=== PATIENT | male | born 1935 | race Caucasian/White ===

== ENCOUNTER 2019-05-06 13:28 | Outpatient (RCR) | payer MEDICARE, OTHER, SELFPAY ==
--- NOTE | 2019-05-07 07:39 | ONC CON_ITS ---
Dr. Mata New Patient Note Patient: Koby Franz Unit #: [id number]: 1935 Dicatated By: Greg Mata M.D.Date of Visit: May 06, 2019 Onc MED New Patient/Consult Referring Physician: JUAN DANIEL MACKAY, F.N.P. Chief Complaint: Thrombocytopenia. History of Present Illness: This is an 83-year-old man with a mild thrombocytopenia. 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 His other medical illnesses include hypertension, hyperlipidemia, hypothyroidism and degenerative arthritis. In February 2019 he was seen by Elida Ackerman at [facility] to establish primary care. At that time he was reportedly feeling well. His laboratory studies included CBC showing hemoglobin 13.7 g and hematocrit 43.5%. The red cell indices were normal. The white blood cell count was 4700. The platelet count was mildly decreased at 114,000. Comprehensive metabolic profile showed normal renal function with BUN 18 and creatinine 0.8 mg/dL. The bilirubin and liver enzymes were normal. TSH was normal at 3.15 ???IU/mL. I am asked to see him in regard to the low platelet count. In reviewing his records in [facility], there is a CBC from 12/31/2017 which showed borderline low hemoglobin at 12.8 g, white blood cell count 4300, and platelet count mildly decreased at 85,000. Comprehensive metabolic profile at that time was unremarkable except for a slightly elevated alkaline phosphatase level. Hip x-rays in March 2018 showed bilateral osteoarthritis involving each hip joint. Cervical spine CT in December 2017 showed significant degenerative changes but no associated central canal stenosis. He complains that he has been going downhill for at least the past several months. This seems to be related to a combination of aftereffects of his stroke and problems related to degenerative arthritis. He complains of having pain in his hips, knees, ankles and feet. He also complains that his legs are getting weak. He is still doing work activities at home, but he is having to force himself to remain active. Generally he has been feeling more tired. He says he has been eating like a horse. He has gained at least 25 pounds since his stroke. He has episodes of getting weak and feeling warm, which he attributes to persistent tick fever, though he has not actually documented fever. He does not have night sweating. He does not complain of shortness of breath, cough, or chest pain. He has no GI complaints other than he sometimes has constipation. He has urinary frequency and nocturia. He sees Dr. Martinez. He does not complain of headache or dizziness. He complains that his left hand has felt cold since his stroke, and he also has loss of touch sensation in the left hand. He has had easy bruising with the blood thinners for his stroke, but that has not been getting any worse. He has had no other bleeding manifestations. Past Medical History: His medical history includes degenerative arthritis/degenerative disease of the spine, hyperlipidemia, hypertension, hypothyroidism, possible asbestos exposure, vitamin D deficiency, and right hemispheric stroke in 2018. He has a history of melanoma excision, and he also reports having had tick fever. Past Surgical History: His surgical/procedural history includes bilateral carpal tunnel release, excision of melanoma from the back approximately 2010, hydrocele repair, partial amputation left second toe, rotator cuff repair left shoulder, rotator cuff repair right shoulder x 5, cataract excision left eye in 2018, and colonoscopy in 2013. Medications: amLODIPine Besylate 1 Tablet (of 5 mg) Oral daily, Aspirin 1 Tablet (of 325 mg) Oral daily, Hezftab-Jxexfepc-Iyuzamslkw-FA 1 Tablet Oral daily, Clopidogrel Bisulfate 1 Tablet (of 75 mg) Oral daily, Daily Mens Health Formula 1 Tablet Oral daily, E 1000 1 Capsule (of 1000 Units) Oral daily, Ferrous Sulfate 1 Tablet (of 325 (65 fe) mg) Oral daily, Levothyroxine Sodium 1 Tablet (of 25 mcg) Oral daily, Vitamin C 1 Capsule (of 500 mg) Oral daily Allergies: Influenza Virus Vaccine Split and predniSONE. Social History: Mr. Franz is and he is retired. He is a non-smoker. He drinks a glass of wine daily. Family History: Both parents of heart attack, father at age 67 and mother at age 71. A sister of heart attack at age 39. A brother with lupus and heart disease. Review Of Symptoms: Constitutional - His energy is low and he is weak, but he forces himself to continue work activities at home. Appetite is good and weight is stable. He feels feverish quite frequently. No fever or night sweats. ECOG score is 1, Eyes - He has had some decline in vision, ENMT - He has hearing loss. He has sinus congestion/drainage. He has sore mouth. He says he bites his liop constantly. No sore throat or difficulty swallowing, Hematologic/Lymphatic - He bruises easily, Respiratory - No shortness of breath. No cough. No pleuritic pain or hemoptysis, Cardiovascular - No angina pain. No palpitations, Gastrointestinal - No nausea or vomiting. No heartburn or acid reflux. He sometimes has constipation. No blood in the stool or black stools, Genitourinary (M) - No dysuria or hematuria. He has urinary frequency, both during the day and at night. No urgency or incontinence, Musculoskeletal - He has pain in his hips, knees, ankles, and feet, Integumentary - No skin complications, Neurologic - No headache or dizziness. His left hand feels cold and numb, Psychiatric - He has anxiety and he has some depression. He has difficulty sleeping. Vital Signs: Performed on May 06, 2019 13:59: 9, 24.08, 1.85 sq.m, 68 in, 96 %, 74 /min, 19 /min, 131/72 mm(hg), 98.0 F (LOW), and 158.4 lbs (HIGH). Physical Examination: Constitutional - He appears generally weak, but not acutely ill, Eyes - Sclerae nonicteric. Conjunctivae clear, ENMT - No lesions noted in the oral cavity, Neck - No mass or thyromegaly, Hematologic/Lymphatic - No cervical, clavicular, or axillary adenopathy, Respiratory - Lungs sound clear. He has good air movement bilaterally, Cardiovascular - Heart rhythm is regular. There is no murmur, gallop, or rub noted, Abdomen - Soft and non-tender. Liver and spleen are not enlarged. There is no abdominal mass or ascites noted and there is no inguinal adenopathy, Back/Spine - No spine or CVA tenderness noted, Extremities - No edema. Peripheral pulses are palpable in the upper and lower extremities bilaterally, Integumentary - No rashes. No suspicious skin lesions noted, Neurologic - He appears generally weak. He has poor mobility and he has postural instability. He does not appear to have any focal neurologic deficit. Impression: 1. Patient with mild thrombocytopenia. The cause/clinical significance is uncertain. Platelet clumping would have to first be excluded. Assuming it is not artifactual, other likely causes would be low-grade autoimmune thrombocytopenia or early stage myelodysplasia. Underlying liver disease would also be a possible cause, and there is a possibility that it is medication related (clopidogrel). 2. He has been showing gradual decline in performance status following a right hemispheric stroke in August 2017. His other medical illnesses include: 3. Hypertension. 4. Hyperlipidemia. 5. Hypothyroidism. 6. Degenerative arthritis/degenerative disease of the spine. 7. He has a history of melanoma excision from the back. 8. Anxiety/depression. Plan: The laboratory findings and clinical implications were reviewed with the patient and his . He will come in tomorrow for additional laboratory studies to include CBC, comprehensive metabolic profile, LDH level, sed rate and CRP level, JOSÉ LUIS screen, and B12 level. I will review the blood smear. He will have further evaluation as indicated. Signed By: Greg Mata M.D. <<Signature on File>>
== END 2019-05-29 23:59 | disposition home or self-care (01) ==
LOC: ONCMED 13:28
PROVIDERS: Family Provider Family Medicine; PCP Nurse Practitioner Family; Visit Provider Internal Medicine Medical Oncology
DX: D69.6 Thrombocytopenia, unspecified (principal); E03.9 Hypothyroidism, unspecified; M19.90 Unspecified osteoarthritis, unspecified site; I10 Essential (primary) hypertension; F41.8 Other specified anxiety disorders; Z77.090 Contact with and (suspected) exposure to asbestos; Z85.820 Personal history of malignant melanoma of skin; Z89.422 Acquired absence of other left toe(s); Z86.73 Personal history of transient ischemic attack (TIA), and cerebral infarction without residual deficits
CPT/HCPCS: 99204

== ENCOUNTER 2019-05-07 13:17 | Outpatient (RCR) | payer MEDICARE, OTHER, SELFPAY ==
[2019-05-07 14:22] LABS: Basophils % 0.2 %; Eosinophils # 0.2 10^3/uL (0.0-0.8); Eosinophils % 3.1 %; Hematocrit 40.1 % (42.0-52.0); Hemoglobin 12.9 g/dL (11.7-16.6); Lymphocytes # 1.1 10^3/uL (0.8-4.8); Lymphocytes % 23.1 %; Mean Corpuscular HGB Conc 32.2 g/dL (30.0-36.0); Mean Corpuscular Hemoglobin 29.7 pg (28.0-34.0); Mean Corpuscular Volume 92.2 fL (80-94); Mean Platelet Volume 12.9 fL (7.4-10.4); Monocytes # 0.5 10^3/uL (0.2-0.9); Monocytes % 10.2 %; Neutrophils # 3.1 10^3/uL (1.8-7.7); Neutrophils % 63.4 %; Nucleated Red Blood Cells % 0 %; Platelet Count 124 10^3/cmm (130-400); Red Blood Count 4.35 10^6/uL (4.1-5.3); Red Cell Distribution Width 12.3 % (12.1-15.1); White Blood Count 4.9 10^3/uL (4.0-10.0)
[2019-05-07 15:18] LABS: Alanine Aminotransferase 17 U/L (0-41); Albumin Level 4.5 g/dL (3.5-5.2); Alkaline Phosphatase 136 IU/L (40-130); Anion Gap 13.8 (5-19); Aspartate Amino Transferase 22 U/L (0-40); Blood Urea Nitrogen 15 mg/dL (8-23); Calcium 9.7 mg/Dl (8.8-10.2); Carbon Dioxide 27 mmol/L (22-29); Chloride 100 mmol/L (98-107); Globulin 2.7 g/dL (1.3-4.6); Glucose 121 mg/dL (74-106); Lactate Dehydrogenase 217 U/L (135-225); Potassium 3.8 mmol/L (3.5-5.1); Sodium 137 mmol/L (136-145); Total Bilirubin 0.7 mg/dL (0.15-1.2); Total Protein 7.2 g/dL (6.6-8.7); Vitamin B12 666 pg/mL (232-1245)
[2019-05-07 15:27] LABS: LAB Peripheral Smear Sent for Review
[2019-05-07 15:34] LABS: Erythrocyte Sedimentation Rate 15 mm/hr (0-10)
[2019-05-08 14:32] LABS: Anti-Nuclear Antibody Screen NEGATIVE (NEGATIVE)
== END 2019-05-29 23:59 | disposition home or self-care (01) ==
LOC: ONCMED 13:17
PROVIDERS: Family Provider Family Medicine; PCP Nurse Practitioner Family; Visit Provider Internal Medicine Medical Oncology
DX: D69.6 Thrombocytopenia, unspecified (principal); M25.50 Pain in unspecified joint
CPT/HCPCS: 80053; 82607; 83615; 85025; 85651; 86038

== ENCOUNTER 2019-07-20 08:46 | Day surgery (SDC) | payer MEDICARE, OTHER, SELFPAY ==
[2019-07-17 14:18] VITALS: BMI 24.3
[2019-07-20 09:10] VITALS: BP 138/80; PULSE 72; RESP 18; TEMP 36.1; O2SAT 96
[2019-07-20] MEDS: sodium chloride 0.9% 1,000 ML 30 ML IV (09:18)
--- NOTE | 2019-07-20 09:20 | W.PM.OPSUD ---
Surgery/Procedure H&P Update DATE OF PROCEDURE: July 20, 2019 DATE H&P PERFORMED: 07/16/19 PREOP DIAGNOSIS: c PLANNED PROCEDURE: Operation Date: 07/20/19 10:00 Proposed Procedures p Colonoscopy 98707 Z86.010(Not Applicable) - Donald Nelosn MD
--- NOTE | 2019-07-20 09:36 | ANES.PREANE2 ---
Pre-Anesthetic Assessment Pre-Anesthetic Assessment: Height/Weight: Height 1.73 m Weight 72.575 kg Temp Pulse Resp BP Pulse Ox 97 F L 72 18 138/80 96 07/20/19 09:10 07/20/19 09:10 07/20/19 09:10 07/20/19 09:10 07/20/19 09:10 Preop Diagnosis: colonoscopy Proposed Procedure: Operation Date: 07/20/19 10:00 Proposed Procedures p Colonoscopy 02430 Z86.010(Not Applicable) - Donald Nelson MD Familial anesthetic complications: none Was Beta Camron taken within 24 hours: N/A Last intake: Intake Last Liquid Date 07/19/19 Last Liquid Time 23:30 Last Solid Date 07/18/19 Last Solid Time 21:30 Social: Social History: Alcohol (2 drinks of wine per day) and No tobacco Exam: Pre-Anes Outpt Exam: alert, oriented x 3, clear to auscultation bilaterally and regular rate & rhythm Airway: Submandibular: WNL Cervical ROM: WNL MP: 1 Dentition: False (upper) and Partials (bottom) History/ROS: No significant complaints Pulmonary: Pulmonary: None reported CV/HEM: CV/HEM: HTN : : None reported Hepatic: Hepatic: None reported GI: GI: None reported Metabolic: Metabolic: Hyperlipidemia and Thyroid Musc/skel: Musc/skel: None reported Neuropsych: Neuropsych: CVA (left side 22 months ago) Anesthetic Plan: ASA status: 3 Anesthesia: MAC Risk of > 500 ml blood loss (7ml/kg in children): No Meds/Allergies Current Medications: Current Medications Generic Name Dose Route Start Last Admin Trade Name Freq PRN Reason Stop Dose Admin Sodium Chloride 1,000 mls @ 30 ml s/hr 07/20/19 09:00 07/20/19 09:18 Sodium Chloride 0.9% IV 30 mls/hr .Q24H TALIA Administration PFSH Anesthesia PFSH: Social History (Updated 07/17/19 @ 08:11 by ALBERTO Nick) Smoking and tobacco status: never smoked Alcohol intake: current Substance/Drug Use: unknown Adopted: No Caregiver/support person: No Lives independently: No Household members: spouse Marital status: Current occupational status: retired History of recent travel: No Data Anesthesia Cardiac Studies: No Data to Display
[2019-07-20 10:12] VITALS: BP 94/59; PULSE 80; RESP 16; TEMP 36.3; O2SAT 97
--- NOTE | 2019-07-20 10:16 | ANE.PACU2 ---
 Inpatient post-anesthesia follow up: Airway intact: Yes Vital signs: Temperature 97.4 F Pulse Rate 80 Respiratory Rate 16 Blood Pressure 94/59 Pulse Oximetry 97 Oxygen Delivery Me thod Room Air Oxygen Flow Rate Fraction of Inspir ed Oxygen Hydration adequate: Yes Nausea and vomiting: No Pain level: 1 Mental status: Baseline
[2019-07-20 10:54] VITALS: BP 111/85; PULSE 75; RESP 18; O2SAT 100
== END 2019-07-20 11:09 | disposition home or self-care (01) ==
PROVIDERS: Family Provider Family Medicine; PCP Nurse Practitioner Family; Visit Provider Internal Medicine
PROC: 0DJD8ZZ Inspection of Lower Intestinal Tract, Via Natural or Artificial Opening Endoscopic (ICD-10-PCS; CPT 45378; principal; 2019-07-20 10:00)
DX: Z86.010 Personal history of colon polyps (principal); K57.30 Diverticulosis of large intestine without perforation or abscess without bleeding; I10 Essential (primary) hypertension; E78.5 Hyperlipidemia, unspecified; Z86.73 Personal history of transient ischemic attack (TIA), and cerebral infarction without residual deficits
CPT/HCPCS: 12345; 45378; J2001; J2704; J7030

== ENCOUNTER 2019-09-22 08:54 | Outpatient (CLI) | payer MEDICARE, OTHER, SELFPAY ==
[2019-09-22 09:24] LABS: Basophils % 0.3 %; Eosinophils # 0.2 10^3/uL (0.0-0.8); Eosinophils % 5.6 %; Hematocrit 41.5 % (42.0-52.0); Hemoglobin 13.1 g/dL (11.7-16.6); Lymphocytes # 1.1 10^3/uL (0.8-4.8); Lymphocytes % 29.3 %; Mean Corpuscular HGB Conc 31.6 g/dL (30.0-36.0); Mean Corpuscular Hemoglobin 30.4 pg (28.0-34.0); Mean Corpuscular Volume 96.3 fL (80-94); Mean Platelet Volume 13.3 fL (7.4-10.4); Monocytes # 0.5 10^3/uL (0.2-0.9); Monocytes % 12.5 %; Nucleated Red Blood Cells % 0 %; Platelet Count 114 10^3/cmm (130-400); Red Blood Count 4.31 10^6/uL (4.1-5.3); Red Cell Distribution Width 12.1 % (12.1-15.1); White Blood Count 3.8 10^3/uL (4.0-10.0)
[2019-09-22 09:51] LABS: Alanine Aminotransferase 20 U/L (0-41); Albumin Level 4.3 g/dL (3.5-5.2); Alkaline Phosphatase 171 IU/L (40-130); Anion Gap 14.3 (5-19); Aspartate Amino Transferase 26 U/L (0-40); Blood Urea Nitrogen 18 mg/dL (8-23); Calcium 9.8 mg/dL (8.5-10.5); Carbon Dioxide 28 mmol/L (22-29); Chloride 104 mmol/L (98-107); Globulin 3.3 g/dL (1.3-4.6); Glucose 99 mg/dL (65-115); Iron 75 ug/dL (59-158); Lactate Dehydrogenase 248 U/L (135-225); Osmolality Calculated 291 mOsm/kg (285-295); Percent Saturation 26.6 % (20-50); Potassium 4.3 mmol/L (3.5-5.1); Sodium 142 mmol/L (136-145); Total Bilirubin 0.7 mg/dL (0.15-1.2); Total Iron Binding Capacity 281 mcg/dl; Total Protein 7.6 g/dL (6.6-8.7); Unsaturated Iron Binding 206 ug/dL (112-347)
[2019-09-22 10:17] LABS: LAB Peripheral Smear Sent for Review
== END 2019-09-22 08:55 | disposition home or self-care (01) ==
LOC: ONCMED 09:00
PROVIDERS: PCP Nurse Practitioner Family; Visit Provider Internal Medicine Medical Oncology
DX: D69.6 Thrombocytopenia, unspecified (principal); D50.9 Iron deficiency anemia, unspecified
CPT/HCPCS: 80053; 83540; 83550; 83615; 85025

== ENCOUNTER 2019-09-23 14:05 | Outpatient (CLI) | payer MEDICARE, OTHER, SELFPAY ==
--- NOTE | 2019-09-27 10:39 | ONC FU_ITS ---
Dr. Mata Patient Follow-Up Note Patient: Koby Franz Unit #: [id number]: 1935 Dicatated By: Greg Mata M.D.Date of Visit:September 23, 2019 Onc Med Follow-up/Prog Note Chief Complaint: Thrombocytopenia. History of Present Illness: This is an 84 year-old man with a mild thrombocytopenia. In February 2019 he was seen by Elida Ackerman at [facility] to establish primary care. At that time he was reportedly feeling well. His laboratory studies included CBC showing hemoglobin 13.7 g and hematocrit 43.5%. The red cell indices were normal. The white blood cell count was 4700. The platelet count was mildly decreased at 114,000. Comprehensive metabolic profile showed normal renal function with BUN 18 and creatinine 0.8 mg/dL. The bilirubin and liver enzymes were normal. TSH was normal at 3.15 ???IU/mL. I had initially seen him on 05/06/2019 in regard to the low platelet count. In reviewing his records in [facility], a CBC from 12/31/2017 had shown borderline low hemoglobin at 12.8 g, white blood cell count 4300, and platelet count mildly decreased at 85,000. Comprehensive metabolic profile at that time was unremarkable except for a slightly elevated alkaline phosphatase level. 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 Cervical spine CT in December 2017 showed significant degenerative changes but no associated central canal stenosis. His evaluation in April 2019 included CBC showing hemoglobin 12.9 g, white blood cell count 4900, and platelet count 124,000. Comprehensive metabolic profile was unremarkable except for slightly elevated alkaline phosphatase of 136/130 IU/L. B12 level was normal at 666 pg/mL. His sed rate was not elevated, and his JOSÉ LUIS screen was negative. As he was not symptomatic, I had initially opted to just follow on observation/expectant management. His other medical illnesses include hypertension, hyperlipidemia, hypothyroidism and degenerative arthritis. 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 He has a non-smoker. He is seen for a scheduled follow-up visit. Since his last visit he had undergone biopsy of a skin lesion in the right amish area. It apparently was skin cancer, and he is going to be having additional surgery. He complains that he is always tired, but he does work a lot around home. His ECOG score is 1. He has good appetite. He says he has been gaining weight, but by our scale he is down 5 pounds since April. He does not have fever or night sweats. He has had some pain in the left chest area following a recent fall. He has no shortness of breath or cough. He has no GI/ complaints other than some urinary frequency and nocturia. He has some generalized stiffness, but no other joint or bone pain. He does not complain of headache. He has some lightheadedness if he gets up too fast. He has had numbness in his left hand since his stroke. He does tend to bruise easily. He has had no other bleeding manifestations. Medications: amLODIPine Besylate 1 Tablet (of 5 mg) Oral daily, Aspirin 1 Tablet (of 325 mg) Oral daily, Cdkwlwi-Ouwmpvye-Empiavqhlm-FA 1 Tablet Oral daily, Clopidogrel Bisulfate 1 Tablet (of 75 mg) Oral daily, Daily Mens Health Formula 1 Tablet Oral daily, E 1000 1 Capsule (of 1000 Units) Oral daily Allergies: Influenza Virus Vaccine Split and predniSONE. Review of Systems: Constitutional - His activity function is slightly decreased, but he still does light work at home. Appetite is good. He is gaining weight. No fever, chills, hot flashes, or night sweats. ECOG score is 1, ENMT - No sinus congestion/drainage. He has mouth sores due to biting his mouth at night. No sore throat or difficulty swallowing, Hematologic/Lymphatic - He has easy bruising. No other bleeding, Respiratory - No shortness of breath. No cough. No pleuritic pain or hemoptysis, Cardiovascular - He has had some chest pain after a recent fall. No palpitations, Gastrointestinal - No nausea or vomiting. No heartburn or acid reflux. No diarrhea or constipation. No blood in the stool or black stools, Genitourinary (M) - No dysuria or hematuria. He urinary frequency and nocturia. No incontinence, Musculoskeletal - He has joint stiffness, Integumentary - No skin rashes, Neurologic - No headache or dizziness. He has had numbness/paresthesias in his left hand since his stroke. No other focal neurologic symptoms, Psychiatric - No anxiety or depression. No insomnia. Vital Signs: Performed on September 23, 2019 14:02 Height - 68.00 in Weight - 153.0 lbs (LOW) BSA - 1.82 sq.m BMI - 23.26 Temperature - 98.7 F Pulse - 69 /min Respiration - 20 /min BP - 142/80 mm(hg) (HIGH) O2 Sat - 95 % (LOW) Pain - 0 Physical Examination: Constitutional - He has poor mobilitiy. He does not appear acutely ill, Eyes - Sclerae nonicteric. Conjunctivae clear, ENMT - No lesions noted in the oral cavity, Hematologic/Lymphatic - No cervical, clavicular, or axillary adenopathy, Respiratory - Lungs sound clear with good air movement bilaterally, Cardiovascular - Heart rhythm is regular. There is no murmur, gallop, or rub noted, Abdomen - Soft. Liver and spleen are not enlarged. There is no abdominal mass or ascites noted and there is no inguinal adenopathy, Extremities - No edema, Neurologic - He has poor mobility and he has postural instability. There are no focal neurologic deficits noted. Lab/Imaging: CBC shows hemoglobin 13.1 g, white blood cell count 3800, and platelet count 114,000. The red cell indices are borderline macrocytic. Comprehensive metabolic profile is unremarkable except for elevated alkaline phosphatase of 171/130 IU/L. LDH is also mildly elevated at 248/225 U/L. Impression: 1. Patient with mild thrombocytopenia. With his other blood counts borderline low and with his alkaline phosphatase elevated, underlying liver disease/hypersplenism is a significant possibility. The other likely cause would be myelodysplasia. There is also a possibility that it is medication related (clopidogrel). 2. 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 His other medical illnesses include: 3. Hypertension. 4. Hyperlipidemia. 5. Hypothyroidism. 6. Degenerative arthritis/degenerative disease of the spine. 7. He has a history of melanoma excision from the back. 8. Anxiety/depression. Plan: He will be scheduled for abdominal CT scan to evaluate the liver and spleen. As he appears stable clinically, I will otherwise just follow on observation/expectant management. I will tentatively plan a follow-up visit in 3 months. Signed By: Greg Mata M.D. <<Signature on File>>
== END 2019-09-23 14:06 | disposition home or self-care (01) ==
PROVIDERS: PCP Nurse Practitioner Family; Visit Provider Internal Medicine Medical Oncology
DX: D69.6 Thrombocytopenia, unspecified (principal); I69.354 Hemiplegia and hemiparesis following cerebral infarction affecting left non-dominant side; I10 Essential (primary) hypertension; E78.5 Hyperlipidemia, unspecified; E03.9 Hypothyroidism, unspecified; M19.90 Unspecified osteoarthritis, unspecified site; M48.9 Spondylopathy, unspecified; Z85.820 Personal history of malignant melanoma of skin; F41.8 Other specified anxiety disorders; Z79.899 Other long term (current) drug therapy
CPT/HCPCS: 99214

== ENCOUNTER 2019-10-05 12:40 | Outpatient (CLI) | payer MEDICARE, OTHER, SELFPAY ==
--- NOTE | 2019-10-05 12:53 | CT_ITS ---
WS: [id number] CT ABDOMEN CONTRAST TECHNIQUE: Contrast enhanced CT of the abdomen with coronal and sagittal reformatted images. CLINICAL INFORMATION: THROMBOCYTOPENIA/ELEVATED LIVER ENZYMES COMPARISON: None. DLP: 331.[address] scans at [facility] use at least one of these dose optimization techniques: automat ed exposure control; mA and/or kV adjustment per patient size (includes targeted exams where dose is matched to clinical indication); or iterative reconstruction. FINDINGS: Mild diffuse fatty infiltration the liver. Splenic granulomas. Small esophageal hiatal hernia. Gallbl adder is normal. Emphysematous changes in the lung bases. Bibasilar atelectasis. Adrenal glands are n ormal. Normal renal parenchymal enhancement. No hydronephrosis. Mild fatty atrophy of the pancreas. Normal caliber abdominal aorta. Aortic calcification. Adrenal glands are normal. Disc space narrowing with vacuum disc phenomenon lumbar spine. Mild lumbar curve. CT/CT abdomen w con* [id number] IMPRESSION: 1. Mild diffuse fatty infiltration liver. Normal spleen. 2. Normal visualized gallbladder. 3. Normal bilateral renal parenchymal enhancement. No hydronephrosis. 4. Normal caliber abdominal aorta. Mild aortic calcification.
[2019-10-05] MEDS: iohexol 300 mg/mL 100 mL Btl IV (13:23)
== END 2019-10-05 12:41 | disposition home or self-care (01) ==
LOC: RAD 12:44
PROVIDERS: PCP Nurse Practitioner Family; Visit Provider Internal Medicine Medical Oncology
DX: R94.5 Abnormal results of liver function studies (principal); D69.6 Thrombocytopenia, unspecified; K76.0 Fatty (change of) liver, not elsewhere classified
CPT/HCPCS: 74160

== ENCOUNTER 2019-12-22 14:25 | Outpatient (CLI) | payer MEDICARE, OTHER, SELFPAY ==
[2019-12-22 14:55] LABS: Basophils % 0.3 %; Eosinophils # 0.2 10^3/uL (0.0-0.8); Eosinophils % 2.6 %; Hematocrit 41.1 % (42.0-52.0); Hemoglobin 13.1 g/dL (11.7-16.6); Lymphocytes # 1.2 10^3/uL (0.8-4.8); Lymphocytes % 20.8 %; Mean Corpuscular HGB Conc 31.9 g/dL (30.0-36.0); Mean Corpuscular Hemoglobin 30.5 pg (28.0-34.0); Mean Corpuscular Volume 95.8 fL (80-94); Mean Platelet Volume 12.7 fL (7.4-10.4); Monocytes # 0.6 10^3/uL (0.2-0.9); Neutrophils # 3.78 10^3/uL (1.8-7.7); Neutrophils % 66.1 %; Nucleated Red Blood Cells % 0 %; Platelet Count 109 10^3/cmm (130-400); Red Blood Count 4.29 10^6/uL (4.1-5.3); Red Cell Distribution Width 12.5 % (12.1-15.1); White Blood Count 5.7 10^3/uL (4.0-10.0)
[2019-12-22 15:23] LABS: Alanine Aminotransferase 18 U/L (0-41); Albumin Level 4.1 g/dL (3.5-5.2); Alkaline Phosphatase 143 IU/L (40-130); Anion Gap 13.5 (5-19); Aspartate Amino Transferase 26 U/L (0-40); Blood Urea Nitrogen 15 mg/dL (8-23); Calcium 9.2 mg/dL (8.5-10.5); Carbon Dioxide 27 mmol/L (22-29); Chloride 106 mmol/L (98-107); Globulin 3.2 g/dL (1.3-4.6); Glucose 92 mg/dL (65-115); Lactate Dehydrogenase 241 U/L (135-225); Osmolality Calculated 290 mOsm/kg (285-295); Potassium 4.5 mmol/L (3.5-5.1); Sodium 142 mmol/L (136-145); Total Bilirubin 0.8 mg/dL (0.15-1.2); Total Protein 7.3 g/dL (6.6-8.7)
== END 2019-12-22 14:26 | disposition home or self-care (01) ==
LOC: ONCMED 14:28
PROVIDERS: PCP Nurse Practitioner Family; Visit Provider Internal Medicine Medical Oncology
DX: D69.6 Thrombocytopenia, unspecified (principal)
CPT/HCPCS: 80053; 83615; 85025

== ENCOUNTER 2019-12-23 15:19 | Outpatient (CLI) | payer MEDICARE, OTHER, SELFPAY ==
--- NOTE | 2019-12-27 14:20 | ONC FU_ITS ---
Dr. Mata Patient Follow-Up Note Patient: Koby Franz Unit #: [id number]: 1935 Dicatated By: Greg Mata M.D.Date of Visit:Dec 23, 2019 Onc Med Follow-up/Prog Note Chief Complaint: Thrombocytopenia. History of Present Illness: This is an 84 year-old man with a mild thrombocytopenia. In February 2019 he was seen by Elida Ackerman at [facility] to establish primary care. At that time he was reportedly feeling well. His laboratory studies included CBC showing hemoglobin 13.7 g and hematocrit 43.5%. The red cell indices were normal. The white blood cell count was 4700. The platelet count was mildly decreased at 114,000. Comprehensive metabolic profile showed normal renal function with BUN 18 and creatinine 0.8 mg/dL. The bilirubin and liver enzymes were normal. TSH was normal at 3.15 ???IU/mL. I had initially seen him on 05/06/2019 in regard to the low platelet count. In reviewing his records in [facility], a CBC from 12/31/2017 had shown borderline low hemoglobin at 12.8 g, white blood cell count 4300, and platelet count mildly decreased at 85,000. Comprehensive metabolic profile at that time was unremarkable except for a slightly elevated alkaline phosphatase level. 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 Cervical spine CT in December 2017 showed significant degenerative changes but no associated central canal stenosis. His evaluation in April 2019 included CBC showing hemoglobin 12.9 g, white blood cell count 4900, and platelet count 124,000. Comprehensive metabolic profile was unremarkable except for slightly elevated alkaline phosphatase of 136/130 IU/L. B12 level was normal at 666 pg/mL. His sed rate was not elevated, and his JOSÉ LUIS screen was negative. As he was not symptomatic, I had initially opted to just follow on observation/expectant management. At his follow-up visit on 09/23/2019 he appeared stable clinically. His platelet count was just mildly decreased at 114,000. The white blood cell count was also a little low at 3800 and his alkaline phosphatase was slightly elevated at 171/130 IU/L. With those findings he had further evaluation with CT abdomen/pelvis on 10/05/2019. It showed just mild diffuse fatty infiltration of the liver. The spleen appeared normal. There are no other abnormal findings. He continued observation/expectant management. His other medical illnesses include hypertension, hyperlipidemia, hypothyroidism and degenerative arthritis. 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 He has a non-smoker. He is seen for a scheduled follow-up visit. He has been feeling pretty good generally. His main complaint is at the end of his tailbone feels raw, and it hurts where he sits. He also complains that he is losing weight. By our scale he is down 11 pounds since his visit in August, and he is down 15 pounds since April. His energy is pretty good, though he says he is having to push hard to get everything done. His ECOG score is 0. His appetite seems to be okay, though he really eats only one good meal a day. He sweats all day, that is associated with activity. He has no night sweating. He does not complain of shortness of breath or cough. He has had some pain in the left side of his chest associated with a recent fall. He does not complain of nausea or acid reflux. Bowel function seems to be adequate with a stool softener. He has urinary frequency and nocturia. He has pain in his knees, shoulders, and ankles. He does not complain of headache. He does have some lightheadedness. He has had numbness in his left hand since the stroke. Medications: amLODIPine Besylate 1 Tablet (of 5 mg) Oral daily, Aspirin 1 Tablet (of 325 mg) Oral daily, Vlozbao-Jbcbqvtg-Jhtfzvddtf-FA 1 Tablet Oral daily, Clopidogrel Bisulfate 1 Tablet (of 75 mg) Oral daily, Daily Mens Health Formula 1 Tablet Oral daily, E 1000 1 Capsule (of 1000 Units) Oral daily, Vitamin B + C Complex 1 Tablet Oral daily Allergies: Influenza Virus Vaccine Split and predniSONE. Review of Systems: Constitutional - He does light work outside. He has mostly normal activity. His appetite is poor, he usual only eats one meal daily. His weight is down 10 pounds from last visit. No fevers. He sweats alot during the day. No hot flashes. ECOG score is 1, ENMT - No sinus congestion/drainage. No mouth sores. No sore throat or difficulty swallowing, Hematologic/Lymphatic - He bruises and bleeds easily, Respiratory - No shortness of breath. No cough. No pleuritic pain or hemoptysis, Cardiovascular - No angina pain. No palpitations. He has some left sided chest wall pain from a recent fall, Gastrointestinal - No nausea or vomiting. No heartburn or acid reflux. No diarrhea. He has occasional constipation, he is taking stool softner's. No blood in the stool or black stools, Genitourinary (M) - No dysuria or hematuria. He has urinary frequency both day and night. No urgency or incontinence, Musculoskeletal - He has joint pain in his knee, shoulders and ankles, Integumentary - No skin complications, Neurologic - No headache or dizziness. He has numbness and weakness to his . No other focal neurologic symptoms, Psychiatric - No anxiety or depression. No insomnia. Vital Signs: Performed on Dec 23, 2019 15:16 Height - 68.00 in Weight - 143.0 lbs (LOW) BSA - 1.77 sq.m BMI - 21.74 Temperature - 98.4 F Pulse - 70 /min Respiration - 18 /min BP - 119/67 mm(hg) O2 Sat - 97 % Pain - 0 Physical Examination: Constitutional - He looks pretty good generally, though he has poor mobilitiy, Eyes - Sclerae nonicteric. Conjunctivae clear, ENMT - No lesions noted in the oral cavity, Hematologic/Lymphatic - No cervical, clavicular, or axillary adenopathy, Respiratory - Lungs sound clear with good air movement bilaterally, Cardiovascular - Heart rhythm is regular. There is no murmur, gallop, or rub noted, Abdomen - Soft. Liver and spleen are not enlarged. There is no abdominal mass or ascites noted and there is no inguinal adenopathy, Extremities - No edema, Neurologic - There are no focal neurologic deficits noted. Lab/Imaging: CBC shows hemoglobin 13.1 g, white blood cell count 5700, and platelet count 109,000. The red cell indices are slightly macrocytic. Comprehensive metabolic profile shows slightly elevated alkaline phosphatase of 143/130 IU/L. The bilirubin and other liver enzymes are normal. Impression: 1. Patient with mild thrombocytopenia. He also has had borderline low to mildly decreased white blood cell count. A specific cause has not been determined. nd with his alkaline phosphatase elevated, underlying liver disease/hypersplenism is a significant possibility. The other likely cause would be myelodysplasia. There is also a possibility that it is medication related (clopidogrel). 2. 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 His other medical illnesses include: 3. Hypertension. 4. Hyperlipidemia. 5. Hypothyroidism. 6. Degenerative arthritis/degenerative disease of the spine. 7. He has a history of melanoma excision from the back. 8. Anxiety/depression. He has mild thrombocytopenia and he has had borderline low to mildly decreased white blood cell count. His alkaline phosphatase has been mildly elevated, but he has CT abdomen/pelvis in September 2019 showed just mild fatty infiltration of the liver. The spleen appeared normal and there was no lymphadenopathy or other abnormality noted on that study. In the absence of significant underlying liver disease/hypersplenism, the most likely cause for the low blood counts would be myelodysplasia. Clopidogrel would be another possible cause, though much less likely. Thus far during follow-up his blood counts have basically remained stable. He has had significant weight loss. He otherwise appears stable clinically. Plan: He remains on observation/expectant management. I will tentatively plan a follow-up visit in 6 months. Signed By: Greg Mata M.D. <<Signature on File>>
== END 2019-12-23 15:20 | disposition home or self-care (01) ==
LOC: ONCMED 15:23
PROVIDERS: PCP Nurse Practitioner Family; Visit Provider Internal Medicine Medical Oncology
DX: D69.6 Thrombocytopenia, unspecified (principal); I10 Essential (primary) hypertension; E78.5 Hyperlipidemia, unspecified; E03.9 Hypothyroidism, unspecified; M19.90 Unspecified osteoarthritis, unspecified site; M47.9 Spondylosis, unspecified; F41.8 Other specified anxiety disorders; Z85.820 Personal history of malignant melanoma of skin; K76.0 Fatty (change of) liver, not elsewhere classified; R63.4 Abnormal weight loss; Z68.21 Body mass index [BMI] 21.0-21.9, adult
CPT/HCPCS: G0463

== ENCOUNTER 2020-06-29 11:34 | Outpatient (CLI) | payer MEDICARE, OTHER, SELFPAY ==
[2020-06-29 12:30] LABS: Basophils % 0.2 %; Eosinophils # 0.2 10^3/uL (0.0-0.8); Eosinophils % 3.5 %; Hematocrit 43.6 % (42.0-52.0); Hemoglobin 13.9 g/dL (11.7-16.6); Lymphocytes # 1.1 10^3/uL (0.8-4.8); Lymphocytes % 24.4 %; Mean Corpuscular HGB Conc 31.9 g/dL (30.0-36.0); Mean Corpuscular Hemoglobin 30.7 pg (28.0-34.0); Mean Corpuscular Volume 96.2 fL (80-94); Mean Platelet Volume 12.3 fL (7.4-10.4); Monocytes # 0.4 10^3/uL (0.2-0.9); Neutrophils # 2.64 10^3/uL (1.8-7.7); Neutrophils % 61.4 %; Nucleated Red Blood Cells % 0 %; Platelet Count 100 10^3/cmm (130-400); Red Blood Count 4.53 10^6/uL (4.1-5.3); Red Cell Distribution Width 12.3 % (12.1-15.1); White Blood Count 4.3 10^3/uL (4.0-10.0)
[2020-06-29 12:36] LABS: Alanine Aminotransferase 15 U/L (0-41); Albumin Level 4.4 g/dL (3.5-5.2); Alkaline Phosphatase 176 IU/L (40-130); Anion Gap 12.1 (5-19); Aspartate Amino Transferase 23 U/L (0-40); Blood Urea Nitrogen 17 mg/dL (8-23); Calcium 9.4 mg/dL (8.5-10.5); Carbon Dioxide 29 mmol/L (22-29); Chloride 103 mmol/L (98-107); Globulin 3.4 g/dL (1.3-4.6); Glucose 103 mg/dL (65-115); Lactate Dehydrogenase 230 U/L (135-225); Osmolality Calculated 292 mOsm/kg (285-295); Potassium 4.1 mmol/L (3.5-5.1); Sodium 140 mmol/L (136-145); Total Bilirubin 0.6 mg/dL (0.15-1.2); Total Protein 7.8 g/dL (6.6-8.7)
== END 2020-06-29 11:35 | disposition home or self-care (01) ==
PROVIDERS: PCP Nurse Practitioner Family; Visit Provider Internal Medicine Medical Oncology
DX: D69.6 Thrombocytopenia, unspecified (principal)
CPT/HCPCS: 80053; 83615; 85025

== ENCOUNTER 2020-07-06 06:05 | Outpatient (CLI) | payer MEDICARE, OTHER, SELFPAY ==
--- NOTE | 2020-07-10 14:45 | ONC FU_ITS ---
Dr. Mata Patient Follow-Up Note Patient: Koby Franz Unit #: [id number]: 1935 Dicatated By: Greg Mata M.D.Date of Visit:Jul 06, 2020 Onc Med Follow-up/Prog Note Chief Complaint: Thrombocytopenia. History of Present Illness: This is an 84 year-old man with a mild thrombocytopenia. In February 2019 he was seen by Elida Ackerman at [facility] to establish primary care. At that time he was reportedly feeling well. His laboratory studies included CBC showing hemoglobin 13.7 g and hematocrit 43.5%. The red cell indices were normal. The white blood cell count was 4700. The platelet count was mildly decreased at 114,000. Comprehensive metabolic profile showed normal renal function with BUN 18 and creatinine 0.8 mg/dL. The bilirubin and liver enzymes were normal. TSH was normal at 3.15 ???IU/mL. I had initially seen him on 05/06/2019 in regard to the low platelet count. In reviewing his records in [facility], a CBC from 12/31/2017 had shown borderline low hemoglobin at 12.8 g, white blood cell count 4300, and platelet count mildly decreased at 85,000. Comprehensive metabolic profile at that time was unremarkable except for a slightly elevated alkaline phosphatase level. 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 Cervical spine CT in December 2017 showed significant degenerative changes but no associated central canal stenosis. His evaluation in April 2019 included CBC showing hemoglobin 12.9 g, white blood cell count 4900, and platelet count 124,000. Comprehensive metabolic profile was unremarkable except for slightly elevated alkaline phosphatase of 136/130 IU/L. B12 level was normal at 666 pg/mL. His sed rate was not elevated, and his JOSÉ LUIS screen was negative. As he was not symptomatic, I had initially opted to just follow on observation/expectant management. At his follow-up visit on 09/23/2019 he appeared stable clinically. His platelet count was just mildly decreased at 114,000. The white blood cell count was also a little low at 3800 and his alkaline phosphatase was slightly elevated at 171/130 IU/L. With those findings he had further evaluation with CT abdomen/pelvis on 10/05/2019. It showed just mild diffuse fatty infiltration of the liver. The spleen appeared normal. There are no other abnormal findings. He continued observation/expectant management. His other medical illnesses include hypertension, hyperlipidemia, hypothyroidism and degenerative arthritis. 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 He has a non-smoker. He is seen for a scheduled follow-up visit. He complains that his energy is not worth a hoot. He attributes this to the stroke having knocked the sails out of him. His activity is also significantly limited due to his knee pain. However, he still does quite a bit of work at home. His ECOG score is 1. He has good appetite. He has no fever or night sweats. He does report some bruising, but that is not any worse, and he has had no other bleeding manifestations. He does not complain of shortness of breath, cough, or chest pain. He does, however, have a very strong family history for coronary artery disease. He has no GI complaints other than occasional indigestion. He has urinary frequency and nocturia. He also has pain in his right shoulder. He still has some slight weakness on the left side since his stroke. He complains that his left hand is cold all the time and he has numbness in his left foot. He is not having headache or dizziness. He has had some depression since his in April. Medications: amLODIPine Besylate 1 Tablet (of 5 mg) Oral daily, Aspirin 1 Tablet (of 325 mg) Oral daily, Ysaqukj-Dcrmfwoi-Dhnjromrrr-FA 1 Tablet Oral daily, Clopidogrel Bisulfate 1 Tablet (of 75 mg) Oral daily, Daily Mens Health Formula 1 Tablet Oral daily, E 1000 1 Capsule (of 1000 Units) Oral daily, Vitamin B + C Complex 1 Tablet Oral daily Allergies: Influenza Virus Vaccine Split and predniSONE. Vital Signs: Performed on Jul 06, 2020 15:18 Height - 68.00 in Weight - 156.4 lbs (HIGH) BSA - 1.84 sq.m BMI - 23.78 Temperature - 98.6 F Pulse - 80 /min Respiration - 18 /min BP - 148/82 mm(hg) (HIGH) O2 Sat - 97 % Pain - 0 Fatigue - 0 Physical Examination: Constitutional - He looks pretty good generally, Eyes - Sclerae nonicteric. Conjunctivae clear, ENMT - No lesions noted in the oral cavity, Hematologic/Lymphatic - No cervical, clavicular, or axillary adenopathy, Respiratory - Lungs sound clear with good air movement bilaterally, Cardiovascular - Heart rhythm is regular. There is no murmur, gallop, or rub noted, Abdomen - Soft. Liver and spleen are not enlarged. There is no abdominal mass or ascites noted and there is no inguinal adenopathy, Extremities - No edema, Neurologic - He has poor mobility, but he is not appear to have any focal neurologic deficit. Lab/Imaging: Test performed on Jun 29, 2020 11:52 LDH (Total) 230 U/L Sodium 140 mmol/L Potassium 4.1 mmol/L Chloride 103 mmol/L CO2 29 mmol/L Anion Gap 12.1 BUN 17 mg/dL Creatinine 0.8 mg/dL Cr Clearance (Est) 63.06 mL/min Glucose 103 mg/dL Osmolality - Calculated 292 mOsm/kg Calcium 9.4 mg/dL Protein, Total 7.8 g/dL Albumin 4.4 g/dL Globulin 3.4 g/dL Bilirubin, Total 0.6 mg/dL ALT (SGPT) 15 U/L AST (SGOT) 23 U/L Alkaline Phosphatase 176 IU/L WBC 4.3 10 3/uL RBC 4.53 10 6/uL HGB 13.9 g/dL HCT 43.6 % MCV 96.2 fL MCH 30.7 pg MCHC 31.9 g/dL RDW 12.3 % Platelet Count 100 10 3/cmm MPV 12.3 fL Neutrophils 2.64 10 3/uL Lymphocytes 1.1 10 3/uL Monocytes 0.4 10 3/uL Eosinophils 0.2 10 3/uL Basophils 0.0 10 3/uL Neutrophil % 61.4 % Lymphocyte % 24.4 % Monocyte % 10.0 % Eosinophil % 3.5 % Basophils % 0.2 % NRBC % 0 % Problem List: 1. Patient with mild thrombocytopenia and mildly decreased white blood cell count of uncertain etiology. 2. 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 3. Hypertension. 4. Hyperlipidemia. 5. Hypothyroidism. 6. Degenerative arthritis/degenerative disease of the spine. 7. He has a history of melanoma excision from the back. 8. Anxiety/depression. Problems Addressed with this Encounter and Plan: 1. Patient with mild thrombocytopenia. He also had borderline low to mildly decreased white blood cell count. Liver disease/hypersplenism or myelodysplasia appeared to be the most likely possibilities. His CT abdomen/pelvis in September 2019 showed just mild fatty infiltration of the liver, and the spleen appeared normal. As his blood counts have been just mildly decreased, I have opted to follow him on observation/expectant management. Thus far during follow-up he has been stable. I will see him again in 6 months. 2. He suffered a right hemispheric stroke in August 2017 and he also has a strong family history of coronary artery disease. Has he has not been on any statin therapy, I will check a lipid profile with his next visit. Signed By: Greg Mata M.D. <<Signature on File>>
== END 2020-07-06 06:06 | disposition home or self-care (01) ==
LOC: ONCMED 06:08
PROVIDERS: PCP Nurse Practitioner Family; Visit Provider Internal Medicine Medical Oncology
DX: D69.6 Thrombocytopenia, unspecified (principal); K76.0 Fatty (change of) liver, not elsewhere classified; D72.819 Decreased white blood cell count, unspecified; Z86.73 Personal history of transient ischemic attack (TIA), and cerebral infarction without residual deficits
CPT/HCPCS: 99214

== ENCOUNTER 2020-12-02 05:55 | Emergency (ER) | payer MEDICARE, OTHER, SELFPAY ==
[2020-12-02] VITALS (8 sets, daily range): BP systolic 140–187; BP diastolic 84–127; PULSE 54–73; RESP 18–20; TEMP 36.8; O2SAT 97–98; BMI 23.7
--- NOTE | 2020-12-02 06:08 | XRR_ITS ---
PROCEDURE INFORMATION: Exam: XR Chest Exam date and time: 12/02/2020 6:08 AM Age: 85 years old Clinical indication: Chest pressure; Patient HX: Left sided chest pain TECHNIQUE: Imaging protocol: XR of the chest. Views: 1 view. COMPARISON: [facility] Chest 2 views 05/19/2018 12:29 PM FINDINGS: Lungs: Low lung volumes. There is a patchy airspace opacity in the left lower lung, concerning for pneumonia. Pleural spaces: Unremarkable. No pleural effusion. No pneumothorax. Heart/Mediastinum: Stable cardiomediastinal silhouette. Bones/joints: Degenerative changes of the spine and shoulder joints noted. XR/XR chest 1V portable [id number] IMPRESSION: Imaging findings concerning for left lower lobe pneumonia.
--- NOTE | 2020-12-02 06:09 | ECG_ITS ---
[facility] ED Test Date: 2020-12-02 Pat Name: Koby Franz Department: Room: Gender: Male Returned Goods Sorter: : 1935 Requested By: Eh Gates Order Number: [id number] Diego MD: Sugey Montejo M.D. Measurements Intervals [facility] Rate: 66 P: 41 WA: 175 QRS: 5 QRSD: 84 T: 73 QT: 422 QTc: 445 Interpretive Statements SINUS RHYTHM NONSPECIFIC T-WAVE ABNORMALITY No previous ECG available for comparison Electronically Signed On 12-02-2020 13:52:19 CDT by Sugey Montejo M.D. [id number]
--- NOTE | 2020-12-02 06:12 | ED_ITS ---
HPI - Chest Pain General: Chief Complaint: Chest Pain Stated Complaint: CP Time Seen by Provider: 12/02/20 06:08 History of Present Illness: HPI narrative: 85-year-old male presents emergency room complaining of chest pain that began this morning around 0130 AM. Woke him up from sleep. Pain is in the left side of his chest is not relieved by eructation. Its been increasing in severity there is no radiation he does feel like it is difficult to take a deep breath. He has noted that deep breathing significantly worsens the discomfort has not had any vomiting he has felt somewhat diaphoretic. He has no known history of coronary artery disease no previous evaluation for stress test or angiogram. He is not diabetic. He is a non-smoker. MD complaint: chest pain and chest heaviness Onset (ago): hour(s) Timing of current episode: episodic Onset: during rest Pain location: substernal Pain radiation: none Severity: moderate Quality: sharp Relieving factors: nothing Exacerbating factors: nothing Associated symptoms: Reports abdominal pain, dyspnea, nausea and sense of impending doom; Deny diaphoresis, fever(s), leg edema, palpitations, syncope or vomiting Treatment prior to arrival: none Review of Systems Const: Denies: fever(s) or diaphoresis ENMT: Denies: throat pain, ear or mastoid pain, nasal discharge or nasal congestion Card: Denies: palpitations or syncope Resp: Reports: dyspnea GI: Reports: abdominal pain and nausea; Denies: vomiting : Denies: flank pain, dysuria, urinary frequency or urinary urgency Skin/Breast: Denies: rash or pruritus PFSH ED PFSH: Medical History Elevated PSA Erectile dysfunction Testicular pain, left Surgical History S/P repair of hydrocele Family History Father , at age 77 Myocardial infarct Mother , at age 79 Myocardial infarct Social History Smoking and tobacco status: never smoked Alcohol intake: current Alcohol intake frequency: 0-2 Drinks per Day Adopted: No Caregiver/support person: No Lives independently: No Household members: spouse Marital status: Current occupational status: retired History of recent travel: No Physical Exam Const: COMMON NORMALS: no acute distress GENERAL APPEARANCE: cooperative and comfortable ORIENTATION/CONSCIOUSNESS: Yes awake, Yes oriented to person, Yes oriented to place and Yes oriented to time HENMT: COMMON NORMALS: normocephalic, atraumatic and hearing grossly normal bilaterally HEAD & SCALP: normocephalic and atraumatic Resp: COMMON NORMALS: normal respiratory effort, No retractions, No use of accessory muscles and clear to auscultation bilaterally AUSCULTATION: clear to auscultation bilaterally Cardio: COMMON NORMALS: regular rate, regular rhythm and No murmurs present ( Cardio) RATE: regular rate RHYTHM: regular rhythm GI: COMMON NORMALS: Soft to palpation and No hepatosplenomegaly present AUSCULTATION: Yes normoactive bowel sounds PALPATION: Yes Soft to palpation, No Tenderness to palpation present (GI), No Guarding due to palpation present (GI) and Yes No hepatosplenomegaly present Extremity: COMMON NORMALS: normal to inspection, capillary refill normal, no clubbing, cyanosis or edema, no calf tenderness and no pedal edema Neuro: SENSORIUM/ORIENTATION: Yes oriented to person, Yes oriented to place and Yes oriented to time Skin: COMMON NORMALS: no rashes or lesions noted GENERAL SKIN EXAM: no rashes or lesions noted Course Vital Signs: Vital signs: Vital Signs Temperature 98.2 F 12/02/20 05:56 Pulse Rate 67 12/02/20 11:12 Respiratory Rate 18 12/02/20 11:12 Blood Pressure 151/84 12/02/20 11:12 Pulse Oximetry 98 12/02/20 10:22 MDM - Chest Pain MDM Narrative: Medical decision making narrative: Patient is feeling better he does have a pneumonia. Laboratory tests EKGs and cardiac enzymes reviewed patient prefer to go home we will treat with oral antibiotics if his further problems return. His chest pain is very pleuritic in nature. Lab Data: Labs: Lab Results 12/02/20 12/02/20 12/02/20 Range/Units 06:00 06:00 06:00 WBC 3.8 L (4.0-10.0) 10^3/ uL RBC 4.51 (4.1-5.3) 10^6/u L Hgb 14.0 (11.7-16.6) g/dL Hct 43.3 (42.0-52.0) % MCV 96.0 H (80-94) fL MCH 31.0 (28.0-34.0) pg MCHC 32.3 (30.0-36.0) g/dL RDW 12.4 (12.1-15.1) % Plt Count 90 L (130-400) 10^3/c mm MPV 13.0 H (7.4-10.4) fL Neut % (Auto) 45.1 % Lymph % (Auto) 34.1 % Mcminn % (Auto) 12.1 % Eos % (Auto) 8.1 % Baso % (Auto) 0.3 % Neut # (Auto) 1.72 L (1.8-7.7) 10^3/u L Lymph # (Auto) 1.3 (0.8-4.8) 10^3/u L Mcminn # (Auto) 0.5 (0.2-0.9) 10^3/u L Eos # (Auto) 0.3 (0.0-0.8) 10^3/u L Baso # (Auto) 0.0 (0.0-0.1) 10^3/u L Nucleated RBC % (a uto) 0 % Nucleated RBCs # 0.0 /100WBC Sodium 140 (136-145) mmol/L Potassium 3.9 (3.5-5.1) mmol/L Chloride 105 (98-107) mmol/L Carbon Dioxide 26 (22-29) mmol/L Anion Gap 12.9 (5-19) BUN 11 (8-23) mg/dL Creatinine 0.6 L (0.7-1.2) mg/dL GFR Calculation Not Reportable Glucose 99 (65-115) mg/dL Calculated Osmolal ity 289 (285-295) mOsm/k g Calcium 8.6 (8.5-10.5) mg/dL Total Bilirubin 0.5 (0.15-1.2) mg/dL AST 29 (0-40) U/L ALT 19 (0-41) U/L Alkaline Phosphata se 288 H (40-130) IU/L Troponin T Baselin e 13 (0-15) ng/L Troponin T 120 Min taco (0-15) ng/L Delta Troponin T (0-10) ABS# Total Protein 7.1 (6.6-8.7) g/dL Albumin 4.5 (3.5-5.2) g/dL Globulin 2.6 (1.3-4.6) g/dL Lipase 26 (13-60) U/L Nasal/Oral COVID-1 9 PCR SARS-CoV-2 RNA (RT -PCR) (NOT DETECTED) SARS-CoV-2 Ag (Rap id) (Negative) 12/02/20 12/02/20 12/02/20 Range/Units 07:54 08:30 10:24 WBC (4.0-10.0) 10^3/ uL RBC (4.1-5.3) 10^6/u L Hgb (11.7-16.6) g/dL Hct (42.0-52.0) % MCV (80-94) fL MCH (28.0-34.0) pg MCHC (30.0-36.0) g/dL RDW (12.1-15.1) % Plt Count (130-400) 10^3/c mm MPV (7.4-10.4) fL Neut % (Auto) % Lymph % (Auto) % Mcminn % (Auto) % Eos % (Auto) % Baso % (Auto) % Neut # (Auto) (1.8-7.7) 10^3/u L Lymph # (Auto) (0.8-4.8) 10^3/u L Mcminn # (Auto) (0.2-0.9) 10^3/u L Eos # (Auto) (0.0-0.8) 10^3/u L Baso # (Auto) (0.0-0.1) 10^3/u L Nucleated RBC % (a uto) % Nucleated RBCs # /100WBC Sodium (136-145) mmol/L Potassium (3.5-5.1) mmol/L Chloride (98-107) mmol/L Carbon Dioxide (22-29) mmol/L Anion Gap (5-19) BUN (8-23) mg/dL Creatinine (0.7-1.2) mg/dL GFR Calculation Glucose (65-115) mg/dL Calculated Osmolal ity (285-295) mOsm/k g Calcium (8.5-10.5) mg/dL Total Bilirubin (0.15-1.2) mg/dL AST (0-40) U/L ALT (0-41) U/L Alkaline Phosphata se (40-130) IU/L Troponin T Baselin e (0-15) ng/L Troponin T 120 Min taco 12.13 (0-15) ng/L Delta Troponin T -0.87 L (0-10) ABS# Total Protein (6.6-8.7) g/dL Albumin (3.5-5.2) g/dL Globulin (1.3-4.6) g/dL Lipase (13-60) U/L Nasal/Oral COVID-1 9 PCR Cancelled SARS-CoV-2 RNA (RT -PCR) (NOT DETECTED) SARS-CoV-2 Ag (Rap id) Negative (Negative) 12/02/20 Range/Units 10:24 WBC (4.0-10.0) 10^3/ uL RBC (4.1-5.3) 10^6/u L Hgb (11.7-16.6) g/dL Hct (42.0-52.0) % MCV (80-94) fL MCH (28.0-34.0) pg MCHC (30.0-36.0) g/dL RDW (12.1-15.1) % Plt Count (130-400) 10^3/c mm MPV (7.4-10.4) fL Neut % (Auto) % Lymph % (Auto) % Mcminn % (Auto) % Eos % (Auto) % Baso % (Auto) % Neut # (Auto) (1.8-7.7) 10^3/u L Lymph # (Auto) (0.8-4.8) 10^3/u L Mcminn # (Auto) (0.2-0.9) 10^3/u L Eos # (Auto) (0.0-0.8) 10^3/u L Baso # (Auto) (0.0-0.1) 10^3/u L Nucleated RBC % (a uto) % Nucleated RBCs # /100WBC Sodium (136-145) mmol/L Potassium (3.5-5.1) mmol/L Chloride (98-107) mmol/L Carbon Dioxide (22-29) mmol/L Anion Gap (5-19) BUN (8-23) mg/dL Creatinine (0.7-1.2) mg/dL GFR Calculation Glucose (65-115) mg/dL Calculated Osmolal ity (285-295) mOsm/k g Calcium (8.5-10.5) mg/dL Total Bilirubin (0.15-1.2) mg/dL AST (0-40) U/L ALT (0-41) U/L Alkaline Phosphata se (40-130) IU/L Troponin T Baselin e (0-15) ng/L Troponin T 120 Min taco (0-15) ng/L Delta Troponin T (0-10) ABS# Total Protein (6.6-8.7) g/dL Albumin (3.5-5.2) g/dL Globulin (1.3-4.6) g/dL Lipase (13-60) U/L Nasal/Oral COVID-1 9 PCR SARS-CoV-2 RNA (RT -PCR) Not detected (NOT DETECTED) SARS-CoV-2 Ag (Rap id) (Negative) Discharge Plan Discharge Patient Disposition: Home Clinical Impression: Atypical chest pain, Pneumonia, GERD with esophagitis Condition: Stable Prescriptions: New levofloxacin 750 mg tablet 750 mg PO DAILY 7 Days RF: 0 Protonix 40 mg tablet,delayed release (DR/EC) 40 mg PO DAILY Qty: 30 RF: 1 No Action clopidogrel 75 mg tablet 75 mg PO DAILY RF: 0 levothyroxine 25 mcg capsule 25 mcg PO DAILY RF: 0 acetaminophen 325 mg capsule 325 mg PO QID PRN (Reason: Pain) RF: 0 multivitamin [One Daily Multivitamin] Tablet 1 tab PO DAILY RF: 0 amlodipine 10 mg tablet 5 mg PO DAILY RF: 0 naproxen sodium [Aleve] 220 mg tablet 220 mg PO .prn PRNRF: 0 ibuprofen [Motrin IB] 200 mg tablet 200 mg PO Q6H PRNRF: 0 B-100 Complex 100 mg tablet extended release PO DAILY RF: 0 glucosamine sulfate [Glucosamine] 500 mg tablet 1,500 mg PO DAILY RF: 0 aspirin 325 mg Tablet,Delayed Release (Dr/Ec) 325 mg PO DAILY RF: 0 ibuprofen 200 mg Tablet 200 mg PO Q6H PRN (Reason: Pain) RF: 0 Discharge Orders: Discharge ED (Routine); Ordered 12/02/20 Ordered By: Eh Barnes Referrals: Elida Ackerman FNP [Primary Care Provider] - Discharge Diet: Usual diet Discharge Activity: Increase activity as tolerated Patient Instructions: Opioid Safety Activity Restrictions/Additional Instructions: Management will call with an appointment for a Lexiscan sestamibi stress test Coding Level of Care Code ED Medical Accounts Receivable Specialist for Lynn Fwd Exam Detailed
[2020-12-02] MEDS: lidocaine 2% viscous 15 ML, aluminum-mag hydrox-simethicon 30 ML, sucralfate oral liq 1 GM PO ×2 (06:18→10:18)
[2020-12-02 06:21] LABS: Basophils % 0.3 %; Eosinophils # 0.3 10^3/uL (0.0-0.8); Eosinophils % 8.1 %; Hematocrit 43.3 % (42.0-52.0); Lymphocytes # 1.3 10^3/uL (0.8-4.8); Lymphocytes % 34.1 %; Mean Corpuscular HGB Conc 32.3 g/dL (30.0-36.0); Monocytes # 0.5 10^3/uL (0.2-0.9); Monocytes % 12.1 %; Neutrophils # 1.72 10^3/uL (1.8-7.7); Neutrophils % 45.1 %; Nucleated Red Blood Cells % 0 %; Platelet Count 90 10^3/cmm (130-400); Red Blood Count 4.51 10^6/uL (4.1-5.3); Red Cell Distribution Width 12.4 % (12.1-15.1); White Blood Count 3.8 10^3/uL (4.0-10.0)
[2020-12-02 06:29] LABS: Alanine Aminotransferase 19 U/L (0-41); Albumin Level 4.5 g/dL (3.5-5.2); Alkaline Phosphatase 288 IU/L (40-130); Anion Gap 12.9 (5-19); Aspartate Amino Transferase 29 U/L (0-40); Blood Urea Nitrogen 11 mg/dL (8-23); Calcium 8.6 mg/dL (8.5-10.5); Carbon Dioxide 26 mmol/L (22-29); Chloride 105 mmol/L (98-107); Globulin 2.6 g/dL (1.3-4.6); Glucose 99 mg/dL (65-115); Lipase 26 U/L (13-60); Osmolality Calculated 289 mOsm/kg (285-295); Potassium 3.9 mmol/L (3.5-5.1); Sodium 140 mmol/L (136-145); Total Bilirubin 0.5 mg/dL (0.15-1.2); Total Protein 7.1 g/dL (6.6-8.7)
[2020-12-02 06:33] LABS: Troponin(5th) Baseline 13 ng/L (0-15)
[2020-12-02 08:22] LABS: Troponin 5 2HR 12.13 ng/L (0-15)
[2020-12-02 08:25] LABS: Troponin 5 2HR Delta -0.87 ABS# (0-10)
[2020-12-02] MEDS: nitroglycerin 1 gm/inch oint Pkt 0.5 INCH TOPICAL (08:25)
[2020-12-02 09:28] LABS: SARS Covid-2 Antigen Negative (Negative)
--- NOTE | 2020-12-02 11:02 | DCPLANNER ---
fitness club manager had message to schedule an out patient stress test for patient. fitness club manager faxed signed order to centralized scheduling.
[2020-12-04 04:12] LABS: Quest SARS-CoV-2 RNA NOT DETECTED (NOT DETECTED)
--- NOTE | 2020-12-04 08:43 | PC.NURSE ---
Patient contacted regarding covid test, spoke with patient stating covid was negative.
--- NOTE | 2020-12-05 07:42 | DCPLANNER ---
Patient had an outpatient stress test scheduled for 12.22.20 - stress test was cancelled.
== END 2020-12-02 11:12 | disposition home or self-care (01) ==
PROVIDERS: Emergency Provider Family Medicine; PCP Nurse Practitioner Family
DX: R07.89 Other chest pain (principal); J18.9 Pneumonia, unspecified organism; K21.00 Gastro-esophageal reflux disease with esophagitis, without bleeding; Z79.02 Long term (current) use of antithrombotics/antiplatelets; Z79.82 Long term (current) use of aspirin; Z20.822 Contact with and (suspected) exposure to COVID-19
CPT/HCPCS: 71045; 80053; 83690; 84484; 85025; 87426; 87635; 93005; 99284

== ENCOUNTER 2021-01-23 09:42 | Outpatient (CLI) | payer MEDICARE, OTHER, SELFPAY ==
[2021-01-23 10:14] LABS: Basophils % 0.3 %; Eosinophils # 0.2 10^3/uL (0.0-0.8); Eosinophils % 4.8 %; Hematocrit 36.7 % (42.0-52.0); Hemoglobin 11.5 g/dL (11.7-16.6); Lymphocytes # 0.9 10^3/uL (0.8-4.8); Lymphocytes % 27.2 %; Mean Corpuscular HGB Conc 31.3 g/dL (30.0-36.0); Mean Corpuscular Hemoglobin 29.5 pg (28.0-34.0); Mean Corpuscular Volume 94.1 fl (80-94); Mean Platelet Volume 11.9 fL (7.4-10.4); Monocytes # 0.4 10^3/uL (0.2-0.9); Monocytes % 11.1 %; Neutrophils # 1.88 10^3/uL (1.8-7.7); Neutrophils % 56.3 %; Nucleated Red Blood Cells % 0 %; Platelet Count 155 10^3/cmm (130-400); Red Cell Distribution Width 13.2 % (12.1-15.1); White Blood Count 3.3 10^3/uL (4.0-10.0)
[2021-01-23 10:44] LABS: Alanine Aminotransferase 19 U/L (0-41); Albumin Level 3.6 g/dL (3.5-5.2); Alkaline Phosphatase 214 IU/L (40-130); Anion Gap 12.2 (5-19); Aspartate Amino Transferase 22 U/L (0-40); Blood Urea Nitrogen 13 mg/dL (8-23); Calcium 8.9 mg/dL (8.5-10.5); Carbon Dioxide 26 mmol/L (22-29); Chloride 101 mmol/L (98-107); Chol HDL Ratio 3.29 mg/dL (1.0-5.00); Cholesterol 138 mg/dL (0-200); Globulin 3.7 g/dL (1.3-4.6); Glucose 102 mg/dL (65-115); HDL Cholesterol 42 mg/dL (60-100); LDL Cholesterol Calculated 81 mg/dL (50-129); Lactate Dehydrogenase 227 U/L (135-225); Osmolality Calculated 280 mOsm/kg (285-295); Potassium 4.2 mmol/L (3.5-5.1); Sodium 135 mmol/L (136-145); Total Bilirubin 0.6 mg/dL (0.15-1.2); Total Protein 7.3 g/dL (6.6-8.7); Triglycerides 76 mg/dL (0-150); VLDL Cholestrol Calculation 15 mg/dL (0-30)
== END 2021-01-23 09:43 | disposition home or self-care (01) ==
LOC: ONCMED 09:46
PROVIDERS: PCP Nurse Practitioner Family; Visit Provider Internal Medicine Medical Oncology
DX: D69.6 Thrombocytopenia, unspecified (principal)
CPT/HCPCS: 36415; 80053; 80061; 83615; 85025

== ENCOUNTER 2021-01-25 06:46 | Outpatient (CLI) | payer MEDICARE, OTHER, SELFPAY ==
--- NOTE | 2021-01-25 09:32 | ONC FU_ITS ---
Dr. Mata Patient Follow-Up Note Patient: Koby Franz Unit #: [id number]: [id number] Dicatated By: Greg Mata M.D.Date of Visit:Jan 25, 2021 Onc Med Follow-up/Prog Note Chief Complaint: Thrombocytopenia. History of Present Illness: This is an 85 year-old man with a mild thrombocytopenia. In February 2019 he was seen by Elida Ackerman at [facility] to establish primary care. At that time he was reportedly feeling well. His laboratory studies included CBC showing hemoglobin 13.7 g and hematocrit 43.5%. The red cell indices were normal. The white blood cell count was 4700. The platelet count was mildly decreased at 114,000. Comprehensive metabolic profile showed normal renal function with BUN 18 and creatinine 0.8 mg/dL. The bilirubin and liver enzymes were normal. TSH was normal at 3.15 ???IU/mL. I had initially seen him on 05/06/2019 in regard to the low platelet count. In reviewing his records in [facility], a CBC from 12/31/2017 had shown borderline low hemoglobin at 12.8 g, white blood cell count 4300, and platelet count mildly decreased at 85,000. Comprehensive metabolic profile at that time was unremarkable except for a slightly elevated alkaline phosphatase level. 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 Cervical spine CT in December 2017 showed significant degenerative changes but no associated central canal stenosis. His evaluation in April 2019 included CBC showing hemoglobin 12.9 g, white blood cell count 4900, and platelet count 124,000. Comprehensive metabolic profile was unremarkable except for slightly elevated alkaline phosphatase of 136/130 IU/L. B12 level was normal at 666 pg/mL. His sed rate was not elevated, and his JOSÉ LUIS screen was negative. As he was not symptomatic, I had initially opted to just follow on observation/expectant management. At his follow-up visit on 09/23/2019 he appeared stable clinically. His platelet count was just mildly decreased at 114,000. The white blood cell count was also a little low at 3800 and his alkaline phosphatase was slightly elevated at 171/130 IU/L. With those findings he had further evaluation with CT abdomen/pelvis on 10/05/2019. It showed just mild diffuse fatty infiltration of the liver. The spleen appeared normal. There are no other abnormal findings. He continued expectant management. His other medical illnesses include hypertension, hyperlipidemia, hypothyroidism and degenerative arthritis. 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 He has a non-smoker. He is seen for a follow-up visit. He has not been feeling good generally. He indicates that in October he went to a [place] in [place]. On returning home, he was diagnosed with COVID-19 virus infection. His major symptoms were weakness/fatigue, diarrhea, anorexia, and loss of taste/smell. He did not have any specific treatment and he did not require hospitalization. However, with that illness, he had a significant weight loss, in the range of 20 pounds. His appetite is better now, but he has not been able to regain that weight. He has fatigue, but he is able to do light work. ECOG score is 1. He does not have fever or night sweats. He has not had sore mouth or throat. He does not complain of cough, shortness of breath, or chest pain. He currently has no GI complaints other than his bowels are not as regular as they used to be. He has urinary frequency and nocturia. He had developed bladder incontinence with the COVID-19 illness, but that is better now. He has chronic arthritis pain in his knees, which does limit his activity. He does not complain of headache or dizziness. He complains that his left hand has been cold since his stroke. He has no other focal neurologic symptoms. Medications: amLODIPine Besylate 1 Tablet (of 5 mg) Oral daily, Aspirin 1 Tablet (of 325 mg) Oral daily, Uudbjrk-Ziqjcsnu-Xwcgbwrjjb-FA 1 Tablet Oral daily, Clopidogrel Bisulfate 1 Tablet (of 75 mg) Oral daily, Daily Mens Health Formula 1 Tablet Oral daily, E 1000 1 Capsule (of 1000 Units) Oral daily, Vitamin B + C Complex 1 Tablet Oral daily Allergies: Influenza Virus Vaccine Split and predniSONE. Vital Signs: Performed on Jan 25, 2021 08:56 Height - 68.00 in Weight - 137.6 lbs (LOW) BSA - 1.74 sq.m BMI - 20.92 Temperature - 97.2 F (LOW) Pulse - 94 /min Respiration - 18 /min BP - 127/74 mm(hg) O2 Sat - 94 % (LOW) Pain - 1 Fatigue - 3 Physical Examination: Constitutional - He appears somewhat weak generally, and he does have noticeable weight loss, Eyes - Sclerae nonicteric. Conjunctivae clear, ENMT - No lesions noted in the oral cavity, Hematologic/Lymphatic - No cervical, clavicular, or axillary adenopathy, Respiratory - Lungs sound clear with good air movement bilaterally, Cardiovascular - Heart rhythm is regular. There is no murmur, gallop, or rub noted, Abdomen - Soft. Liver and spleen are not enlarged. There is no abdominal mass or ascites noted and there is no inguinal adenopathy, Extremities - No edema. Dorsalis pedis pulses are palpable bilaterally, Neurologic - No focal neurologic deficits noted. Lab/Imaging: Test performed on Jan 23, 2021 09:55 LDH (Total) 227 U/L Sodium 135 mmol/L Potassium 4.2 mmol/L Chloride 101 mmol/L CO2 26 mmol/L Anion Gap 12.2 BUN 13 mg/dL Creatinine 0.7 mg/dL Cr Clearance (Est) 78.8300 mL/min Glucose 102 mg/dL Osmolality - Calculated 280 mOsm/kg Calcium 8.9 mg/dL Protein, Total 7.3 g/dL Albumin 3.6 g/dL Globulin 3.7 g/dL Bilirubin, Total 0.6 mg/dL ALT (SGPT) 19 U/L AST (SGOT) 22 U/L Alkaline Phosphatase 214 IU/L WBC 3.3 10 3/uL RBC 3.90 10 6/uL HGB 11.5 g/dL HCT 36.7 % MCV 94.1 fl MCH 29.5 pg MCHC 31.3 g/dL RDW 13.2 % Platelet Count 155 10 3/cmm MPV 11.9 fL Neutrophils 1.88 10 3/uL Lymphocytes 0.9 10 3/uL Monocytes 0.4 10 3/uL Eosinophils 0.2 10 3/uL Basophils 0.0 10 3/uL Neutrophil % 56.3 % Lymphocyte % 27.2 % Monocyte % 11.1 % Eosinophil % 4.8 % Basophils % 0.3 % NRBC % 0 % Problem List: 1. Patient with mild thrombocytopenia and mildly decreased white blood cell count of uncertain etiology. 2. 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 3. Hypertension. 4. Hyperlipidemia. 5. Hypothyroidism. 6. Degenerative arthritis/degenerative disease of the spine. 7. He has a history of melanoma excision from the back. 8. Anxiety/depression. Problems Addressed with this Encounter and Plan: 1. Patient with mild thrombocytopenia. He also had borderline low to mildly decreased white blood cell count. Liver disease/hypersplenism or myelodysplasia appeared to be the most likely possibilities. His CT abdomen/pelvis in September 2019 showed just mild fatty infiltration of the liver, and the spleen appeared normal. As his blood counts have been just mildly decreased, he has been followed on expectant management. His current CBC shows platelet count in normal range at 155,000, but he has become mildly anemic and his white blood cell count is also mildly decreased. The other significant finding is that there has been a continued gradual increase in his alkaline phosphatase level, now to 214/130 IU/L. He had COVID-19 virus infection in October 2020, and that may account for some of these changes. He also has had significant weight loss following that illness. As such, he will continue expectant management, but I am going to see him again in 3 months. 2. He suffered a right hemispheric stroke in August 2017. He also has a strong family history of coronary artery disease. On his fasting lipid profile is HDL is a little on the low side, but his calculated LDL level is well within acceptable range at 81 mg/dL. Signed By: Greg Mata M.D. <<Signature on File>>
== END 2021-01-25 06:47 | disposition home or self-care (01) ==
PROVIDERS: PCP Nurse Practitioner Family; Visit Provider Internal Medicine Medical Oncology
DX: D69.6 Thrombocytopenia, unspecified (principal); I10 Essential (primary) hypertension; E78.5 Hyperlipidemia, unspecified; E03.9 Hypothyroidism, unspecified; M47.9 Spondylosis, unspecified; F41.8 Other specified anxiety disorders; Z86.16 Personal history of COVID-19; Z86.73 Personal history of transient ischemic attack (TIA), and cerebral infarction without residual deficits; Z79.899 Other long term (current) drug therapy; Z79.82 Long term (current) use of aspirin
CPT/HCPCS: 99214

== ENCOUNTER 2021-05-23 12:54 | Outpatient (CLI) | payer MEDICARE, OTHER, SELFPAY ==
[2021-05-23 13:39] LABS: Basophils % 0.4 %; Eosinophils # 0.2 10^3/uL (0.0-0.8); Eosinophils % 4.4 %; Hematocrit 41.2 % (42.0-52.0); Hemoglobin 13.2 g/dL (11.7-16.6); Lymphocytes # 1.3 10^3/uL (0.8-4.8); Lymphocytes % 27.7 %; Mean Corpuscular Hemoglobin 29.7 pg (28.0-34.0); Mean Corpuscular Volume 92.6 fl (80-94); Mean Platelet Volume 12.9 fL (7.4-10.4); Monocytes # 0.5 10^3/uL (0.2-0.9); Neutrophils # 2.58 10^3/uL (1.8-7.7); Neutrophils % 57.1 %; Nucleated Red Blood Cells % 0 %; Platelet Count 116 10^3/cmm (130-400); Red Blood Count 4.45 10^6/uL (4.1-5.3); Red Cell Distribution Width 13.5 % (12.1-15.1); White Blood Count 4.5 10^3/uL (4.0-10.0)
[2021-05-23 14:19] LABS: Erythrocyte Sedimentation Rate 24 mm/hr (0-10)
[2021-05-23 14:22] LABS: Alanine Aminotransferase 22 U/L (0-41); Albumin Level 4.1 g/dL (3.5-5.2); Alkaline Phosphatase 467 IU/L (40-130); Anion Gap 16.4 (5-19); Aspartate Amino Transferase 31 U/L (0-40); Blood Urea Nitrogen 13 mg/dL (8-23); Calcium 9.5 mg/dL (8.5-10.5); Carbon Dioxide 25 mmol/L (22-29); Chloride 101 mmol/L (98-107); Globulin 3.1 g/dL (1.3-4.6); Glucose 93 mg/dL (65-115); Iron 100 ug/dL (59-158); Osmolality Calculated 286 mOsm/kg (285-295); Percent Saturation 36.1 % (20-50); Potassium 4.4 mmol/L (3.5-5.1); Sodium 138 mmol/L (136-145); Thyroid Stimulating Hormone 4.93 uIU/mL (0.27-4.20); Total Bilirubin 0.6 mg/dL (0.15-1.2); Total Iron Binding Capacity 277 mcg/dl; Total Protein 7.2 g/dL (6.6-8.7); Unsaturated Iron Binding 177 ug/dL (112-347); Vitamin B12 768 pg/mL (232-1245)
[2021-05-23 14:27] LABS: Folate Level 14.1 ng/mL (4.5-32.2)
[2021-05-23 14:34] LABS: Lactate Dehydrogenase 232 U/L (135-225)
== END 2021-05-23 12:55 | disposition home or self-care (01) ==
PROVIDERS: PCP Nurse Practitioner Family; Visit Provider Internal Medicine Medical Oncology
DX: D69.6 Thrombocytopenia, unspecified (principal); I10 Essential (primary) hypertension; E78.5 Hyperlipidemia, unspecified; E03.9 Hypothyroidism, unspecified; Z86.73 Personal history of transient ischemic attack (TIA), and cerebral infarction without residual deficits
CPT/HCPCS: 36415; 80053; 82607; 82746; 83540; 83550; 83615; 84443; 85025; 85651

== ENCOUNTER 2021-05-24 06:31 | Outpatient (CLI) | payer MEDICARE, OTHER, SELFPAY ==
--- NOTE | 2021-05-24 16:08 | ONC FU_ITS ---
Dr. Mata Patient Follow-Up Note Patient: Koby Franz Unit #: [id number]: 1935 Dicatated By: Greg Mata M.D.Date of Visit:May 24, 2021 Onc Med Follow-up/Prog Note Chief Complaint: Thrombocytopenia. History of Present Illness: This is an 85 year-old man with a mild thrombocytopenia. In February 2019 he was seen by Elida Ackerman at [facility] to establish primary care. At that time he was reportedly feeling well. His laboratory studies included CBC showing hemoglobin 13.7 g and hematocrit 43.5%. The red cell indices were normal. The white blood cell count was 4700. The platelet count was mildly decreased at 114,000. Comprehensive metabolic profile showed normal renal function with BUN 18 and creatinine 0.8 mg/dL. The bilirubin and liver enzymes were normal. TSH was normal at 3.15 ???IU/mL. I had initially seen him on 05/06/2019 in regard to the low platelet count. In reviewing his records in [facility], a CBC from 12/31/2017 had shown borderline low hemoglobin at 12.8 g, white blood cell count 4300, and platelet count mildly decreased at 85,000. Comprehensive metabolic profile at that time was unremarkable except for a slightly elevated alkaline phosphatase level. 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 Cervical spine CT in December 2017 showed significant degenerative changes but no associated central canal stenosis. His evaluation in April 2019 included CBC showing hemoglobin 12.9 g, white blood cell count 4900, and platelet count 124,000. Comprehensive metabolic profile was unremarkable except for slightly elevated alkaline phosphatase of 136/130 IU/L. B12 level was normal at 666 pg/mL. His sed rate was not elevated, and his JOSÉ LUIS screen was negative. As he was not symptomatic, I had initially opted to just follow on observation/expectant management. At his follow-up visit on 09/23/2019 he appeared stable clinically. His platelet count was just mildly decreased at 114,000. The white blood cell count was also a little low at 3800 and his alkaline phosphatase was slightly elevated at 171/130 IU/L. With those findings he had further evaluation with CT abdomen/pelvis on 10/05/2019. It showed just mild diffuse fatty infiltration of the liver. The spleen appeared normal. There are no other abnormal findings. He continued expectant management. His other medical illnesses include hypertension, hyperlipidemia, hypothyroidism and degenerative arthritis. 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 He has a non-smoker. INTERIM HISTORY: In November 2020 he was diagnosed with COVID-19 virus infection. His major symptoms were weakness/fatigue, diarrhea, anorexia, and loss of taste/smell. He did not have any specific treatment, and he did not require hospitalization. However, with that illness, he had a significant weight loss, in the range of 20 pounds. As of his follow-up visit on 01/25/2021 he was still not feeling good generally. He had become mildly anemic, and his white blood cell count also was a little low. His platelet count, though, was normal. His alkaline phosphatase was moderately elevated at 214/130 IU/L, but it was down from 288 IU/L in November. He is seen now for a follow-up visit. He is still not feeling the best. He says he does not have much energy, but he is still doing some work. His ECOG score is 1. His appetite is better and he has gained some weight since his visit in December. He is not having fever or night sweats. He has not had sore mouth or throat. He does not complain of cough, and he has not been having shortness of breath or chest pain. He currently has no GI complaints. He does have urinary frequency and nocturia, but that is chronic. He has been having pain in the area of the left testicle. He has pain in both knees, and he says he got cortisone injections a month and a half ago. He does not complain of headache. He has some mild orthostatic lightheadedness. He has no numbness/paresthesia or other focal neurologic symptoms. He does have some bruising, but that is not any worse. Medications: amLODIPine Besylate 1 Tablet (of 5 mg) Oral daily, Aspirin 1 Tablet (of 325 mg) Oral daily, Mveeejz-Ktbbkxkr-Aprtfwwjew-FA 1 Tablet Oral daily, Clopidogrel Bisulfate 1 Tablet (of 75 mg) Oral daily, Daily Mens Health Formula 1 Tablet Oral daily, E 1000 1 Capsule (of 1000 Units) Oral daily, Vitamin B + C Complex 1 Tablet Oral daily Allergies: Influenza Virus Vaccine Split and predniSONE. Vital Signs: Performed on May 24, 2021 13:47 Height - 68.00 in Weight - 144 lbs (HIGH) BSA - 1.78 sq.m BMI - 21.90 Temperature - 98.7 F Pulse - 72 /min Respiration - 16 /min BP - 116/66 mm(hg) O2 Sat - 98 % Pain - 8 Physical Examination: Constitutional - He appears somewhat weak generally, Eyes - Sclerae nonicteric. Conjunctivae clear, ENMT - No lesions noted in the oral cavity, Neck - No mass or thyromegaly, Hematologic/Lymphatic - No cervical, clavicular, or axillary adenopathy, Respiratory - Lungs sound clear with good air movement bilaterally, Cardiovascular - Heart rhythm is regular. There is no murmur, gallop, or rub noted, Abdomen - Soft. Liver and spleen are not enlarged. There is no abdominal mass or ascites noted and there is no inguinal adenopathy, Genitalia/Groin/Buttock (M) - There is no testicular mass noted. On digital exam the prostate is significantly enlarged, mainly on the right side. It is very firm, and the surface is irregular, Back/Spine - There is no bony tenderness in the spine, Extremities - No edema. Dorsalis pedis pulses are palpable bilaterally, Neurologic - No focal neurologic deficits noted. Lab/Imaging: CBC shows hemoglobin 13.2 g, white blood cell count 4500, and platelet count 116,000. Comprehensive metabolic profile shows normal renal function with BUN 13 and creatinine 0.6 mg/dL. The alkaline phosphatase is significantly elevated at 467/130 IU/L. The bilirubin and the other liver enzymes are normal. The serum iron studies show normal transferrin saturation at 36% and the B12 and folate levels are normal. LDH is mildly elevated at 232/225 U/L. TSH is slightly elevated at 4.93 ???IU/mL. Problem List: 1. Patient with mild thrombocytopenia and mildly decreased white blood cell count of uncertain etiology. 2. 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 3. Hypertension. 4. Hyperlipidemia. 5. Hypothyroidism. 6. Degenerative arthritis/degenerative disease of the spine. 7. He has a history of melanoma excision from the back. 8. Anxiety/depression. Problems Addressed with this Encounter and Plan: Patient with mild thrombocytopenia. He also had borderline low to mildly decreased white blood cell count. Liver disease/hypersplenism or myelodysplasia appeared to be the most likely possibilities. His CT abdomen/pelvis in September 2019 showed just mild fatty infiltration of the liver, and the spleen appeared normal. As his blood counts have been just mildly decreased, he has been followed on expectant management. He had a significant decline in his performance status following COVID-19 virus infection in November 2020. At his follow-up visit in December he was mildly anemic and he also had mild leukopenia. Those blood counts have now recovered, though he still has mild thrombocytopenia, similar to previous studies. The main concern now is that there has been a significant increase in his alkaline phosphatase level. He reported having pain in the area of the left testicle, and he was found to have an abnormal prostate on digital rectal exam. His PSA level was then found to be significantly elevated at 242.800 ng/mL. Overall, the findings are consistent with metastatic prostate cancer. As such, he will be scheduled for further evaluation with bone scan and CT of the abdomen/pelvis, and I will get him scheduled and to see Dr. Martinez. Signed By: Greg Mata M.D. <<Signature on File>>
== END 2021-05-24 06:32 | disposition home or self-care (01) ==
PROVIDERS: PCP Nurse Practitioner Family; Visit Provider Nurse Practitioner Family
DX: D69.6 Thrombocytopenia, unspecified (principal); R97.20 Elevated prostate specific antigen [PSA]; Z86.73 Personal history of transient ischemic attack (TIA), and cerebral infarction without residual deficits; R53.81 Other malaise; I10 Essential (primary) hypertension; E78.5 Hyperlipidemia, unspecified; E03.9 Hypothyroidism, unspecified; M47.9 Spondylosis, unspecified; Z85.820 Personal history of malignant melanoma of skin; F41.8 Other specified anxiety disorders
CPT/HCPCS: 84153; 99215

== ENCOUNTER 2021-05-26 12:03 | Outpatient (CLI) | payer MEDICARE, OTHER, SELFPAY ==
--- NOTE | 2021-05-26 12:23 | CT_ITS ---
WS: [id number] CT ABDOMEN AND PELVIS WITH CONTRAST HISTORY: ELEVATED ALKALINE PHOSPHATASE/PROSTATE CANCER TECHNIQUE: Imaging performed of the abdomen and pelvis with IV contrast. Single phase imaging of the abdomen. Coronal and sagittal reformats are submitted. All CT scans at [facility] use at [address] one of these dose optimization techniques: automated exposure control; mA and/or kV adjustment per patient size (includes targeted exams where dose is matched to clinical indication); or iterative re construction. IV CONTRAST: Omnipaque 300; 95 mL IV. Oral contrast: Yes. DLP: 402.53 mGy.cm COMPARISON: 10/05/2019 Lower thorax: Chronic emphysematous changes with increased reticulations in the periphery of the lowe r lung gonzales. Small amount of fluid extending into the inferior LEFT major fissure. Mild peribronchi al wall thickening in the lower lung gonzales. Similar to the prior studies. Heart is slightly enlarged . Heavy calcification in the nome coronary arteries. No hiatal hernia. Liver/biliary system: Normal size liver. Mild central bile duct dilatation. Similar to the prior stud ies. No mass or stone in the common bile duct. Subcentimeter hypodensity in the superior lateral RIGH T lobe of the liver. Gallbladder: Mildly contracted gallbladder. Pancreas: Atrophied pancreas. No duct dilatation. Spleen: Normal size spleen with granulomata. Adrenal glands: Normal. Right kidney: Normal. Left kidney: No solid mass or obstruction. Nonobstructing calcification lower pole. Aorta: Mild atherosclerosis with no aneurysm. Lymphadenopathy: None. Free fluid: None. GI tract: Moderate distention of the stomach with fluid. There is diffuse constipation. No submucosal thickening or edema. All bowel loops are normal diameter. The visualized appendix is normal. Abdominal wall: Unremarkable abdominal wall. No hernia. Pelvis: No free fluid or adenopathy within the pelvis. Prostate gland is very slightly enlarged. Bones: Numerous osteoblastic bone lesions are identified. Sclerotic lesions are noted at T9, T11 (ext ends into the RIGHT lamina, pedicle and transverse process, L2, L5, S1 and scattered throughout the p myesha. Largest osteoblastic lesion within the RIGHT iliac wing. There is also mild bony expansion wit h heterogeneous marrow signal in the proximal LEFT femur and femoral head which was not present on th e study of 01/03/2017. There are additional smaller scattered osteoblastic foci CT/CT abdomen pelvis w con* [id number] IMPRESSION: 1. New extensive osteoblastic metastatic bone disease as described above. Tolna stasis involves numerous vertebral bodies, bones of the pelvis and probable pro ximal LEFT femur. No fractures identified but there is bony expansion of the LE FT femoral neck and possibility of developing pathological fracture should be c onsidered. Consider bone scan imaging. 2. Chronic emphysematous changes throughout both lungs. 3. Diffuse constipation. 4. No ascites or adenopathy. 5. Atherosclerosis aorta.
[2021-05-26] MEDS: iohexol 300 mg/mL 100 mL Btl IV (14:10)
[2021-05-26] MEDS: iohexol 300 mg/mL 50 mL Btl PO (14:12)
== END 2021-05-26 12:04 | disposition home or self-care (01) ==
LOC: RAD 12:15
PROVIDERS: PCP Nurse Practitioner Family; Visit Provider Internal Medicine Medical Oncology
DX: C61 Malignant neoplasm of prostate (principal); R79.89 Other specified abnormal findings of blood chemistry; K59.00 Constipation, unspecified; I70.0 Atherosclerosis of aorta
CPT/HCPCS: 74177

== ENCOUNTER → 2021-06-07 10:03 | Outpatient (BNVA) | payer MEDICARE, OTHER, SELFPAY | PROVIDERS: PCP Nurse Practitioner Family; Visit Provider Urology | DX: N50.812 Left testicular pain (principal); R97.20 Elevated prostate specific antigen [PSA]; N52.9 Male erectile dysfunction, unspecified; C61 Malignant neoplasm of prostate | CPT/HCPCS: 81003 ==

== ENCOUNTER 2021-06-14 09:44 | Outpatient (CLI) | payer MEDICARE, OTHER, SELFPAY ==
--- NOTE | 2021-06-14 10:02 | NM_ITS ---
WS: [id number] NUCLEAR MEDICINE BONE SCAN Radiopharmaceutical: 20.6 Tc-99m MDP mCi IV Injection site: LEFT antecubital Postinjection imaging delay: 1 hr CLINICAL INFORMATION: PROSTATE CANCER COMPARISON: CT May 26, 2021 FINDINGS: Bone lesions: Diffuse bony metastatic disease involving the axial and proximal appendicular skeleton. Additional notable lesion involving the calvarium at the LEFT superolateral orbital rim. Numerous me tastatic lesions involving the thoracic and lumbar spine. Innumerable lesions involving the bony pelv is and sacrum. Notable large confluent lesions involving the LEFT hip and proximal femur. Additional lesions involving humeri and LEFT proximal femoral shaft. Additional prominent lesion involving the R IGHT humeral head. Soft tissue contours: Normal. Kidneys: Normal. Other findings: Degenerative arthritis bilateral knees and both shoulders. NM/NM bone scan whole body* [id number] IMPRESSION: Diffuse bony metastatic disease described above.
--- NOTE | 2021-06-14 12:47 | XR_ITS ---
WS: [id number] HIP WITH PELVIS LEFT TECHNIQUE: 3 views of the left hip with pelvis CLINICAL INFORMATION: BONE SCAN COMPARISON COMPARISON: None. FINDINGS: Blastic metastatic disease involving the LEFT femoral head and neck. No evidence of pathologic fractu re. Additional partially visualized lesion in the proximal femoral shaft is seen on bone scan. XR/XR hip LT 2-3V wo/w pel* [id number] IMPRESSION: Blastic metastatic disease involving the LEFT femoral head and neck. No evidenc e of pathologic fracture. Tonnis classification: grade 1: sclerosis of femoral head and acetabulum or sli ght joint space narrowing or slight lippig at joint margins
== END 2021-06-14 09:45 | disposition home or self-care (01) ==
LOC: RAD 09:45
PROVIDERS: PCP Internal Medicine Medical Oncology; Visit Provider Internal Medicine Medical Oncology
DX: C61 Malignant neoplasm of prostate (principal)
CPT/HCPCS: 73502; 78306; 88305; 88341; 88342; 88360; 88381; A9561

== ENCOUNTER 2021-06-26 09:09 | Outpatient (RCR) | payer MEDICARE, OTHER, SELFPAY ==
[2021-06-26] MEDS: goserelin acetate 10.8 mg Implant SUBCUT (10:20)
[2021-06-26] MEDS: HYDROcodone-acetaminophen 10-325 mg Tablet 0.5 TAB PO (10:30)
[2021-06-26] MEDS: denosumab 120 mg SDV SUBCUT (10:40)
--- NOTE | 2021-06-26 11:04 | N.ONRAD NP_ITS ---
Radiation Oncology Consultation Patient Name: Koby Franz Date of : 1935 Date of Service: 06/26/2021 Attending Physician: Patricio Jeffries M.D. Koby Franz was seen in consultation this afternoon at the request of Greg Mata M.D. for consideration of palliative radiotherapy for the management of a recently diagnosed metastatic prostate cancer. The patient was diagnosed in May following evaluation for an elevated alkaline phosphatase (467 IU/L). The initial PSA was 242.8 ng/mL. An abdominopelvic CT scan ordered on May 26, 2021 reported numerous osteoblastic lesions. Bony expansion with heterogeneous marrow signal was noted in the left femur and femoral head. Sclerotic lesions were present within T9, T11, L2, S1, and throughout the pelvis. A nuclear bone scintigraphy (personally reviewed in [facility]) completed on June 14, 2021 confirmed bony metastatic disease involving the axial and proximal appendicular skeleton. A large confluent lesion was present within the left hip and proximal femur. A transrectal ultrasound-guided prostate biopsy was performed by Clayton Martinez M.D. on June 14, 2021. A 24 cc prostate was identified with hypoechoic lesions bilaterally. The pathology report described an adenocarcinoma of the prostate gland with a Ananya score of 5+5 = 10 (grade group 5) involving the right lateral apex, right lateral mid gland, right apex, and left mid gland. Total androgen suppression and a RANKL inhibitor was started on June 26, 2021. Patient was evaluated for palliative radiotherapy to a painful left femoral metastatic deposit. I discussed with Mr. Valdes the role for palliative radiotherapy in consideration of his pain. I would recommend a 2-week course of radiation therapy. A planning CT scan will be acquired prior to beginning treatment to delineate the clinical target volume. The potential toxicities of pelvic radiotherapy were reviewed. The patient has verbalized understanding would like to proceed as recommended. The patient???s medical treatment has been discussed with Greg Mata M.D. Signed by: Dr. Patricio Jeffries 06/26/2021 11:03:37 AM
--- NOTE | 2021-06-26 11:37 | CT_ITS ---
WS: [id number] CT LEFT HIP, NONCONTRAST. HISTORY: PROSTATE CANCER Technique: All CT scans at [facility] use at least one of these dose optimization techniques: automated exposure control; mA and/or kV adjustment per patient size (includes targeted exams where dose is matched to clinical indication); or iterative reconstruction. DLP: 1430.81 mGy-cm. COMPARISON: 05/26/2021, bone scan 06/14/2021. Patient has known osteoblastic metastatic bone disease. Moderately permeative appearance to the LEFT femoral head, neck and proximal femur. Several interruptions in the cortex and discontinuity. There i s a nondisplaced fracture in the posterior subcapital region. This may not extend completely through the femoral head. Patient is at significant risk for pathological fracture as there is diffuse abnorm al marrow signal. Additional sclerotic foci in the lower spine, sacrum, ilium and mid femoral diaphysis on the LEFT. Os teoblastic bone disease in the pubic rami on the LEFT. CT/CT hip LT wo con* [id number] IMPRESSION: 1. Patient has known extensive osteoblastic metastatic bone disease. 2. Infiltrative permeative metastatic disease in the proximal LEFT femur and h ighly suspicious for a nondisplaced pathologic fracture extending in the LEFT s ubcapital region. 3. There is a additional marrow replacement osteoblastic lesion in the mid fem oral diaphysis with no fracture. Notified Greg Mata MD at 06/26/2021 1:13 PM.
--- NOTE | 2021-06-26 14:57 | ONC FU_ITS ---
Dr. Mata Patient Follow-Up Note Patient: Koby Franz Unit #: [id number]: [id number] Dicatated By: Greg Mata M.D.Date of Visit:Jun 26, 2021 Onc Med Follow-up/Prog Note Chief Complaint: Thrombocytopenia. History of Present Illness: This is an 85 year-old man with a mild thrombocytopenia. In February 2019 he was seen by Elida Ackerman at [facility] to establish primary care. At that time he was reportedly feeling well. His laboratory studies included CBC showing hemoglobin 13.7 g and hematocrit 43.5%. The red cell indices were normal. The white blood cell count was 4700. The platelet count was mildly decreased at 114,000. Comprehensive metabolic profile showed normal renal function with BUN 18 and creatinine 0.8 mg/dL. The bilirubin and liver enzymes were normal. TSH was normal at 3.15 ???IU/mL. I had initially seen him on 05/06/2019 in regard to the low platelet count. In reviewing his records in [facility], a CBC from 12/31/2017 had shown borderline low hemoglobin at 12.8 g, white blood cell count 4300, and platelet count mildly decreased at 85,000. Comprehensive metabolic profile at that time was unremarkable except for a slightly elevated alkaline phosphatase level. 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 Cervical spine CT in December 2017 showed significant degenerative changes but no associated central canal stenosis. His evaluation in April 2019 included CBC showing hemoglobin 12.9 g, white blood cell count 4900, and platelet count 124,000. Comprehensive metabolic profile was unremarkable except for slightly elevated alkaline phosphatase of 136/130 IU/L. B12 level was normal at 666 pg/mL. His sed rate was not elevated, and his JOSÉ LUIS screen was negative. As he was not symptomatic, I had initially opted to just follow on observation/expectant management. At his follow-up visit on 09/23/2019 he appeared stable clinically. His platelet count was just mildly decreased at 114,000. The white blood cell count was also a little low at 3800 and his alkaline phosphatase was slightly elevated at 171/130 IU/L. With those findings he had further evaluation with CT abdomen/pelvis on 10/05/2019. It showed just mild diffuse fatty infiltration of the liver. The spleen appeared normal. There are no other abnormal findings. He continued expectant management. His other medical illnesses include hypertension, hyperlipidemia, hypothyroidism and degenerative arthritis. 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 He is a non-smoker. INTERIM HISTORY: In November 2020 he was diagnosed with COVID-19 virus infection. His major symptoms were weakness/fatigue, diarrhea, anorexia, and loss of taste/smell. He did not have any specific treatment, and he did not require hospitalization. However, with that illness, he had a significant weight loss, in the range of 20 pounds. As of his follow-up visit on 01/25/2021 he was still not feeling good generally. He had become mildly anemic, and his white blood cell count also was a little low. His platelet count, though, was normal. His alkaline phosphatase was moderately elevated at 214/130 IU/L, but it was down from 288 IU/L in November. As of his follow-up visit on 05/24/2021 his alkaline phosphatase remained significantly elevated at 467/130 IUs/L. His PSA level had become significantly elevated at 242.800 ng/mL. On exam, the prostate was very firm and irregular. His CT abdomen/pelvis showed just slightly enlarged prostate. There was evidence of new extensive osteoblastic metastatic bone disease including numerous vertebral bodies, pelvis, and proximal left femur. Bone scan on 06/14/2021 also confirmed multiple sites of metastatic bone disease including the left calvarium, thoracic and lumbar spine, bony pelvis and sacrum. There was noted to be large confluent lesions involving the left hip and proximal femur. An additional prominent lesion was noted to involve the right humeral head. In the meantime, he also had followup with Dr Martinez and on 06/14/2021 he underwent TRUS/biopsy. Pathology showed prostatic adenocarcinoma, Greenbush score 5+5 = 10, involving both lobes. With that finding he began treatment with bicalutamide 50 mg daily. He is seen for a follow-up visit. He has not been feeling good. He is having pretty severe pain in his left hip and thigh. He intermittently has severe, sharp pain with it. He is having difficulty ambulating and functioning, but he is still taking care of himself and also taking care of his chickens. His ECOG score is 1. He has good appetite. He does not have fever, night sweats, or hot flashes. He has not had sore mouth or throat, and he does not complain of cough. He still has some shortness of breath since the COVID-19 virus infection. He has not been having chest pain. He has no GI complaints. He is having some urgency with urination and some associated incontinence. He also has some pain in his neck area, but he is not having back pain. He does not complain of headache or dizziness. He has some numbness in his left hand, but that is not new. Medications: amLODIPine Besylate 1 Tablet (of 5 mg) Oral daily, Aspirin 1 Tablet (of 325 mg) Oral daily, Bicalutamide (50 mg) Tablet Oral daily, Mrxhteq-Gvhbkwch-Jcsdgzwbxo-FA 1 Tablet Oral daily, Clopidogrel Bisulfate 1 Tablet (of 75 mg) Oral daily, Daily Mens Health Formula 1 Tablet Oral daily, E 1000 1 Capsule (of 1000 Units) Oral daily, HYDROcodone-Acetaminophen (5-325 mg) Tablet Oral Take as Directed, Vitamin B + C Complex 1 Tablet Oral daily Allergies: Influenza Virus Vaccine Split and predniSONE. Vital Signs: Performed on Jun 26, 2021 11:23 Height - 68.00 in Weight - 144.0 lbs BSA - 1.78 sq.m BMI - 21.90 Temperature - 98.3 F (LOW) Pulse - 75 /min Respiration - 16 /min BP - 137/77 mm(hg) O2 Sat - 96 % Pain - 9 Fatigue - 10 Performed on Jun 26, 2021 10:31 Height - 68 in Weight - 144 lbs Temperature - 97.8 F Pulse - 70 /min Respiration - 18 /min BP - 124/71 mm(hg) O2 Sat - 97 % Pain - 0 Fatigue - 0 Performed on Jun 26, 2021 10:31 BMI - 21.895 kg/m2 Physical Examination: Constitutional - He appears somewhat weak generally. He has very limited mobility, Eyes - Sclerae nonicteric. Conjunctivae clear, ENMT - No lesions noted in the oral cavity, Hematologic/Lymphatic - No cervical, clavicular, or axillary adenopathy, Respiratory - Lungs sound clear with good air movement bilaterally, Cardiovascular - Heart rhythm is regular. There is no murmur, gallop, or rub noted, Abdomen - Soft. Liver and spleen are not enlarged. There is no abdominal mass or ascites noted and there is no inguinal adenopathy, Extremities - No edema, Neurologic - He favors his left leg, but he does not appear to have a focal neurologic deficit. Lab/Imaging: Test performed on May 23, 2021 13:22 Folate, Serum 14.1 ng/mL Iron 100 mcg/dL LDH (Total) 232 U/L Sodium 138 mmol/L TSH 4.93 uIU/mL Vitamin B12 768 pg/mL Iron Binding Capacity (TIBC) 277 mcg/dl Potassium 4.4 mmol/L % Iron Saturation 36.1 % Chloride 101 mmol/L CO2 25 mmol/L UIBC 177 mcg/dL Anion Gap 16.4 BUN 13 mg/dL Creatinine 0.6 mg/dL Cr Clearance (Est) 84.67 mL/min Glucose 93 mg/dL Osmolality - Calculated 286 mOsm/kg Calcium 9.5 mg/dL Protein, Total 7.2 g/dL Albumin 4.1 g/dL Globulin 3.1 g/dL Bilirubin, Total 0.6 mg/dL ALT (SGPT) 22 U/L AST (SGOT) 31 U/L Alkaline Phosphatase 467 IU/L ESR (Sed Rate) 24 mm/hr WBC 4.5 10 3/uL RBC 4.45 10 6/uL HGB 13.2 g/dL HCT 41.2 % MCV 92.6 fl MCH 29.7 pg MCHC 32.0 g/dL RDW 13.5 % Platelet Count 116 10 3/cmm MPV 12.9 fL Neutrophils 2.58 10 3/uL Lymphocytes 1.3 10 3/uL Monocytes 0.5 10 3/uL Eosinophils 0.2 10 3/uL Basophils 0.0 10 3/uL Neutrophil % 57.1 % Lymphocyte % 27.7 % Monocyte % 10.0 % Eosinophil % 4.4 % Basophils % 0.4 % NRBC % 0 % Problem List: 1. 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 2. He has been followed for mild thrombocytopenia and mildly decreased white blood cell count of uncertain etiology. 3. 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 4. Hypertension. 5. Hyperlipidemia. 6. Hypothyroidism. 7. Degenerative arthritis/degenerative disease of the spine. 8. He has a history of melanoma excision from the back. 9. Anxiety/depression. Problems Addressed with this Encounter and Plan: 1. Patient with adenocarcinoma of the prostate, Greenbush score 5+5 = 10. He has denovo stage IVB disease, presenting with elevated alkaline phosphatase and symptomatic metastatic bone involvement, most significantly in the left hip/proximal femur. The CT and bone scan findings were reviewed with the patient, I also reviewed the bone scan images. I also reviewed the pathology results from the biopsy, and we discussed the clinical implications. With new onset of metastatic prostate cancer, the likelihood of response to androgen deprivation therapy is very high, though the duration of response may be shorter than average with high-grade disease. Has already started antiandrogen therapy with bicalutamide 50 mg daily. He will now begin androgen deprivation therapy with Zoladex 10.8 mg, and also will begin the process of transitioning his antiandrogen therapy to enzalutamide 160 mg daily. In addition, with the metastatic bone involvement, he will start supportive therapy with denosumab 120 mg by subcutaneous injection monthly. He is being referred to Dr. Jeffries for palliative radiation to the left hip/femur. As a precaution, also going to check a CT scan of the left hip, as he is having difficulty ambulating, and he is at significant risk for fracture. 2. He has been followed for mild thrombocytopenia and a borderline low to mildly decreased white blood cell count. A specific cause has not been determined. It is being followed expectantly. Signed By: Greg Mata M.D. <<Signature on File>>
== END 2021-06-26 23:59 | disposition home or self-care (01) ==
LOC: ONCMED 09:09
PROVIDERS: Visit Provider Internal Medicine Medical Oncology
DX: C61 Malignant neoplasm of prostate (principal); C79.51 Secondary malignant neoplasm of bone; D69.6 Thrombocytopenia, unspecified; Z79.899 Other long term (current) drug therapy
CPT/HCPCS: 73700; 96372; 96402; 99205; 99215; J0897; J9202

== ENCOUNTER 2021-06-28 07:11 | Outpatient (RCR) | payer MEDICARE, OTHER, SELFPAY ==
--- NOTE | 2021-06-27 | CT_ITS ---
Radiation Therapy Planning CT images; total exam DLP: 616.26 mGy-cm MTDD
[2021-06-27 09:04] LABS: Basophils % 0.2 %; Eosinophils # 0.1 10^3/uL (0.0-0.8); Eosinophils % 2.8 %; Hematocrit 40.4 % (42.0-52.0); Hemoglobin 12.7 g/dL (11.7-16.6); Lymphocytes # 1.1 10^3/uL (0.8-4.8); Lymphocytes % 23.6 %; Mean Corpuscular HGB Conc 31.4 g/dL (30.0-36.0); Mean Corpuscular Hemoglobin 29.8 pg (28.0-34.0); Mean Corpuscular Volume 94.8 fl (80-94); Mean Platelet Volume 12.5 fL (7.4-10.4); Monocytes # 0.5 10^3/uL (0.2-0.9); Monocytes % 11.7 %; Neutrophils # 2.83 10^3/uL (1.8-7.7); Neutrophils % 61.5 %; Nucleated Red Blood Cells % 0 %; Platelet Count 104 10^3/cmm (130-400); Red Blood Count 4.26 10^6/uL (4.1-5.3); Red Cell Distribution Width 13.7 % (12.1-15.1); White Blood Count 4.6 10^3/uL (4.0-10.0)
[2021-06-27 09:13] LABS: Bilirubin Urine Neg (Negative); Blood Urine 2+ (Negative); Glucose Urine UA Norm (Normal); Ketones Urine Negative (Negative); Leukocyte Esterase Urine Negative (Negative); Nitrate Urine Negative (Negative); Protein Urine Neg (Negative); Urine Appearance Clear (CLEAR); Urine Color Yellow (Yellow); Urobilinogen Urine Norm (Negative); pH Urine 5 (5-7)
[2021-06-27 09:23] LABS: Alanine Aminotransferase 15 U/L (0-41); Albumin Level 4.4 g/dL (3.5-5.2); Alkaline Phosphatase 755 IU/L (40-130); Anion Gap 11.5 (5-19); Aspartate Amino Transferase 34 U/L (0-40); Blood Urea Nitrogen 17 mg/dL (8-23); Calcium 8.7 mg/dL (8.5-10.5); Carbon Dioxide 27 mmol/L (22-29); Chloride 101 mmol/L (98-107); Globulin 3.3 g/dL (1.3-4.6); Glucose 126 mg/dL (65-115); Osmolality Calculated 283 mOsm/kg (285-295); Potassium 4.5 mmol/L (3.5-5.1); Sodium 135 mmol/L (136-145); Total Bilirubin 0.7 mg/dL (0.15-1.2); Total Protein 7.7 g/dL (6.6-8.7)
[2021-06-27 09:25] LABS: Add Urine Culture? No; Bacteria Urine TRACE /hpf; Mucus Urine 1+ /hpf; RBC Urine 0-4 /hpf (0-2); Squamous Epithelial Cell Urine 0-4 /hpf (0-5)
[2021-06-27 10:36] LABS: 25 Hydroxy Vitamin D > 100 ng/mL (30-100)
== END 2021-06-28 12:00 | disposition home or self-care (01) ==
LOC: ONCMED 07:11
PROVIDERS: PCP Internal Medicine Medical Oncology; Visit Provider Radiology Radiation Oncology
DX: Z51.0 Encounter for antineoplastic radiation therapy (principal); C61 Malignant neoplasm of prostate; C79.51 Secondary malignant neoplasm of bone; D69.6 Thrombocytopenia, unspecified; Z79.899 Other long term (current) drug therapy
CPT/HCPCS: 36415; 77280; 77290; 77295; 77300; 77334; 77412; 80053; 81001; 82306; 85025

== ENCOUNTER 2021-06-28 16:32 | Inpatient (IN) | payer MEDICARE, OTHER, SELFPAY ==
[2021-06-28 16:57] VITALS: BP 161/83; PULSE 81; RESP 16; TEMP 36.8; O2SAT 95; BMI 22.0
[2021-06-28 17:10] VITALS: BP 150/86; PULSE 84; RESP 16; O2SAT 95
--- NOTE | 2021-06-28 17:19 | XRR_ITS ---
PROCEDURE INFORMATION: Exam: XR Left Hip Exam date and time: 06/28/2021 5:19 PM Age: 85 years old Clinical indication: Hip pain; Left hip; Additional info: Pain; Fall ; prostate cancer TECHNIQUE: Imaging protocol: XR Left hip. Views: 2 or 3 views hip with pelvis when performed. COMPARISON: CR XR hip LT 2-3V wo/w pel* [id number] 06/14/2021 12:48 PM FINDINGS: Bones/joints: There is patchy sclerotic bone mineralization changes within the distal femoral neck and the inter trochanteric aspect of the proximal left femur similar to prior imaging. Hip joint spaces have anatomic alignment. Moderate narrowing of the hip joint spaces similar to prior. There may be a small lucency through the cortex of mid left femoral neck which could indicate fracture. Pelvic ring alignment is normal. Soft tissues: Unremarkable. XR/XR hip LT 2-3V wo/w pel* [id number] IMPRESSION: 1. Left femoral neck fracture cannot be excluded. Incomplete visualization. Recommend CT scan of the left hip for further assessment. 2. Findings consistent with osseous metastatic disease.
--- NOTE | 2021-06-28 17:19 | XRR_ITS ---
PROCEDURE INFORMATION: Exam: XR Chest Exam date and time: 06/28/2021 5:19 PM Age: 85 years old Clinical indication: Device placement; Other: Pre op screening, possible hip fracture; Additional info: Fall; L hip pain TECHNIQUE: Imaging protocol: XR of the chest. Views: 1 view. COMPARISON: CR (CHEST, ) 12/02/2020 6:13 AM FINDINGS: Lungs: Coarse reticular interstitial lung change diffusely. Hypoaerated lungs similar to prior. Negative for focal airspace consolidation. Pleural spaces: Unremarkable. No pleural effusion. No pneumothorax. Heart/Mediastinum: Unremarkable. No cardiomegaly. Bones/joints: Unremarkable. Surgical anchors within the proximal humeral heads bilaterally. XR/XR chest 1V portable [id number] IMPRESSION: 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
--- NOTE | 2021-06-28 17:27 | ED_ITS ---
Documented by User: Ken Kelsey MD 06/28/21 18:01 HPI - Fall General: Chief Complaint: Fall Stated Complaint: LEFT HIP FRACTURE REINJURY Time Seen by Provider: 06/28/21 16:49 Source: patient Mode of arrival: EMS Limitations: no limitations History of Present Illness: See nursing assessment. Patient reportedly tripped and fell at home and landed on his left hip. Patient is complaining of moderate severe pain in the left hip. Denies any other injury. He denies any injury to his head neck back chest or abdomen. He denies any neurological changes. States he has had left hip pain for approximately 6 weeks after a fall about 6 weeks ago. States he did complete chemotherapy today for newly diagnosed prostate cancer. He is not sure of any metastasis from the prostate cancer. Denies any fever chills or sweats. Denies any shortness of breath. complaint: fall and other (Left hip pain) Onset (ago): minute(s) (Just prior to arrival) Fall from: standing Place fall occurred: home Loss of consciousness: None Symptoms prior to fall: none Context: tripped/slipped Location of injury: other (Left hip) Severity: moderate Quality: sharp Associated symptoms-after fall: Reports no associated symptoms; Denies abdominal pain, chest pain, headache(s) or neck pain Review of Systems Const: Denies: fever(s) or chills Eyes: Denies: change in vision ENMT: Denies: throat pain Card: Denies: chest pain or palpitations Resp: Denies: dyspnea or wheezing GI: Denies: abdominal pain, nausea or vomiting : Denies: flank pain Musc: Reports: extremity pain and joint pain (Pain localized to left hip); Denies: neck pain, back pain, extremity swelling or joint swelling Skin/Breast: Denies: rash or pruritus Neuro: Denies: headache(s), numbness in extremities, weakness in extremities, lack of coordination or dizziness Ezra/Lymph: Denies: enlarged lymph nodes PFSH ED PFSH: Medical History Elevated PSA Erectile dysfunction Prostate cancer Testicular pain, left Surgical History S/P repair of hydrocele Family History Father , at age 77 Myocardial infarct Mother , at age 79 Myocardial infarct Social History Smoking and tobacco status: never smoked Alcohol intake: current Alcohol intake frequency: 0-2 Drinks per Day Adopted: No Caregiver/support person: No Lives independently: No Household members: spouse Marital status: Current occupational status: retired History of recent travel: No Physical Exam Const: COMMON NORMALS: no acute distress, patient oriented x3, no limitations and well nourished GENERAL APPEARANCE: cooperative HENMT: COMMON NORMALS: normocephalic and atraumatic HEAD & SCALP: normocephalic and atraumatic FACE & SINUS: normal facial exam Eye: COMMON NORMALS: EOMs intact bilaterally Neck/C-Spine: COMMON NORMALS: full ROM, no lymphadenopathy, supple and no meningeal signs GENERAL: Yes normal visual inspection Lymph: LYMPHATIC: no lymphadenopathy noted Chest: COMMONS NORMALS: normal inspection of the chest and normal palpation of entire chest wall CHEST: No Ecchymosis present and No rash Resp: COMMON NORMALS: normal respiratory effort, No retractions and clear to auscultation bilaterally EFFORT & INSPECTION: No respiratory distress AUSCULTATION: clear to auscultation bilaterally Cardio: COMMON NORMALS: regular rate, regular rhythm and Peripheral pulses 2+ throughout JUGULAR VENOUS DISTENTION: no JVD RATE: regular rate RHYTHM: regular rhythm PERIPHERAL PULSES: Peripheral pulses 2+ throughout GI: COMMON NORMALS: Normal to inspection, nondistended, normoactive bowel s ounds present and non-tender : COMMON NORMALS: Yes no CVA tenderness BLADDER/KIDNEY EXAM: Yes no CVA tenderness Back/Pelvis: COMMON NORMALS: no CVA tenderness Extremity: OTHER: Moderate pain to the left hip. Patient has leg mildly flexed in position of comfort. No external or internal rotation. Peripheral pulses are normal. No pain in the distal femur knee lower leg foot or ankle. Right lower extremity is nontender. Upper extremities are nontender. Neuro: COMMON NORMALS: patient oriented x3, CN's II-XII intact bilaterally, no focal motor deficits and no sensory deficits noted MENINGEAL SIGNS: Yes no meningeal signs Psych: COMMON NORMALS: mental status grossly normal and Normal thought process present THOUGHT PROCESS: Normal thought process present Skin: COMMON NORMALS: no rashes or lesions noted and no wounds GENERAL SKIN EXAM: no rashes or lesions noted Course Vital Signs: Vital signs: Vital Signs Temperature 98.2 F 06/28/21 16:57 Pulse Rate 84 06/28/21 17:10 Respiratory Rate 16 06/28/21 17:10 Blood Pressure 150/86 06/28/21 17:10 Pulse Oximetry 95 06/28/21 17:10 MDM - Fall Medical Decision Making Fall, left hip injury Lab Data : 06/28/21 17:06 06/28/21 17:06 Radiology Impressions Chest X-Ray 06/28/21 17:19 IMPRESSION: 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 Laboratory Results WBC 7.8 10^3/uL (4.0-10.0) 06/28/21 17:06 RBC 4.23 10^6/uL (4.1-5.3) 06/28/21 17:06 Hgb 12.6 g/dL (11.7-16.6) 06/28/21 17:06 Hct 39.7 % (42.0-52.0) L 06/28/21 17:06 MCV 93.9 fl (80-94) 06/28/21 17:06 MCH 29.8 pg (28.0-34.0) 06/28/21 17:06 MCHC 31.7 g/dL (30.0-36.0) 06/28/21 17:06 RDW 13.6 % (12.1-15.1) 06/28/21 17:06 Plt Count 100 10^3/cmm (130-400) L 06/28/21 17:06 MPV 13.4 fL (7.4-10.4) H 06/28/21 17:06 Neut % (Auto) 66.9 % 06/28/21 17:06 Lymph % (Auto) 21.7 % 06/28/21 17:06 Bleckley % (Auto) 8.5 % 06/28/21 17:06 Eos % (Auto) 2.5 % 06/28/21 17:06 Baso % (Auto) 0.0 % 06/28/21 17:06 Neut # (Auto) 5.19 10^3/uL (1.8-7.7) 06/28/21 17:06 Lymph # (Auto) 1.7 10^3/uL (0.8-4.8) 06/28/21 17:06 Bleckley # (Auto) 0.7 10^3/uL (0.2-0.9) 06/28/21 17:06 Eos # (Auto) 0.2 10^3/uL (0.0-0.8) 06/28/21 17:06 Baso # (Auto) 0.0 10^3/uL (0.0-0.1) 06/28/21 17:06 Nucleated RBC % (auto) 0 % 06/28/21 17:06 Nucleated RBCs # 0.0 /100WBC 06/28/21 17:06 Sodium 136 mmol/L (136-145) 06/28/21 17:06 Potassium 4.1 mmol/L (3.5-5.1) 06/28/21 17:06 Chloride 102 mmol/L (98-107) 06/28/21 17:06 Carbon Dioxide 22 mmol/L (22-29) 06/28/21 17:06 Anion Gap 16.1 (5-19) 06/28/21 17:06 BUN 23 mg/dL (8-23) 06/28/21 17:06 Creatinine 0.8 mg/dL (0.7-1.2) 06/28/21 17:06 GFR Calculation Not Reportable 06/28/21 17:06 Glucose 95 mg/dL (65-115) 06/28/21 17:06 Calculated Osmolality 285 mOsm/kg (285-295) 06/28/21 17:06 Calcium 8.5 mg/dL (8.5-10.5) 06/28/21 17:06 Total Bilirubin 0.4 mg/dL (0.15-1.2) 06/28/21 17:06 AST 30 U/L (0-40) 06/28/21 17:06 ALT 15 U/L (0-41) 06/28/21 17:06 Alkaline Phosphatase 766 IU/L (40-130) H 06/28/21 17:06 Total Protein 7.6 g/dL (6.6-8.7) 06/28/21 17:06 Albumin 4.5 g/dL (3.5-5.2) 06/28/21 17:06 Globulin 3.1 g/dL (1.3-4.6) 06/28/21 17:06 Other Data Care was transitioned to Dr. Cruz at shift change Discharge Plan Discharge Patient Disposition: Admitted As Inpatient Clinical Impression: Closed hip fracture Condition: Stable Prescriptions: No Action amlodipine 10 mg tablet 5 mg PO DAILY 0RF lidocaine HCl 2 % jelly 5 ml intra-urethral ONCE Qty: 1 0RF gentamicin 40 mg/mL solution 80 mg IM ONCE Qty: 2 0RF lidocaine (PF) 10 mg/mL (1 %) solution 10 ml SUBCUT ONCE Qty: 1 0RF B-100 Complex 100 mg tablet extended release PO DAILY 0RF magnesium oxide 400 mg magnesium capsule 400 mg PO DAILY 0RF sildenafil 100 mg tablet 100 mg PO DAILY PRN (Reason: sexual activity) Qty: 20 12RF Rx Instructions: 1 hour before intercourse on empty stomach. NO NITROGLYCERIN! hydrocodone-acetaminophen 5-325 mg tablet 1 tab PO DAILY 1 Days Qty: 1 0RF Rx Instructions: 1 p.o. 1 hour before prostate biopsy diazepam 10 mg tablet 5 mg PO ONCE Qty: 1 0RF Rx Instructions: 1 hour before procedure levofloxacin 250 mg tablet 250 mg PO DAILY Qty: 4 0RF Rx Instructions: Begin day before prostate biopsy acyclovir 800 mg tablet 800 mg PO .5 times daily 0RF hydrochlorothiazide 25 mg tablet 25 mg PO DAILY 0RF tamsulosin 0.4 mg capsule 0.4 mg PO DAILY 0RF aspirin 325 mg Tablet,Delayed Release (Dr/Ec) 325 mg PO DAILY 0RF Referrals: Greg Mata MD [Primary Care Provider] - Coding Level of Care Code ED Wind Farm Operations Manager for Chg Fwd Exam Comprehensive Documented by User: Vita Cruz MD 06/28/21 18:50 HPI - Fall General: Chief Complaint: Fall Stated Complaint: LEFT HIP FRACTURE REINJURY Time Seen by Provider: 06/28/21 16:49 PFSH ED PFSH: Medical History Elevated PSA Erectile dysfunction Prostate cancer Testicular pain, left Surgical History S/P repair of hydrocele Family History Father , at age 77 Myocardial infarct Mother , at age 79 Myocardial infarct Social History Smoking and tobacco status: never smoked Alcohol intake: current Alcohol intake frequency: 0-2 Drinks per Day Adopted: No Caregiver/support person: No Lives independently: No Household members: spouse Marital status: Current occupational status: retired History of recent travel: No Course Vital Signs: Vital signs: Vital Signs Temperature 98.2 F 06/28/21 16:57 Pulse Rate 84 06/28/21 17:10 Respiratory Rate 16 06/28/21 17:10 Blood Pressure 150/86 06/28/21 17:10 Pulse Oximetry 95 06/28/21 17:10 MDM - Fall Medical Decision Making Fall, left hip injury Patient has worsening impaction to his left femoral neck spoke to orthopedist along with hospitalist will admit for possible surgery at this time. 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 Laboratory Results WBC 7.8 10^3/uL (4.0-10.0) 06/28/21 17:06 RBC 4.23 10^6/uL (4.1-5.3) 06/28/21 17:06 Hgb 12.6 g/dL (11.7-16.6) 06/28/21 17:06 Hct 39.7 % (42.0-52.0) L 06/28/21 17:06 MCV 93.9 fl (80-94) 06/28/21 17:06 MCH 29.8 pg (28.0-34.0) 06/28/21 17:06 MCHC 31.7 g/dL (30.0-36.0) 06/28/21 17:06 RDW 13.6 % (12.1-15.1) 06/28/21 17:06 Plt Count 100 10^3/cmm (130-400) L 06/28/21 17:06 MPV 13.4 fL (7.4-10.4) H 06/28/21 17:06 Neut % (Auto) 66.9 % 06/28/21 17:06 Lymph % (Auto) 21.7 % 06/28/21 17:06 Bleckley % (Auto) 8.5 % 06/28/21 17:06 Eos % (Auto) 2.5 % 06/28/21 17:06 Baso % (Auto) 0.0 % 06/28/21 17:06 Neut # (Auto) 5.19 10^3/uL (1.8-7.7) 06/28/21 17:06 Lymph # (Auto) 1.7 10^3/uL (0.8-4.8) 06/28/21 17:06 Bleckley # (Auto) 0.7 10^3/uL (0.2-0.9) 06/28/21 17:06 Eos # (Auto) 0.2 10^3/uL (0.0-0.8) 06/28/21 17:06 Baso # (Auto) 0.0 10^3/uL (0.0-0.1) 06/28/21 17:06 Nucleated RBC % (auto) 0 % 06/28/21 17:06 Nucleated RBCs # 0.0 /100WBC 06/28/21 17:06 Sodium 136 mmol/L (136-145) 06/28/21 17:06 Potassium 4.1 mmol/L (3.5-5.1) 06/28/21 17:06 Chloride 102 mmol/L (98-107) 06/28/21 17:06 Carbon Dioxide 22 mmol/L (22-29) 06/28/21 17:06 Anion Gap 16.1 (5-19) 06/28/21 17:06 BUN 23 mg/dL (8-23) 06/28/21 17:06 Creatinine 0.8 mg/dL (0.7-1.2) 06/28/21 17:06 GFR Calculation Not Reportable 06/28/21 17:06 Glucose 95 mg/dL (65-115) 06/28/21 17:06 Calculated Osmolality 285 mOsm/kg (285-295) 06/28/21 17:06 Calcium 8.5 mg/dL (8.5-10.5) 06/28/21 17:06 Total Bilirubin 0.4 mg/dL (0.15-1.2) 06/28/21 17:06 AST 30 U/L (0-40) 06/28/21 17:06 ALT 15 U/L (0-41) 06/28/21 17:06 Alkaline Phosphatase 766 IU/L (40-130) H 06/28/21 17:06 Total Protein 7.6 g/dL (6.6-8.7) 06/28/21 17:06 Albumin 4.5 g/dL (3.5-5.2) 06/28/21 17:06 Globulin 3.1 g/dL (1.3-4.6) 06/28/21 17:06 Discharge Plan Discharge Patient Disposition: Admitted As Inpatient Clinical Impression: Closed hip fracture Condition: Stable Prescriptions: No Action amlodipine 10 mg tablet 5 mg PO DAILY 0RF lidocaine HCl 2 % jelly 5 ml intra-urethral ONCE Qty: 1 0RF gentamicin 40 mg/mL solution 80 mg IM ONCE Qty: 2 0RF lidocaine (PF) 10 mg/mL (1 %) solution 10 ml SUBCUT ONCE Qty: 1 0RF B-100 Complex 100 mg tablet extended release PO DAILY 0RF magnesium oxide 400 mg magnesium capsule 400 mg PO DAILY 0RF sildenafil 100 mg tablet 100 mg PO DAILY PRN (Reason: sexual activity) Qty: 20 12RF Rx Instructions: 1 hour before intercourse on empty stomach. NO NITROGLYCERIN! hydrocodone-acetaminophen 5-325 mg tablet 1 tab PO DAILY 1 Days Qty: 1 0RF Rx Instructions: 1 p.o. 1 hour before prostate biopsy diazepam 10 mg tablet 5 mg PO ONCE Qty: 1 0RF Rx Instructions: 1 hour before procedure levofloxacin 250 mg tablet 250 mg PO DAILY Qty: 4 0RF Rx Instructions: Begin day before prostate biopsy acyclovir 800 mg tablet 800 mg PO .5 times daily 0RF hydrochlorothiazide 25 mg tablet 25 mg PO DAILY 0RF tamsulosin 0.4 mg capsule 0.4 mg PO DAILY 0RF aspirin 325 mg Tablet,Delayed Release (Dr/Ec) 325 mg PO DAILY 0RF Referrals: Greg Mata MD [Primary Care Provider] - Coding Level of Care Code ED Wind Farm Operations Manager for Chg Fwd Exam Comprehensive
[2021-06-28] MEDS: ondansetron 2 mg/ML SDV 2 mL 4 MG IVP (17:29)
[2021-06-28] MEDS: HYDROmorphone 1 mg/mL INJ 1 mL 0.5 MG IVP (17:29)
[2021-06-28 17:35] LABS: Eosinophils # 0.2 10^3/uL (0.0-0.8); Eosinophils % 2.5 %; Hematocrit 39.7 % (42.0-52.0); Hemoglobin 12.6 g/dL (11.7-16.6); Lymphocytes # 1.7 10^3/uL (0.8-4.8); Lymphocytes % 21.7 %; Mean Corpuscular HGB Conc 31.7 g/dL (30.0-36.0); Mean Corpuscular Hemoglobin 29.8 pg (28.0-34.0); Mean Corpuscular Volume 93.9 fl (80-94); Mean Platelet Volume 13.4 fL (7.4-10.4); Monocytes # 0.7 10^3/uL (0.2-0.9); Monocytes % 8.5 %; Neutrophils # 5.19 10^3/uL (1.8-7.7); Neutrophils % 66.9 %; Nucleated Red Blood Cells % 0 %; Platelet Count 100 10^3/cmm (130-400); Red Blood Count 4.23 10^6/uL (4.1-5.3); Red Cell Distribution Width 13.6 % (12.1-15.1); White Blood Count 7.8 10^3/uL (4.0-10.0)
[2021-06-28 18:12] LABS: Alanine Aminotransferase 15 U/L (0-41); Albumin Level 4.5 g/dL (3.5-5.2); Alkaline Phosphatase 766 IU/L (40-130); Anion Gap 16.1 (5-19); Aspartate Amino Transferase 30 U/L (0-40); Blood Urea Nitrogen 23 mg/dL (8-23); Calcium 8.5 mg/dL (8.5-10.5); Carbon Dioxide 22 mmol/L (22-29); Chloride 102 mmol/L (98-107); Creatinine Clr Calc Pharmacy 65.4776; Globulin 3.1 g/dL (1.3-4.6); Glucose 95 mg/dL (65-115); Osmolality Calculated 285 mOsm/kg (285-295); Potassium 4.1 mmol/L (3.5-5.1); Sodium 136 mmol/L (136-145); Total Bilirubin 0.4 mg/dL (0.15-1.2); Total Protein 7.6 g/dL (6.6-8.7)
[2021-06-28 19:24] LABS: Bilirubin Urine Neg (Negative); Blood Urine Neg (Negative); Glucose Urine UA Norm (Normal); Ketones Urine 1+ (Negative); Leukocyte Esterase Urine Negative (Negative); Nitrate Urine Negative (Negative); Protein Urine Neg (Negative); Specific Gravity, Urine 1.015 (1.005-1.030); Sulfosalicylic Acid Urine Negative (Negative); Urine Appearance Clear (CLEAR); Urine Color Yellow (Yellow); Urobilinogen Urine Norm (Negative); pH Urine 8 (5-7)
[2021-06-28 19:25] LABS: SARS Covid-2 Antigen Negative (Negative)
--- NOTE | 2021-06-28 19:28 | ECG_ITS ---
[facility] Test Date: 2021-06-28 Pat Name: Koby Franz Department: Room: 275 Gender: Male Service Member: : 1935 Requested By: Jing Mccloud Order Number: [id number] Diego MD: Lissette Nunn M.D. Measurements Intervals [place] Rate: 75 P: 25 MD: 140 QRS: 24 QRSD: 73 T: 67 QT: 407 QTc: 457 Interpretive Statements SINUS RHYTHM Nonspecific ST changes compared to ECG 12/02/2020 05:59:24 ST (T wave) deviation now present T-wave abnormality no longer present Electronically Signed On 06-29-2021 17:44:04 CHASER HELPER by Lissette Nunn M.D. [id number]
--- NOTE | 2021-06-28 19:35 | P.CONIM_ITS ---
Providers/Reason For Consult Consulting Physician/Specialty*: Hospital Medicine Reason for Consult*: Eve Mccloud, [facility] Primary Care Provider: Greg Mata MD History of Present Illness History of Present Illness The patient is an 85-year-old Male who presents with chief complaint of left hip pain. The patient indicates that he experienced a fall the proximal point 4 PM on June 28, 2021. He states that he tripped on a concrete block and fell backwards. He denies loss of consciousness, head trauma or any other pain aside from that which is localized to his left hip. Preceding the event he denies diplopia, blurry vision, dysphasia, dysphagia, paresthesia/anesthesia/myasthenia of any part of his body. He denies chest pain, dyspnea, lightheaded, dizziness, diaphoresis, palpitations, sense of rapid heartbeat, sensation of irregular heartbeat. In the emergency department he was found to have a left femoral neck fracture. He presents for further evaluation Review of Systems General: Reports: 10 or more systems reviewed and unremarkable except in HPI and below Medications/Allergies Home Medications Medication Instructions Recorded Confirmed Last Taken Type aspirin 325 mg tablet,delayed 325 mg PO DAILY 07/17/19 06/14/21 Unknown History release amlodipine 10 mg tablet 5 mg PO DAILY tab 07/22/19 06/14/21 Unknown History vit B complex 100 combo no.2 100 tab PO DAILY tab 07/22/19 06/14/21 Unknown History mg tablet,extended release (B-100 Complex ER) magnesium oxide 400 mg PO DAILY 02/21/21 06/14/21 Unknown History sildenafil 100 mg tablet 100 mg PO DAILY PRN #20 tab 02/22/21 06/14/21 Unknown Rx diazepam 10 mg tablet 5 mg PO ONCE #1 tab 06/07/21 06/14/21 Unknown Rx hydrocodone 5 mg-acetaminophen 325 1 tab PO DAILY 1 Days #1 tab 06/07/21 06/14/21 Unknown Rx mg tablet levofloxacin 250 mg tablet 250 mg PO DAILY #4 tab 06/07/21 06/14/21 Unknown Rx acyclovir 800 mg tablet 800 mg PO .5 times daily tab 06/08/21 06/14/21 Unknown History hydrochlorothiazide 25 mg tablet 25 mg PO DAILY 06/08/21 06/14/21 Unknown History tamsulosin 0.4 mg capsule 0.4 mg PO DAILY 06/08/21 06/14/21 Unknown History Allergies Allergy/AdvReac Type Severity Reaction Status Date / Time Influenza Virus Vaccines Allergy Unknown Verified 06/14/21 14:52 poison vivienne extract Allergy Unknown Verified 06/07/21 10:05 prednisone Allergy unknown Verified 06/07/21 10:05 PFSH Acute PFSH: Medical History Elevated PSA Erectile dysfunction Prostate cancer Testicular pain, left Surgical History S/P repair of hydrocele Family History Father , at age 77 Myocardial infarct Mother , at age 79 Myocardial infarct Social History Smoking and tobacco status: never smoked Alcohol intake: current Alcohol intake frequency: 0-2 Drinks per Day Adopted: No Caregiver/support person: No Lives independently: No Household members: spouse Marital status: Current occupational status: retired History of recent travel: No Vitals/I&O/Wt Last Vital Signs Temp 98.2 F 06/28/21 16:57 Pulse 84 06/28/21 17:10 Resp 16 06/28/21 17:10 BP 150/86 06/28/21 17:10 Pulse Ox 95 06/28/21 17:10 Weight last 48 hrs Weight 65.771 kg Physical Exam Const: COMMON NORMALS: no acute distress, average body habitus, patient oriented x3, no limitations, healthy appearing, alert and well nourished HENMT: COMMON NORMALS: normocephalic, atraumatic, hearing grossly normal bilaterally, external ears normal, EAC's normal, TM's normal bilaterally, Normal external nose present, Normal nasal mucous membranes and turbinates present, moist oral mucous membranes, oropharynx normal, dentition normal and gingiva n ormal HEAD & SCALP: normocephalic and atraumatic FACE & SINUS: normal facial exam NOSE: Normal external nose present and Normal nasal mucous membranes and turbinates present EXTERNAL EAR: Yes external ears normal EXTERNAL AUDITORY CANAL: EAC's normal TYMPANIC MEMBRANE: TM's normal bilaterally Eye: COMMON NORMALS: Equal, round and reactive pupils present, EOMs intact bilaterally, conjunctivae normal, no scleral icterus, no papilledema, normal visual gonzales by confrontation and fundi normal bilaterally VISUAL ACUITY: Yes acuity normal CONJUNCTIVA: Yes conjunctivae normal PUPIL: Yes Equal, round and reactive pupils present DIRECT OPHTHALMOSCOPY: Yes no papilledema and Yes fundi normal bilaterally Neck/C-Spine: COMMON NORMALS: no JVD CERVICAL SPINE: Yes cervical ROM normal Chest: COMMONS NORMALS: normal inspection of the chest, normal palpation of entire chest wall, normal inspection of the breasts and normal palpation of the breasts Resp: COMMON NORMALS: normal respiratory effort, No retractions, No use of accessory muscles, clear to auscultation bilaterally and percussion normal AUSCULTATION: clear to auscultation bilaterally PERCUSSION: percussion normal Cardio: COMMON NORMALS: no JVD, regular rate, regular rhythm, S1 normal heart sound present, S2 normal heart sound present, No gallops present (Cardio), No clicks present (Cardio), No murmurs present (Cardio), No rub (Cardio) and Peripheral pulses 2+ throughout RATE: regular rate RHYTHM: regular rhythm HEART SOUNDS: S1 normal heart sound present and S2 normal heart sound present PERIPHERAL PULSES: Peripheral pulses 2+ throughout GI: COMMON NORMALS: Normal to inspection, nondistended, normoactive bowel sounds present, Soft to palpation, non-tender, No hepatosplenomegaly present, no masses and no bruits PALPATION: Yes Soft to palpation and Yes No hepatosplenomegaly present : COMMON NORMALS: Yes no CVA tenderness, Yes normal external exam, Yes Testes normal, Yes scrotum normal, Yes no scrotal swelling and Yes No hernias present BLADDER/KIDNEY EXAM: Yes no CVA tenderness Back/Pelvis: COMMON NORMALS: no CVA tenderness, thoracic and lumbar spine normal to inspection, no thoracic nor lumbar tenderness, thoraco-lumbar ROM normal and straight leg raise negative bilaterally Extremity: COMMON NORMALS: normal to inspection, full ROM, capillary refill normal, no joint enlargement, no clubbing, cyanosis or edema, no calf tenderness and no pedal edema Neuro: COMMON NORMALS: patient oriented x3 SENSORIUM/ORIENTATION: Yes alert DEEP TENDON REFLEXES: Right triceps reflex intensity grade: 2+, Left triceps reflex intensity grade: 2+, Rt Biceps (C5, C6): 2+, Left biceps reflex intensity grade: 2+, Right brachioradialis reflex intensity grade: 2+, Left brachioradialis reflex intensity grade: 2+, Right patellar reflex intensity grade: 2+, Left patellar reflex intensity grade: 2+, Right ankle reflex intensity grade: 2+ and Left ankle reflex intensity grade: 2+ PUPIL EXAM: Normal pupillary reactivity/response: bilateral, Dilated: bilateral, Pinpoint: bilateral, Mid position: bilateral, Sluggish: bilateral and Fixed/non-reactive: bilateral Psych: COMMON NORMALS: mental status grossly normal, Normal thought process present, cooperative, normal affect, speech normal, activity/motor behavior normal, denies hallucinations, denies homicidal ideation and denies suicidal ideation SPEECH: Yes normal speech THOUGHT PROCESS: Normal thought process present Skin: COMMON NORMALS: no rashes or lesions noted, no wounds, turgor normal, no jaundice, no petechiae and no mottling GENERAL SKIN EXAM: no rashes or lesions noted and turgor normal Data : 06/28/21 17:06 06/28/21 17:06 A&P Assessment and plan (1) Closed hip fracture: Status: Acute Qualifiers: Encounter type: initial encounter Laterality: left Qualified Code(s): S72.002A - Fracture of unspecified part of neck of left femur, initial encounter for closed fracture Plan Left femoral neck fracture. Patient is moderate risk for surgical intervention. Prior to clearance for surgical intervention, will check PT/INR, PTT, echocardiogram, EKG. Urine analgesia. I will follow-up on orthopedic surgery's findings recommendations Regarding risk stratification, the patient denies a history of smoking, denies COPD/emphysema, chronic bronchitis or any other respiratory illnesses. From a cardiac standpoint, he denies a history of coronary artery disease, stenting, my ocardial infarction, CHF, atrial for ablation. The patient denies a history of adverse reaction to anesthesia. The patient indicates that he is on blood thinners and upon further questioning he indicates that he takes aspirin however I am uncertain as to what the other blood thinner may be. Will need to verify his home medications. Of note, it appears that the patient abuses alcohol. To ensure that the patient does not go into delirium tremens, I recommend deferring surgery for 24-48 hours for observation while under seizure precautions. Consideration should be given to the fact that the patient will probably have frequent pathological fractures given his history of missed metastatic prostate cancer Alkaline phosphatase elevated. Chronic. Likely secondary to metastatic prostate cancer. Will monitor alkaline phosphatase intermittently Number cytopenia, chronic. We will monitor platelet count intermittently with CBC Erectile dysfunction Metastatic prostate cancer. Patient is undergoing/has undergone chemotherapy. Flomax 0.4 Mill grams by mouth daily. Outpatient follow-up with urology and/or heme otology/oncology upon discharge Anxiety COPD/query interstitial pulmonary fibrosis. Patient denies a history of smoking. I will verify with him whether there may have been occupational exposure. Patient is unaware of any history of respiratory illnesses Hypertension. Norvasc 10 Mill grams by mouth daily plus Hydrocort thiazide 25 Mill grams daily Hypothyroidism Hepatic steatosis Diverticulosis Alcohol abuse. Seizure precautions. The patient exhibits signs of withdrawal, I will start the patient on IV when necessary Ativan on a sliding scale History of CVA DVT Proflex is. Bilateral SCD Consult Attestations Medical Necessity Statement: Hospitalization is medically necessary as witnessed by this consultation. Anticipated length of stay greater than 48 h ours Coding Level of Care Code Acute Clinical Support Nurse for Lynn Fountain Diagnoses Closed hip fracture S72.002A Encounter type: initial encounter Laterality: left
[2021-06-28 19:56] VITALS: RESP 18
[2021-06-28] MEDS: HYDROmorphone 1 mg/mL INJ 1 mL IVP (19:56)
[2021-06-28 20:11] LABS: INR 1.08 (0.8-1.2)
[2021-06-28 20:12] LABS: Partial Thromboplastin Time 32.1 SECONDS (23.9-36.7)
[2021-06-28 22:20] VITALS: BMI 22.5
[2021-06-28 22:27] VITALS: BP 168/88; PULSE 75; RESP 18; TEMP 36.8; O2SAT 95
[2021-06-28 23:04] VITALS: RESP 22
[2021-06-28] MEDS: morphine 4 mg/mL SDV 1 mL 2 MG IVP (23:04)
[2021-06-29] VITALS (18 sets, daily range): BP systolic 99–152; BP diastolic 60–80; PULSE 69–106; RESP 16–20; TEMP 36.1–37.6; O2SAT 91–98
--- NOTE | 2021-06-29 | SCC_ITS ---
Procedure done: Open reduction internal fixation left hip with intramedullary device 71.3 seconds of fluoroscopic guidance, for a cumulative dose of 4.61 mGy, was provided to Dr. Pickens by the radiology department. C-arm images of the LEFT hip were saved for the patient's permanent record. [facility]
--- NOTE | 2021-06-29 | USCV_ITS ---
Transthoracic Echo Koby Franz Age: 85 Gender: M : 1935 Exam Date: 06/29/2021 01:47 Ordering Phys: Jing Mccloud DO Technologist: TYRON [place] [facility] [place]: Pre-Op BP: / HR: 71 Rhythm: Sinus Technical Quality: Adequate MEASUREMENTS (Male / Female) Normal Values 2D ECHO LV Diastolic Diameter PLAX 3.3 cm 4.2 - 5.9 / 3.9 - 5.3 cm LV Systolic Diameter PLAX 2.1 cm IVS Diastolic Thickness 0.8 cm 0.6 - 1.0 / 0.6 - 0.9 cm IVS Systolic Thickness 1.4 cm LVPW Diastolic Thickness 1.9 cm 0.6 - 1.0 / 0.6 - 0.9 cm LVPW Systolic Thickness 1.5 cm LVOT Diameter 1.8 cm LV Ejection Fraction 2D Teich 68.7 % LV Ejection Fraction MOD 2C 72.5 % LV Ejection Fraction 2C AL 73.6 % LA Diameter 4.5 cm LA Width 3.5 cm LA Height 5.5 cm RA Width 4.1 cm RA Height 4.1 cm Aorta at Sinotubular Diameter 2.6 cm M-MODE Aortic Annulus Diameter 2.6 cm LA Ao Ratio MM 1.9 MV E Point Septal Separation 0.6 cm DOPPLER AV Peak Velocity 182.7 cm/s LVOT Peak Velocity 90.0 cm/s AV Area Cont Eq vti 1.2 cm squared AV Area Cont Eq pk 1.3 cm squared MV Peak Velocity 133.0 cm/s MV Area PHT 2.9 cm squared Mitral E to A Ratio 0.6 MV E' Velocity 42.5 cm/s Mitral E to MV E' Ratio 10.7 Mitral E to LV E' Lateral Ratio 8.5 Mitral E to LV E' Septal Ratio 14.6 TR Peak Velocity 176.8 cm/s TR Peak Gradient 12.5 mmHg TR Mean Velocity 175.2 cm/s TR Mean Gradient 13.4 mmHg TR Velocity Time Integral 63.9 cm TV Peak E Velocity 76.0 cm/s Right Atrial Pressure 3.0 mmHg Pulmonary Artery Systolic Pressu 15.5 mmHg PV Peak Velocity 110.0 cm/s RV Acceleration Time 0.1 s RV Ejection Time 0.3 s RV AcT/ET 0.4 FINDINGS Left Ventricle Normal left ventricular size and systolic function, EF 73 %. No regional wall motion abnormalities. Grade I/IV diastolic dysfunction (abnormal relaxation filling pattern), normal to mildly elevated filling pressures. Right Ventricle The right ventricle is normal in size and function. Right Atrium The right atrium is normal in size. Left Atrium Mildly increased left atrial size. Mitral Valve Thickened mitral valve. Mild mitral annular calcification. Mild- moderate mitral valve regurgitation. Aortic Valve Thickened aortic valve. Tricuspid Valve Thickened tricuspid valve. Pulmonic Valve Pulmonic valve not well visualized. Pericardium Normal pericardium without effusion. Aorta Normal ascending aorta dimension. CONCLUSIONS Normal left ventricular size and systolic function, EF 73 %. No regional wall motion abnormalities. Grade I/IV diastolic dysfunction (abnormal relaxation filling pattern), normal to mildly elevated filling pressures. Thickened mitral valve. Mild mitral annular calcification. Mild- moderate mitral valve regurgitation. Thickened aortic valve. Thickened tricuspid valve. There is no pericardial effusion. There are no intracardiac masses. No previous study is available for comparison. Dr Lissette Nunn MD FAC (Electronically Signed) Final Date: 29 June 2021 17:18 S
[2021-06-29] MEDS: morphine 4 mg/mL SDV 1 mL 2 MG IVP ×3 (03:08→15:20)
[2021-06-29 03:35] LABS: Basophils % 0.2 %; Eosinophils # 0.1 10^3/uL (0.0-0.8); Eosinophils % 1.5 %; Hematocrit 37.6 % (42.0-52.0); Hemoglobin 11.9 g/dL (11.7-16.6); Lymphocytes % 17.4 %; Mean Corpuscular HGB Conc 31.6 g/dL (30.0-36.0); Mean Corpuscular Hemoglobin 30.3 pg (28.0-34.0); Mean Corpuscular Volume 95.7 fl (80-94); Mean Platelet Volume 12.8 fL (7.4-10.4); Monocytes # 0.6 10^3/uL (0.2-0.9); Monocytes % 9.5 %; Neutrophils % 71.1 %; Nucleated Red Blood Cells % 0 %; Platelet Count 79 10^3/cmm (130-400); Red Blood Count 3.93 10^6/uL (4.1-5.3); Red Cell Distribution Width 13.4 % (12.1-15.1); White Blood Count 5.9 10^3/uL (4.0-10.0)
[2021-06-29] MEDS: dextrose 5%-sod chloride 0.45% 1,000 ML 30 ML IV (09:05)
[2021-06-29] MEDS: tamsulosin 0.4 mg Capsule PO (09:10)
[2021-06-29] MEDS: hydroCHLOROthiazide 25 mg Tablet PO (09:10)
[2021-06-29] MEDS: amlodipine 10 mg Tablet 5 MG PO (09:11)
[2021-06-29] MEDS: folic acid 1 mg Tablet PO (09:11)
--- NOTE | 2021-06-29 10:00 | PC.NURSE ---
attempted to insert eng catheter. patient did not tolerate procedure and requested that I stop. Dr. Sadler notified, and ordered to use a smaller coude catheter. Discussed with patient and patient stated they can do it once they knock me out for surgery. Dr. Sadler notified.
--- NOTE | 2021-06-29 11:40 | PC.CHAP ---
Pastoral Care Encounter/Spiritual Assessment Type of Contact [] Declined marketing communications manager visit [] Patient/Family/Request visit [] Outpatient visit [] Follow-up visit [] Physician referral [] Code/Alert [] Routine visit [] Staff referral [] Actively dying [] Patient sleeping [] Family support [] [] Out of room [] Palliative care [] [] Receiving care in room [] Pre-surgical visit [] Trauma [] Long length of stay [] ICU visit [x] Other: chemo Relational/Emotional Strength [] Patient feels connected with others/family/visitors/staff [] Distress [] Loneliness/isolation [] Abandonment Spirituality of Patient [] Person of Cierra [] Attends Rastafari of their Cierra [] Believes in Prayer [] Reads Bible or Scientologist materials [] There are Spiritual issues to be addressed Crate Repairer Interventions [] Prayer [] Active listening [] Non-anxious presence [] Spiritual/emotional support [] Crisis/trauma care [] Spiritual counseling [] Bereavement support [] Provided bereavement packet [] Provided Bible/devotional materials [] Provided toy/stuffed animal, coloring book to patient or family member [] Provided Communion [] Anointing/[place] [] Salvation [] Completed spiritual assessment [] Other: Impact on Illness or Injury [] Angry [] Fearful [] Anxious [] Often cries [] Exhaustion [] Unable to work [] Unable to attend mormon [] Unable to walk/stand [] Unable to read [] Unable to drive [] Unable to eat/drink [] Unable to sleep [] Unable to be with family [] Patient intubated [] Other: Summary chemo Time spent with patient 5 mins
--- NOTE | 2021-06-29 12:46 | PC.PHAR ---
PT UNABLE TO VERIFY ALL HIS MEDICATIONS-PT STATE HE TAKES A 325MG ASPIRIN AND ANOTHER BLOOD THINNER PTS SON CESAR STATES THE PT DOES TAKES ASPIRIN AND ANOTHER BLOOD THINNER-PLAVIX IS ON PTS MED LIST FROM DR CHAPA OFFICE BUT NOT ON THE PTS [facility] MED LIST OR EXT MED HISTORY [facility] HASNT FILL[facility] FOR [facility] PT-HCTZ AND FLOMAX ARE ON THE PTS MED LIST FROM [facility] BUT NOT ON THE VA MED LIST OR EXT MED HISTORY OR DR CHAPA OFFICE-NOTES ARE MADE IN THE PHARMACY COMMENTS-MEDICATIONS ENTERED ARE MEDS FROM DR CHAPA MED LIST [facility] EXT MED HISTORY, PREVIOUS ENTERED MED LIST AND VA MED LIST-PTS SON CESAR VERIFIED THE 3 BOTTLE OF MEDICATIONS HE HAD NORCO 5-325MG.MOBIC 15MG AND CASODEX
[2021-06-29] MEDS: HYDROmorphone 1 mg/mL INJ 1 mL 0.4 MG IVP (12:55)
--- NOTE | 2021-06-29 13:34 | PM.PN ---
Subjective Subjective: Patient was kept n.p.o. for surgical intervention Considering stage IV prostate cancer he does have guarded prognosis however intervention would definitely relieve his symptoms, he is very active for his age despite his stage IV cancer Case was discussed with Dr. Pickens Opioids has been escalated to Dilaudid, morphine is not helping him at all It was difficult to place Haque catheter, requested nurse for 16 Maltese coud? catheter Vitals/I&O/Wt Last Vital Signs Temp 98.6 F 06/29/21 11:56 Pulse 77 06/29/21 11:56 Resp 20 H 06/29/21 12:55 BP 125/75 06/29/21 11:56 Pulse Ox 96 06/29/21 11:56 06/28/21 06/29/21 06/29/21 22:59 06:59 14:59 Output Total 675 / 675 Balance -675 / -675 Weight last 48 hrs Weight 67.222 kg Weight 65.771 kg Physical Exam Narrative: Patient was laying supine In distress because of pain Looks euvolemic S1, S2 Saturating well on room air Abdomen soft Awake and alert Nonfocal neuro exam Data : 06/29/21 03:05 06/28/21 17:06 A&P Assessment and plan (1) Closed hip fracture: Status: Acute Qualifiers: Encounter type: initial encounter Laterality: left Qualified Code(s): S72.002A - Fracture of unspecified part of neck of left femur, initial encounter for closed fracture (2) Prostate cancer metastatic to bone: Status: Acute (3) Erectile dysfunction: Status: Acute Plan Femoral neck fracture At risk of avascular necrosis Pathological fracture Stage IV prostate cancer, requested nurse for 16 Maltese coud? catheter to be placed Surgical intervention today Kept n.p.o. Patient drinks whiskey and wine about 2 shots every day, no history of withdrawal, last drink was 48 hours ago Added thiamine and folic acid Phenobarbital 100 mg on as needed basis can be given N.p.o. 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
--- NOTE | 2021-06-29 15:29 | P.CONIM_ITS ---
Providers/Reason For Consult Consulting Physician/Specialty*: Justin Pickens MD; orthopedic surgeon Reason for Consult*: Pathological fracture left proximal femur Attending Physician: Emeterio Sadler MD Primary Care Provider: Greg Mata MD History of Present Illness History of Present Illness Koby Franz is a 85 year old male with a history of pain in his left leg that he states began around the beginning of the year. Scribes a number of falls over the years. He describes a one fall in April and thereafter having persistent pain in his left hip. He had been following for elevated PSA levels by Dr. Martinez. In April of this year PSA levels were markedly increased. Ultimately radiographs of the left hip were obtained on 06/14/2021 revealing bony metastasis in the left proximal femur and a likely nondisplaced fracture. A nuclear medicine bone scan that day confirmed numerous metastatic lesions throughout the spine pelvis and sacrum, a large lesion in the proximal hip and proximal femur, and lesions in bilateral humeri. A CT scan was obtained on confirming metastatic disease in the proximal femur and the presence of the fracture. An additional metastatic area was seen distally in the diaphysis. 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 On June 28 of this year the patient fell backwards with increasing pain. He was taken to our emergency room where radiographs revealed displacement about the basicervical femoral fracture. The patient was admitted to the hospital for surgical management. Medications/Allergies Home Medications Medication Instructions Recorded Confirmed Last Taken Type aspirin 325 mg tablet,delayed 325 mg PO DAILY 07/17/19 06/29/21 Unknown History release vit B complex 100 combo no.2 100 1 tab PO DAILY tab 07/22/19 06/29/21 Unknown History mg tablet,extended release (B-100 Complex ER) magnesium oxide 400 mg PO DAILY 02/21/21 06/29/21 Unknown History sildenafil 100 mg tablet 100 mg PO DAILY PRN #20 tab 02/22/21 06/29/21 Unknown Rx acyclovir 800 mg tablet 800 mg PO .5 times daily PRN tab 06/08/21 06/29/21 Unknown History hydrochlorothiazide 25 mg tablet 25 mg PO DAILY 06/08/21 06/29/21 Unknown History tamsulosin 0.4 mg capsule 0.4 mg PO DAILY 06/08/21 06/29/21 Unknown History amlodipine 5 mg tablet 5 mg PO DAILY 06/29/21 06/29/21 Unknown History bicalutamide 50 mg tablet 50 mg PO DAILY 06/29/21 06/29/21 Unknown History beghoul-mniiyaul-fynovhiiuj-folic 1 tab PO DAILY 06/29/21 06/29/21 Unknown History acid 0.5 mg tablet clopidogrel 75 mg tablet (Plavix) 75 mg PO DAILY 06/29/21 06/29/21 Unknown History hydrocodone 5 mg-acetaminophen 325 1 - 2 tab PO QID PRN 06/29/21 06/29/21 Unknown History mg tablet meloxicam 15 mg tablet 15 mg PO DAILY 06/29/21 06/29/21 Unknown History vjybyknn-wfpashdq-tkgmx acid 400 1 tab PO DAILY 06/29/21 06/29/21 Unknown History mcg-vit K 20 mcg-lycop 300 mcg tablet (Men's Daily Formula) saw palmetto 5 tab PO DAILY 06/29/21 06/29/21 Unknown History vitamin E 1,000 unit capsule 1,000 unit PO DAILY 06/29/21 06/29/21 Unknown History Allergies Allergy/AdvReac Type Severity Reaction Status Date / Time Influenza Virus Vaccines Allergy Unknown Verified 06/14/21 14:52 poison vivienne extract Allergy Unknown Verified 06/07/21 10:05 prednisone Allergy unknown Verified 06/07/21 10:05 Current Medications Generic Name Dose Route Start Last Admin Trade Name Freq PRN Reason Stop Dose Admin Amlodipine Besylate 5 mg 06/29/21 09:00 06/29/21 09:11 Amlodipine 10 Mg Tablet PO 5 mg DAILY TALIA Administration Folic Acid 1 mg 06/29/21 09:00 06/29/21 09:11 Folic Acid 1 Mg Tablet PO 1 mg DAILY TALIA Administration Hydrochlorothiazide 25 mg 06/29/21 09:00 06/29/21 09:10 Hydrochlorothiazide 25 Mg Tablet PO 25 mg DAILY TALIA Administration Hydromorphone HCl 0.4 mg 06/29/21 12:24 06/29/21 12:55 Hydromorphone 1 Mg/Ml Inj 1 Ml IVP 0.4 mg Q4H PRN Administration pain Dextrose/Sodium Chloride 1,000 mls @ 30 mls/hr 06/29/21 08:00 06/29/21 09:05 Dextrose 5%-Sod Chloride 0.45% IV 30 mls/hr .Q24H TALIA Administration Morphine Sulfate 2 mg 06/28/21 22:20 06/29/21 15:20 Morphine 4 Mg/Ml Sdv 1 Ml IVP 2 mg Q4H PRN Administration PAIN Tamsulosin HCl 0.4 mg 06/29/21 09:00 06/29/21 09:10 Tamsulosin 0.4 Mg Capsule PO 0.4 mg DAILY TALIA Administration Thiamine HCl 100 mg 06/29/21 09:00 06/29/21 09:11 Thiamine 100 Mg/Ml Sdv IVP 100 mg DAILY TALIA Administration PFSH Acute PFSH: Medical History Elevated PSA Erectile dysfunction Prostate cancer Testicular pain, left Surgical History S/P repair of hydrocele Family History Father , at age 77 Myocardial infarct Mother , at age 79 Myocardial infarct Social History Smoking and tobacco status: never smoked Alcohol intake: current Alcohol intake frequency: 0-2 Drinks per Day Adopted: No Caregiver/support person: No Lives independently: No Household members: spouse Marital status: Current occupational status: retired History of recent travel: No Vitals/I&O/Wt Last Vital Signs Temp 98.6 F 06/29/21 11:56 Pulse 77 06/29/21 11:56 Resp 20 H 06/29/21 12:55 BP 125/75 06/29/21 11:56 Pulse Ox 96 06/29/21 11:56 06/29/21 06/29/21 06/29/21 06:59 14:59 22:59 Output Total 675 / 675 Balance -675 / -675 Weight last 48 hrs Weight 148 lb 3.2 oz Weight 145 lb Physical Exam Narrative: The patient has pain with motion of the left hip Palpable left dorsalis pedis pulse. Flexes extends left toes and ankle without any motor deficits. Sensation is intact to light touch. Data : 06/29/21 03:05 06/28/21 17:06 Xray Ortho: My impression: Two views of the left hip are reviewed from 06/28/2021 and compared to those dated 06/14/2021. Again there is mixed sclerotic and lucent lesions in the basicervical area of the femoral neck. There appears to be varus collapse in the area of the basicervical femur. An additional bone forming lesion is seen more distal into the proximal diaphysis. A&P Assessment and plan (1) Pathological fracture, left femur, initial encounter for fracture: The patient as a interval loss in the position of his fracture since 06/14/2021. He has quite a bit of pain. I discussed treatment options with him. We could continue with nonoperative care. This would require him largely to be at bedrest perhaps mobilized to a chair. He would continue to have pain and likely would not regain ambulatory status. I discussed surgical stabilization options with him. Prostate cancer should have some potential to heal. I think this can be treated with open reduction internal fixation with a intramedullary julio. We could bypass the lesion in the proximal femur and gained immediate stability to allow weightbearing. I told him with surgical stabilization there is certainly a risk of nonunion and malunion. If this surgery fails he would need a much more extensive hemiarthroplasty. I told him another option would be to proceed with a hemiarthroplasty at this point. This would be a larger procedure and at higher risk. He would need a long reconstruction stem to span the defect. I discussed the case with Greg Mata his oncologist. We agree that this has potential to heal and we will try open reduction internal fixation with intramedullary device. The patient agreed. We will proceed today. 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
--- NOTE | 2021-06-29 15:41 | P.ANESASSM_ITS ---
Pre-Anesthetic Assessment Height/Weight: Height 1.73 m Weight 67.222 kg Temp Pulse Resp BP Pulse Ox 98.6 F 77 20 H 125/75 96 06/29/21 11:56 06/29/21 11:56 06/29/21 12:55 06/29/21 11:56 06/29/21 11:56 Preop Diagnosis: Pathoogical fracture left basicervical femoral neck Operation Date: 06/29/21 16:25 Proposed Procedures p Trochanteric Femoral Nail(Left) - Justin Pickens MD Familial anesthetic complications: None Was Beta Camron taken within 24 hours: N/A Was Clonidine taken within 24 hours: N/A Last intake: > 8hrs Social Alcohol and No tobacco Hx ETOH abuse Exam alert, oriented x 3, clear to auscultation bilaterally and regular rate & rhythm Airway Mallampati: Class II Dentition: partials Comments: Comments: full buck Pulmonary Chronic Obstructive Pulmonary Disease (?) CV/HEM Hypertension Hepatic fatty liver Metabolic Thyroid Disease Musc/skel stage IV metastatic prostate cancer w/ lytic lesions Neuropsych Cerebrovascular Accident Anesthetic Plan ASA status: 4 Anesthesia: General Risk of > 500 ml blood loss (7ml/kg in children): No Medications/Allergies Home Medications Medication Instructions Recorded Confirmed Last Taken Type aspirin 325 mg tablet,delayed 325 mg PO DAILY 07/17/19 06/14/21 Unknown History release vit B complex 100 combo no.2 100 tab PO DAILY tab 07/22/19 06/14/21 Unknown History mg tablet,extended release (B-100 Complex ER) magnesium oxide 400 mg PO DAILY 02/21/21 06/14/21 Unknown History sildenafil 100 mg tablet 100 mg PO DAILY PRN #20 tab 02/22/21 06/14/21 Unknown Rx acyclovir 800 mg tablet 800 mg PO .5 times daily tab 06/08/21 06/14/21 Unknown History hydrochlorothiazide 25 mg tablet 25 mg PO DAILY 06/08/21 06/14/21 Unknown History tamsulosin 0.4 mg capsule 0.4 mg PO DAILY 06/08/21 06/14/21 Unknown History amlodipine 5 mg tablet 5 mg PO DAILY 06/29/21 06/29/21 Unknown History bicalutamide 50 mg tablet 50 mg PO DAILY 06/29/21 06/29/21 Unknown History jeoymgy-ktempzng-nwkyvwoulf-folic 1 tab PO DAILY 06/29/21 06/29/21 Unknown History acid 0.5 mg tablet clopidogrel 75 mg tablet (Plavix) 75 mg PO DAILY 06/29/21 06/29/21 Unknown History hydrocodone 5 mg-acetaminophen 325 1 - 2 tab PO QID PRN 06/29/21 06/29/21 Unknown History mg tablet meloxicam 15 mg tablet 15 mg PO DAILY 06/29/21 06/29/21 Unknown History phqjktqy-xxihomjy-zzhoo acid 400 1 tab PO DAILY 06/29/21 06/29/21 Unknown History mcg-vit K 20 mcg-lycop 300 mcg tablet (Men's Daily Formula) saw palmetto 5 tab PO DAILY 06/29/21 06/29/21 Unknown History vitamin E 1,000 unit capsule 1,000 unit PO DAILY 06/29/21 06/29/21 Unknown History Allergies Allergy/AdvReac Type Severity Reaction Status Date / Time Influenza Virus Vaccines Allergy Unknown Verified 06/14/21 14:52 poison vivienne extract Allergy Unknown Verified 06/07/21 10:05 prednisone Allergy unknown Verified 06/07/21 10:05 Current Medications Generic Name Dose Route Start Last Admin Trade Name Freq PRN Reason Stop Dose Admin Amlodipine Besylate 5 mg 06/29/21 09:00 06/29/21 09:11 Amlodipine 10 Mg Tablet PO 5 mg DAILY TALIA Administration Folic Acid 1 mg 06/29/21 09:00 06/29/21 09:11 Folic Acid 1 Mg Tablet PO 1 mg DAILY TALIA Administration Hydrochlorothiazide 25 mg 06/29/21 09:00 06/29/21 09:10 Hydrochlorothiazide 25 Mg Tablet PO 25 mg DAILY TALIA Administration Hydromorphone HCl 0.4 mg 06/29/21 12:24 06/29/21 12:55 Hydromorphone 1 Mg/Ml Inj 1 Ml IVP 0.4 mg Q4H PRN Administration pain Dextrose/Sodium Chloride 1,000 mls @ 30 mls/hr 06/29/21 08:00 06/29/21 09:05 Dextrose 5%-Sod Chloride 0.45% IV 30 mls/hr .Q24H TALIA Administration Morphine Sulfate 2 mg 06/28/21 22:20 06/29/21 15:20 Morphine 4 Mg/Ml Sdv 1 Ml IVP 2 mg Q4H PRN Administration PAIN Tamsulosin HCl 0.4 mg 06/29/21 09:00 06/29/21 09:10 Tamsulosin 0.4 Mg Capsule PO 0.4 mg DAILY TALIA Administration Thiamine HCl 100 mg 06/29/21 09:00 06/29/21 09:11 Thiamine 100 Mg/Ml Sdv IVP 100 mg DAILY TALIA Administration [facility] Anesthesia Medical History Elevated PSA Erectile dysfunction Prostate cancer Testicular pain, left Surgical History S/P repair of hydrocele Family History Father , at age 77 Myocardial infarct Mother , at age 79 Myocardial infarct Social History Smoking and tobacco status: never smoked Alcohol intake: current Alcohol intake frequency: 0-2 Drinks per Day Adopted: No Caregiver/support person: No Lives independently: No Household members: spouse Marital status: Current occupational status: retired History of recent travel: No Data Anesthesia : 06/29/21 03:05 06/28/21 17:06 Short CBC 06/28/21 06/29/21 Range/Units 17:06 03:05 WBC 7.8 5.9 (4.0-10.0) 10^3/uL Hgb 12.6 11.9 (11.7-16.6) g/dL Hct 39.7 L 37.6 L (42.0-52.0) % MCV 93.9 95.7 H (80-94) fl Plt Count 100 L 79 L (130-400) 10^3/cmm Neut % (Auto) 66.9 71.1 % Neut # (Auto) 5.19 4.20 (1.8-7.7) 10^3/uL BMP 06/28/21 17:06 Sodium 136 Potassium 4.1 Chloride 102 Carbon Dioxide 22 BUN 23 Creatinine 0.8 Glucose 95 Calcium 8.5 Liver Function 06/28/21 Range/Units 17:06 Total Bilirubin 0.4 (0.15-1.2) mg/dL AST 30 (0-40) U/L ALT 15 (0-41) U/L Alkaline Phosphatase 766 H (40-130) IU/L Albumin 4.5 (3.5-5.2) g/dL Urine 06/28/21 Range/Units 17:34 Urine Color Yellow (Yellow) Urine Appearance Clear (CLEAR) Urine pH 8 H (5-7) Ur Specific [place] 1.015 (1.005-1.030) Urine Protein Neg (Negative) Urine Glucose (UA) Norm (Normal) Urine Ketones 1+ H (Negative) Urine Nitrate Negative (Negative) Urine Bilirubin Neg (Negative) Ur Leukocyte Esterase Negative (Negative) Urine RBC None (0-2) /hpf Urine WBC None (0-5) /hpf COVID Results 06/28/21 17:34 SARS-CoV-2 Ag (Rapid) Negative Coags 06/28/21 17:00 PT 14.30 INR 1.08 APTT 32.1 Cardiac Studies: No Data to Display
--- NOTE | 2021-06-29 16:00 | PC.NURSE ---
patient taken off unit by pre-op nurses.
[2021-06-29] MEDS: sodium chloride 0.9% 1,000 ML 30 ML IV (16:08)
--- NOTE | 2021-06-29 17:11 | P.CONIM_ITS ---
Providers/Reason For Consult Consulting Physician/Specialty*: Urology/Martinez Reason for Consult*: Inability to place catheter preoperatively for orthopedic procedure Requesting Physician: Dr. Pickens Attending Physician: Emeterio Sadler MD Primary Care Provider: Greg Mata MD History of Present Illness History of Present Illness Koby Franz is a 85 year old male white male well-known to me for history of metastatic process cancer. Was scheduled for repair of hip fracture today. Attempts at placing a catheter on the floor were unsuccessful. I was consulted for further evaluation and treatment. Patient was voiding. Was not in retention. Does have chronically decreased force of stream and hesitancy. No significant dysuria or hematuria. Status post history of remote TURP. Review of Systems Const: Reports: malaise; Denies: fever(s) or chills Eyes: Denies: change in vision ENMT: Denies: hoarseness Card: Denies: chest pain Resp: Denies: dyspnea GI: Denies: abdominal pain or vomiting : Reports: urinary frequency, urinary urgency and urinary hesitancy Musc: Reports: extremity pain, extremity swelling and limited range of motion Skin/Breast: Denies: rash Neuro: Denies: confusion or Slurred speech present Psych: Reports: depression; Denies: anxiety Endo: Reports: flushing Ezra/Lymph: Denies: easy bruising or easy bleeding All/Imm: Denies: urticaria or acute wheezing Medications/Allergies Home Medications Medication Instructions Recorded Confirmed Last Taken Type aspirin 325 mg tablet,delayed 325 mg PO DAILY 07/17/19 06/29/21 Unknown History release vit B complex 100 combo no.2 100 1 tab PO DAILY tab 07/22/19 06/29/21 Unknown History mg tablet,extended release (B-100 Complex ER) magnesium oxide 400 mg PO DAILY 02/21/21 06/29/21 Unknown History sildenafil 100 mg tablet 100 mg PO DAILY PRN #20 tab 02/22/21 06/29/21 Unknown Rx acyclovir 800 mg tablet 800 mg PO .5 times daily PRN tab 06/08/21 06/29/21 Unknown History hydrochlorothiazide 25 mg tablet 25 mg PO DAILY 06/08/21 06/29/21 Unknown History tamsulosin 0.4 mg capsule 0.4 mg PO DAILY 06/08/21 06/29/21 Unknown History amlodipine 5 mg tablet 5 mg PO DAILY 06/29/21 06/29/21 Unknown History bicalutamide 50 mg tablet 50 mg PO DAILY 06/29/21 06/29/21 Unknown History xcdsqmr-dsfjhari-nfopsvuzxv-folic 1 tab PO DAILY 06/29/21 06/29/21 Unknown History acid 0.5 mg tablet clopidogrel 75 mg tablet (Plavix) 75 mg PO DAILY 06/29/21 06/29/21 Unknown History hydrocodone 5 mg-acetaminophen 325 1 - 2 tab PO QID PRN 06/29/21 06/29/21 Unknown History mg tablet meloxicam 15 mg tablet 15 mg PO DAILY 06/29/21 06/29/21 Unknown History pabfyyql-vasyhxza-mafdv acid 400 1 tab PO DAILY 06/29/21 06/29/21 Unknown History mcg-vit K 20 mcg-lycop 300 mcg tablet (Men's Daily Formula) saw palmetto 5 tab PO DAILY 06/29/21 06/29/21 Unknown History vitamin E 1,000 unit capsule 1,000 unit PO DAILY 06/29/21 06/29/21 Unknown History Allergies Allergy/AdvReac Type Severity Reaction Status Date / Time Influenza Virus Vaccines Allergy Unknown Verified 06/14/21 14:52 poison vivienne extract Allergy Unknown Verified 06/07/21 10:05 prednisone Allergy unknown Verified 06/07/21 10:05 Current Medications Generic Name Dose Route Start Last Admin Trade Name Freq PRN Reason Stop Dose Admin Acetaminophen 650 mg 06/30/21 03:31 06/30/21 03:36 Acetaminophen 325 Mg Tablet PO 650 mg Q6H PRN Administration MILD PAIN Amlodipine Besylate 5 mg 06/29/21 09:00 06/29/21 09:11 Amlodipine 10 Mg Tablet PO 5 mg DAILY TALIA Administration Folic Acid 1 mg 06/29/21 09:00 06/29/21 09:11 Folic Acid 1 Mg Tablet PO 1 mg DAILY TALIA Administration Hydrochlorothiazide 25 mg 06/29/21 09:00 06/29/21 09:10 Hydrochlorothiazide 25 Mg Tablet PO 25 mg DAILY TALIA Administration Hydromorphone HCl 0.4 mg 06/29/21 12:24 06/29/21 12:55 Hydromorphone 1 Mg/Ml Inj 1 Ml IVP 0.4 mg Q4H PRN Administration pain Dextrose/Sodium Chloride 1,000 mls @ 30 mls/hr 06/29/21 08:00 06/29/21 21:00 Dextrose 5%-Sod Chloride 0.45% IV Infused .Q24H TALIA Infusion Sodium Chloride 1,000 mls @ 75 mls/hr 06/29/21 19:58 06/29/21 21:00 Sodium Chloride 0.9% IV 75 mls/hr .[id number] TALIA Administration Cefazolin Sodium 2,000 mg/ 50 mls @ 100 mls/hr 06/29/21 20:15 06/30/21 05:37 Sodium Chloride IV Infused Q8H TALIA Infusion Morphine Sulfate 2 mg 06/28/21 22:20 06/29/21 15:20 Morphine 4 Mg/Ml Sdv 1 Ml IVP 2 mg Q4H PRN Administration PAIN Tamsulosin HCl 0.4 mg 06/29/21 09:00 06/29/21 09:10 Tamsulosin 0.4 Mg Capsule PO 0.4 mg DAILY TALIA Administration Thiamine HCl 100 mg 06/29/21 09:00 06/29/21 09:11 Thiamine 100 Mg/Ml Sdv IVP 100 mg DAILY TALIA Administration PFSH Acute PFSH: Medical History Elevated PSA Erectile dysfunction Prostate cancer Testicular pain, left Surgical History S/P repair of hydrocele Family History Father , at age 77 Myocardial infarct Mother , at age 79 Myocardial infarct Social History Smoking and tobacco status: never smoked Alcohol intake: current Alcohol intake frequency: 0-2 Drinks per Day Adopted: No Caregiver/support person: No Lives independently: No Household members: spouse Marital status: Current occupational status: retired History of recent travel: No Vitals/I&O/Wt Last Vital Signs Temp 99.1 F 06/30/21 04:00 Pulse 118 H 06/30/21 04:00 Resp 20 H 06/30/21 04:00 BP 95/39 06/30/21 04:00 Pulse Ox 91 06/30/21 04:00 06/29/21 06/29/2122 14:59 22:59 06:59 Intake Total 419.5 / 419.5 50 / 469.5 Output Total 400 / 400 650 / 1050 Balance 19.5 / 19.5 -600 / -580.5 Weight last 48 hrs Weight 148 lb 3.2 oz Weight 145 lb Physical Exam Const: COMMON NORMALS: no acute distress, alert and well nourished GENERAL APPEARANCE: well kempt and well developed ORIENTATION/CONSCIOUSNESS: not confused HENMT: COMMON NORMALS: normocephalic and atraumatic HEAD & SCALP: normocephalic and atraumatic Eye: COMMON NORMALS: conjunctivae normal and no scleral icterus CONJUNCTIVA: Yes conjunctivae normal Neck/C-Spine: COMMON NORMALS: full ROM Lymph: LYMPHATIC: no lymphadenopathy noted Resp: COMMON NORMALS: normal respiratory effort EFFORT & INSPECTION: No labored and No Actively coughing : COMMON NORMALS: Yes no CVA tenderness, Yes normal external exam and Yes no scrotal swelling BLADDER/KIDNEY EXAM: Yes no CVA tenderness Back/Pelvis: COMMON NORMALS: no CVA tenderness Neuro: SENSORIUM/ORIENTATION: Yes alert Psych: COMMON NORMALS: mental status grossly normal APPEARANCE: Yes grossly normal and Yes well kempt ATTITUDE: Yes calm and Yes engaged Skin: COMMON NORMALS: no rashes or lesions noted and no jaundice GENERAL SKIN EXAM: no rashes or lesions noted Urinary Catheter Management: Haque Latex: Cath Placed During This Visit: yes Urinary Catheter Date of Insertion: 06/29/21 Urinary Catheter Time of Insertion: 18:10 Data : 06/30/21 02:00 06/30/21 02:00 A&P Assessment and plan (1) Lower urinary tract symptoms (LUTS): Unsuccessful attempts letter for patient undergoing orthopedic surgery with history of progressive lower urinary tract symptoms. 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
[2021-06-29] MEDS: lidocaine 2% Urojet 20 mL TOPICAL ×2 (17:37→17:56)
--- NOTE | 2021-06-29 19:03 | XR_ITS ---
WS: [id number] Left hip, C-arm fluoroscopy, 06/29/2021 Clinical Data: OR PICS Comparison: None. Findings: There is a left hip nail in good position. The oblique nails reducing a left femoral neck fracture. T here is a long intramedullary julio in the left femur. XR/XR hip LT 1V wo/w pel [id number] Impression: Internal fixation of left femoral neck fracture. Tonnis classification:
--- NOTE | 2021-06-29 19:17 | PM.OP ---
Operative Report Date of procedure: June 29, 2021 Pre-op diagnosis: Preop Diagnosis Pathoogical fracture left basicervical femoral neck Post-op diagnosis: same Procedure done: Open reduction internal fixation left hip with intramedullary device Implants: Aziza Gamma nail [id number], 105mm 10.5m lag screw Anesthesia: General Estimated blood loss (mL): 200 Findings: The patient had a low vertical fracture of the left femoral neck. Bone specimen was not sent for pathology however radiographs revealed blastic bone formation in the basicervical femoral neck as well as the proximal diaphysis Condition: stable Disposition: PACU Procedure: The patient was taken to the operating room. They were given 2 g of Ancef. They were positioned on the fracture table with the right lower extremity in gentle traction. A timeout was performed. A 2 cm long incision was made proximal to the greater trochanter scalpel blade. Dissection was carried down to tip the greater trochanter. A guidepin was passed manually from the tip of the trochanter down the shaft. The proximal reamer was utilized to open up the proximal canal. The ball-tipped guidewire was passed down the femoral canal. Sequential reaming was accomplished up to 13 mm. An 11 mm by 380 mm Aziza gamma nail was passed down the canal without difficulty. Under visualization of fluoroscopy a guidepin was driven up into the head and neck at 125? angle. It was measured at 105 mm in length and a lag screw similar length was then placed. During advancement of the screw fluoroscopy was used to verify that no rotation was occurring across the base of the femoral neck. The leg screw was locked into place with the proximal locking screw. Intraoperative imaging was obtained verifying satisfactory position of the hardware and reduction of the fracture. Deep tissues were closed with 0 Vicryl as were subcutaneous tissues. The skin was closed with 4-0 Stratafix. Sterile dressings were applied. The patient was extubated and taken to recovery room in stable condition.
--- NOTE | 2021-06-29 19:22 | P.PCN_ITS ---
PACU note Narrative: VSS, Good respiratory effort, report to DAMAGE CUTTER Exam: awake
--- NOTE | 2021-06-29 19:22 | PM.PACU ---
PACU note Narrative: VSS, Good respiratory effort, report to POLICE MATRON Exam: awake
[2021-06-29] MEDS: sodium chloride 0.9% 1,000 ML 75 ML IV (21:00)
[2021-06-30] VITALS (9 sets, daily range): BP systolic 93–110; BP diastolic 39–69; PULSE 98–118; RESP 16–20; TEMP 36.8–37.4; O2SAT 91–95
[2021-06-30 03:02] LABS: Basophils % 0.1 %; Hematocrit 37.2 % (42.0-52.0); Hemoglobin 11.8 g/dL (11.7-16.6); Lymphocytes # 0.2 10^3/uL (0.8-4.8); Lymphocytes % 1.9 %; Mean Corpuscular HGB Conc 31.7 g/dL (30.0-36.0); Mean Corpuscular Hemoglobin 30.1 pg (28.0-34.0); Mean Corpuscular Volume 94.9 fl (80-94); Monocytes # 0.7 10^3/uL (0.2-0.9); Monocytes % 6.4 %; Neutrophils # 10.57 10^3/uL (1.8-7.7); Neutrophils % 91.1 %; Nucleated Red Blood Cells % 0 %; Platelet Count 81 10^3/cmm (130-400); Red Blood Count 3.92 10^6/uL (4.1-5.3); Red Cell Distribution Width 13.4 % (12.1-15.1); White Blood Count 11.6 10^3/uL (4.0-10.0)
[2021-06-30 03:03] LABS: Mean Platelet Volume 13.2 fL (7.4-10.4)
[2021-06-30 03:26] LABS: Anion Gap 19.4 (5-19); Blood Urea Nitrogen 16 mg/dL (8-23); Calcium 7.5 mg/dL (8.5-10.5); Carbon Dioxide 19 mmol/L (22-29); Chloride 99 mmol/L (98-107); Glucose 152 mg/dL (65-115); Osmolality Calculated 280 mOsm/kg (285-295); Potassium 4.4 mmol/L (3.5-5.1); Sodium 133 mmol/L (136-145)
[2021-06-30] MEDS: acetaminophen 325 mg Tablet 650 MG PO (03:36)
--- NOTE | 2021-06-30 06:18 | PM.OP ---
Operative Report Date of procedure: June 29, 2021 Pre-op diagnosis: Preop Diagnosis LUTS, inability to place Haque catheter Post-op diagnosis: Bladder neck contracture Procedure done: 1. Cystoscopy with urethral dilation Pathology: None Surgeon: Juan Anesthesia: General Estimated blood loss: <10 cc Urine output: Not measured Complications: None Findings: <10 Dominican bladder neck contracture post TUR. Required dilation for catheter placed Brief History: Mr. Franz is a very pleasant 85-year-old white male well-known to me for history of metastatic prostate cancer who recently had a hip fracture. In preparation for surgery attempts at Haque catheter were made but unsuccessfully so. I was consulted for further evaluation. He is status post remote TURP. Procedure: After routine preoperative evaluation examination and obtaining informed consent he was taken to the operating suite on 06/29/2021 where general anesthesia was administered without difficulty. Prepped and draped in usual sterile fashion in supine position. Attempts at Haque catheter placement first with an 18 Dominican coud? catheter and then with a 14 Dominican coud? catheter unsuccessful. It appeared that the catheter was getting down to the bladder neck but no further. At this point a flexible cystoscope was advanced into the urethra under direct vision. There was some minimal trauma to the urethra from catheter attempts but none of that was significant. He was found to have a very tight bladder neck contracture. A guidewire was passed through the bladder neck contracture into the bladder. Initially a 10 Dominican catheter was converted to kenaitze tip catheter with hopes of gentle dilation but this was unsuccessful in passage. Attempted filiform passage was also unsuccessful. Dilation was then performed utilizing renal/Amplatz dilators beginning with 8 Dominican up to 20 Dominican utilizing initial dilators, snake, and then dilators over the snake. The procedure went well. After dilation was completed a 16 Dominican kenaitze tip catheter was advanced over the guidewire into the bladder with good return in the balloon was inflated. Catheter was placed to dependent drainage and the procedure was completed. Patient was then turned over to Dr. Pickens for his portion of the procedure. See his dictation under separate cover Plans: 1. Maintain Haque catheter for healing for least 1 week 2. If discharged before that time should go home with Haque catheter in place and I will follow-up in my clinic
--- NOTE | 2021-06-30 07:35 | PM.PN ---
Subjective Subjective: Complains of expected left hip pain. Haque in place Vitals/I&O/Wt Last Vital Signs Temp 99.1 F 06/30/21 04:00 Pulse 118 H 06/30/21 04:00 Resp 20 H 06/30/21 04:00 BP 95/39 06/30/21 04:00 Pulse Ox 91 06/30/21 04:00 06/29/21 06/30/21 06/30/21 22:59 06:59 14:59 Intake Total 419.5 / 419.5 50 / 469.5 Output Total 400 / 400 650 / 1050 Balance 19.5 / 19.5 -600 / -580.5 Weight last 48 hrs Weight 148 lb 3.2 oz Weight 145 lb Physical Exam Narrative: L hip dressing clean and dry. Expected thigh swelling Urinary Catheter Management: Haque Latex: Cath Placed During This Visit: yes Reason for Continuing Indwelling Catheter: Acute Urinary Retention or Obstruction Urinary Catheter Date of Insertion: 06/29/21 Urinary Catheter Time of Insertion: 18:10 Data : 06/30/21 02:00 06/30/21 02:00 A&P Assessment and plan (1) Pathological fracture, left femur, initial encounter for fracture: Status: Acute (2) Status post open reduction and internal fixation (ORIF) of fracture: Status: Acute Attestations Medical Necessity Statement*: OK for discharge when pain adequately controlled. 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
[2021-06-30] MEDS: sennosides-docusate Tablet 1 TAB PO ×2 (09:17→17:48)
[2021-06-30] MEDS: tamsulosin 0.4 mg Capsule PO (09:17)
[2021-06-30] MEDS: folic acid 1 mg Tablet PO (09:17)
--- NOTE | 2021-06-30 11:18 | PC.NURSE ---
Notified Dr. Portillo about two orders for fluids. Dr. Portillo stopped all fluids.
--- NOTE | 2021-06-30 13:42 | P.PN_ITS ---
Subjective Subjective: Patient was seen this morning, currently bedbound, he tells me that he wants to go home, however he is not sure how he is going to do when he gets home, he wants to see with physical therapy says about his ambulatory status, I advised him that he has had a pathologic fracture of the left femur, status post surgery, there is a significant likelihood he might require penitentiary placement, but we will see how he does with physical therapy, however patient tells me of the bed he will not go to any penitentiary, he wants to go home, I advised him that it is up to him where he wants to go, but if physical therapy advises for penitentiary placement, that would be my recommendation. Patient rolo this over but still wanted to go home regardless, but wants to see how he does with physical therapy, he tells me he does not want to take pain medication Vitals/I&O/Wt Last Vital Signs Temp 98.2 F 06/30/21 11:19 Pulse 105 H 06/30/21 11:19 Resp 18 06/30/21 11:19 BP 105/69 06/30/21 11:19 Pulse Ox 95 06/30/21 11:19 06/29/21 06/30/21 06/30/21 22:59 06:59 14:59 Intake Total 419.5 / 419.5 50 / 469.5 240 / 240 Output Total 400 / 400 650 / 1050 Balance 19.5 / 19.5 -600 / -580.5 240 / 240 Weight last 48 hrs Weight 67.222 kg Weight 65.771 kg Physical Exam Const: COMMON NORMALS: no acute distress and patient oriented x3 Resp: COMMON NORMALS: normal respiratory effort, No retractions, No use of accessory muscles and clear to auscultation bilaterally AUSCULTATION: clear to auscultation bilaterally Cardio: COMMON NORMALS: regular rate, regular rhythm, S1 normal heart sound present and S2 normal heart sound present RATE: regular rate RHYTHM: regular rhythm HEART SOUNDS: S1 normal heart sound present and S2 normal heart sound present GI: COMMON NORMALS: Normal to inspection, nondistended, normoactive bowel sounds present, Soft to palpation, non-tender and No hepatosplenomegaly present PALPATION: Yes Soft to palpation and Yes No hepatosplenomegaly present Extremity: COMMON NORMALS: no pedal edema Neuro: COMMON NORMALS: patient oriented x3 Psych: COMMON NORMALS: mental status grossly normal Urinary Catheter Management: Haque Latex: Cath Placed During This Visit: yes Reason for Continuing Indwelling Catheter: Acute Urinary Retention or Obstruction Urinary Catheter Date of Insertion: 06/29/21 Urinary Catheter Time of Insertion: 18:10 Data : 06/30/21 02:00 06/30/21 02:00 A&P Assessment and plan (1) Closed hip fracture: Status: Acute Qualifiers: Encounter type: initial encounter Laterality: left Qualified Code(s): S72.002A - Fracture of unspecified part of neck of left femur, initial encounter for closed fracture (2) Prostate cancer metastatic to bone: Status: Acute (3) Erectile dysfunction: Status: Acute Plan Femoral neck fracture, status post open reduction internal fixation At risk of avascular necrosis Pathological fracture Stage IV prostate cancer, with acute urinary tension, status post catheter placement, outpatient follow-up with Dr. 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
[2021-06-30] MEDS: oxyCODONE 5 mg IR Tab/Cap PO (13:52)
[2021-06-30] MEDS: enoxaparin 40 mg/0.4 mL Syringe SUBCUT (21:53)
[2021-07-01] VITALS (12 sets, daily range): BP systolic 91–119; BP diastolic 51–69; PULSE 94–108; RESP 16–20; TEMP 37.1–37.5; O2SAT 90–94
[2021-07-01] MEDS: oxyCODONE 5 mg IR Tab/Cap PO ×2 (02:41→06:48)
[2021-07-01 05:52] LABS: Basophils % 0.2 %; Eosinophils # 0.2 10^3/uL (0.0-0.8); Eosinophils % 3.2 %; Hematocrit 31.7 % (42.0-52.0); Hemoglobin 10.1 g/dL (11.7-16.6); Lymphocytes # 0.6 10^3/uL (0.8-4.8); Lymphocytes % 9.2 %; Mean Corpuscular HGB Conc 31.9 g/dL (30.0-36.0); Mean Corpuscular Hemoglobin 29.7 pg (28.0-34.0); Mean Corpuscular Volume 93.2 fl (80-94); Mean Platelet Volume 13.1 fL (7.4-10.4); Monocytes # 0.6 10^3/uL (0.2-0.9); Monocytes % 9.7 %; Neutrophils # 5.05 10^3/uL (1.8-7.7); Neutrophils % 77.4 %; Nucleated Red Blood Cells % 0 %; Platelet Count 63 10^3/cmm (130-400); Red Cell Distribution Width 13.6 % (12.1-15.1); White Blood Count 6.5 10^3/uL (4.0-10.0)
[2021-07-01 06:07] LABS: Alanine Aminotransferase 11 U/L (0-41); Albumin Level 3.4 g/dL (3.5-5.2); Alkaline Phosphatase 779 IU/L (40-130); Anion Gap 13.3 (5-19); Aspartate Amino Transferase 30 U/L (0-40); Blood Urea Nitrogen 15 mg/dL (8-23); Calcium 6.3 mg/dL (8.5-10.5); Carbon Dioxide 22 mmol/L (22-29); Chloride 102 mmol/L (98-107); Globulin 2.6 g/dL (1.3-4.6); Glucose 113 mg/dL (65-115); Osmolality Calculated 278 mOsm/kg (285-295); Potassium 4.3 mmol/L (3.5-5.1); Sodium 133 mmol/L (136-145); Total Bilirubin 0.7 mg/dL (0.15-1.2)
[2021-07-01] MEDS: tamsulosin 0.4 mg Capsule PO (09:21)
[2021-07-01] MEDS: sennosides-docusate Tablet 1 TAB PO ×2 (09:21→17:50)
[2021-07-01] MEDS: folic acid 1 mg Tablet PO (09:22)
--- NOTE | 2021-07-01 09:28 | PC.NURSE ---
patients BP is 104/63. Dr. Portillo notified and holding blood pressure medications.
--- NOTE | 2021-07-01 13:52 | P.PN_ITS ---
Subjective Subjective: Patient tells me that he continues to have significant pain despite pain medication, significant pain with ambulation, he tells me that he needs to move, he needs to go home, but he continues to have significant pain after his surgery Vitals/I&O/Wt Last Vital Signs Temp 98.9 F 07/01/21 11:32 Pulse 94 07/01/21 11:32 Resp 18 07/01/21 11:32 BP 119/64 07/01/21 11:32 Pulse Ox 92 07/01/21 11:32 06/30/21 07/01/21 07/01/21 22:59 06:59 14:59 Intake Total 1340 / 1820 50 / 1870 360 / 360 Output Total 0 / 0 800 / 800 125 / 125 Balance 1340 / 1820 -750 / 1070 235 / 235 Physical Exam Const: COMMON NORMALS: no acute distress and patient oriented x3 Resp: COMMON NORMALS: normal respiratory effort, No retractions, No use of accessory muscles and clear to auscultation bilaterally AUSCULTATION: clear to auscultation bilaterally Cardio: COMMON NORMALS: regular rate, regular rhythm, S1 normal heart sound present and S2 normal heart sound present RATE: regular rate RHYTHM: regular rhythm HEART SOUNDS: S1 normal heart sound present and S2 normal heart sound present GI: COMMON NORMALS: Normal to inspection, nondistended, normoactive bowel sounds present, Soft to palpation, non-tender and No hepatosplenomegaly present PALPATION: Yes Soft to palpation and Yes No hepatosplenomegaly present Extremity: COMMON NORMALS: no pedal edema Neuro: COMMON NORMALS: patient oriented x3 Psych: COMMON NORMALS: mental status grossly normal Urinary Catheter Management: Haque Latex: Cath Placed During This Visit: yes Reason for Continuing Indwelling Catheter: Acute Urinary Retention or Obstruction Urinary Catheter Date of Insertion: 06/29/21 Urinary Catheter Time of Insertion: 18:10 Data : 07/01/21 05:00 07/01/21 05:00 A&P Assessment and plan (1) Closed hip fracture: Status: Acute Qualifiers: Encounter type: initial encounter Laterality: left Qualified Code(s): S72.002A - Fracture of unspecified part of neck of left femur, initial encounter for closed fracture (2) Prostate cancer metastatic to bone: Status: Acute (3) Erectile dysfunction: Status: Acute Plan Femoral neck fracture, status post open reduction internal fixation At risk of avascular necrosis Pathological fracture Stage IV prostate cancer, with acute urinary tension, status post catheter placement, outpatient follow-up with Dr. Martinez Patient drinks whiskey and wine about 2 shots every day, no history of withdrawal, last drink was 48 hours ago Added thiamine and folic acid Uncontrollable pain, with physical therapy, increase oxycodone to 10 mg p.o. 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
--- NOTE | 2021-07-01 15:39 | PC.SOCIAL ---
Pg 2 IMM Explained to pt Pg 2 IMM. No questions voiced. Provided pt a copy. Initialed, dated, & timed a copy & placed in chart.
[2021-07-01] MEDS: oxyCODONE 5 mg IR Tab/Cap 10 MG PO ×2 (16:32→22:51)
[2021-07-01] MEDS: enoxaparin 40 mg/0.4 mL Syringe SUBCUT (20:37)
[2021-07-02] VITALS: BP 116/64; PULSE 93; RESP 18; TEMP 37.3; O2SAT 91
[2021-07-02 04:00] VITALS: BP 105/63; TEMP 36.9
[2021-07-02 04:54] LABS: Basophils % 0.1 %; Eosinophils # 0.2 10^3/uL (0.0-0.8); Eosinophils % 2.8 %; Hemoglobin 10.4 g/dL (11.7-16.6); Lymphocytes # 0.8 10^3/uL (0.8-4.8); Lymphocytes % 11.1 %; Mean Corpuscular HGB Conc 31.5 g/dL (30.0-36.0); Mean Corpuscular Hemoglobin 30.3 pg (28.0-34.0); Mean Corpuscular Volume 96.2 fl (80-94); Mean Platelet Volume 13.1 fL (7.4-10.4); Monocytes # 0.8 10^3/uL (0.2-0.9); Monocytes % 10.4 %; Neutrophils # 5.38 10^3/uL (1.8-7.7); Nucleated Red Blood Cells % 0 %; Platelet Count 80 10^3/cmm (130-400); Red Blood Count 3.43 10^6/uL (4.1-5.3); Red Cell Distribution Width 13.8 % (12.1-15.1); White Blood Count 7.2 10^3/uL (4.0-10.0)
[2021-07-02 05:03] LABS: Alanine Aminotransferase 8 U/L (0-41); Albumin Level 3.5 g/dL (3.5-5.2); Alkaline Phosphatase 685 IU/L (40-130); Anion Gap 15.3 (5-19); Aspartate Amino Transferase 29 U/L (0-40); Blood Urea Nitrogen 19 mg/dL (8-23); Calcium 6.9 mg/dL (8.5-10.5); Carbon Dioxide 23 mmol/L (22-29); Chloride 100 mmol/L (98-107); Glucose 120 mg/dL (65-115); Osmolality Calculated 281 mOsm/kg (285-295); Potassium 4.3 mmol/L (3.5-5.1); Sodium 134 mmol/L (136-145); Total Bilirubin 0.8 mg/dL (0.15-1.2); Total Protein 6.5 g/dL (6.6-8.7)
--- NOTE | 2021-07-02 05:41 | PC.NURSE ---
SHIFT SUMMARY Has rested well tonight. Assisted up to BSC X2 and had a BM once. Says is very painful to move and needs much enc. Dressing to left hip incision clean & dry. Received po OXYIR X1 for pain with good relief. BP checked prior to med. BP tends to run soft. Receiving IV antibiotics as ordered. Haque intact and draining without difficulty
[2021-07-02 07:25] VITALS: BP 112/61; PULSE 95; RESP 16; TEMP 37.3; O2SAT 94
[2021-07-02] MEDS: sennosides-docusate Tablet 1 TAB PO ×2 (09:12→17:31)
[2021-07-02] MEDS: folic acid 1 mg Tablet PO (09:12)
[2021-07-02] MEDS: tamsulosin 0.4 mg Capsule PO (09:13)
[2021-07-02 10:27] VITALS: RESP 16; O2SAT 94
[2021-07-02] MEDS: oxyCODONE 5 mg IR Tab/Cap 10 MG PO (10:27)
[2021-07-02 12:00] VITALS: BP 120/63; PULSE 93; RESP 20; TEMP 36.9; O2SAT 95
--- NOTE | 2021-07-02 14:18 | PM.PN ---
Subjective Subjective: Patient was seen this morning, he tells me that his pain is more under control, he wants to try again with physical therapy today, he wants to go home, he does not want to go to the [facility], Vitals/I&O/Wt Last Vital Signs Temp 99.1 F 07/02/21 07:25 Pulse 95 07/02/21 07:25 Resp 16 07/02/21 10:27 BP 112/61 07/02/21 07:25 Pulse Ox 94 07/02/21 10:27 07/01/21 07/02/21 07/02/21 22:59 06:59 14:59 Intake Total 170 / 770 50 / 820 360 / 360 Output Total 450 / 575 325 / 900 Balance -280 / 195 -275 / -80 360 / 360 Physical Exam Const: COMMON NORMALS: no acute distress and patient oriented x3 Resp: COMMON NORMALS: normal respiratory effort, No retractions, No use of accessory muscles and clear to auscultation bilaterally AUSCULTATION: clear to auscultation bilaterally Cardio: COMMON NORMALS: regular rate, regular rhythm, S1 normal heart sound present and S2 normal heart sound present RATE: regular rate RHYTHM: regular rhythm HEART SOUNDS: S1 normal heart sound present and S2 normal heart sound present GI: COMMON NORMALS: Normal to inspection, nondistended, normoactive bowel sounds present, Soft to palpation, non-tender and No hepatosplenomegaly present PALPATION: Yes Soft to palpation and Yes No hepatosplenomegaly present Extremity: COMMON NORMALS: no pedal edema Neuro: COMMON NORMALS: patient oriented x3 Psych: COMMON NORMALS: mental status grossly normal Urinary Catheter Management: Haque Latex: Cath Placed During This Visit: yes Reason for Continuing Indwelling Catheter: Acute Urinary Retention or Obstruction Urinary Catheter Date of Insertion: 06/29/21 Urinary Catheter Time of Insertion: 18:10 Data : 07/02/21 04:14 07/02/21 04:14 A&P Assessment and plan (1) Closed hip fracture: Status: Acute Qualifiers: Encounter type: initial encounter Laterality: left Qualified Code(s): S72.002A - Fracture of unspecified part of neck of left femur, initial encounter for closed fracture (2) Prostate cancer metastatic to bone: Status: Acute (3) Erectile dysfunction: Status: Acute Plan Femoral neck fracture, status post open reduction internal fixation At risk of avascular necrosis Pathological fracture Stage IV prostate cancer, with acute urinary tension, status post catheter placement, outpatient follow-up with Dr. 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 Thrombocytopenia, platelet count 8 0 1,000, continue to monitor Patient wants to return home does not want to go to any [facility] or rehab, but wants to see what physical therapy evaluation He is very active for his age 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
[2021-07-02 20:00] VITALS: BP 98/58; PULSE 97; RESP 19; TEMP 36.7; O2SAT 93
[2021-07-02] MEDS: enoxaparin 40 mg/0.4 mL Syringe SUBCUT (20:29)
[2021-07-02 21:34] LABS: Glucose Point of Care 126 mg/dL (70-110)
[2021-07-03] VITALS: BP 113/62; PULSE 80; RESP 20; TEMP 36.8; O2SAT 95
[2021-07-03 04:00] VITALS: BP 110/64; PULSE 80; RESP 18; TEMP 36.8; O2SAT 95
[2021-07-03 04:16] LABS: Basophils % 0.3 %; Eosinophils # 0.3 10^3/uL (0.0-0.8); Hematocrit 26.8 % (42.0-52.0); Hemoglobin 8.5 g/dL (11.7-16.6); Lymphocytes # 0.8 10^3/uL (0.8-4.8); Lymphocytes % 20.4 %; Mean Corpuscular HGB Conc 31.7 g/dL (30.0-36.0); Mean Corpuscular Hemoglobin 30.2 pg (28.0-34.0); Mean Corpuscular Volume 95.4 fl (80-94); Mean Platelet Volume 12.2 fL (7.4-10.4); Monocytes # 0.5 10^3/uL (0.2-0.9); Monocytes % 13.2 %; Neutrophils # 2.27 10^3/uL (1.8-7.7); Neutrophils % 58.6 %; Nucleated Red Blood Cells % 0 %; Platelet Count 72 10^3/cmm (130-400); Red Blood Count 2.81 10^6/uL (4.1-5.3); Red Cell Distribution Width 13.6 % (12.1-15.1); White Blood Count 3.9 10^3/uL (4.0-10.0)
[2021-07-03 04:40] LABS: Alanine Aminotransferase 7 U/L (0-41); Albumin Level 3.1 g/dL (3.5-5.2); Alkaline Phosphatase 512 IU/L (40-130); Aspartate Amino Transferase 23 U/L (0-40); Blood Urea Nitrogen 15 mg/dL (8-23); Calcium 6.4 mg/dL (8.5-10.5); Carbon Dioxide 22 mmol/L (22-29); Chloride 101 mmol/L (98-107); Globulin 2.6 g/dL (1.3-4.6); Glucose 100 mg/dL (65-115); Osmolality Calculated 277 mOsm/kg (285-295); Sodium 133 mmol/L (136-145); Total Bilirubin 0.5 mg/dL (0.15-1.2); Total Protein 5.7 g/dL (6.6-8.7)
[2021-07-03 06:19] LABS: Glucose Point of Care 98 mg/dL (70-110)
[2021-07-03 06:34] VITALS: RESP 18; O2SAT 95
[2021-07-03] MEDS: oxyCODONE 5 mg IR Tab/Cap 10 MG PO (06:34)
[2021-07-03] MEDS: acetaminophen 325 mg Tablet 650 MG PO (06:34)
[2021-07-03 07:40] VITALS: BP 107/64; PULSE 82; RESP 18; TEMP 36.5; O2SAT 95
[2021-07-03] MEDS: sucralfate 1 gm Tablet PO (08:54)
[2021-07-03] MEDS: tamsulosin 0.4 mg Capsule PO (08:54)
[2021-07-03] MEDS: pantoprazole DR 40 mg Tablet PO (08:54)
[2021-07-03] MEDS: folic acid 1 mg Tablet PO (08:55)
--- NOTE | 2021-07-03 08:57 | PC.SOCIAL ---
IMM Updated Updated pt on IMM. No questions voiced. Provided pt a copy. Initialed, dated, & timed copy in chart.
[2021-07-03 11:37] LABS: Glucose Point of Care 107 mg/dL (70-110)
[2021-07-03 12:00] VITALS: BP 112/61; PULSE 93; RESP 18; TEMP 37.3; O2SAT 93
[2021-07-03 12:36] LABS: Hematocrit 30.2 % (42.0-52.0); Hemoglobin 9.7 g/dL (11.7-16.6)
--- NOTE | 2021-07-03 12:40 | PM.DCS ---
Discharge Providers Date of Admission: 06/28/21 18:28 Date of Discharge: July 03, 2021 Attending Provider at Admission: Emeterio Sadler MD Attending Provider at Discharge: Dmitriy Portillo MD Primary Care Provider: Greg Mata MD Diagnoses at Discharge Discharge Diagnosis (1) Closed hip fracture: Status: Acute Qualifiers: Encounter type: initial encounter Laterality: left Qualified Code(s): S72.002A - Fracture of unspecified part of neck of left femur, initial encounter for closed fracture (2) Prostate cancer metastatic to bone: Status: Acute (3) Erectile dysfunction: Status: Acute Reason for Visit Reason for Visit: LEFT HIP FRACTURE REINJURY Hospital Course Hospital Course This is a 85-year-old male with a past medical history of adenocarcinoma of the prostate (410, metastatic bone involvement, history of thrombocytopenia, history of CVA in August 2017, hypertension, hyperlipidemia, hypothyroidism, history of melanoma, anxiety and depression, who presents to [facility] for a pathologic oral neck fracture status post open reduction internal fixation. Patient had a slow clinical progress, I had strongly recommended for long term placement, for short-term rehab, concern for morbidity and mortality and recurrent fractures given his frail condition, however patient refused to go to long term. Required inpatient physical therapy, in addition had uncontrolled pain requiring titration of pain medication. Overall patient's ambulation improved, pain control improved, discharged home with home health care. Patient also had acute urinary retention during his hospitalization, Haque catheter placement, discharged with Haque catheter with close follow-up with Dr. Martinez For pain control discharged on oxycodone 5 mg 1-2 tabs every 6 hours as needed for pain, advised to use medication sparingly, do not drive or operate heavy machinery or drink alcohol while taking medication. Patient was also found to have thrombocytopenia of his hospitalization, follow-up with Dr. Mata Patient was also found to have developing anemia during his hospitalization, concerning for possible slow GI bleed, no bloody or black stools, no hemodynamic compromise. On discharge his hemoglobin is 9.7, he is to continue aspirin 325 mg, Plavix has been held until recheck hemoglobin by Dr. Mata hopefully on Saturday. Discharged on Protonix, Carafate. Patient was advised for her to have bloody or black stools or lightheadedness for the emergency room. Patient also had low blood pressures during his hospitalization, his hydrochlorothiazide, and amlodipine have been held Physical Exam Const: COMMON NORMALS: no acute distress and patient oriented x3 Resp: COMMON NORMALS: normal respiratory effort, No retractions, No use of accessory muscles and clear to auscultation bilaterally AUSCULTATION: clear to auscultation bilaterally Cardio: COMMON NORMALS: regular rate, regular rhythm, S1 normal heart sound present and S2 normal heart sound present RATE: regular rate RHYTHM: regular rhythm HEART SOUNDS: S1 normal heart sound present and S2 normal heart sound present GI: COMMON NORMALS: Normal to inspection, nondistended, normoactive bowel sounds present, Soft to palpation and non-tender PALPATION: Yes Soft to palpation Extremity: COMMON NORMALS: no pedal edema Neuro: COMMON NORMALS: patient oriented x3 Psych: COMMON NORMALS: mental status grossly normal Urinary Catheter Management: Haque Latex: Cath Placed During This Visit: yes Reason for Continuing Indwelling Catheter: Acute Urinary Retention or Obstruction Urinary Catheter Date of Insertion: 06/29/21 Urinary Catheter Time of Insertion: 18:10 Discharge Data Studies Completed and Pending Completed Studies During Hospitalization Category Date Time Status XR chest 1V portable [id number] Urgent Exams 06/28/21 17:19 Completed XR hip LT 1V wo/w pel [id number] Routine Exams 06/29/21 19:03 Completed XR hip LT 2-3V wo/w pel* [id number] Urgent Exams 06/28/21 17:19 Completed CV. echo complete* [id number] Routine Ultrasound 06/29/21 Completed Pending at discharge Category Date Time Status C-arm Fluoroscopy [id number] Routine Exams 06/29/21 15:37 Taken Radiology Impressions Chest X-Ray 06/28/21 17:19 IMPRESSION: 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 Hip/Pelvis X-Ray 06/28/21 17:19 IMPRESSION: 1. Left femoral neck fracture cannot be excluded. Incomplete visualization. Recommend CT scan of the left hip for further assessment. 2. Findings consistent with osseous metastatic disease. Hip X-Ray 06/29/21 19:03 Impression: Internal fixation of left femoral neck fracture. Tonnis classification: Laboratory Results WBC 3.9 10^3/uL (4.0-10.0) L 07/03/21 03:51 RBC 2.81 10^6/uL (4.1-5.3) L 07/03/21 03:51 Hgb 9.7 g/dL (11.7-16.6) L 07/03/21 12:30 Hct 30.2 % (42.0-52.0) L 07/03/21 12:30 MCV 95.4 fl (80-94) H 07/03/21 03:51 MCH 30.2 pg (28.0-34.0) 07/03/21 03:51 MCHC 31.7 g/dL (30.0-36.0) 07/03/21 03:51 RDW 13.6 % (12.1-15.1) 07/03/21 03:51 Plt Count 72 10^3/cmm (130-400) L 07/03/21 03:51 MPV 12.2 fL (7.4-10.4) H 07/03/21 03:51 Neut % (Auto) 58.6 % 07/03/21 03:51 Lymph % (Auto) 20.4 % 07/03/21 03:51 [place] % (Auto) 13.2 % 07/03/21 03:51 Eos % (Auto) 7.0 % 07/03/21 03:51 Baso % (Auto) 0.3 % 07/03/21 03:51 Neut # (Auto) 2.27 10^3/uL (1.8-7.7) 07/03/21 03:51 Lymph # (Auto) 0.8 10^3/uL (0.8-4.8) 07/03/21 03:51 [place] # (Auto) 0.5 10^3/uL (0.2-0.9) 07/03/21 03:51 Eos # (Auto) 0.3 10^3/uL (0.0-0.8) 07/03/21 03:51 Baso # (Auto) 0.0 10^3/uL (0.0-0.1) 07/03/21 03:51 Nucleated RBC % (auto) 0 % 07/03/21 03:51 Nucleated RBCs # 0.0 /100WBC 07/03/21 03:51 PT 14.30 SECONDS (12.1-14.9) 06/28/21 17:00 INR 1.08 (0.8-1.2) 06/28/21 17:00 APTT 32.1 SECONDS (23.9-36.7) 06/28/21 17:00 Sodium 133 mmol/L (136-145) L 07/03/21 03:51 Potassium 4.0 mmol/L (3.5-5.1) 07/03/21 03:51 Chloride 101 mmol/L (98-107) 07/03/21 03:51 Carbon Dioxide 22 mmol/L (22-29) 07/03/21 03:51 Anion Gap 14.0 (5-19) 07/03/21 03:51 BUN 15 mg/dL (8-23) 07/03/21 03:51 Creatinine 0.5 mg/dL (0.7-1.2) L 07/03/21 03:51 GFR Calculation Not Reportable 07/03/21 03:51 Glucose 100 mg/dL (65-115) 07/03/21 03:51 POC Glucose 107 mg/dL (70-110) 07/03/21 11:15 Calculated Osmolality 277 mOsm/kg (285-295) L 07/03/21 03:51 Calcium 6.4 mg/dL (8.5-10.5) L 07/03/21 03:51 Total Bilirubin 0.5 mg/dL (0.15-1.2) 07/03/21 03:51 AST 23 U/L (0-40) 07/03/21 03:51 ALT 7 U/L (0-41) 07/03/21 03:51 Alkaline Phosphatase 512 IU/L (40-130) H 07/03/21 03:51 Total Protein 5.7 g/dL (6.6-8.7) L 07/03/21 03:51 Albumin 3.1 g/dL (3.5-5.2) L 07/03/21 03:51 Globulin 2.6 g/dL (1.3-4.6) 07/03/21 03:51 Urine Color Yellow (Yellow) 06/28/21 17:34 Urine Appearance Clear (CLEAR) 06/28/21 17:34 Urine pH 8 (5-7) H 06/28/21 17:34 Ur Specific [place] 1.015 (1.005-1.030) 06/28/21 17:34 Urine Protein Neg (Negative) 06/28/21 17:34 Urine Glucose (UA) Norm (Normal) 06/28/21 17:34 Urine Ketones 1+ (Negative) H 06/28/21 17:34 Urine Blood Neg (Negative) 06/28/21 17:34 Urine Nitrate Negative (Negative) 06/28/21 17:34 Urine Bilirubin Neg (Negative) 06/28/21 17:34 Prot Sulfosalicylic Acd Negative (Negative) 06/28/21 17:34 Urine Urobilinogen Norm mg/dL (Negative) 06/28/21 17:34 Ur Leukocyte Esterase Negative (Negative) 06/28/21 17:34 Urine RBC None /hpf (0-2) 06/28/21 17:34 Urine WBC None /hpf (0-5) 06/28/21 17:34 Ur Squamous Epith Cells None /hpf (0-5) 06/28/21 17:34 Amorphous Sediment Not Reportable 06/28/21 17:34 Urine Bacteria None /hpf (NONE) 06/28/21 17:34 SARS-CoV-2 Ag (Rapid) Negative (Negative) 06/28/21 17:34 Vitals Last Vital Signs Temp 99.1 F 07/03/21 12:00 Pulse 93 07/03/21 12:00 Resp 18 07/03/21 12:00 BP 112/61 07/03/21 12:00 Pulse Ox 93 07/03/21 12:00 Discharge Plan Discharge Patient Disposition: Home Condition: Stable Prescriptions: New oxycodone 5 mg Tablet 5 - 10 mg PO Q6H PRN (Reason: Moderate Pain) 7 Days Qty: 56 0RF sennosides-docusate sodium [Stool Softener-Laxative] 8.6-50 mg Tablet 1 tab PO BID 30 Days Qty: 60 0RF pantoprazole 40 mg Tablet,Delayed Release (Dr/Ec) 40 mg PO BID 30 Days Qty: 60 0RF sucralfate 1 gram Tablet 1 g PO Q12H 30 Days Qty: 60 0RF thiamine HCl (vitamin B1) 100 mg tablet 100 mg PO DAILY 30 Days Qty: 30 0RF Continued B-100 Complex 100 mg tablet extended release 1 tab PO DAILY 0RF magnesium oxide 400 mg magnesium capsule 400 mg PO DAILY 0RF sildenafil 100 mg tablet 100 mg PO DAILY PRN (Reason: sexual activity) Qty: 20 12RF Rx Instructions: 1 hour before intercourse on empty stomach. NO NITROGLYCERIN! acyclovir 800 mg tablet 800 mg PO .5 times daily PRN (Reason: VIRAL INFECTION) 0RF tamsulosin 0.4 mg capsule 0.4 mg PO DAILY 0RF aspirin 325 mg Tablet,Delayed Release (Dr/Ec) 325 mg PO DAILY 0RF bicalutamide 50 mg tablet 50 mg PO DAILY 0RF Rx Instructions: RX FILLED 06/20/21 14D/S hydrocodone-acetaminophen 5-325 mg tablet 1 - 2 tab PO QID PRN (Reason: Pain) 0RF saw palmetto 5 tab PO DAILY 0RF ddeziot-gsjmsjea-iuvtitf-folic 0.5 mg Tablet 1 tab PO DAILY 0RF Men's Daily Formula 400-20-300 mcg Tablet 1 tab PO DAILY 0RF vitamin E 1,000 unit Capsule 1,000 unit PO DAILY 0RF Held Plavix 75 mg Tablet 75 mg PO DAILY 0RF Hold Instructions: Resume on 07/10/21. Hold until recheck hemoglobin on Saturday Discontinued hydrochlorothiazide 25 mg tablet 25 mg PO DAILY 0RF meloxicam 15 mg tablet 15 mg PO DAILY 0RF amlodipine 5 mg Tablet 5 mg PO DAILY 0RF Discharge Orders: Discharge Order (Routine); Ordered 07/03/21 Ordered By: Dmitriy Portillo Other Ambulatory Orders: DME: Wheelchair (Order) Location: None Selected Ordered By: Dmitriy Portillo Physical Therapy Eval and Treat Outpatient (Order) Timeframe: 3 Days Facility: [facility] - Location: Physical Therapy Ordered By: Dmitriy Portillo Referrals: Clayton Martinez MD [Physician] - 7-10 days Greg Mata MD [Primary Care Provider] - 1-3 days Justin Pickens MD [Physician] - 2 weeks Discharge Activity: Limit activity as instructed Patient Instructions: Opioid Safety Activity Restrictions/Additional Instructions: May weight bear as tolerated Left lower extremity May remove dressing on 07/03/2021 OK to shower when incicions free of drainage -Haque catheter kept in place for acute urinary retention, follow with Dr. Martinez -Please use oxycodone sparingly for pain, primarily should be used to engage in physical therapy, for when you are planning on doing physical therapy -If you have any shortness of breath, lightheadedness or confusion while taking medication please stop -Do not drive or operate heavy machinery or drink alcohol while taking oxycodone -Please hold amlodipine hydrochlorothiazide -Because of low hemoglobin hold Plavix until recheck hemoglobin on Saturday through primary care physician's office for Dr. Mata on Saturday -Follow Dr. Mata on Saturday -Follow-up with orthopedic service -If you develop bloody or black stools go to emergency room -Please do not take any anti-inflammatory medications such as meloxicam Discharge Attestations Time Spent in Discharge Care*: less than 30 min Quality Metrics Clinical Quality Measures [ No reported AMI, CVA or VTE this stay] Coding Level of Care Code Acute g FW [place] note Diagnoses Closed hip fracture S72.002A Encounter type: initial encounter Laterality: left Prostate cancer metastatic to bone C61; C79.51 Erectile dysfunction N52.9
== END 2021-07-03 15:07 | disposition home or self-care (01) | DRG 481 ==
LOC: ER 18:50 → MEDSURG 21:35
PROVIDERS: Family Medicine; Internal Medicine; Orthopaedic Surgery; Urology; Admitting Provider Internal Medicine; Emergency Provider Emergency Medicine; PCP Internal Medicine Medical Oncology; Visit Provider Family Medicine
PROC: 0QS706Z Reposition Left Upper Femur with Intramedullary Internal Fixation Device, Open Approach (ICD-10-PCS; CPT 27245; principal; 2021-06-29 16:25)
PROC: 0T7D8DZ Dilation of Urethra with Intraluminal Device, Via Natural or Artificial Opening Endoscopic (ICD-10-PCS; 2021-06-29 16:25)
PROC: 0TJB8ZZ Inspection of Bladder, Via Natural or Artificial Opening Endoscopic (ICD-10-PCS; CPT 52000; 2021-06-29 16:25)
PROC: 0T7D8DZ Dilation of Urethra with Intraluminal Device, Via Natural or Artificial Opening Endoscopic (ICD-10-PCS; 2021-06-29 16:25)
DX: M84.552A Pathological fracture in neoplastic disease, left femur, initial encounter for fracture (principal); C79.51 Secondary malignant neoplasm of bone; F10.139 Alcohol abuse with withdrawal, unspecified; N32.0 Bladder-neck obstruction; C61 Malignant neoplasm of prostate; R74.8 Abnormal levels of other serum enzymes; R33.8 Other retention of urine; D69.6 Thrombocytopenia, unspecified; G89.18 Other acute postprocedural pain; D64.9 Anemia, unspecified; I10 Essential (primary) hypertension; E03.9 Hypothyroidism, unspecified; K76.0 Fatty (change of) liver, not elsewhere classified; K57.90 Diverticulosis of intestine, part unspecified, without perforation or abscess without bleeding; J44.9 Chronic obstructive pulmonary disease, unspecified; I95.9 Hypotension, unspecified; F41.9 Anxiety disorder, unspecified; Z86.73 Personal history of transient ischemic attack (TIA), and cerebral infarction without residual deficits; Z79.82 Long term (current) use of aspirin; Z79.891 Long term (current) use of opiate analgesic; Z79.899 Other long term (current) drug therapy; Z91.81 History of falling; Z85.820 Personal history of malignant melanoma of skin
CPT/HCPCS: 36415; 36416; 71045; 73501; 73502; 73700; 76000; 77280; 77290; 77295; 77300; 77334; 77412; 80048; 80053; 81001; 82306; 82962; 85014; 85018; 85025; 85610; 85730; 87426; 93005; 93306; 96372; 96374; 96375; 96402; 97110; 97116; 97161; 97165; 97530; 99215; 99285; C1713; J0690; J0897; J1170; J1650; J2270; J2405; J2704; J3010; J3411; J7030; J7799; J9202

== ENCOUNTER 2021-07-07 13:16 | Emergency (ER) | payer MEDICARE, OTHER, SELFPAY ==
[2021-07-07 13:24] VITALS: BP 122/66; PULSE 89; RESP 16; TEMP 36.7; O2SAT 98; BMI 22.0
--- NOTE | 2021-07-07 13:49 | CT_ITS ---
WS: [id number] CT ABDOMEN AND PELVIS WITH CONTRAST HISTORY: eval for infection, diarrhea, possible c diff TECHNIQUE: Imaging performed of the abdomen and pelvis with IV contrast. Single phase imaging of the abdomen. Coronal and sagittal reformats are submitted. All CT scans at [facility] use at [address] one of these dose optimization techniques: automated exposure control; mA and/or kV adjustment per patient size (includes targeted exams where dose is matched to clinical indication); or iterative re construction. IV CONTRAST: Omnipaque 300; 95 mL IV. Oral contrast: No DLP: 1163.99 mGy.cm COMPARISON: 05/26/2021 Lower thorax: Chronic emphysematous changes at the lung bases. No focal consolidation or pneumonia. M ildly enlarged heart. No effusion. Small hiatal hernia. Liver/biliary system: Low-attenuation adjacent to the falciform ligament is probably an area of fatty sparing. Gallbladder: Normal. No gallstones or wall thickening. No pericholecystic fluid. Pancreas: Mild atrophy. No adjacent inflammation. Spleen: Normal size with granulomata. Adrenal glands: Normal. Right kidney: No obstruction or mass. Vascular calcification central pelvis. Left kidney: No obstruction or mass. Vascular calcifications. Aorta: Moderate atherosclerosis with no aneurysm. Lymphadenopathy: None. Free fluid: None. GI tract: Stomach is not distended. No significant distention of the small bowel. There is marked fec al retention throughout the colon. The appendix is identified and fluid-filled. This is a new finding since the prior study. There is no periappendiceal inflammation. Maximum diameter is 10 mm. Abdominal wall: Unremarkable abdominal wall. No hernia. Pelvis: Catheter present in the urinary bladder. No free fluid or adenopathy in the pelvis. Bones: Patient has known extensive osteoblastic metastatic disease which has been recently described. Significant progression since 2017 and 2018. Recent ORIF with pathological LEFT hip fracture. Postop erative changes surrounding the LEFT hip no focal collection. CT/CT abdomen pelvis w con* [id number] IMPRESSION: 1. Diffuse marked fecal retention and constipation. No mucosal thickening or e salvador or inflammation. 2. Abnormal appendix. The appendix is dilated measuring 10 mm and fluid-filled . There is no adjacent inflammation. Suspicious but indeterminate for acute alfonzo endicitis. The dilatation of the appendix was not present on the prior examinat ions. 3. Recent postoperative changes and ORIF at the LEFT hip for pathological frac ture. 4. Patient has known extensive osteoblastic metastatic disease.
--- NOTE | 2021-07-07 14:07 | W.ED.GENADLT ---
HPI - General Adult General: Chief complaint: Nausea/Vomiting/Diarrhea Stated complaint: PT states he has a broken hip Time Seen by Provider: 07/07/21 13:32 History of Present Illness: Patient is an 85-year-old male with history of metastatic bone cancer with recent hip fixation by Dr. Pickens on 06/29/2021 who presents the emergency room after discharge from the hospital on 07/04/1911/15/2021 with concerns of leaky bowel. Patient tells me that he is not able to control his stooling. Patient has tenesmus occasionally he reports diarrhea stool. Patient denies excessive foul-smelling stool. Patient denies any antibiotic use. Denies any fever chills but risk for significant decrease in appetite. Patient denies any fever or chills, cough, runny nose, sore throat, nausea/vomiting. Patient states that since the surgery he has had no appetite. Patient has chronic indwelling Haque. Patient denies any urinary symptoms. Patient is currently on chemotherapy, last round chemotherapy was 10 days ago. Onset: 5 days ago Duration:5 days Location:home Severity:moderate Associated symptoms: Deny chest pain, dyspnea, nausea, rash, palpitations or vomiting Review of Systems Const: Denies: fever(s) or chills Eyes: Denies: change in vision ENMT: Denies: mouth pain Card: Denies: chest pain or palpitations Resp: Denies: dyspnea or non-productive cough GI: Reports: diarrhea and other (+decreased appetite, increased stooling); Denies: abdominal pain, nausea or vomiting : Denies: dysuria Musc: Denies: extremity pain Skin/Breast: Denies: rash or new lesions Neuro: Denies: weakness in extremities Psych: Reports: other (Normal mood) Ezra/Lymph: Denies: easy bruising PFSH ED PFSH: Medical History Elevated PSA Erectile dysfunction Prostate cancer Testicular pain, left Surgical History S/P repair of hydrocele Family History Father , at age 77 Myocardial infarct Mother , at age 79 Myocardial infarct Social History Smoking and tobacco status: never smoked Alcohol intake: current Alcohol intake frequency: 0-2 Drinks per Day Adopted: No Caregiver/support person: No Lives independently: No Household members: spouse Marital status: Current occupational status: retired History of recent travel: No Physical Exam Const: COMMON NORMALS: alert HENMT: COMMON NORMALS: atraumatic HEAD & SCALP: atraumatic MOUTH: moist mucous membranes not abnormal Eye: COMMON NORMALS: EOMs intact bilaterally and conjunctivae normal CONJUNCTIVA: Yes conjunctivae normal Neck/C-Spine: COMMON NORMALS: full ROM and supple Resp: COMMON NORMALS: normal respiratory effort and clear to auscultation bilaterally AUSCULTATION: clear to auscultation bilaterally Cardio: COMMON NORMALS: regular rate RATE: regular rate GI: COMMON NORMALS: Soft to palpation and non-tender PALPATION: Yes Soft to palpation OTHER: No focal TTP. NO guarding rebound, guarding, rigidity. No CVA tenderness to percussion. Neg Gaines/Neg McBurney's point tenderness, no suprabupic tenderness to palpation. : OTHER: No saddle anesthesia, +left postoperative surgical sites appears to be dry clean intact. Back/Pelvis: OTHER: + No midline tenderness in the thoracic, cervical, lumbar area Extremity: COMMON NORMALS: full ROM Neuro: SENSORIUM/ORIENTATION: Yes alert MOTOR EXAM: No Abnormal motor strength present and Other motor observations present (no focal motor deficits) OTHER: 5/5 strength in the lower extremities Psych: COMMON NORMALS: speech normal SPEECH: Yes normal speech MOOD & AFFECT: Yes euthymic mood Course Vital Signs: Vital signs: Vital Signs Temperature 98.1 F 07/07/21 13:24 Pulse Rate 89 07/07/21 17:13 Respiratory Rate 17 07/07/21 17:13 Blood Pressure 114/77 07/07/21 17:13 Pulse Oximetry 99 07/07/21 17:13 [facility] - General Adult Medical Decision Making 85-year-old male with history extensive metastatic cancer, recent hip fracture presenting to the emergency room with diarrhea, decreased appetite, and increased stooling. On physical exam, patient has no focal abdominal tenderness to palpation. Left hip surgical site appears to be directly intact. Patient has no signs of spinal cord compression. Workup: CBC, CMP, Lipase, UA, CT abd+pelvis CT abd+pelvis showed extensive metastatic disease. Patient was found to have a 10 mm fluid-filled appendix suspicious but indeterminate for appendicitis. Patient is afebrile, had WBC of 5K, no focal tenderness palpation. At 4:07pm, I discussed case with Dr. Horne who recommended close outpatient follow-up with him since patient has no symptoms pain in the RLQ, fever, or white elevated white count. Dr. Horne does not recommend sending patient home with antibiotics at this time . Patient has an appointment next week with Dr. Horne in clinic. I have given patient follow up with our case repairer to be seen by Dr. Horne for distended appendix. Patient aware of a call from our case repairer to schedule for appointment(s) and verbalizes understanding of the importance of following up. Rx tylenol PRN abd pain, maalox/pepcid PRN dyspepsia, and zofran PRN nausea/vomiting Disposition: Discharge. Patient counseled regarding diagnostic impression, treatment plan. Patient given ED strict return precautions to return for continuation, worsening, or development of new symptoms. Instructed to f/u w/ PCP regarding symptoms today. Patient verbalized understanding. She is given strict return precaution for any signs of nausea/vomiting, abdominal right lower quadrant pain, fever/chills, any type of abdominal pain, any new concerning complaints. Lab Data : 07/07/21 14:14 07/07/21 14:14 Radiology Impressions Abdomen/Pelvis CT 07/07/21 13:49 IMPRESSION: 1. Diffuse marked fecal retention and constipation. No mucosal thickening or edema or inflammation. 2. Abnormal appendix. The appendix is dilated measuring 10 mm and fluid-filled. There is no adjacent inflammation. Suspicious but indeterminate for acute appendicitis. The dilatation of the appendix was not present on the prior examinations. 3. Recent postoperative changes and ORIF at the LEFT hip for pathological fracture. 4. Patient has known extensive osteoblastic metastatic disease. Laboratory Results WBC 5.0 10^3/uL (4.0-10.0) 07/07/21 14:14 RBC 3.28 10^6/uL (4.1-5.3) L 07/07/21 14:14 Hgb 9.8 g/dL (11.7-16.6) L 07/07/21 14:14 Hct 31.4 % (42.0-52.0) L 07/07/21 14:14 MCV 95.7 fl (80-94) H 07/07/21 14:14 MCH 29.9 pg (28.0-34.0) 07/07/21 14:14 MCHC 31.2 g/dL (30.0-36.0) 07/07/21 14:14 RDW 13.7 % (12.1-15.1) 07/07/21 14:14 Plt Count 227 10^3/cmm (130-400) 07/07/21 14:14 MPV 10.4 fL (7.4-10.4) 07/07/21 14:14 Neut % (Auto) 67.8 % 07/07/21 14:14 Lymph % (Auto) 18.7 % 07/07/21 14:14 Harrison % (Auto) 10.5 % 07/07/21 14:14 Eos % (Auto) 2.0 % 07/07/21 14:14 Baso % (Auto) 0.2 % 07/07/21 14:14 Neut # (Auto) 3.42 10^3/uL (1.8-7.7) 07/07/21 14:14 Lymph # (Auto) 0.9 10^3/uL (0.8-4.8) 07/07/21 14:14 Harrison # (Auto) 0.5 10^3/uL (0.2-0.9) 07/07/21 14:14 Eos # (Auto) 0.1 10^3/uL (0.0-0.8) 07/07/21 14:14 Baso # (Auto) 0.0 10^3/uL (0.0-0.1) 07/07/21 14:14 Nucleated RBC % (auto) 0 % 07/07/21 14:14 Nucleated RBCs # 0.0 /100WBC 07/07/21 14:14 Sodium 134 mmol/L (136-145) L 07/07/21 14:14 Potassium 4.1 mmol/L (3.5-5.1) 07/07/21 14:14 Chloride 101 mmol/L (98-107) 07/07/21 14:14 Carbon Dioxide 24 mmol/L (22-29) 07/07/21 14:14 Anion Gap 13.1 (5-19) 07/07/21 14:14 BUN 13 mg/dL (8-23) 07/07/21 14:14 Creatinine 0.5 mg/dL (0.7-1.2) L 07/07/21 14:14 GFR Calculation Not Reportable 07/07/21 14:14 Glucose 105 mg/dL (65-115) 07/07/21 14:14 Calculated Osmolality 278 mOsm/kg (285-295) L 07/07/21 14:14 Calcium 8.1 mg/dL (8.5-10.5) L 07/07/21 14:14 Total Bilirubin 1.2 mg/dL (0.15-1.2) 07/07/21 14:14 AST 32 U/L (0-40) 07/07/21 14:14 ALT 22 U/L (0-41) 07/07/21 14:14 Alkaline Phosphatase 657 IU/L (40-130) H 07/07/21 14:14 Total Protein 7.4 g/dL (6.6-8.7) 07/07/21 14:14 Albumin 3.6 g/dL (3.5-5.2) 07/07/21 14:14 Globulin 3.8 g/dL (1.3-4.6) 07/07/21 14:14 Lipase 31 U/L (13-60) 07/07/21 14:14 Imaging Data Other Imaging: Radiologist's impression: [address] [address] [address] Scan Report Signed Patient: Koby Franz Unit #: [id number] : 1935 Age/Sex: 85 / M ADM Date: 07/07/21 Loc: ER Room/Bed: Attending Dr: Ordering Provider/Ordering MD: Moriah Phan MD Date of Service: 07/07/21 Procedure(s): CT abdomen pelvis w con* [id number] Accession Number(s): [id number] Report Number: [id number] WS: [id number] CT ABDOMEN AND PELVIS WITH CONTRAST HISTORY: eval for infection, diarrhea, possible c diff TECHNIQUE: Imaging performed of the abdomen and pelvis with IV contrast.? Single phase imaging of the abdomen. Coronal and sagittal reformats are submitted.? All CT scans at [facility] use at least one of these dose optimization techniques: automated exposure control; mA and/or kV adjustment per patient size (includes targeted exams where dose is matched to clinical indication); or iterative reconstruction. IV CONTRAST: Omnipaque 300; 95 mL IV. Oral contrast: No DLP: 1163.99 mGy.cm COMPARISON: 05/26/2021 Lower thorax: Chronic emphysematous changes at the lung bases. No focal consolidation or pneumonia. Mildly enlarged heart. No effusion. Small hiatal hernia. Liver/biliary system: Low-attenuation adjacent to the falciform ligament is probably an area of fatty sparing. Gallbladder: Normal. No gallstones or wall thickening. No pericholecystic fluid.? Pancreas: Mild atrophy. No adjacent inflammation. Spleen: Normal size with granulomata. Adrenal glands: Normal. Right kidney: No obstruction or mass. Vascular calcification central pelvis. Left kidney: No obstruction or mass. Vascular calcifications. Aorta: Moderate atherosclerosis with no aneurysm. Lymphadenopathy: None. Free fluid: None. GI tract: Stomach is not distended. No significant distention of the small bowel. There is marked fecal retention throughout the colon. The appendix is identified and fluid-filled. This is a new finding since the prior study. There is no periappendiceal inflammation. Maximum diameter is 10 mm. Abdominal wall: Unremarkable abdominal wall. No hernia. Pelvis: Catheter present in the urinary bladder. No free fluid or adenopathy in the pelvis. Bones: Patient has known extensive osteoblastic metastatic disease which has been recently described. Significant progression since 2017 and 2018. Recent ORIF with pathological LEFT hip fracture. Postoperative changes surrounding the LEFT hip no focal collection. CT/CT abdomen pelvis w con* [id number] IMPRESSION: ? 1.? Diffuse marked fecal retention and constipation. No mucosal thickening or edema or inflammation. 2.? Abnormal appendix. The appendix is dilated measuring 10 mm and fluid-filled. There is no adjacent inflammation. Suspicious but indeterminate for acute appendicitis. The dilatation of the appendix was not present on the prior examinations. 3.? Recent postoperative changes and ORIF at the LEFT hip for pathological fracture. 4.? Patient has known extensive osteoblastic metastatic disease. ? Dictated By: Trish Mcgrath DO Signed By: Trish Mcgrath DO Signed Date/Time: 07/07/21 1512 DD/ 1459 Discharge Plan Discharge Patient Disposition: Home Clinical Impression: Diarrhea, Decrease in appetite Condition: Stable Prescriptions: New Zofran 4 mg tablet 4 mg PO TID PRN (Reason: nausea and vomiting) 4 Days Qty: 12 0RF Pepcid 20 mg tablet 20 mg PO BID PRN (Reason: abdominal pain) 10 Days Qty: 20 0RF Maalox Advanced 1,000-60 mg tablet,chewable 1 tab PO TID PRN (Reason: abdominal pain) 7 Days Qty: 21 0RF No Action B-100 Complex 100 mg tablet extended release 1 tab PO DAILY 0RF magnesium oxide 400 mg magnesium capsule 400 mg PO DAILY 0RF sildenafil 100 mg tablet 100 mg PO DAILY PRN (Reason: sexual activity) Qty: 20 12RF Rx Instructions: 1 hour before intercourse on empty stomach. NO NITROGLYCERIN! acyclovir 800 mg tablet 800 mg PO .5 times daily PRN (Reason: VIRAL INFECTION) 0RF tamsulosin 0.4 mg capsule 0.4 mg PO DAILY 0RF aspirin 325 mg Tablet,Delayed Release (Dr/Ec) 325 mg PO DAILY 0RF bicalutamide 50 mg tablet 50 mg PO DAILY 0RF Rx Instructions: RX FILLED 06/20/21 14D/S hydrocodone-acetaminophen 5-325 mg tablet 1 - 2 tab PO QID PRN (Reason: Pain) 0RF saw palmetto 5 tab PO DAILY 0RF Plavix 75 mg Tablet 75 mg PO DAILY 0RF Hold Instructions: Resume on 07/10/21. Hold until recheck hemoglobin on Saturday jfvctnx-ueoqhscb-dkexqvq-folic 0.5 mg Tablet 1 tab PO DAILY 0RF Men's Daily Formula 400-20-300 mcg Tablet 1 tab PO DAILY 0RF vitamin E 1,000 unit Capsule 1,000 unit PO DAILY 0RF sucralfate 1 gram Tablet 1 g PO Q12H 30 Days Qty: 60 0RF Stool Softener-Laxative 8.6-50 mg Tablet 1 tab PO BID 30 Days Qty: 60 0RF pantoprazole 40 mg Tablet,Delayed Release (Dr/Ec) 40 mg PO BID 30 Days Qty: 60 0RF thiamine HCl (vitamin B1) 100 mg tablet 100 mg PO DAILY 30 Days Qty: 30 0RF Discharge Orders: Discharge ED (Routine); Ordered 07/07/21 Ordered By: Moriah Phan Discharge Diet: Advance as tolerated Discharge Activity: Increase activity as tolerated Patient Instructions: Acute Diarrhea (ED) Activity Restrictions/Additional Instructions: Our case repairer will have you follow-up with Dr. Horne in the next few days for your appendix enlargement. You would be expected to have a phone call with our case repairer who will put you on the schedule. You can expect a call from us in the next 2-3 days. If you don't hear from us, call us back in the emergency room at [phone]. Take your medicine as instructed. Come back to the emergency room have any new concerning complaints. Here's your CT report. Please discuss this with your primary doctor and your surgeon: [address] [address] [address] Scan Report Signed Patient: Koby Franz Unit #: [id number] : 1935 Age/Sex: 85 / M ADM Date: 07/07/21 Loc: ER Room/Bed: Attending Dr: Ordering Provider/Ordering MD: Moriah Phan MD Date of Service: 07/07/21 Procedure(s): CT abdomen pelvis w con* [id number] Accession Number(s): [id number] Report Number: [id number] WS: [id number] CT ABDOMEN AND PELVIS WITH CONTRAST HISTORY: eval for infection, diarrhea, possible c diff TECHNIQUE: Imaging performed of the abdomen and pelvis with IV contrast.? Single phase imaging of the abdomen. Coronal and sagittal reformats are submitted.? All CT scans at [facility] use at least one of these dose optimization techniques: automated exposure control; mA and/or kV adjustment per patient size (includes targeted exams where dose is matched to clinical indication); or iterative reconstruction. IV CONTRAST: Omnipaque 300; 95 mL IV. Oral contrast: No DLP: 1163.99 mGy.cm COMPARISON: 05/26/2021 Lower thorax: Chronic emphysematous changes at the lung bases. No focal consolidation or pneumonia. Mildly enlarged heart. No effusion. Small hiatal hernia. Liver/biliary system: Low-attenuation adjacent to the falciform ligament is probably an area of fatty sparing. Gallbladder: Normal. No gallstones or wall thickening. No pericholecystic fluid.? Pancreas: Mild atrophy. No adjacent inflammation. Spleen: Normal size with granulomata. Adrenal glands: Normal. Right kidney: No obstruction or mass. Vascular calcification central pelvis. Left kidney: No obstruction or mass. Vascular calcifications. Aorta: Moderate atherosclerosis with no aneurysm. Lymphadenopathy: None. Free fluid: None. GI tract: Stomach is not distended. No significant distention of the small bowel. There is marked fecal retention throughout the colon. The appendix is identified and fluid-filled. This is a new finding since the prior study. There is no periappendiceal inflammation. Maximum diameter is 10 mm. Abdominal wall: Unremarkable abdominal wall. No hernia. Pelvis: Catheter present in the urinary bladder. No free fluid or adenopathy in the pelvis. Bones: Patient has known extensive osteoblastic metastatic disease which has been recently described. Significant progression since 2017 and 2018. Recent ORIF with pathological LEFT hip fracture. Postoperative changes surrounding the LEFT hip no focal collection. CT/CT abdomen pelvis w con* [id number] IMPRESSION: ? 1.? Diffuse marked fecal retention and constipation. No mucosal thickening or edema or inflammation. 2.? Abnormal appendix. The appendix is dilated measuring 10 mm and fluid-filled. There is no adjacent inflammation. Suspicious but indeterminate for acute appendicitis. The dilatation of the appendix was not present on the prior examinations. 3.? Recent postoperative changes and ORIF at the LEFT hip for pathological fracture. 4.? Patient has known extensive osteoblastic metastatic disease. ? Dictated By: Trish Mcgrath DO Signed By: Trish Mcgrath DO Signed Date/Time: 07/07/21 1512 DD/ 1459 Coding Level of Care Code ED Deputy District [employer] Director for Chg Fwd Exam Comprehensive
[2021-07-07 14:19] LABS: Basophils % 0.2 %; Eosinophils # 0.1 10^3/uL (0.0-0.8); Hematocrit 31.4 % (42.0-52.0); Hemoglobin 9.8 g/dL (11.7-16.6); Lymphocytes # 0.9 10^3/uL (0.8-4.8); Lymphocytes % 18.7 %; Mean Corpuscular HGB Conc 31.2 g/dL (30.0-36.0); Mean Corpuscular Hemoglobin 29.9 pg (28.0-34.0); Mean Corpuscular Volume 95.7 fl (80-94); Mean Platelet Volume 10.4 fL (7.4-10.4); Monocytes # 0.5 10^3/uL (0.2-0.9); Monocytes % 10.5 %; Neutrophils # 3.42 10^3/uL (1.8-7.7); Neutrophils % 67.8 %; Nucleated Red Blood Cells % 0 %; Platelet Count 227 10^3/cmm (130-400); Red Blood Count 3.28 10^6/uL (4.1-5.3); Red Cell Distribution Width 13.7 % (12.1-15.1)
[2021-07-07] MEDS: iohexol 300 mg/mL 100 mL Btl IV (14:40)
[2021-07-07 14:42] LABS: Alanine Aminotransferase 22 U/L (0-41); Albumin Level 3.6 g/dL (3.5-5.2); Alkaline Phosphatase 657 IU/L (40-130); Anion Gap 13.1 (5-19); Aspartate Amino Transferase 32 U/L (0-40); Blood Urea Nitrogen 13 mg/dL (8-23); Calcium 8.1 mg/dL (8.5-10.5); Carbon Dioxide 24 mmol/L (22-29); Chloride 101 mmol/L (98-107); Globulin 3.8 g/dL (1.3-4.6); Glucose 105 mg/dL (65-115); Lipase 31 U/L (13-60); Osmolality Calculated 278 mOsm/kg (285-295); Potassium 4.1 mmol/L (3.5-5.1); Sodium 134 mmol/L (136-145); Total Bilirubin 1.2 mg/dL (0.15-1.2); Total Protein 7.4 g/dL (6.6-8.7)
[2021-07-07 14:45] LABS: Creatinine Clr Calc Pharmacy 65.4776
[2021-07-07] MEDS: sodium chloride 0.9% 500 ML IV (15:52)
[2021-07-07] MEDS: famotidine 20 mg/2 mL INJ IVP (15:52)
[2021-07-07] MEDS: lidocaine 2% viscous 15 ML, aluminum-mag hydrox-simethicon 30 ML, sucralfate oral liq 1 GM PO (16:32)
[2021-07-07 17:13] VITALS: BP 114/77; PULSE 89; RESP 17; O2SAT 99
--- NOTE | 2021-07-11 11:47 | DCPLANNER ---
Addendum entered by Rocio Reaves 07/17/21 08:30: modeling agency manager was notified by general surgery that patient was scheduled with Dr. Horne for 07.10.21, and Dr. Horne said that he did not need to follow up with him and cancelled the appointment. Original Note: modeling agency manager had message to schedule a follow up appointment for patient with general surgery. modeling agency manager emailed patients information to Esther at [facility] General Surgery. Patients information will be printed and reviewed. Clinic will call patient with appointment information.
== END 2021-07-07 17:22 | disposition home or self-care (01) ==
PROVIDERS: Emergency Provider Emergency Medicine
DX: R19.7 Diarrhea, unspecified (principal); R93.5 Abnormal findings on diagnostic imaging of other abdominal regions, including retroperitoneum; C79.51 Secondary malignant neoplasm of bone; C61 Malignant neoplasm of prostate; M84.459D Pathological fracture, hip, unspecified, subsequent encounter for fracture with routine healing; Z96.0 Presence of urogenital implants; Z79.899 Other long term (current) drug therapy; Z98.890 Other specified postprocedural states; Z79.82 Long term (current) use of aspirin; Z79.891 Long term (current) use of opiate analgesic
CPT/HCPCS: 74177; 80053; 83690; 85025; 96361; 96374; 99283; J3490; J7040; Q9967

== ENCOUNTER 2021-07-11 06:00 | Outpatient (RCR) | payer OTHER, SELFPAY | END 2021-07-27 23:59 | disposition home or self-care (01) | LOC: SPT 06:00 | PROVIDERS: PCP Internal Medicine Medical Oncology; Referring Provider Family Medicine; Visit Provider Family Medicine | DX: M84.452D Pathological fracture, left femur, subsequent encounter for fracture with routine healing (principal); S72.009D Fracture of unspecified part of neck of unspecified femur, subsequent encounter for closed fracture with routine healing; X58.XXXD Exposure to other specified factors, subsequent encounter; Z98.890 Other specified postprocedural states; Z87.81 Personal history of (healed) traumatic fracture | CPT/HCPCS: 97110; 97116; 97161 ==

== ENCOUNTER 2021-07-26 07:07 | Outpatient (RCR) | payer OTHER, SELFPAY ==
[2021-07-10 09:01] LABS: Basophils % 0.2 %; Eosinophils # 0.1 10^3/uL (0.0-0.8); Eosinophils % 1.7 %; Hematocrit 31.9 % (42.0-52.0); Hemoglobin 9.9 g/dL (11.7-16.6); Lymphocytes # 0.8 10^3/uL (0.8-4.8); Lymphocytes % 12.4 %; Mean Corpuscular Hemoglobin 30.2 pg (28.0-34.0); Mean Corpuscular Volume 97.3 fl (80-94); Mean Platelet Volume 10.1 fL (7.4-10.4); Monocytes # 0.7 10^3/uL (0.2-0.9); Monocytes % 10.3 %; Neutrophils % 74.9 %; Nucleated Red Blood Cells % 0 %; Platelet Count 244 10^3/cmm (130-400); Red Blood Count 3.28 10^6/uL (4.1-5.3); Red Cell Distribution Width 14.1 % (12.1-15.1); White Blood Count 6.5 10^3/uL (4.0-10.0)
[2021-07-10 09:14] LABS: Alanine Aminotransferase 23 U/L (0-41); Albumin Level 3.8 g/dL (3.5-5.2); Alkaline Phosphatase 603 IU/L (40-130); Anion Gap 11.6 (5-19); Aspartate Amino Transferase 20 U/L (0-40); Blood Urea Nitrogen 10 mg/dL (8-23); Calcium 7.1 mg/dL (8.5-10.5); Carbon Dioxide 26 mmol/L (22-29); Chloride 104 mmol/L (98-107); Glucose 106 mg/dL (65-115); Osmolality Calculated 283 mOsm/kg (285-295); Potassium 4.6 mmol/L (3.5-5.1); Sodium 137 mmol/L (136-145); Total Protein 6.8 g/dL (6.6-8.7)
--- NOTE | 2021-07-10 19:07 | ONC FU_ITS ---
Dr. Mata Patient Follow-Up Note Patient: Koby Franz Unit #: [id number]: 1935 Dicatated By: Greg Mata M.D.Date of Visit:Jul 10, 2021 Onc Med Follow-up/Prog Note Chief Complaint: Thrombocytopenia/prostate cancer. History of Present Illness: This is an 85 year-old man with a mild thrombocytopenia. 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 I have followed him for mild thrombocytopenia since April 2019. A specific cause was not determined, but he had not been symptomatic with it, and it has been stable during follow-up. In November 2020 he was diagnosed with COVID-19 virus infection. His major symptoms were weakness/fatigue, diarrhea, anorexia, and loss of taste/smell. He did not have any specific treatment, and he did not require hospitalization. However, with that illness, he had a significant weight loss, in the range of 20 pounds. As of his follow-up visit on 01/25/2021 he was still not feeling good generally. He had become mildly anemic, and his white blood cell count also was a little low. His platelet count, though, was normal. His alkaline phosphatase was moderately elevated at 214/130 IU/L, but it was down from 288 IU/L in November. As of his follow-up visit on 05/24/2021 his alkaline phosphatase remained significantly elevated at 467/130 IUs/L. His PSA level had become significantly elevated at 242.800 ng/mL. On exam, the prostate was very firm and irregular. His CT abdomen/pelvis showed just slightly enlarged prostate. There was evidence of new extensive osteoblastic metastatic bone disease including numerous vertebral bodies, pelvis, and proximal left femur. Bone scan on 06/14/2021 also confirmed multiple sites of metastatic bone disease including the left calvarium, thoracic and lumbar spine, bony pelvis and sacrum. There was noted to be large confluent lesions involving the left hip and proximal femur. An additional prominent lesion was noted to involve the right humeral head. In the meantime, he also had followup with Dr Martinez and on 06/14/2021 he underwent TRUS/biopsy. Pathology showed prostatic adenocarcinoma, Ananya score 5+5 = 10, involving both lobes. With that finding he began treatment with bicalutamide 50 mg daily. He returned for a follow-up visit on 06/26/2021. He began ADT therapy with Zoladex and he also started treatment with denosumab for the metastatic bone involvement. At that point he had developed severe pain in the left hip and thigh, and he was referred to Dr. Jeffries for palliative radiation. His CT of the left hip showed infiltrative permeative metastatic disease in the proximal left femur with findings which were highly suspicious for nondisplaced pathologic fracture extending into the left subcapital region. There was additional marrow replacement osteoblastic lesion in the mid femoral diaphysis with no associated fracture. He had indicated to Dr. Jeffries that he wanted to avoid surgery, and he then did begin on palliative radiation. However, on 06/28/2021 he was seen in the emergency room after falling at home and sustaining further injury to his left hip. He was admitted to the hospital and the following day he underwent open reduction and internal fixation for low vertical fracture of the left femoral neck. His other medical illnesses include hypertension, hyperlipidemia, hypothyroidism and degenerative arthritis. 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 He is a non-smoker. INTERIM HISTORY: He is seen now for a post hospital follow-up visit. He continues to have very limited activity following his recent surgery. He is avoiding weightbearing on the left leg. He says it hurts if he moves it around too much, but overall the pain is much better. His ECOG score is 3. His appetite has not been good, but it is improving now. He does not have fever, night sweats, or hot flashes. He has not had sore throat or difficulty swallowing. He does not complain of cough, and he has not been having shortness of breath or chest pain. He does not complain of nausea. He was having constipation, but he was able to get his bowels moving. He has an indwelling Haque catheter for urinary retention. He is not having any other bone pain. He does not complain of headache or dizziness. His left hand has felt cold since his stroke. Medications: amLODIPine Besylate 1 Tablet (of 5 mg) Oral daily, Aspirin 1 Tablet (of 325 mg) Oral daily, Bicalutamide (50 mg) Tablet Oral daily, Nvfvdnc-Tbxbvzon-Rrilkeuwif-FA 1 Tablet Oral daily, Clopidogrel Bisulfate 1 Tablet (of 75 mg) Oral daily, Daily Mens Health Formula 1 Tablet Oral daily, E 1000 1 Capsule (of 1000 Units) Oral daily, HYDROcodone-Acetaminophen (5-325 mg) Tablet Oral Take as Directed, Vitamin B + C Complex 1 Tablet Oral daily Allergies: Influenza Virus Vaccine Split and predniSONE. Vital Signs: Performed on Jul 10, 2021 09:51 Height - 68.00 in Temperature - 98.8 F Pulse - 87 /min Respiration - 16 /min BP - 97/55 mm(hg) O2 Sat - 95 % (LOW) Pain - 7 Fatigue - 3 Physical Examination: Constitutional - He appears generally weak and he has limited mobility, Eyes - Sclerae nonicteric. Conjunctivae clear, ENMT - No lesions noted in the oral cavity, Hematologic/Lymphatic - No cervical, clavicular, or axillary adenopathy, Respiratory - Lungs sound clear with good air movement bilaterally, Cardiovascular - Heart rhythm is regular. There is no murmur, gallop, or rub noted, Abdomen - Soft. Liver and spleen are not enlarged. There is no abdominal mass or ascites noted and there is no inguinal adenopathy, Extremities - No edema. There is residual ecchymosis in the lateral aspect of the left thigh, but the incisions appear well-healed, Neurologic - No focal neurologic deficits noted. Lab/Imaging: Test performed on Jul 10, 2021 08:45 Sodium 137 mmol/L Potassium 4.6 mmol/L Chloride 104 mmol/L CO2 26 mmol/L Anion Gap 11.6 BUN 10 mg/dL Creatinine 0.6 mg/dL Cr Clearance (Est) 84.6700 mL/min Glucose 106 mg/dL Osmolality - Calculated 283 mOsm/kg Calcium 7.1 mg/dL Protein, Total 6.8 g/dL Albumin 3.8 g/dL Globulin 3.0 g/dL Bilirubin, Total 1.0 mg/dL ALT (SGPT) 23 U/L AST (SGOT) 20 U/L Alkaline Phosphatase 603 IU/L WBC 6.5 10 3/uL RBC 3.28 10 6/uL HGB 9.9 g/dL HCT 31.9 % MCV 97.3 fl MCH 30.2 pg MCHC 31.0 g/dL RDW 14.1 % Platelet Count 244 10 3/cmm MPV 10.1 fL Neutrophils 4.90 10 3/uL Lymphocytes 0.8 10 3/uL Monocytes 0.7 10 3/uL Eosinophils 0.1 10 3/uL Basophils 0.0 10 3/uL Neutrophil % 74.9 % Lymphocyte % 12.4 % Monocyte % 10.3 % Eosinophil % 1.7 % Basophils % 0.2 % NRBC % 0 % Problem List: 1. 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 2. He has been followed for mild thrombocytopenia and mildly decreased white blood cell count of uncertain etiology. 3. 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 4. Hypertension. 5. Hyperlipidemia. 6. Hypothyroidism. 7. Degenerative arthritis/degenerative disease of the spine. 8. He has a history of melanoma excision from the back. 9. Anxiety/depression. Problems Addressed with this Encounter and Plan: 1. Patient with adenocarcinoma of the prostate, Ananya score 5+5 = 10. He had denovo stage IVB disease, presenting with elevated alkaline phosphatase and symptomatic metastatic bone involvement. He began treatment with bicalutamide 50 mg daily and on 06/26/2021 he began androgen deprivation therapy with Zoladex. He also began treatment with denosumab for the metastatic bone involvement. At that point he had developed severe pain in the left hip area. CT was suspicious for nondisplaced pathologic fracture of the proximal left femur. He initially indicated that he wanted to avoid surgery, and he began palliative radiation. He then sustained further injury to the left hip after falling at home, and on 06/28/2021 he underwent ORIF for low vertical fracture of the left femoral neck. For the time being he will continue antiandrogen therapy with bicalutamide 50 mg daily, but the plan is to transition to enzalutamide subject to verification of insurance coverage. He will follow-up with radiation oncology later this week to resume his palliative radiation. He will be seen here at a 4-week interval for continuation of denosumab injections for the metastatic bone involvement. In the meantime, he continues immediate release oxycodone as needed for pain, and he will continue senna/docusate for constipation. 2. He has been followed for mild thrombocytopenia and a borderline low to mildly decreased white blood cell count. A specific cause has not been determined. It is being followed expectantly. Signed By: Greg Mata M.D. <<Signature on File>>
--- NOTE | 2021-07-12 | CT_ITS ---
Radiation Therapy Planning CT images; total exam DLP: 546.14 mGy-cm MTDD
--- NOTE | 2021-07-17 11:28 | ONCRAD TMN_ITS ---
Radiation Oncology Treatment Management Note Patient Name: Koby Franz Date of : 1935 Date of Service: 07/17/2021 Attending Physician: Patricio Jeffries M.D. Koby Franz is an 85 year-old white male with a recently diagnosed metastatic prostate cancer. The patient was diagnosed in May following evaluation for an elevated alkaline phosphatase (467 IU/L). The initial PSA was 242.8 ng/mL. An abdominopelvic CT scan ordered on May 26, 2021 reported numerous osteoblastic lesions. Bony expansion with heterogeneous marrow signal was noted in the left femur and femoral head. Sclerotic lesions were present within T9, T11, L2, S1, and throughout the pelvis. A nuclear bone scintigraphy (personally reviewed in [facility]) completed on June 14, 2021 confirmed bony metastatic disease involving the axial and proximal appendicular skeleton. A large confluent lesion was present within the left hip and femur. A transrectal ultrasound-guided prostate biopsy was performed by Clayton Martinez M.D. on June 14, 2021. A 24 cc prostate was identified with hypoechoic lesions bilaterally. The pathology report described an adenocarcinoma of the prostate gland with a Ananya score of 5+5 = 10 (grade group 5) involving the right lateral apex, right lateral mid gland, right apex, and left mid gland. Total androgen suppression and a RANKL inhibitor was started on June 26. The patient has received 9 Gy of a prescribed 30 [place] to the left femur with a 3-dimensional conformal radiotherapy plans utilizing AP/PA treatment gonzales. Upon review of systems, he reported improvement in his left hip pain. On physical examination, the patient weighed 232 lbs. His temperature was 97.7 ???F and the blood pressure was 93/59 mmHg. His pulse was 81 bpm and his respiratory rate was 18. Continue palliative radiotherapy as prescribed. Signed by: Dr. Patricio Jeffries 07/17/2021 11:26:23 AM
--- NOTE | 2021-07-24 08:22 | ONC FU_ITS ---
Daisy Corcoran Progress Note Patient: Koby Franz Unit #: [id number]: 1935 Dicatated By: Daisy Corcoran N.P.Date of Visit:Jul 21, 2021 Onc MED Follow-up/Prog Note Chief Complaint: Thrombocytopenia/prostate cancer. History of Present Illness: This is an 85 year-old man with a mild thrombocytopenia. 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 Dr. Mata has followed him for mild thrombocytopenia since April 2019. A specific cause was not determined, but he had not been symptomatic with it, and it has been stable during follow-up. In November 2020 he was diagnosed with COVID-19 virus infection. His major symptoms were weakness/fatigue, diarrhea, anorexia, and loss of taste/smell. He did not have any specific treatment, and he did not require hospitalization. However, with that illness, he had a significant weight loss, in the range of 20 pounds. As of his follow-up visit on 01/25/2021 he was still not feeling good generally. He had become mildly anemic, and his white blood cell count also was a little low. His platelet count, though, was normal. His alkaline phosphatase was moderately elevated at 214/130 IU/L, but it was down from 288 IU/L in November. As of his follow-up visit on 05/24/2021 his alkaline phosphatase remained significantly elevated at 467/130 IUs/L. His PSA level had become significantly elevated at 242.800 ng/mL. On exam, the prostate was very firm and irregular. His CT abdomen/pelvis showed just slightly enlarged prostate. There was evidence of new extensive osteoblastic metastatic bone disease including numerous vertebral bodies, pelvis, and proximal left femur. Bone scan on 06/14/2021 also confirmed multiple sites of metastatic bone disease including the left calvarium, thoracic and lumbar spine, bony pelvis and sacrum. There was noted to be large confluent lesions involving the left hip and proximal femur. An additional prominent lesion was noted to involve the right humeral head. In the meantime, he also had followup with Dr Martinez and on 06/14/2021 he underwent TRUS/biopsy. Pathology showed prostatic adenocarcinoma, [place] score 5+5 = 10, involving both lobes. With that finding he began treatment with bicalutamide 50 mg daily. He returned for a follow-up visit on 06/26/2021. He began ADT therapy with Zoladex and he also started treatment with denosumab for the metastatic bone involvement. At that point he had developed severe pain in the left hip and thigh, and he was referred to Dr. Jeffries for palliative radiation. His CT of the left hip showed infiltrative permeative metastatic disease in the proximal left femur with findings which were highly suspicious for nondisplaced pathologic fracture extending into the left subcapital region. There was additional marrow replacement osteoblastic lesion in the mid femoral diaphysis with no associated fracture. He had indicated to Dr. Jeffries that he wanted to avoid surgery, and he then did begin on palliative radiation. However, on 06/28/2021 he was seen in the emergency room after falling at home and sustaining further injury to his left hip. He was admitted to the hospital and the following day he underwent open reduction and internal fixation for low vertical fracture of the left femoral neck. His other medical illnesses include hypertension, hyperlipidemia, hypothyroidism and degenerative arthritis. 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 He is a non-smoker. INTERIM HISTORY: Patient presents today for education on enzalutamide. He states he is feeling well. Denies fatigue. No fever, chills or night sweats. No cough or shortness of breath. Review Of Symptoms: See above. Past Medical History: Degenerative arthritis Degenerative disease of the spine History of melanoma Hyperlipidemia Hypertension Hypothyroidism Possible asbestos exposure Tick fever Vitamin D deficiency Covid in 2020 Right hemispheric stroke in 2017 Past Surgical History: Bilateral carpal tunnel release Excision of melanoma from the back approximately 2010 Hydrocele repair Partial amputation left second toe Rotator cuff repair left shoulder Rotator cuff repair right shoulder x 5 Cataract excision left eye in 2018 Colonoscopy in 2013 Allergies: Influenza Virus Vaccine Split and predniSONE. Medications: amLODIPine Besylate 1 Tablet (of 800 mg) Oral 5x/d PRN Aspirin 1 Tablet (of 325 mg) Oral daily Bicalutamide (50 mg) Tablet Oral daily Wiqgxnz-Odqpgdso-Jnwfofykxv-FA 1 Tablet Oral daily Clopidogrel Bisulfate 1 Tablet (of 75 mg) Oral daily Daily Mens Health Formula 1 Tablet Oral daily E 1000 1 Capsule (of 1000 Units) Oral daily oxyCODONE HCl 1 - 2 Tablet (of 5 mg) Oral q 6 hours PRN Pantoprazole Sodium 1 Tablet (of 40 mg) Tablet, enteric coated Oral b.i.d. Senna S 2 Tablet (of 8.6-50 mg) Oral daily Thiamine HCl 1 Tablet (of 100 mg) Oral daily Vitamin B + C Complex 1 Tablet Oral daily Family History: Mr. Franz's mother is . Mr. Franz's father is . Mr. Franz has 1 sister who is . Both parents of heart attack, father at age 67 and mother at age 71. A sister of heart attack at age 39. A brother with lupus and heart disease. Social History: Mr. Franz is and he is retired. Mr. Franz has never smoked. He drinks daily. He consumes 1 drink/day 7 days/week. Mr. Franz reports contact with the following hazardous materials: asbestos. Mr. Franz reports the following support systems: lives with spouse, significant other, family, or friends, lives in own house, supportive family/friends willing to assist with needs, and adequate transportation available for expected visits. His diet consists of regular meals. He indicates his activity level as: regular exercise. He is a non-smoker. He drinks a glass of wine daily. Physical Examination: Performed on Jul 21, 2021 11:27: Height - 68.00 in, Weight - 134.4 lbs (HIGH), BSA - 1.73 sq.m, BMI - 20.44, Temperature - 98.4 F, Pulse - 98 /min, Respiration - 18 /min, BP - 96/60 mm(hg), O2 Sat - 98 %, Pain - 0, and Fatigue - 0. Performance Status: 3 - Capable of only limited self-care, confined to bed or chair more than 50% of waking hours. (ECOG) Constitutional Alert, cooperative, oriented. Mood and affect appropriate. Appears close to chronological age. Well nourished. Well developed. Respiratory Lungs are clear to auscultation without rhonchi or wheezing. Cardiovascular Regular rate and rhythm of heart without murmurs, gallops or rubs. Abdomen Non-tender, non-distended, no masses, ascites or hepatosplenomegaly. Good bowel sounds. No guarding or rebound tenderness. Extremities No edema Psychiatric Alert and oriented times three. Coherent speech. Verbalizes understanding of our discussions today. Laboratory: Test performed on Jul 10, 2021 08:45 Sodium 137 mmol/L Potassium 4.6 mmol/L Chloride 104 mmol/L CO2 26 mmol/L Anion Gap 11.6 BUN 10 mg/dL Creatinine 0.6 mg/dL Cr Clearance (Est) 84.6700 mL/min Glucose 106 mg/dL Osmolality - Calculated 283 mOsm/kg Calcium 7.1 mg/dL Protein, Total 6.8 g/dL Albumin 3.8 g/dL Globulin 3.0 g/dL Bilirubin, Total 1.0 mg/dL ALT (SGPT) 23 U/L AST (SGOT) 20 U/L Alkaline Phosphatase 603 IU/L WBC 6.5 10 3/uL RBC 3.28 10 6/uL HGB 9.9 g/dL HCT 31.9 % MCV 97.3 fl MCH 30.2 pg MCHC 31.0 g/dL RDW 14.1 % Platelet Count 244 10 3/cmm MPV 10.1 fL Neutrophils 4.90 10 3/uL Lymphocytes 0.8 10 3/uL Monocytes 0.7 10 3/uL Eosinophils 0.1 10 3/uL Basophils 0.0 10 3/uL Neutrophil % 74.9 % Lymphocyte % 12.4 % Monocyte % 10.3 % Eosinophil % 1.7 % Basophils % 0.2 % NRBC % 0 % Test performed on Jun 27, 2021 08:50 Vitamin D (25-Hydroxy), Total > 100 ng/mL Ua Color Yellow Ua Appearance Clear Ua pH 5 Ua Specific [place] 1.020 Ua Glucose Norm Ua Ketones Negative Ua Protein Neg Ua Blood 2+ Ua Bilirubin Neg Ua Nitrites Negative Ua Leukocyte Esterase Negative Ua Micro: WBC NONE /hpf Ua Micro: RBC 0-4 /hpf Ua Micro: Squam Epith Cells 0-4 /hpf Ua Micro: Bacteria TRACE /hpf Ua Micro: Mucous 1+ /hpf Test performed on May 23, 2021 13:22 Folate, Serum 14.1 ng/mL Iron 100 mcg/dL LDH (Total) 232 U/L TSH 4.93 uIU/mL Vitamin B12 768 pg/mL Iron Binding Capacity (TIBC) 277 mcg/dl % Iron Saturation 36.1 % UIBC 177 mcg/dL ESR (Sed Rate) 24 mm/hr Impression: 1. 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 2. He has been followed for mild thrombocytopenia and mildly decreased white blood cell count of uncertain etiology. 3. 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 4. Hypertension. 5. Hyperlipidemia. 6. Hypothyroidism. 7. Degenerative arthritis/degenerative disease of the spine. 8. He has a history of melanoma excision from the back. 9. Anxiety/depression. Plan: 1. Patient with adenocarcinoma of the prostate, Ananya score 5+5 = 10. He had denovo stage IVB disease, presenting with elevated alkaline phosphatase and symptomatic metastatic bone involvement. He began treatment with bicalutamide 50 mg daily and on 06/26/2021 he began androgen deprivation therapy with Zoladex. He also began treatment with denosumab for the metastatic bone involvement. At that point he had developed severe pain in the left hip area. CT was suspicious for nondisplaced pathologic fracture of the proximal left femur. He initially indicated that he wanted to avoid surgery, and he began palliative radiation. He then sustained further injury to the left hip after falling at home, and on 06/28/2021 he underwent ORIF for low vertical fracture of the left femoral neck. Patient presents today for education on enzalutamide. Handouts were provided along with education on side effects. He he was instructed to discontinue Casodex. He will continue his Zoladex injections every 3 months. We will follow-up in 2 weeks to evaluate tolerance of enzalutamide. He will be seen here at a 4-week interval for continuation of denosumab injections for the metastatic bone involvement. In the meantime, he continues immediate release oxycodone as needed for pain, and he will continue senna/docusate for constipation. 2. He has been followed for mild thrombocytopenia and a borderline low to mildly decreased white blood cell count. A specific cause has not been determined. It is being followed expectantly. Signed By: Daisy Corcoran NPhilip <<Signature on File>>
--- NOTE | 2021-07-24 11:41 | ONCRAD TMN_ITS ---
Radiation Oncology Treatment Management Note Patient Name: Koby Franz Date of : 1935 Date of Service: 07/24/2021 Attending Physician: Patricio Jeffries M.D. Koby Franz is an 85 year-old white male with a recently diagnosed metastatic prostate cancer. The patient was diagnosed in May following evaluation for an elevated alkaline phosphatase (467 IU/L). The initial PSA was 242.8 ng/mL. An abdominopelvic CT scan ordered on May 26, 2021 reported numerous osteoblastic lesions. Bony expansion with heterogeneous marrow signal was noted in the left femur and femoral head. Sclerotic lesions were present within T9, T11, L2, S1, and throughout the pelvis. A nuclear bone scintigraphy (personally reviewed in [facility]) completed on June 14, 2021 confirmed bony metastatic disease involving the axial and proximal appendicular skeleton. A large confluent lesion was present within the left hip and femur. A transrectal ultrasound-guided prostate biopsy was performed by Clayton Martinez M.D. on June 14, 2021. A 24 cc prostate was identified with hypoechoic lesions bilaterally. The pathology report described an adenocarcinoma of the prostate gland with a Ananya score of 5+5 = 10 (grade group 5) involving the right lateral apex, right lateral mid gland, right apex, and left mid gland. Total androgen suppression and a RANKL inhibitor was started on June 26. The patient has received 24 Gy of a prescribed 30 [place] to the left femur with a 3-dimensional conformal radiotherapy plans utilizing AP/PA treatment gonzales. Upon review of systems, he continued to report improvement in his left hip pain. On physical examination, the patient weighed 132 lbs. His temperature was 97.4 ???F and the blood pressure was 125/62 mmHg. His pulse was 80 bpm and the respiratory rate was 18. Continue palliative radiotherapy as planned. Signed by: Dr. Patricio Jeffries 07/24/2021 11:39:43 AM
--- NOTE | 2021-07-26 11:01 | N.ONRD TS_ITS ---
Radiation OncologyTreatment Summary Patient Name: Koby Franz Date of : 1935 Date of Service: 07/26/2021 Attending Physician: Patricio Jeffries M.D. Koby Franz has completed palliative radiotherapy for the management of prostate cancer. He was diagnosed in May following evaluation for an elevated alkaline phosphatase (467 IU/L). The initial PSA was 242.8 ng/mL. An abdominopelvic CT scan ordered on May 26, 2021 reported numerous osteoblastic lesions. Bony expansion with heterogeneous marrow signal was noted in the left femur and femoral head. Sclerotic lesions were present within T9, T11, L2, S1, and throughout the pelvis. A nuclear bone scintigraphy (personally reviewed in [facility]) completed on June 14, 2021 confirmed bony metastatic disease involving the axial and proximal appendicular skeleton. A large confluent lesion was present within the left hip and femur. A transrectal ultrasound-guided prostate biopsy was performed by Clayton Martinez M.D. on June 14, 2021. A 24 cc prostate was identified with hypoechoic lesions bilaterally. The pathology report described an adenocarcinoma of the prostate gland with a Ananya score of 5+5 = 10 (grade group 5) involving the right lateral apex, right lateral mid gland, right apex, and left mid gland. Total androgen suppression and a RANKL inhibitor was started on June 26. Daily radiotherapy was administered between the dates of July 13, 2021 through July 26, 2021. A prescribed dose of 30 Gy was delivered in 10 fractions encompassing 14 elapsed days. The left femur and acetabulum were treated utilizing a 2-dimensional conformal radiotherapy plan with an AP/PA portal field design. The AP field utilized a 0??? gantry angle with a collimator angle of 0???. The field size measured 4.7 cm x 6.7 cm within the X-direction and 20 cm x 19 cm within the Y-direction. The SSD measured 115 cm with the field delivering 256 monitor units. The PA port employed a gantry angle of 180??? and a collimator angle of 0???. The field size was 6.3 cm x 5 cm within X-direction and 20 cm x 18.1 cm within the Y-direction. The planned SSD was 118 cm with the field allocating 271 monitor units. All treatments were performed with the Overblog linear accelerator and an isocentric technique. The dose was calculated by Anisotropic Analytic Algorithm. Photon energies of 6 MV were prescribed with the plan normalized to deliver 100% of the prescription dose to 95% of the planning target volume. The [facility] physician approved the plan. Signed by: Dr. Patricio Jeffries 07/26/2021 10:59:47 AM
== END 2021-07-27 23:59 | disposition home or self-care (01) ==
LOC: ONCMED 07:07
PROVIDERS: Absent Provider Nurse Practitioner Family; PCP Internal Medicine Medical Oncology; Visit Provider Radiology Radiation Oncology
DX: Z51.0 Encounter for antineoplastic radiation therapy (principal); C61 Malignant neoplasm of prostate; C79.51 Secondary malignant neoplasm of bone; D69.6 Thrombocytopenia, unspecified; I10 Essential (primary) hypertension; E78.5 Hyperlipidemia, unspecified; E03.9 Hypothyroidism, unspecified; M19.90 Unspecified osteoarthritis, unspecified site; M47.9 Spondylosis, unspecified; F41.9 Anxiety disorder, unspecified; F32.A Depression, unspecified; Z86.73 Personal history of transient ischemic attack (TIA), and cerebral infarction without residual deficits; Z85.820 Personal history of malignant melanoma of skin; Z79.899 Other long term (current) drug therapy
CPT/HCPCS: 36415; 77290; 77307; 77334; 77336; 77412; 77417; 80053; 85025; 99214

== ENCOUNTER 2021-07-28 06:00 | Outpatient (RCR) | payer OTHER, SELFPAY | END 2021-08-26 23:59 | disposition home or self-care (01) | LOC: SPT 06:00 | PROVIDERS: PCP Internal Medicine Medical Oncology; Referring Provider Family Medicine; Visit Provider Family Medicine | DX: M84.452D Pathological fracture, left femur, subsequent encounter for fracture with routine healing (principal); X58.XXXD Exposure to other specified factors, subsequent encounter; Z47.89 Encounter for other orthopedic aftercare; Z87.81 Personal history of (healed) traumatic fracture | CPT/HCPCS: 97110; 97116 ==

== ENCOUNTER 2021-08-04 07:42 | Outpatient (RCR) | payer OTHER, SELFPAY ==
[2021-08-04 08:48] LABS: Prostate Specific Antigen 0.788 ng/mL (0-4)
[2021-08-04 09:07] LABS: Basophils % 0.3 %; Eosinophils # 0.1 10^3/uL (0.0-0.8); Eosinophils % 3.8 %; Hematocrit 35.5 % (42.0-52.0); Lymphocytes # 0.5 10^3/uL (0.8-4.8); Lymphocytes % 15.8 %; Mean Corpuscular Hemoglobin 28.5 pg (28.0-34.0); Monocytes # 0.4 10^3/uL (0.2-0.9); Monocytes % 12.6 %; Neutrophils # 2.12 10^3/uL (1.8-7.7); Neutrophils % 66.9 %; Nucleated Red Blood Cells % 0 %; Platelet Count 172 10^3/cmm (130-400); Red Blood Count 3.86 10^6/uL (4.1-5.3); Red Cell Distribution Width 14.9 % (12.1-15.1); White Blood Count 3.2 10^3/uL (4.0-10.0)
[2021-08-04] MEDS: denosumab 120 mg SDV SUBCUT (10:06)
--- NOTE | 2021-08-06 14:09 | ONC FU_ITS ---
Daisy Corcoran Progress Note Patient: Koby Franz Unit #: [id number]: 1935 Dicatated By: Daisy Corcoran N.P.Date of Visit:Aug 04, 2021 Onc MED Follow-up/Prog Note Chief Complaint: Thrombocytopenia/prostate cancer. History of Present Illness: This is an 85 year-old man with a mild thrombocytopenia. 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 Dr. Mata has followed him for mild thrombocytopenia since April 2019. A specific cause was not determined, but he had not been symptomatic with it, and it has been stable during follow-up. In November 2020 he was diagnosed with COVID-19 virus infection. His major symptoms were weakness/fatigue, diarrhea, anorexia, and loss of taste/smell. He did not have any specific treatment, and he did not require hospitalization. However, with that illness, he had a significant weight loss, in the range of 20 pounds. As of his follow-up visit on 01/25/2021 he was still not feeling good generally. He had become mildly anemic, and his white blood cell count also was a little low. His platelet count, though, was normal. His alkaline phosphatase was moderately elevated at 214/130 IU/L, but it was down from 288 IU/L in November. As of his follow-up visit on 05/24/2021 his alkaline phosphatase remained significantly elevated at 467/130 IUs/L. His PSA level had become significantly elevated at 242.800 ng/mL. On exam, the prostate was very firm and irregular. His CT abdomen/pelvis showed just slightly enlarged prostate. There was evidence of new extensive osteoblastic metastatic bone disease including numerous vertebral bodies, pelvis, and proximal left femur. Bone scan on 06/14/2021 also confirmed multiple sites of metastatic bone disease including the left calvarium, thoracic and lumbar spine, bony pelvis and sacrum. There was noted to be large confluent lesions involving the left hip and proximal femur. An additional prominent lesion was noted to involve the right humeral head. In the meantime, he also had followup with Dr Martinez and on 06/14/2021 he underwent TRUS/biopsy. Pathology showed prostatic adenocarcinoma, [place] score 5+5 = 10, involving both lobes. With that finding he began treatment with bicalutamide 50 mg daily. He returned for a follow-up visit on 06/26/2021. He began ADT therapy with Zoladex and he also started treatment with denosumab for the metastatic bone involvement. At that point he had developed severe pain in the left hip and thigh, and he was referred to Dr. Jeffries for palliative radiation. His CT of the left hip showed infiltrative permeative metastatic disease in the proximal left femur with findings which were highly suspicious for nondisplaced pathologic fracture extending into the left subcapital region. There was additional marrow replacement osteoblastic lesion in the mid femoral diaphysis with no associated fracture. He had indicated to Dr. Jeffries that he wanted to avoid surgery, and he then did begin on palliative radiation. However, on 06/28/2021 he was seen in the emergency room after falling at home and sustaining further injury to his left hip. He was admitted to the hospital and the following day he underwent open reduction and internal fixation for low vertical fracture of the left femoral neck. His other medical illnesses include hypertension, hyperlipidemia, hypothyroidism and degenerative arthritis. 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 He is a non-smoker. INTERIM HISTORY: Patient presents today for follow-up after starting enzalutamide. He states he is tolerating it well. He is complaining of increased weakness and fatigue. His appetite is good. He has occasional chills. And he has hot flashes. He denies sinus drainage or mouth sores. No shortness of breath, cough, chest pain. No nausea or vomiting. No diarrhea or constipation. He does self catheterization daily. He continues to have left hip and leg pain. No headaches, dizziness. Review Of Symptoms: See above. Past Medical History: Degenerative arthritis Degenerative disease of the spine History of melanoma Hyperlipidemia Hypertension Hypothyroidism Possible asbestos exposure Tick fever Vitamin D deficiency Covid in 2020 Right hemispheric stroke in 2018 Past Surgical History: Bilateral carpal tunnel release Excision of melanoma from the back approximately 2010 Hydrocele repair Partial amputation left second toe Rotator cuff repair left shoulder Rotator cuff repair right shoulder x 5 Cataract excision left eye in 2018 Colonoscopy in 2012 Allergies: Influenza Virus Vaccine Split and predniSONE. Medications: amLODIPine Besylate 1 Tablet (of 800 mg) Oral 5x/d PRN Aspirin 1 Tablet (of 325 mg) Oral daily Bicalutamide (50 mg) Tablet Oral daily Foudxil-Eeozubzj-Ledwtqkbpf-FA 1 Tablet Oral daily Clopidogrel Bisulfate 1 Tablet (of 75 mg) Oral daily Daily Mens Health Formula 1 Tablet Oral daily E 1000 1 Capsule (of 1000 Units) Oral daily oxyCODONE HCl 1 - 2 Tablet (of 5 mg) Oral q 6 hours PRN Pantoprazole Sodium 1 Tablet (of 40 mg) Tablet, enteric coated Oral b.i.d. Senna S 2 Tablet (of 8.6-50 mg) Oral daily Sucralfate 1 Tablet (of 1 g) Oral q 12 hours Thiamine HCl 1 Tablet (of 100 mg) Oral daily Vitamin B + C Complex 1 Tablet Oral daily Xtandi 2 Tablet (of 80 mg) Oral at bedtime Family History: Mr. Franz's mother is . Mr. Franz's father is . Mr. Franz has 1 sister who is . Both parents of heart attack, father at age 67 and mother at age 71. A sister of heart attack at age 39. A brother with lupus and heart disease. Social History: Mr. Franz is and he is retired. Mr. Franz has never smoked. He drinks daily. He consumes 1 drink/day 7 days/week. Mr. Franz reports contact with the following hazardous materials: asbestos. Mr. Franz reports the following support systems: lives with spouse, significant other, family, or friends, lives in own house, supportive family/friends willing to assist with needs, and adequate transportation available for expected visits. His diet consists of regular meals. He indicates his activity level as: regular exercise. He is a non-smoker. He drinks a glass of wine daily. Physical Examination: Performed on Aug 04, 2021 09:47: Height - 68.00 in, Weight - 133.0 lbs (HIGH), BSA - 1.72 sq.m, BMI - 20.22, Temperature - 98.8 F, Pulse - 75 /min, Respiration - 16 /min, BP - 134/77 mm(hg), O2 Sat - 96 %, Pain - 3, and Fatigue - 10. Performance Status: 3 - Capable of only limited self-care, confined to bed or chair more than 50% of waking hours. (ECOG) Musculoskeletal left hip and leg pain Constitutional Alert, cooperative, oriented. Mood and affect appropriate. Appears close to chronological age. Well nourished. Well developed. Head Normocephalic; no scars. Respiratory Lungs are clear to auscultation without rhonchi or wheezing. Cardiovascular Regular rate and rhythm of heart without murmurs, gallops or rubs. Abdomen Non-tender, non-distended, no masses, ascites or hepatosplenomegaly. Good bowel sounds. No guarding or rebound tenderness. Extremities No visible deformities, no cyanosis, clubbing or edema. Pulses 3+ and equal bilaterally. Musculoskeletal Left hip and heg pain Psychiatric Alert and oriented times three. Coherent speech. Verbalizes understanding of our discussions today. Laboratory: Test performed on Aug 04, 2021 08:05 WBC 3.2 10 3/uL RBC 3.86 10 6/uL HGB 11.0 g/dL HCT 35.5 % MCV 92.0 fl MCH 28.5 pg MCHC 31.0 g/dL RDW 14.9 % Platelet Count 172 10 3/cmm MPV 12.0 fL Neutrophils 2.12 10 3/uL Lymphocytes 0.5 10 3/uL Monocytes 0.4 10 3/uL Eosinophils 0.1 10 3/uL Basophils 0.0 10 3/uL Neutrophil % 66.9 % Lymphocyte % 15.8 % Monocyte % 12.6 % Eosinophil % 3.8 % Basophils % 0.3 % NRBC % 0 % PSA 0.788 ng/mL Test performed on Jul 10, 2021 08:45 Sodium 137 mmol/L Potassium 4.6 mmol/L Chloride 104 mmol/L CO2 26 mmol/L Anion Gap 11.6 BUN 10 mg/dL Creatinine 0.6 mg/dL Cr Clearance (Est) 84.6700 mL/min Glucose 106 mg/dL Osmolality - Calculated 283 mOsm/kg Calcium 7.1 mg/dL Protein, Total 6.8 g/dL Albumin 3.8 g/dL Globulin 3.0 g/dL Bilirubin, Total 1.0 mg/dL ALT (SGPT) 23 U/L AST (SGOT) 20 U/L Alkaline Phosphatase 603 IU/L Test performed on Jun 27, 2021 08:50 Vitamin D (25-Hydroxy), Total > 100 ng/mL Ua Color Yellow Ua Appearance Clear Ua pH 5 Ua Specific [place]le 1.020 Ua Glucose Norm Ua Ketones Negative Ua Protein Neg Ua Blood 2+ Ua Bilirubin Neg Ua Nitrites Negative Ua Leukocyte Esterase Negative Ua Micro: WBC NONE /hpf Ua Micro: RBC 0-4 /hpf Ua Micro: Squam Epith Cells 0-4 /hpf Ua Micro: Bacteria TRACE /hpf Ua Micro: Mucous 1+ /hpf Test performed on May 23, 2021 13:22 Folate, Serum 14.1 ng/mL Iron 100 mcg/dL LDH (Total) 232 U/L TSH 4.93 uIU/mL Vitamin B12 768 pg/mL Iron Binding Capacity (TIBC) 277 mcg/dl % Iron Saturation 36.1 % UIBC 177 mcg/dL ESR (Sed Rate) 24 mm/hr Impression: 1. Adenocarcinoma of the prostate, [place] score 5+5 = 10, stage IVB, with multiple sites of metastatic bone involvement. 2. He has been followed for mild thrombocytopenia and mildly decreased white blood cell count of uncertain etiology. 3. 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 4. Hypertension. 5. Hyperlipidemia. 6. Hypothyroidism. 7. Degenerative arthritis/degenerative disease of the spine. 8. He has a history of melanoma excision from the back. 9. Anxiety/depression. Plan: 1. Patient with adenocarcinoma of the prostate, Ananya score 5+5 = 10. He had denovo stage IVB disease, presenting with elevated alkaline phosphatase and symptomatic metastatic bone involvement. He began treatment with bicalutamide 50 mg daily and on 06/26/2021 he began androgen deprivation therapy with Zoladex. He also began treatment with denosumab for the metastatic bone involvement. At that point he had developed severe pain in the left hip area. CT was suspicious for nondisplaced pathologic fracture of the proximal left femur. He initially indicated that he wanted to avoid surgery, and he began palliative radiation. He then sustained further injury to the left hip after falling at home, and on 06/28/2021 he underwent ORIF for low vertical fracture of the left femoral neck. Patient presents today for follow-up after starting enzalutamide 160 mg daily. He seems to be tolerating it well other than increased fatigue. His PSA today is 0.788 down from 242.8 on 05/23/2021. He will receive his denosumab injection today. He will be seen here at a 4-week interval for continuation of denosumab injections for the metastatic bone involvement. In the meantime, he continues immediate release oxycodone as needed for pain, and he will continue senna/docusate for constipation. His next Zoladex injection will be due September 23, 2021 and every 3 months. 2. He has been followed for mild thrombocytopenia and a borderline low to mildly decreased white blood cell count. A specific cause has not been determined. His platelet count today is 174,000. His WBC is 3.2. It is being followed expectantly. Signed By: Daisy Corcoran NBharathi. <<Signature on File>>
== END 2021-08-26 23:59 | disposition home or self-care (01) ==
LOC: ONCMED 07:42
PROVIDERS: PCP Internal Medicine Medical Oncology; Visit Provider Nurse Practitioner Family
DX: Z51.11 Encounter for antineoplastic chemotherapy (principal); C61 Malignant neoplasm of prostate; C79.51 Secondary malignant neoplasm of bone; D69.6 Thrombocytopenia, unspecified; I10 Essential (primary) hypertension; E78.5 Hyperlipidemia, unspecified; E03.9 Hypothyroidism, unspecified; M19.90 Unspecified osteoarthritis, unspecified site; M47.9 Spondylosis, unspecified; F41.9 Anxiety disorder, unspecified; F32.A Depression, unspecified; Z79.899 Other long term (current) drug therapy; Z86.73 Personal history of transient ischemic attack (TIA), and cerebral infarction without residual deficits; Z85.828 Personal history of other malignant neoplasm of skin
CPT/HCPCS: 36415; 84153; 85025; 96372; 99215; J0897

== ENCOUNTER → 2021-08-08 14:45 | Outpatient (BNVA) | payer OTHER, SELFPAY | PROVIDERS: PCP Internal Medicine Medical Oncology; Visit Provider Orthopaedic Surgery | DX: Z98.890 Other specified postprocedural states (principal); Z87.81 Personal history of (healed) traumatic fracture; M84.452D Pathological fracture, left femur, subsequent encounter for fracture with routine healing | CPT/HCPCS: 73502 ==

== ENCOUNTER 2021-08-27 06:00 | Outpatient (RCR) | payer OTHER, SELFPAY | END 2021-09-19 23:59 | disposition home or self-care (01) | LOC: SPT 06:00 | PROVIDERS: PCP Internal Medicine Medical Oncology; Referring Provider Family Medicine; Visit Provider Family Medicine | DX: M84.452A Pathological fracture, left femur, initial encounter for fracture (principal); S72.009A Fracture of unspecified part of neck of unspecified femur, initial encounter for closed fracture; Z98.890 Other specified postprocedural states; Z87.81 Personal history of (healed) traumatic fracture; X58.XXXA Exposure to other specified factors, initial encounter | CPT/HCPCS: 97110 ==

== ENCOUNTER 2021-09-05 12:00 | Oncology outpatient (recurring) (ONCR) | payer OTHER, SELFPAY ==
--- NOTE | 2021-08-31 11:00 | CT_ITS ---
WS: [id number] CT PELVIS WITHOUT CONTRAST. HISTORY: prostate cancer, pain left hip and leg, metastatic bone disease. TECHNIQUE: Contiguous imaging is performed of the pelvis without contrast. Coronal and sagittal refor mats are reviewed. All CT scans at [facility] use at least one of these dose optimization loretta hniques: automated exposure control; mA and/or kV adjustment per patient size (includes targeted exam s where dose is matched to clinical indication); or iterative reconstruction. DLP: COMPARISON: 07/07/2021, 06/26/2021 Patient has known extensive bony metastatic disease which is probably not significantly changed since 07/07/2021. There are numerous osteoblastic metastatic foci. Patient is status post ORIF LEFT hip pat hological fracture. Patient continues to have pain after the fracture. There has been a change in alignment and position of the hardware and also fracture line is new since 07/07/2021. The gamma nail has changed position since the prior examination. There is extensive lucen cy around the gamma nail. Again the nail is more vertically oriented than on the prior study. There i s perihardware lucency measuring 8 mm and the gamma nail has migrated medially. The tip of the gamma nail is at the femoral head cortex. On the prior study there was 6 mm of bony cortex between the tip of the gamma nail and femoral cortex. There is a new fracture extending to the cortex of the femoral head. Again noted are increasing sclerotic changes which are probably part of the healing pathologica l fracture. There are multiple osseous fragments at the site of the pathological fracture. There are very small nondisplaced fractures involving the inferior pubic rami bilaterally which were probably present on the prior study. Atherosclerosis aorta. CT/CT bony pelvis 19491 IMPRESSION: 1. Interval change in position of the gamma nail at the LEFT hip. Gamma nail i s more vertically oriented than on the prior exam. Changes suggest migration an d movement of the gamma nail and there is a new nondisplaced fracture extending to the femoral head cortex. 2. Tip of the gamma nail has migrated medially and now extends to the cortex o f the femoral head. 3. Partially healed pathological fracture LEFT hip. 4. Known extensive osteoblastic metastatic bone disease. Notified Greg Mata MD at 08/31/2021 1:40 PM.
[2021-09-05 13:07] VITALS: BP 99/67; PULSE 89; RESP 18; TEMP 36.4; O2SAT 97
[2021-09-05] MEDS: denosumab 120 mg SDV SUBCUT (13:16)
[2021-09-05 13:23] VITALS: BP 120/72; PULSE 90; RESP 18; TEMP 36.4; O2SAT 96
== END 2021-09-26 23:59 | disposition home or self-care (01) ==
PROVIDERS: PCP Internal Medicine Medical Oncology; Referring Provider Nurse Practitioner Family; Visit Provider Internal Medicine Medical Oncology
DX: Z51.11 Encounter for antineoplastic chemotherapy (principal); C61 Malignant neoplasm of prostate; C79.51 Secondary malignant neoplasm of bone; Z79.818 Long term (current) use of other agents affecting estrogen receptors and estrogen levels; Z79.899 Other long term (current) drug therapy
CPT/HCPCS: 72192; 80053; 84153; 85025; 96372; 99213; 99215; 99999; J0897

== ENCOUNTER 2021-09-18 16:14 | Observation (INO) | payer OTHER, MEDICARE, SELFPAY ==
[2021-09-13 09:41] VITALS: BMI 18.5
--- NOTE | 2021-09-13 10:01 | ECG_ITS ---
[facility] Test Date: 2021-09-13 Pat Name: Koby Franz Department: Room: Gender: Male Information Security Consultant: : 1935 Requested By: Janina Lane Order Number: [id number] Diego MD: Sugey Montejo M.D. Measurements Intervals [place] Rate: 80 P: 55 IA: 141 QRS: 9 QRSD: 81 T: 53 QT: 391 QTc: 452 Interpretive Statements SINUS RHYTHM Compared to ECG 06/28/2021 23:17:42 ST (T wave) deviation no longer present Electronically Signed On 09-13-2021 20:27:52 CDT by Sugey Montejo M.D. [id number]
--- NOTE | 2021-09-13 10:11 | P.ANESASSM_ITS ---
Pre-Anesthetic Assessment Height/Weight: Height 1.73 m Weight 55.338 kg Preop Diagnosis: Pathoogical fracture left basicervical femoral neck Operation Date: 09/18/21 11:55 Proposed Procedures p Hardware Removal Trochanteric Nail [id number]/M84.452A/T84.84XA(Left) - Justin Pcikens MD s bipolar hip arthroplasty left(Left) - Justin Pickens MD Familial anesthetic complications: None Social No alcohol and No tobacco Exam alert, oriented x 3, clear to auscultation bilaterally and regular rate & rhythm Airway Mallampati: Class II Dentition: false and partials Pulmonary None reported CV/HEM Hypertension None reported Hepatic None reported Metabolic Hyperlipidemia and Thyroid Disease Musc/skel Osteoarthritis/DJD Neuropsych Cerebrovascular Accident (5 years ago - speech still impacted and doesn't walk too good ) Anesthetic Plan ASA status: 3 Anesthesia: Regional (specify below) Risk of > 500 ml blood loss (7ml/kg in children): No Medications/Allergies Home Medications Medication Instructions Recorded Confirmed Last Taken Type sennosides 8.6 mg capsule (senna) 17.2 mg PO BID cap 07/17/21 09/13/21 Unknown History amlodipine 2.5 mg tablet 2.5 mg PO DAILY 08/31/21 09/13/21 Unknown History megestrol 400 mg/10 mL (10 mL) 200 mg (5 mL) PO DAILY 30 Days 08/31/21 09/13/21 Unknown Rx oral suspension #300 ml oxycodone 10 mg tablet 10 mg PO QID PRN 30 Days #120 tab 08/31/21 09/13/21 Unknown Rx sucralfate 1 gram tablet 1 g PO BID 08/31/21 09/13/21 Unknown History fentanyl 25 mcg/hr transdermal 1 patch TRANSDERMAL Q72H 30 Days 09/01/21 09/13/21 Unknown Rx patch #10 ea enzalutamide 80 mg tablet 160 mg PO DAILY #56 tab 09/11/21 09/13/21 Unknown Rx meloxicam 15 mg tablet (Mobic) 15 mg PO DAILY 09/13/21 09/13/21 Unknown History pantoprazole 40 mg tablet,delayed 40 mg PO BID 09/13/21 09/13/21 Unknown History release (Protonix) Allergies Allergy/AdvReac Type Severity Reaction Status Date / Time Influenza Virus Vaccines Allergy Unknown Verified 09/05/21 13:32 poison vivienne extract Allergy Unknown Verified 09/05/21 13:32 prednisone Allergy unknown Verified 09/05/21 13:32 [facility] Anesthesia Medical History Anxiety and depression Degenerative arthritis Erectile dysfunction History of colon polyps HTN (hypertension) Hyperlipidemia Hypothyroidism, unspecified Prostate cancer Stage IVB - T2c, N0, M1b, P>=20, G5 Stroke right hemispheric stroke in August 2017 Testicular pain, left Thrombocytopenia Surgical History H/O colonoscopy H/O hemorrhoidectomy History of carpal tunnel surgery bilateral History of melanoma excision (~2010) History of prostate biopsy (~05/2021) S/P repair of hydrocele S/P rotator cuff repair Family History Father , at age 77 Myocardial infarct CAD (coronary artery disease) Mother , at age 79 Myocardial infarct Other Hypertension Suicide Denies family history of Diabetes Clotting disorder Dementia Hyperlipidemia Psychiatric illness Chronic kidney disease (CKD) Anesthesia complication Bleeding disorder Lung disease Cancer Stroke Social History Smoking and tobacco status: never smoked Alcohol intake: former Adopted: No Caregiver/support person: No Lives independently: No Household members: spouse Marital status: Current occupational status: retired History of recent travel: No Data Anesthesia Cardiac Studies: Echocardiogram 06/29/21
[2021-09-18] VITALS (19 sets, daily range): BP systolic 80–160; BP diastolic 50–93; PULSE 67–119; RESP 16–20; TEMP 36.4–37.1; O2SAT 95–98; BMI 18.5
[2021-09-18] MEDS: sodium chloride 0.9% 1,000 ML 30 ML IV (11:10)
[2021-09-18] MEDS: CELEcoxib 200 mg Capsule 400 MG PO (11:10)
[2021-09-18] MEDS: acetaminophen 500 mg Tablet 1000 MG PO ×2 (11:10→17:43)
--- NOTE | 2021-09-18 12:19 | P.ANESUD_ITS ---
Pre-Anesthetic Update Pre-Anesthetic Assessment: Date of Surgery/Procedure: 09/18/21 Preop Myrna gnosis: Failed hardware Left hip Proposed Procedure: Operation Date: 09/18/21 11:55 Proposed Procedures p Hardware Removal Trochanteric Nail [id number]/M84.452A/T84.84XA(Left) - Justin Pickens MD s bipolar hip arthroplasty left(Left) - Justin Pickens MD Any changes to Pre-Anesthetic Assessment?: No Changes from Pre-Anesthetic Assessment: Patient in pain. Narcotic ordered, awaiting surgical consent from surgeon prior to administration. Last Intake: Intake Last Liquid Date 09/17/21 Last Liquid Time 11:00 Last Solid Date 09/17/21 Last Solid Time 11:00 Vitals: Temperature 97.9 F 09/18/21 10:42 Temperature Source Temporal Artery S can 09/18/21 10:42 Pulse Rate 85 09/18/21 10:42 Respiratory Rate 17 09/18/21 10:42 Blood Pressure 113/81 09/18/21 10:42 Blood Pressure Christal n 91 09/18/21 10:42 Pulse Oximetry 95 09/18/21 10:42 Oxygen Delivery Me thod 09/18/21 10:42 Exam: Pre-Anes Outpt Exam: alert, oriented x 3, clear to auscultation bilaterally and regular rate & rhythm Cardiac Studies: Echocardiogram 06/29/21
--- NOTE | 2021-09-18 12:30 | W.PM.OPSFHP ---
Same Day Surgery H&P Indication for Procedure/HPI DATE OF PROCEDURE: September 18, 2021 CHIEF COMPLAINT/INDICATIONFOR SURGICAL PROCEDURE: Left hip pain left hip pain with failed hardware. Here for removal hardware and bipolar hip arthroplasty PREOP DIAGNOSIS: Failed hardware Left hip PLANNED PROCEDURE: Operation Date: 09/18/21 11:55 Proposed Procedures p Hardware Removal Trochanteric Nail [id number] 23139/M84.452A/T84.84XA(Left) - Justin Pickens MD s bipolar hip arthroplasty left(Left) - Justin Pickens MD Sung is a 86-year-old male with metastatic prostate cancer. He was seen in late May with progressive left hip pain and radiographs showing a basicervical femoral neck fracture and metastatic deposits in the proximal femur. The patient was taken to the operating room and underwent open reduction internal fixation with intramedullary device on 06/30/2019 he was seen on 08/08/[address] scan on 5 5 femoral nail and revision to a bipolar arthroplasty. Medications/Allergies* Home Medications Medication Instructions Recorded Confirmed Type sennosides 8.6 mg capsule (senna) 17.2 mg PO BID cap 07/17/21 09/18/21 History amlodipine 2.5 mg tablet 2.5 mg PO BEDTIME 08/31/21 09/18/21 History sucralfate 1 gram tablet 1 g PO BID 08/31/21 09/18/21 History meloxicam 15 mg tablet (Mobic) 15 mg PO DAILY 09/13/21 09/18/21 History pantoprazole 40 mg tablet,delayed 40 mg PO BID 09/13/21 09/18/21 History release (Protonix) enzalutamide 80 mg tablet 160 mg PO BEDTIME 09/18/21 09/18/21 History Allergies/Adverse Reactions Allergy/AdvReac Type Severity Reaction Status Date / Time Influenza Virus Vaccines Allergy Unknown Verified 09/05/21 13:32 poison vivienne extract Allergy Unknown Verified 09/05/21 13:32 prednisone Allergy unknown Verified 09/05/21 13:32 Current Medications: Generic Name Dose Route Start Last Admin Trade Name Freq PRN Reason Stop Dose Admin Sodium Chloride 1,000 mls @ 30 mls/hr 09/18/21 10:30 09/18/21 11:10 Sodium Chloride 0.9% IV 09/19/21 10:29 30 mls/hr .Q24H TALIA Administration Pertinent History/Comorbid Conditions* Medical History (Updated 08/31/21 @ 12:53 by Greg Mata MD) Anxiety and depression Degenerative arthritis Erectile dysfunction History of colon polyps HTN (hypertension) Hyperlipidemia Hypothyroidism, unspecified Prostate cancer Stage IVB - T2c, N0, M1b, P>=20, G5 Stroke right hemispheric stroke in August 2017 Testicular pain, left Thrombocytopenia Surgical History (Updated 08/31/21 @ 13:04 by Greg Mata MD) H/O colonoscopy H/O hemorrhoidectomy History of carpal tunnel surgery bilateral History of melanoma excision (~2010) History of prostate biopsy (~05/2021) S/P repair of hydrocele S/P rotator cuff repair Family History (Updated 08/31/21 @ 10:00 by Nelly Raymundo LPN) Father, at age 77 Mother, at age 79 CAD (coronary artery disease) Father Myocardial infarct Father Mother Suicide Hypertension Denies family history of Diabetes Clotting disorder Dementia Hyperlipidemia Psychiatric illness Chronic kidney disease (CKD) Anesthesia complication Bleeding disorder Lung disease Cancer Stroke Social History Smoking and tobacco status: never smoked Alcohol intake: former Adopted: No Caregiver/support person: No Lives independently: No Household members: spouse Marital status: Current occupational status: retired History of recent travel: No Pertinent Exam Findings alert, oriented x 3, clear to auscultation bilaterally and operative site marked Recommendations Surgery/Procedure today Coding Level of Care Code Acute 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
[2021-09-18] MEDS: fentaNYL 50 mcg/mL INJ 2mL IVP (12:41)
[2021-09-18] MEDS: magnesium sulfate premix 2 GM/50 ML PIGGYBACK IV (13:55)
[2021-09-18] MEDS: tranexamic acid 1,000 mg/10mL SDV 1000 MG IV (14:20)
[2021-09-18] MEDS: sodium chloride 0.9% 100 mL Bag XX (14:34)
--- NOTE | 2021-09-18 15:08 | XR_ITS ---
WS: [id number] Exam: XR hip LT 1V wo/w pel [id number] Date/Time of Exam: 09/18/2021 3:08 PM Reason For Exam: PORTABLE XRAY FOR SURGERY Single intraoperative the anterior posterior image of the left hip is submitted for evaluation. Previously noted intramedullary julio and femoral neck screw been removed. The femoral head has been ex cised and a left hip prosthesis has been placed. Postoperative changes in the adjacent soft tissues.
--- NOTE | 2021-09-18 15:53 | P.OP_ITS ---
Operative Report Date of procedure: September 18, 2021 Pre-op diagnosis: Preop Diagnosis Failed hardware Left hip Post-op diagnosis: same Procedure done: Removal failed hardware left hip, hemiarthroplasty left hip Implants: Aziza 1) Restoratioin Modular 20 mm x 155 mm stem 2) 51mm Bipolar femoral head 3) 28mm/standard neck length femoral head 4) 23mm +0 modular body Pathology: none sent Surgeon: Justin Pickens Surgeon: Nelia Anesthesia: Nerve Block (Spinal) Estimated blood loss (mL): 400 Findings: The patient had a basicervical femoral neck with sclerotic bone edges Condition: stable Disposition: PACU Procedure: The patient was taken to the operating room and a spinal anesthesia was provided by the anesthesia service. They were given 2 g of Ancef and 1 g of tranexamic acid and positioned in the lateral position with the hip exposed. A 10 cm long incision was made extending from the proximal incision used for nail placement distally to the incision from the distal leg bolt. With a scalpel blade. Dissection was carried down through the fascia kemi to the greater trochanter. The anterior two thirds of gluteus medius and minimus were elevated off the greater trochanter with electrocautery. The capsule was divided T like fashion. A clear nonunion was identified at the base of the femoral neck. Slightly more posterior incision was made in the abductor musculature and dissection carried down to the proximal nail. A flexible screwdriver was introduced and the locking bolt removed. The nail of the extraction julio was then threaded into the proximal nail. The lag screw was identified laterally and removed. The julio was then easily disimpacted from the femoral shaft. The hip was externally rotated and the neck brought up into the wound. An oscil lating saw was really used to resect the neck just above the level of the lesser trochanter. The femoral head was removed and the acetabulumt sized to a 51 mm bipolar head. Sequential reaming of the canal was accomplished until a very tight cortical fit was encountered at 20 mm. Proximal reaming of the metaphysis was accomplished to 23 mm. A standard metaphyseal component was placed. A trial reduction with a standard mm neck provided excellent stability. Intraoperative images were obtained showing satisfactory position of the components and a good distal fit of the stem. The trial metaphysis component head and neck were removed and final components placed. The final head and neck were placed and the hip reduced. The anterior capsule were reapproximated with 1 Ethibond. The gluteus medius and minimus were repaired through the greater trochanter with 5 Ethibond and reinforced with 1 Ethibond. The fascia kemi was closed with 1 Stratafix. The subcutaneous tissues were closed with 2-0 Stratafixl. The skin was closed with a running 4-0 Stratafix. The incision was covered with a Prineo dressing. Sterile Opsitedressings were applied. The patient was placed in abduction pillow and taken recovery room in stable condition.
--- NOTE | 2021-09-18 16:16 | ANE.PACU2 ---
Inpatient post-anesthesia follow up: Airway intact: Yes Vital signs: Temperature 97.9 F Pulse Rate 85 Respiratory Rate 17 Blood Pressure 113/81 Pulse Oximetry 95 Oxygen Delivery Me thod Room Air Oxygen Flow Rate 6 Fraction of Inspir ed Oxygen Hydration adequate: Yes Nausea and vomiting: No Pain level: 3 Mental status: Baseline
[2021-09-18] MEDS: sucralfate 1 gm Tablet PO (17:42)
[2021-09-18] MEDS: sennosides 8.6 mg Tablet 17.2 MG PO (17:42)
[2021-09-18] MEDS: oxyCODONE 5 mg IR Tab/Cap 10 MG PO ×2 (17:42→20:42)
[2021-09-18] MEDS: pantoprazole DR 40 mg Tablet PO (17:43)
[2021-09-18] MEDS: sodium chloride 0.9% 1,000 ML 100 ML IV (17:49)
[2021-09-18] MEDS: amlodipine 5 mg Tablet 2.5 MG PO (20:36)
[2021-09-18] MEDS: CELEcoxib 200 mg Capsule PO (20:36)
[2021-09-19] VITALS (13 sets, daily range): BP systolic 82–113; BP diastolic 48–65; PULSE 76–102; RESP 14–20; TEMP 36.6–36.7; O2SAT 91–98
[2021-09-19] MEDS: sodium chloride 0.9% 250 ML 999 ML IV ×2 (00:31→00:50)
[2021-09-19 00:58] LABS: Basophils % 0.1 %; Hematocrit 24.9 % (42.0-52.0); Hemoglobin 7.5 g/dL (11.7-16.6); Lymphocytes # 0.1 10^3/uL (0.8-4.8); Lymphocytes % 1.7 %; Mean Corpuscular HGB Conc 30.1 g/dL (30.0-36.0); Mean Corpuscular Hemoglobin 28.1 pg (28.0-34.0); Mean Corpuscular Volume 93.3 fl (80-94); Mean Platelet Volume 11.5 fL (7.4-10.4); Monocytes % 0.6 %; Neutrophils % 96.9 %; Nucleated Red Blood Cells % 0 %; Platelet Count 141 10^3/cmm (130-400); Red Blood Count 2.67 10^6/uL (4.1-5.3); Red Cell Distribution Width 15.6 % (12.1-15.1)
[2021-09-19] MEDS: sodium chloride 0.9% 1,000 ML 100 ML IV ×3 (01:05→21:26)
[2021-09-19] MEDS: acetaminophen 500 mg Tablet 1000 MG PO ×3 (01:06→17:28)
[2021-09-19 01:13] LABS: Slide Review Slide Review Perform
[2021-09-19] MEDS: aspirin 325 mg EC Tablet PO (08:02)
[2021-09-19] MEDS: oxyCODONE 5 mg IR Tab/Cap 10 MG PO ×3 (08:02→20:40)
[2021-09-19] MEDS: pantoprazole DR 40 mg Tablet PO ×2 (08:03→17:28)
[2021-09-19] MEDS: fentaNYL 25 mcg Patch 1 PATCH TRANSDERMA (08:03)
[2021-09-19] MEDS: sucralfate 1 gm Tablet PO ×2 (08:03→17:28)
[2021-09-19] MEDS: sennosides 8.6 mg Tablet 17.2 MG PO ×2 (08:03→17:28)
[2021-09-19] MEDS: CELEcoxib 200 mg Capsule PO ×2 (08:04→20:37)
--- NOTE | 2021-09-19 08:20 | PC.NURSE ---
Fentanyl patch removed from left shoulder and disposed of appropriately, witnessed by Zeferino BETANCUR. New patch applied to right shoulder.
--- NOTE | 2021-09-19 08:54 | P.PN_ITS ---
Subjective Subjective: Still complains of pain in the left hip but doing better. Burning when he urinates but feels like he is emptying the bladder. Vitals/I&O/Wt Last Vital Signs Temp 97.8 F 09/19/21 08:05 Pulse 76 09/19/21 08:05 Resp 15 09/19/21 08:05 BP 105/51 09/19/21 08:05 Pulse Ox 97 09/19/21 08:05 09/18/21 09/19/21 09/19/21 22:59 06:59 14:59 Intake Total 768 / 868 1396.667 / 2264.667 260 / 260 Output Total 400 / 400 250 / 650 100 / 100 Balance 368 / 468 1146.667 / 1614.667 160 / 160 Weight last 48 hrs Weight 122 lb Physical Exam Narrative: Hip dressing clean and dry. Minimal swelling left thigh Data : 09/19/21 00:44 A&P Assessment and plan (1) Status post left hip replacement: Begin to mobilize with therapy Status: Acute (2) Sacral decubitus ulcer: Discussed importance of nutrition with patient. We will add Ensure shakes with meals. He had an decubital care. Status: Acute (3) Anemia, blood loss: Patient with decreased hemoglobin. We will check a hemoglobin in morning if falls further or becomes symptomatic may need transfusion. Status: Acute Attestations Medical Necessity Statement*: Discharge home once ambulatory. Patient would like to avoid penitentiary. Coding Level of Care Code Acute Boarder Hand for Lynn Fountain Diagnoses Status post left hip replacement Z96.642 Sacral decubitus ulcer L89.159 Anemia, blood loss D50.0
--- NOTE | 2021-09-19 10:41 | PC.CHAP ---
Pastoral Care Encounter/Spiritual Assessment Type of Contact [] Declined floor tech visit [] Patient/Family/Request visit [] Outpatient visit [] Follow-up visit [] Physician referral [] Code/Alert [x] Routine visit [] Staff referral [] Actively dying [] Patient sleeping [] Family support [] [] Out of room [] Palliative care [] [] Receiving care in room [] Pre-surgical visit [] Trauma [] Long length of stay [] ICU visit [] Other: Relational/Emotional Strength [x] Patient feels connected with others/family/visitors/staff [] Distress [] Loneliness/isolation [] Abandonment Spirituality of Patient [x] Person of Cierra [] Attends Restorationist of their Cierra x[] Believes in Prayer [] Reads Bible or Buddhist materials [] There are Spiritual issues to be addressed Furnace Roaster Interventions [x] Prayer [x] Active listening [x] Non-anxious presence [] Spiritual/emotional support [] Crisis/trauma care [] Spiritual counseling [] Bereavement support [] Provided bereavement packet [] Provided Bible/devotional materials [] Provided toy/stuffed animal, coloring book to patient or family member [] Provided Communion [] Anointing/[place] [] Salvation [x] Completed spiritual assessment [] Other: Impact on Illness or Injury [] Angry [] Fearful [] Anxious [] Often cries [] Exhaustion [] Unable to work [] Unable to attend anglican [] Unable to walk/stand [] Unable to read [] Unable to drive [] Unable to eat/drink [] Unable to sleep [] Unable to be with family [] Patient intubated [] Other: Summary Time spent with patient 10 min
[2021-09-20] VITALS (10 sets, daily range): BP systolic 97–144; BP diastolic 50–73; PULSE 72–87; RESP 14–18; TEMP 36.6–37.3; O2SAT 90–99
[2021-09-20] MEDS: acetaminophen 500 mg Tablet 1000 MG PO ×3 (02:58→18:17)
[2021-09-20] MEDS: aspirin 325 mg EC Tablet PO (08:36)
[2021-09-20] MEDS: sennosides 8.6 mg Tablet 17.2 MG PO ×2 (08:36→17:28)
[2021-09-20] MEDS: sucralfate 1 gm Tablet PO ×2 (08:36→17:28)
[2021-09-20] MEDS: pantoprazole DR 40 mg Tablet PO ×2 (08:36→17:29)
[2021-09-20] MEDS: CELEcoxib 200 mg Capsule PO ×2 (08:36→21:36)
[2021-09-20] MEDS: oxyCODONE 5 mg IR Tab/Cap 10 MG PO ×2 (08:37→21:43)
[2021-09-20] MEDS: sodium chloride 0.9% 1,000 ML 100 ML IV ×2 (08:58→21:37)
[2021-09-20] MEDS: megestrol 400 mg/10 mL UDC 200 MG PO (09:23)
[2021-09-20 09:36] LABS: Albumin Level 2.5 g/dL (3.5-5.2)
--- NOTE | 2021-09-20 13:01 | P.PN_ITS ---
Subjective Subjective: Patient is much better spirits. Less pain. Up with therapy. Dates he feels he is not quite ready for discharge home Vitals/I&O/Wt Last Vital Signs Temp 98.0 F 09/20/21 11:17 Pulse 87 09/20/21 11:17 Resp 18 09/20/21 11:17 BP 121/51 09/20/21 11:17 Pulse Ox 96 09/20/21 11:17 09/19/21 09/20/21 09/20/21 22:59 06:59 14:59 Intake Total 1170 / 2670 1860 / 1860 Output Total 125 / 225 300 / 525 630 / 630 Balance 1045 / 2445 -300 / 2145 1230 / 1230 Weight last 48 hrs Weight 122 lb Physical Exam Narrative: Left hip dressing clean and dry. Minimal swelling Data : 09/20/21 09:08 Other Labs: Albumin 2.5 A&P Assessment and plan (1) Status post left hip replacement: Continue mobilizing with therapy doing well Status: Acute (2) Anemia, blood loss: Hemoglobin improved today. No symptoms from anemia. Status: Acute (3) Sacral decubitus ulcer: Continue local wound care. Continue to emphasize nutrition. Status: Acute (4) Protein malnutrition: Emphasized to increase caloric intake including increased of protein. Continue with shake supplements. Patient counseled Status: Acute Attestations Medical Necessity Statement*: Anticipate discharge tomorrow as amatory status improves Coding Level of Care Code Acute Claims Adjuster Supervisor for Lynn Fountain Diagnoses Anemia, blood loss D50.0 Sacral decubitus ulcer L89.159 Status post left hip replacement Z96.642 Protein malnutrition E46
--- NOTE | 2021-09-20 18:28 | PC.NURSE ---
Enzalutamide administration this nurse entered the pt room at 1820, pt's son and his were at bedside. the son informed this nurse that he had given the pt his chemo medication. this nurse informed him that it was not due until 2100 and that it wasn't something our pharmacy had processed with a scanning sticker since it was a non formulary medication. this nurse asked if the son would like this nurse to take the med to give to pharmacy to process for administration and the son declined stating, I don't feel comfortable leaving it here, this stuff is $10,000 dollars. The nurse yesterday didn't mind. this nurse confirmed that the medication was administered yesterday evening in the JUN. the son had stressed how important it was for him to get and that the oncologist Dr Mata didn't want the pt going more than one day without it.
[2021-09-20] MEDS: amlodipine 5 mg Tablet 2.5 MG PO (21:36)
[2021-09-21] MEDS: acetaminophen 500 mg Tablet 1000 MG PO ×2 (03:16→10:54)
[2021-09-21 03:17] VITALS: RESP 16
[2021-09-21] MEDS: oxyCODONE 5 mg IR Tab/Cap 10 MG PO (03:17)
[2021-09-21 03:26] VITALS: BP 137/72; PULSE 82; RESP 18; TEMP 37.1; O2SAT 97
[2021-09-21 08:00] VITALS: BP 122/70; PULSE 69; RESP 13; TEMP 36.8; O2SAT 97
[2021-09-21] MEDS: aspirin 325 mg EC Tablet PO (08:30)
[2021-09-21] MEDS: pantoprazole DR 40 mg Tablet PO (08:31)
[2021-09-21] MEDS: sennosides 8.6 mg Tablet 17.2 MG PO (08:31)
[2021-09-21] MEDS: CELEcoxib 200 mg Capsule PO (08:31)
[2021-09-21] MEDS: sucralfate 1 gm Tablet PO (08:31)
[2021-09-21] MEDS: sodium chloride 0.9% 1,000 ML 100 ML IV (08:31)
[2021-09-21] MEDS: megestrol 400 mg/10 mL UDC 200 MG PO (08:34)
--- NOTE | 2021-09-21 11:19 | P.DS_ITS ---
Discharge Providers Date of Admission: 09/18/21 16:14 Date of Discharge: September 21, 2021 Attending Provider at Admission: Justin Jaime MD Attending Provider at Discharge: Justin Jaime MD Primary Care Provider: Greg Mata MD Diagnoses at Discharge Discharge Diagnosis (1) Status post left hip replacement: Status: Acute (2) Anemia, blood loss: Status: Acute (3) Sacral decubitus ulcer: Status: Acute (4) Protein malnutrition: Status: Acute Reason for Visit Reason for Visit: Painful orthopaedic hardware Brief History: The patient is a 86-year-old male with a previous history of open reduction internal fixation of a pathologic basicervical femoral neck fracture (prostate cancer). He developed continued pain with a CT scan revealing loss of fixation. He was admitted to the hospital for removal of his hardware and conversion to a revision bipolar hemiarthroplasty Hospital Course Hospital Course The patient tolerated surgery well. They remained hemodynamically stable. They was begun on aspirin and questional compression dressing for DVT prophylaxis. The patient was mobilized with therapy beginning the day of surgery and by the third postoperative day independent with the walker. He had a decreased hemoglobin to 7.5 on the first postoperative day but levels improved to 8.0 and he remained asymptomatic and transfusion was not done. As the pain was adequately controlled and they were fully mobile they were discharged home. Physical Exam Narrative: On the day of discharge the hip incision was clean. The incision was free of drainage. They had no particular swelling about the thigh or distal. No distal neurovascular deficits were noted. Discharge Data Studies Completed and Pending Completed Studies During Hospitalization Category Date Time Status XR hip LT 1V wo/w pel 11705 Routine Exams 09/18/21 15:08 Completed Laboratory Results WBC 7.0 10^3/uL (4.0-10.0) 09/19/21 00:44 RBC 2.67 10^6/uL (4.1-5.3) L 09/19/21 00:44 Hgb 8.0 g/dL (11.7-16.6) L 09/20/21 09:08 Hct 24.9 % (42.0-52.0) L 09/19/21 00:44 MCV 93.3 fl (80-94) 09/19/21 00:44 MCH 28.1 pg (28.0-34.0) 09/19/21 00:44 MCHC 30.1 g/dL (30.0-36.0) 09/19/21 00:44 RDW 15.6 % (12.1-15.1) H 09/19/21 00:44 Plt Count 141 10^3/cmm (130-400) 09/19/21 00:44 MPV 11.5 fL (7.4-10.4) H 09/19/21 00:44 Neut % (Auto) 96.9 % 09/19/21 00:44 Lymph % (Auto) 1.7 % 09/19/21 00:44 [place] % (Auto) 0.6 % 09/19/21 00:44 Eos % (Auto) 0.0 % 09/19/21 00:44 Baso % (Auto) 0.1 % 09/19/21 00:44 Neut # (Auto) 6.80 10^3/uL (1.8-7.7) 09/19/21 00:44 Lymph # (Auto) 0.1 10^3/uL (0.8-4.8) L 09/19/21 00:44 [place] # (Auto) 0.0 10^3/uL (0.2-0.9) L 09/19/21 00:44 Eos # (Auto) 0.0 10^3/uL (0.0-0.8) 09/19/21 00:44 Baso # (Auto) 0.0 10^3/uL (0.0-0.1) 09/19/21 00:44 Nucleated RBC % (auto) 0 % 09/19/21 00:44 Nucleated RBCs # 0.0 /100WBC 09/19/21 00:44 Albumin 2.5 g/dL (3.5-5.2) L 09/20/21 09:08 Vitals Last Vital Signs Temp 98.3 F 09/21/21 08:00 Pulse 69 09/21/21 08:00 Resp 13 09/21/21 08:00 BP 122/70 09/21/21 08:00 Pulse Ox 97 09/21/21 08:00 Discharge Plan Discharge Patient Disposition: Home Condition: Stable Prescriptions: New aspirin 325 mg Tablet,Delayed Release (Dr/Ec) 325 mg PO DAILY 30 Days 0RF Continued senna 8.6 mg capsule 17.2 mg PO BID 0RF amlodipine 2.5 mg tablet 2.5 mg PO BEDTIME 0RF sucralfate 1 gram tablet 1 g PO BID 0RF megestrol 400 mg/10 mL (10 mL) suspension 200 mg PO DAILY 30 Days Qty: 300 0RF oxycodone 10 mg tablet 10 mg PO QID PRN (Reason: pain) 30 Days Qty: 120 0RF fentanyl 25 mcg/hr patch 72 hour 1 patch transdermal Q72H 30 Days Qty: 10 0RF meloxicam [Mobic] 15 mg Tablet 15 mg PO DAILY 0RF pantoprazole [Protonix] 40 mg Tablet,Delayed Release (Dr/Ec) 40 mg PO BID 0RF enzalutamide 80 mg tablet 160 mg PO BEDTIME 0RF Discharge Orders: Discharge Order (Routine); Ordered 09/21/21 Ordered By: Justin Jaime Referrals: [facility] [Outside] Kiera Joseph MD [Referring] - (Patient will need f/up appointment @ [place] to discuss home health aide. ) Justin Jaime MD [Physician] - 1 month Discharge Diet: Advance as tolerated Patient Instructions: Opioid Safety Activity Restrictions/Additional Instructions: Okay to shower. No soaking incision in tub Apply FirstIce up to 20 min/hr for pain and swelling Continue with meloxicam and fentanyl patch prescribed by Dr. Mata Take oxycodone 10 for breakthrough pain. Exercises per physical therapy. May weight-bear as tolerated on total hip arthroplasty IF HAVE ANY PROBLEMS OR QUESTIONS CALL [facility] AT AND ASK TO HAVE DR. JAIME PAGED. Discharge Attestations Time Spent in Discharge Care*: other Quality Metrics Clinical Quality Measures [ No reported AMI, CVA or VTE this stay] Coding Level of Care Code Acute [facility] note Diagnoses Status post left hip replacement Z96.642 Anemia, blood loss D50.0 Sacral decubitus ulcer L89.159 Protein malnutrition E46
[2021-09-21 16:36] VITALS: BP 141/69; PULSE 77; RESP 18; TEMP 37.3; O2SAT 97
== END 2021-09-21 17:19 | disposition home or self-care (01) ==
LOC: MEDSURG 22:09
PROVIDERS: Admitting Provider Orthopaedic Surgery; PCP Internal Medicine Medical Oncology; Visit Provider Orthopaedic Surgery
PROC: (CPT 20680; principal; 2021-09-18 11:40)
PROC: (CPT 27125; 2021-09-18 11:40)
DX: T84.84XA Pain due to internal orthopedic prosthetic devices, implants and grafts, initial encounter (principal); D50.0 Iron deficiency anemia secondary to blood loss (chronic); L89.159 Pressure ulcer of sacral region, unspecified stage; E46 Unspecified protein-calorie malnutrition; Z68.1 Body mass index [BMI] 19.9 or less, adult; E78.5 Hyperlipidemia, unspecified; I69.928 Other speech and language deficits following unspecified cerebrovascular disease; I10 Essential (primary) hypertension; E03.9 Hypothyroidism, unspecified; Z85.46 Personal history of malignant neoplasm of prostate
CPT/HCPCS: 20680; 73501; 82040; 85018; 85025; 93005; 97110; 97116; 97161; 97165; 97530; 97535; C1776; G0378; J0690; J1580; J2370; J2405; J2704; J3010; J3475; J3490; J7030; J7050

== ENCOUNTER 2021-09-28 12:09 | Oncology outpatient (recurring) (ONCR) | payer OTHER, SELFPAY ==
[2021-09-28 13:13] LABS: Basophils % 0.2 %; Eosinophils # 0.1 10^3/uL (0.0-0.8); Eosinophils % 2.2 %; Hematocrit 29.3 % (42.0-52.0); Hemoglobin 8.8 g/dL (11.7-16.6); Lymphocytes # 0.5 10^3/uL (0.8-4.8); Lymphocytes % 12.5 %; Mean Corpuscular Hemoglobin 28.5 pg (28.0-34.0); Mean Corpuscular Volume 94.8 fl (80-94); Monocytes # 0.5 10^3/uL (0.2-0.9); Monocytes % 10.8 %; Neutrophils # 3.06 10^3/uL (1.8-7.7); Neutrophils % 73.3 %; Nucleated Red Blood Cells % 0 %; Platelet Count 342 10^3/cmm (130-400); Red Blood Count 3.09 10^6/uL (4.1-5.3); Red Cell Distribution Width 18.4 % (12.1-15.1); White Blood Count 4.2 10^3/uL (4.0-10.0)
[2021-09-28 13:28] LABS: Chloride 106 mmol/L (98-107); Potassium 4.7 mmol/L (3.5-5.1); Sodium 139 mmol/L (136-145)
[2021-09-28] MEDS: lidocaine 1% INJ 20 mL SUBCUT (13:41)
[2021-09-28] MEDS: goserelin acetate 10.8 mg Implant SUBCUT (13:45)
[2021-09-28 13:54] VITALS: BP 120/87; PULSE 87; RESP 18; TEMP 37; O2SAT 98
[2021-09-28 14:01] LABS: Alanine Aminotransferase 11 U/L (0-41); Albumin Level 3.2 g/dL (3.5-5.2); Alkaline Phosphatase 106 IU/L (40-130); Anion Gap 15.7 (5-19); Aspartate Amino Transferase 18 U/L (0-40); Blood Urea Nitrogen 15 mg/dL (8-23); Calcium 8.4 mg/dL (8.5-10.5); Carbon Dioxide 22 mmol/L (22-29); Globulin 3.6 g/dL (1.3-4.6); Glucose 111 mg/dL (65-115); Osmolality Calculated 290 mOsm/kg (285-295); Total Bilirubin 0.7 mg/dL (0.15-1.2); Total Protein 6.8 g/dL (6.6-8.7)
[2021-09-28 14:47] LABS: Prostate Specific Antigen 0.071 ng/mL (0-4); Testosterone Total 2.5 ng/dL (193-740)
== END 2021-09-28 23:59 | disposition home or self-care (01) ==
PROVIDERS: Nurse Practitioner Family; PCP Internal Medicine Medical Oncology; Referring Provider Nurse Practitioner Family; Visit Provider Internal Medicine Medical Oncology
DX: C61 Malignant neoplasm of prostate (principal); C79.51 Secondary malignant neoplasm of bone; M84.452A Pathological fracture, left femur, initial encounter for fracture; Z79.899 Other long term (current) drug therapy; Z79.818 Long term (current) use of other agents affecting estrogen receptors and estrogen levels
CPT/HCPCS: 51741; 51798; 80053; 81003; 84153; 84403; 85025; 96372; 96402; 99213; 99214; J9202

== ENCOUNTER 2021-10-05 11:14 | Oncology outpatient (recurring) (ONCR) | payer OTHER, SELFPAY ==
[2021-10-05 12:00] LABS: Basophils % 0.3 %; Eosinophils # 0.2 10^3/uL (0.0-0.8); Eosinophils % 5.5 %; Hematocrit 30.6 % (42.0-52.0); Hemoglobin 9.6 g/dL (11.7-16.6); Lymphocytes # 0.5 10^3/uL (0.8-4.8); Lymphocytes % 15.8 %; Mean Corpuscular HGB Conc 31.4 g/dL (30.0-36.0); Mean Corpuscular Hemoglobin 29.1 pg (28.0-34.0); Mean Corpuscular Volume 92.7 fl (80-94); Mean Platelet Volume 10.4 fL (7.4-10.4); Monocytes # 0.3 10^3/uL (0.2-0.9); Neutrophils # 1.96 10^3/uL (1.8-7.7); Neutrophils % 67.1 %; Nucleated Red Blood Cells % 0 %; Platelet Count 316 10^3/cmm (130-400); Red Cell Distribution Width 17.7 % (12.1-15.1); White Blood Count 2.9 10^3/uL (4.0-10.0)
[2021-10-05 12:30] LABS: Prostate Specific Antigen 0.056 ng/mL (0-4)
[2021-10-05 12:36] LABS: Alanine Aminotransferase 8 U/L (0-41); Albumin Level 3.3 g/dL (3.5-5.2); Alkaline Phosphatase 102 IU/L (40-130); Aspartate Amino Transferase 17 U/L (0-40); Blood Urea Nitrogen 16 mg/dL (8-23); Calcium 8.2 mg/dL (8.5-10.5); Carbon Dioxide 23 mmol/L (22-29); Chloride 105 mmol/L (98-107); Globulin 3.7 g/dL (1.3-4.6); Glucose 146 mg/dL (65-115); Osmolality Calculated 290 mOsm/kg (285-295); Sodium 138 mmol/L (136-145); Testosterone Total 3.3 ng/dL (193-740); Thyroid Stimulating Hormone 5.78 uIU/mL (0.27-4.20); Total Bilirubin 0.5 mg/dL (0.15-1.2)
== END 2021-10-26 23:59 | disposition home or self-care (01) ==
PROVIDERS: Nurse Practitioner Family; PCP Internal Medicine Medical Oncology; Referring Provider Nurse Practitioner Family; Visit Provider Internal Medicine Medical Oncology
DX: C61 Malignant neoplasm of prostate (principal); C79.51 Secondary malignant neoplasm of bone
CPT/HCPCS: 36415; 80053; 84153; 84403; 84443; 85025

== ENCOUNTER 2021-10-27 07:22 | Oncology outpatient (recurring) (ONCR) | payer OTHER, SELFPAY ==
[2021-10-27 07:37] LABS: Basophils % 0.4 %; Eosinophils # 0.3 10^3/uL (0.0-0.8); Eosinophils % 9.5 %; Hematocrit 35.5 % (42.0-52.0); Hemoglobin 11.3 g/dL (11.7-16.6); Lymphocytes # 0.7 10^3/uL (0.8-4.8); Lymphocytes % 24.3 %; Mean Corpuscular HGB Conc 31.8 g/dL (30.0-36.0); Mean Corpuscular Hemoglobin 29.2 pg (28.0-34.0); Mean Corpuscular Volume 91.7 fl (80-94); Mean Platelet Volume 11.1 fL (7.4-10.4); Monocytes # 0.3 10^3/uL (0.2-0.9); Monocytes % 10.9 %; Neutrophils # 1.56 10^3/uL (1.8-7.7); Neutrophils % 54.9 %; Nucleated Red Blood Cells % 0 %; Platelet Count 204 10^3/cmm (130-400); Red Blood Count 3.87 10^6/uL (4.1-5.3); Red Cell Distribution Width 14.3 % (12.1-15.1); White Blood Count 2.8 10^3/uL (4.0-10.0)
[2021-10-27 08:03] LABS: Alanine Aminotransferase 7 U/L (0-41); Albumin Level 3.6 g/dL (3.5-5.2); Alkaline Phosphatase 103 IU/L (40-130); Anion Gap 12.8 (5-19); Aspartate Amino Transferase 14 U/L (0-40); Blood Urea Nitrogen 11 mg/dL (8-23); Calcium 8.3 mg/dL (8.5-10.5); Carbon Dioxide 25 mmol/L (22-29); Chloride 99 mmol/L (98-107); Globulin 3.8 g/dL (1.3-4.6); Glucose 98 mg/dL (65-115); Osmolality Calculated 275 mOsm/kg (285-295); Potassium 3.8 mmol/L (3.5-5.1); Prostate Specific Antigen 0.036 ng/mL (0-4); Sodium 133 mmol/L (136-145); Total Bilirubin 0.6 mg/dL (0.15-1.2); Total Protein 7.4 g/dL (6.6-8.7)
[2021-10-27] MEDS: denosumab 120 mg SDV SUBCUT (10:07)
== END 2021-11-26 23:59 | disposition home or self-care (01) ==
PROVIDERS: PCP Internal Medicine Medical Oncology; Referring Provider Nurse Practitioner Family; Visit Provider Internal Medicine Medical Oncology
DX: C61 Malignant neoplasm of prostate (principal); C79.51 Secondary malignant neoplasm of bone; R63.4 Abnormal weight loss; Z68.1 Body mass index [BMI] 19.9 or less, adult; F32.A Depression, unspecified; E03.9 Hypothyroidism, unspecified; Z79.818 Long term (current) use of other agents affecting estrogen receptors and estrogen levels; Z79.899 Other long term (current) drug therapy
CPT/HCPCS: 36415; 80053; 84153; 84403; 85025; 96372; 99215; J0897

== ENCOUNTER 2021-11-21 09:56 | Outpatient (CLI) | payer OTHER, SELFPAY ==
--- NOTE | 2021-11-21 10:10 | CT_ITS ---
WS: [id number] CT CHEST WITH INTRAVENOUS CONTRAST HISTORY: NON IMPROVING PNEUMONIA/GRANULOMA L UPPER LOBE TECHNIQUE: Contiguous 5 mm axial imaging performed on the thorax. Coronal and sagittal reformats are submitted. All CT scans at [facility] use at least one of these dose optimization techniques: automated exposure control; mA and/or kV adjustment per patient size (includes targeted exams where dose is matched to clinical indication); or iterative reconstruction. CONTRAST: Omnipaque 350; 75 mL IV. DLP: 518.28 mGy.cm COMPARISON: No similar studies. Lungs and central airway: Severe chronic emphysema. Patchy areas of consolidation in the lung bases. Wedge-shaped area of consolidation abuts the superior LEFT major fissure extending into the LEFT lowe r lobe. This wedge-shaped consolidation measures 3.0 x 2.2 cm and extends over a length of 2.7 cm. Th ere is a smaller wedge-shaped area along the LEFT major fissure. Mild peripheral interstitial thicken ing. Bronchiectasis and atelectasis in the medial RIGHT lower lobe. Pleura: No pleural effusions. There is a small left-sided pneumothorax of approximately 10%. Heart and pericardium: Normal size heart. Coronary artery calcifications. Mediastinum and deepa: No mediastinum or hilar adenopathy. Vessels: Mild atherosclerosis aorta. No aneurysm. Normal size pulmonary artery. Chest wall and lower neck: No soft tissue masses. Upper abdomen: Negative. Osseous structures: Multiple osseous sclerotic foci noted throughout the cervical and visualized thor acic and lumbar spine, sternum and ribs from what is probably metastatic prostate carcinoma. CT/CT chest w con* [id number] IMPRESSION: 1. Small, 10% left-sided pneumothorax. 2. Severe chronic emphysema. 3. Wedge-shaped areas of consolidation along the superior major fissures. Prob ably areas of atelectasis. This can be reevaluated on follow-up studies. 4. Extensive prostate metastatic bone disease. Notified Kiera Joseph MD at 11/21/2021 3:24 PM.
[2021-11-21] MEDS: iohexol 350 mg/mL 100 mL Btl IV (11:01)
== END 2021-11-21 09:57 | disposition home or self-care (01) ==
LOC: RAD 09:57
PROVIDERS: PCP Internal Medicine Medical Oncology; Visit Provider Family Medicine
DX: J18.9 Pneumonia, unspecified organism (principal); J84.10 Pulmonary fibrosis, unspecified; J93.9 Pneumothorax, unspecified; J43.9 Emphysema, unspecified
CPT/HCPCS: 71260

== ENCOUNTER 2021-11-30 09:23 | Oncology outpatient (recurring) (ONCR) | payer OTHER, SELFPAY ==
[2021-11-30 09:59] LABS: Eosinophils # 0.3 10^3/uL (0.0-0.8); Eosinophils % 9.3 %; Hematocrit 38.8 % (42.0-52.0); Hemoglobin 12.1 g/dL (11.7-16.6); Lymphocytes # 0.7 10^3/uL (0.8-4.8); Lymphocytes % 19.9 %; Mean Corpuscular HGB Conc 31.2 g/dL (30.0-36.0); Mean Corpuscular Hemoglobin 29.8 pg (28.0-34.0); Mean Corpuscular Volume 95.6 fl (80-94); Mean Platelet Volume 10.8 fL (7.4-10.4); Monocytes # 0.3 10^3/uL (0.2-0.9); Neutrophils # 2.25 10^3/uL (1.8-7.7); Neutrophils % 63.2 %; Nucleated Red Blood Cells % 0 %; Platelet Count 247 10^3/cmm (130-400); Red Blood Count 4.06 10^6/uL (4.1-5.3); Red Cell Distribution Width 14.2 % (12.1-15.1); White Blood Count 3.6 10^3/uL (4.0-10.0)
[2021-11-30 10:32] LABS: Alanine Aminotransferase 8 U/L (0-41); Albumin Level 3.6 g/dL (3.5-5.2); Alkaline Phosphatase 88 IU/L (40-130); Anion Gap 12.8 (5-19); Aspartate Amino Transferase 18 U/L (0-40); Blood Urea Nitrogen 12 mg/dL (8-23); Calcium 8.6 mg/dL (8.5-10.5); Carbon Dioxide 26 mmol/L (22-29); Chloride 99 mmol/L (98-107); Globulin 3.7 g/dL (1.3-4.6); Glucose 127 mg/dL (65-115); Osmolality Calculated 279 mOsm/kg (285-295); Potassium 3.8 mmol/L (3.5-5.1); Prostate Specific Antigen 0.029 ng/mL (0-4); Sodium 134 mmol/L (136-145); Thyroid Stimulating Hormone 10.23 uIU/mL (0.27-4.20); Total Bilirubin 0.4 mg/dL (0.15-1.2); Total Protein 7.3 g/dL (6.6-8.7)
[2021-11-30] MEDS: denosumab 120 mg SDV SUBCUT (12:14)
--- NOTE | 2021-11-30 12:37 | XR_ITS ---
WS: [id number] PA and lateral chest, 11/30/2021 Clinical Data: pneumothorax follow up Comparison: Portable chest, 06/28/2021. Findings: There are chronic interstitial fibrotic changes throughout the lungs. No nodules, masses or effusions are seen. The heart is normal. The pulmonary vascularity is not increased. The aortic arch and descending thoracic aorta show tortuosity. The diaphragms are flattened. There are orthopedic an chors in both humeri. XR/XR chest 2V* [id number] Impression: 1. Hyperinflation with chronic interstitial lung fibrosis. 2. Atherosclerosis.
--- NOTE | 2021-11-30 13:53 | PC.NURSE ---
Patient came back to the infusion suite for the Xgeva injection which was given in the right upper arm with no issues. [facility] or bleeding noted.[email or web address]
== END 2021-12-27 23:59 | disposition home or self-care (01) ==
PROVIDERS: PCP Internal Medicine Medical Oncology; Referring Provider Nurse Practitioner Family; Visit Provider Internal Medicine Medical Oncology
DX: C61 Malignant neoplasm of prostate (principal); C79.51 Secondary malignant neoplasm of bone; R63.4 Abnormal weight loss; Z68.1 Body mass index [BMI] 19.9 or less, adult; F32.A Depression, unspecified; F41.9 Anxiety disorder, unspecified; E03.9 Hypothyroidism, unspecified; J93.81 Chronic pneumothorax; Z79.818 Long term (current) use of other agents affecting estrogen receptors and estrogen levels; Z79.891 Long term (current) use of opiate analgesic; Z79.899 Other long term (current) drug therapy
CPT/HCPCS: 36415; 71046; 80053; 84153; 84443; 85025; 96372; 96401; 99214; 99215; J0897

== ENCOUNTER 2021-12-05 15:18 | Emergency (ER) | payer OTHER, MEDICARE, SELFPAY ==
--- NOTE | 2021-12-05 15:25 | W.ED.COVID ---
HPI - COVID General: Chief Complaint: Weakness Stated Complaint: WEAKNESS/ COVID EXPOSURE Time Seen by Provider: 12/05/21 15:20 Source: patient Mode of arrival: EMS Limitations: no limitations Triage information: Has fever, cough or shortness of breath. Exposure to COVID + person last 14 days History of Present Illness: 86-year-old male presents emergency room with complaints of weakness cough shortness of breath the last couple of days temp up to 101.5. Patient has a history of prostate CA with bony metastasis. He denies any diarrhea he has not had any productive cough no chest pain. Patient states he had COVID a year ago as well. MD complaint: reported COVID exposure COVID 19 common symptoms: positive fever(s), chills, cough, non-productive cough, dyspnea, fatigue, body aches and headache(s); negative throat pain, nasal congestion, nausea, vomiting or diarrhea COVID 19 other sytmptoms: negative chest pain or requiring oxygen Onset (ago): day(s) (2) Severity: mild Pertinent comorbid conditions: immunocompromised state Treatment prior to arrival: none COVID Results: SARS-CoV-2 Antigen (Rapid) Negative (Negative) 06/28/21 17:34 SARS-CoV-2 RNA (RT-PCR) Not detected (NOT DETECTED) 12/02/20 10:24 SARS-CoV-2 (PCR) Detected (NOT DETECT) A 12/05/21 15:40 Coronavirus Type 229E (PCR) Not detected (NOT DETECT) 12/05/21 15:40 Review of Systems Const: Reports: fever(s), chills, body aches, fatigue and malaise ENMT: Denies: throat pain, ear or mastoid pain, nasal discharge or nasal congestion Card: Denies: chest pain, edema, dyspnea on exertion or orthopnea Resp: Reports: dyspnea and non-productive cough GI: Denies: abdominal pain, nausea, vomiting, hematemesis, coffee ground emesis, diarrhea, constipation, bloating, hematochezia or melena : Denies: flank pain, dysuria, urinary frequency or urinary urgency Skin/Breast: Denies: rash or pruritus Neuro: Reports: headache(s) PFSH ED PFSH: Medical History Anxiety and depression Degenerative arthritis Erectile dysfunction History of colon polyps HTN (hypertension) Hyperlipidemia Hypothyroidism Prostate cancer metastatic to bone Stroke right hemispheric stroke in August 2017 Thrombocytopenia Surgical History H/O hemorrhoidectomy History of carpal tunnel surgery bilateral History of melanoma excision (2010) History of prostate biopsy (06/14/21) S/P colonoscopy (2019) S/P repair of hydrocele S/P rotator cuff repair Status post left hip replacement (09/18/21) Removal failed hardware left hip, hemiarthroplasty left hip Status post open reduction and internal fixation (ORIF) of fracture (06/29/21) Pathological fracture left femoral neck Family History Father , at age 77 Myocardial infarct CAD (coronary artery disease) Mother , at age 79 Myocardial infarct Other Hypertension Suicide Denies family history of Diabetes Clotting disorder Dementia Hyperlipidemia Psychiatric illness Chronic kidney disease (CKD) Anesthesia complication Bleeding disorder Lung disease Cancer Stroke Social History Smoking and tobacco status: never smoked Alcohol intake: never Adopted: No Caregiver/support person: Yes Lives independently: Yes Marital status: / service: Yes Current occupational status: retired History of recent travel: No Physical Exam Const: COMMON NORMALS: no acute distress GENERAL APPEARANCE: cooperative and comfortable ORIENTATION/CONSCIOUSNESS: Yes awake, Yes oriented to person, Yes oriented to place and Yes oriented to time HENMT: COMMON NORMALS: normocephalic, atraumatic and hearing grossly normal bilaterally HEAD & SCALP: normocephalic and atraumatic Resp: COMMON NORMALS: normal respiratory effort, No retractions and No use of accessory muscles AUSCULTATION: rhonchi Cardio: COMMON NORMALS: regular rate, regular rhythm and No murmurs present (Cardio) RATE: regular rate RHYTHM: regular rhythm GI: COMMON NORMALS: Soft to palpation and No hepatosplenomegaly present AUSCULTATION: Yes normoactive bowel sounds PALPATION: Yes Soft to palpation, No Tenderness to palpation present (GI), No Guarding due to palpation present (GI) and Yes No hepatosplenomegaly present Extremity: COMMON NORMALS: normal to inspection, capillary refill normal, no clubbing, cyanosis or edema, no calf tenderness and no pedal edema Neuro: SENSORIUM/ORIENTATION: Yes oriented to person, Yes oriented to place and Yes oriented to time Skin: COMMON NORMALS: no rashes or lesions noted GENERAL SKIN EXAM: no rashes or lesions noted Course Vital Signs: Vital signs: Vital Signs Temperature 101.5 F H 12/05/21 15:26 Pulse Rate 119 H 12/05/21 15:56 Respiratory Rate 23 H 12/05/21 15:56 Blood Pressure 162/99 12/05/21 15:56 Pulse Oximetry 96 12/05/21 16:36 Oxygen Delivery Me thod 12/05/21 15:56 MDM - COVID Medical Decision Making Patient does have COVID. Discussed risk benefits of Paxil but they like to proceed. His GFR calculates by age to be 100. We will hold his enzalutamide while he is on the pack Slo-Bid. Follow-up with primary care to monitor his home oxygen saturations. We did do home O2 evaluation and he does not require any oxygen. Medical Records I reviewed the patient's medical records. Lab Data I reviewed the patient's lab results. : 12/05/21 15:40 12/05/21 15:40 Radiology Impressions Chest X-Ray 12/05/21 15:33 IMPRESSION: Increasing peripheral opacities in the left mid and lower lung zones as described. Peripheral right mid lung zone opacity appears relatively stable. There is also possible tiny loculated pneumothorax similar to most recent CT exam as described above and is probably chronic. Chest CT correlation may be helpful. ADDENDUM: 12/05/[address] Benz had received the report according to OP support at 5:23 p.m. Eastern time. Laboratory Results WBC 4.1 10^3/uL (4.0-10.0) 12/05/21 15:40 RBC 3.68 10^6/uL (4.1-5.3) L 12/05/21 15:40 Hgb 11.2 g/dL (11.7-16.6) L 12/05/21 15:40 Hct 35.4 % (42.0-52.0) L 12/05/21 15:40 MCV 96.2 fl (80-94) H 12/05/21 15:40 MCH 30.4 pg (28.0-34.0) 12/05/21 15:40 MCHC 31.6 g/dL (30.0-36.0) 12/05/21 15:40 RDW 14.8 % (12.1-15.1) 12/05/21 15:40 Plt Count 143 10^3/cmm (130-400) 12/05/21 15:40 MPV 11.7 fL (7.4-10.4) H 12/05/21 15:40 Neut % (Auto) 84.2 % 12/05/21 15:40 Lymph % (Auto) 6.8 % 12/05/21 15:40 [place] % (Auto) 8.3 % 12/05/21 15:40 Eos % (Auto) 0.5 % 12/05/21 15:40 Baso % (Auto) 0.0 % 12/05/21 15:40 Neut # (Auto) 3.47 10^3/uL (1.8-7.7) 12/05/21 15:40 Lymph # (Auto) 0.3 10^3/uL (0.8-4.8) L 12/05/21 15:40 [place] # (Auto) 0.3 10^3/uL (0.2-0.9) 12/05/21 15:40 Eos # (Auto) 0.0 10^3/uL (0.0-0.8) 12/05/21 15:40 Baso # (Auto) 0.0 10^3/uL (0.0-0.1) 12/05/21 15:40 Nucleated RBC % (auto) 0 % 12/05/21 15:40 Nucleated RBCs # 0.0 /100WBC 12/05/21 15:40 Sodium 137 mmol/L (136-145) 12/05/21 15:40 Potassium 4.6 mmol/L (3.5-5.1) 12/05/21 15:40 Chloride 100 mmol/L (98-107) 12/05/21 15:40 Carbon Dioxide 23 mmol/L (22-29) 12/05/21 15:40 Anion Gap 18.6 (5-19) 12/05/21 15:40 BUN 14 mg/dL (8-23) 12/05/21 15:40 Creatinine 0.5 mg/dL (0.7-1.2) L 12/05/21 15:40 GFR Calculation Not Reportable 12/05/21 15:40 Glucose 139 mg/dL (65-115) H 12/05/21 15:40 Calculated Osmolality 287 mOsm/kg (285-295) 12/05/21 15:40 Calcium 8.8 mg/dL (8.5-10.5) 12/05/21 15:40 Total Bilirubin 0.5 mg/dL (0.15-1.2) 12/05/21 15:40 AST 19 U/L (0-40) 12/05/21 15:40 ALT 10 U/L (0-41) 12/05/21 15:40 Alkaline Phosphatase 89 IU/L (40-130) 12/05/21 15:40 Total Protein 7.7 g/dL (6.6-8.7) 12/05/21 15:40 Albumin 3.9 g/dL (3.5-5.2) 12/05/21 15:40 Globulin 3.8 g/dL (1.3-4.6) 12/05/21 15:40 Coronavirus 229E (PCR) Not detected (NOT DETECT) 12/05/21 15:40 SARS-CoV-2 (PCR) Detected (NOT DETECT) A 12/05/21 15:40 SARS-CoV-2 Antigen (Rapid) Negative (Negative) 06/28/21 17:34 SARS-CoV-2 RNA (RT-PCR) Not detected (NOT DETECTED) 12/02/20 10:24 SARS-CoV-2 (PCR) Detected (NOT DETECT) A 12/05/21 15:40 Coronavirus Type 229E (PCR) Not detected (NOT DETECT) 12/05/21 15:40 Discharge Plan Discharge Patient Disposition: Home Clinical Impression: COVID-19 Condition: Stable Prescriptions: New Paxlovid (EUA) 150 mg x 2- 100 mg tablet See Rx Instructions .ROUTE .COMPLEX Qty: 30 0RF Rx Instructions: orally per package directions Held enzalutamide 80 mg tablet 80 mg PO BEDTIME Qty: 28 0RF Hold Instructions: Resume on 12/11/21. No Action senna 8.6 mg capsule 17.2 mg PO BID aspirin 325 mg tablet 325 mg PO DAILY multivitamin with iron [Daily Multiple Vitamins/Iron] Tablet 1 tab PO DAILY amlodipine 2.5 mg tablet 2.5 mg PO BEDTIME oxycodone 10 mg tablet 10 mg PO QID PRN (Reason: pain) 30 Days Qty: 120 0RF pantoprazole [Protonix] 40 mg tablet,delayed release (DR/EC) 40 mg PO BID Qty: 60 3RF sucralfate 1 gram tablet 1 g PO BID Qty: 60 3RF levothyroxine 25 mcg capsule 25 mcg PO DAILY Qty: 90 0RF paroxetine HCl [Paxil] 10 mg tablet 10 mg PO DAILY Qty: 30 6RF megestrol 400 mg/10 mL (40 mg/mL) suspension 800 mg .ROUTE DAILY Qty: 480 8RF Rx Instructions: 800 mg daily; meloxicam 15 mg tablet See Rx Instructions .ROUTE .COMPLEX Qty: 30 3RF Dose Instruction: Take 1 tablet by mouth once daily Rx Instructions: Take 1 tablet by mouth once daily fentanyl 25 mcg/hr patch 72 hour 1 patch transdermal Q72H 30 Days Qty: 10 0RF Discharge Orders: Discharge ED (Routine); Ordered 12/05/21 Ordered By: Eh Barnes Referrals: Greg Mata MD [Primary Care Provider] - Discharge Diet: Usual diet Discharge Activity: Increase activity as tolerated Patient Instructions: Opioid Safety Activity Restrictions/Additional Instructions: Monitor your oxygen sats at home. We will contact you with the results of the COVID swab. If the COVID swab is positive you would be a candidate for pack Slo-Bid as we discussed. Coding Level of Care Code ED [employer] for Lynn Fountain
[2021-12-05 15:26] VITALS: BP 162/43; PULSE 127; RESP 17; TEMP 38.6; O2SAT 96; BMI 17.6
--- NOTE | 2021-12-05 15:33 | XRR_ITS ---
PROCEDURE INFORMATION: Exam: XR Chest Exam date and time: 12/05/2021 3:37 PM Age: 86 years old Clinical indication: Cough and dyspnea; Additional info: Dyspnea/cough TECHNIQUE: Imaging protocol: Radiologic exam of the chest. Views: 1 view. COMPARISON: 1. CT chest w con* [id number] 11/21/2021 10:51 AM 2. CR XR chest 2V* [id number] 11/30/2021 12:40 PM FINDINGS: Lungs: The lung bases are suboptimally assessed due to technique however the upper lungs are clear of focal consolidation. Ill-defined patchy peripheral right midlung opacity suspicious for pneumonia with no significant change. Increasing ill-defined peripheral patchy opacities are also noted in the left mid and lower lung zone which may represent crowding/poor inspiration versus worsening of multifocal pneumonia. Clinical correlation and continued imaging follow-up should be obtained. Small calcified granuloma in the left upper lobe. Mild stable central peribronchial thickening. Pleural spaces: No obvious pleural effusion. There is probable tiny lateral pneumothorax in the mid lateral left thorax, which is similar to most recent chest CT exam which is probably chronic and may be loculated. This was also probably present on the most recent radiograph. Heart/Mediastinum: Cardiac silhouette appears normal in size. No obvious vascular congestion. Bones/joints: No acute osseous findings. Other findings: Single view was submitted. XR/XR chest 1V portable [id number] IMPRESSION: Increasing peripheral opacities in the left mid and lower lung zones as described. Peripheral right mid lung zone opacity appears relatively stable. There is also possible tiny loculated pneumothorax similar to most recent CT exam as described above and is probably chronic. Chest CT correlation may be helpful.
[2021-12-05 15:56] VITALS: BP 162/99; PULSE 119; RESP 23; O2SAT 95
[2021-12-05 15:56] LABS: Eosinophils % 0.5 %; Hematocrit 35.4 % (42.0-52.0); Hemoglobin 11.2 g/dL (11.7-16.6); Lymphocytes # 0.3 10^3/uL (0.8-4.8); Lymphocytes % 6.8 %; Mean Corpuscular HGB Conc 31.6 g/dL (30.0-36.0); Mean Corpuscular Hemoglobin 30.4 pg (28.0-34.0); Mean Corpuscular Volume 96.2 fl (80-94); Mean Platelet Volume 11.7 fL (7.4-10.4); Monocytes # 0.3 10^3/uL (0.2-0.9); Monocytes % 8.3 %; Neutrophils # 3.47 10^3/uL (1.8-7.7); Neutrophils % 84.2 %; Nucleated Red Blood Cells % 0 %; Platelet Count 143 10^3/cmm (130-400); Red Blood Count 3.68 10^6/uL (4.1-5.3); Red Cell Distribution Width 14.8 % (12.1-15.1); White Blood Count 4.1 10^3/uL (4.0-10.0)
[2021-12-05 16:32] LABS: Alanine Aminotransferase 10 U/L (0-41); Albumin Level 3.9 g/dL (3.5-5.2); Alkaline Phosphatase 89 IU/L (40-130); Anion Gap 18.6 (5-19); Aspartate Amino Transferase 19 U/L (0-40); Blood Urea Nitrogen 14 mg/dL (8-23); Calcium 8.8 mg/dL (8.5-10.5); Carbon Dioxide 23 mmol/L (22-29); Chloride 100 mmol/L (98-107); Globulin 3.8 g/dL (1.3-4.6); Glucose 139 mg/dL (65-115); Osmolality Calculated 287 mOsm/kg (285-295); Potassium 4.6 mmol/L (3.5-5.1); Sodium 137 mmol/L (136-145); Total Bilirubin 0.5 mg/dL (0.15-1.2); Total Protein 7.7 g/dL (6.6-8.7)
[2021-12-05 16:36] VITALS: O2SAT 94; O2SAT 96
[2021-12-05] MEDS: acetaminophen 325 mg Tablet 650 MG PO (17:25)
[2021-12-05 17:48] LABS: Adenovirus Not Detected (NOT DETECT); Chlamydia Pneumoniae Not Detected (NOT DETECT); Coronavirus 229E,HKU1,NL63,OC4 Not Detected (NOT DETECT); Human Metapneumovirus Not Detected (NOT DETECT); Human Rhinovirus/Enterovirus Not Detected (NOT DETECT); Influenza A Not Detected (NOT DETECT); Influenza A H1 Not Detected (NOT DETECT); Influenza A H1-2009 Not Detected (NOT DETECT); Influenza A H3 Not Detected (NOT DETECT); Influenza B Not Detected (NOT DETECT); Mycoplasma Pneumoniae Not Detected (NOT DETECT); Parainfluenza Virus Type 1 Not Detected (NOT DETECT); Parainfluenza Virus Type 2 Not Detected (NOT DETECT); Parainfluenza Virus Type 3 Not Detected (NOT DETECT); Parainfluenza Virus Type 4 Not Detected (NOT DETECT); Respiratory Syncytial Virus A Not Detected (NOT DETECT); Respiratory Syncytial Virus B Not Detected (NOT DETECT); SARS-COV-2 Detected (NOT DETECT)
== END 2021-12-05 18:07 | disposition home or self-care (01) ==
PROVIDERS: Emergency Provider Family Medicine; PCP Internal Medicine Medical Oncology
DX: U07.1 COVID-19 (principal); Z79.82 Long term (current) use of aspirin; I10 Essential (primary) hypertension; E78.5 Hyperlipidemia, unspecified; Z85.46 Personal history of malignant neoplasm of prostate; Z85.830 Personal history of malignant neoplasm of bone; Z86.73 Personal history of transient ischemic attack (TIA), and cerebral infarction without residual deficits
CPT/HCPCS: 71045; 80053; 85025; 87635; 99284

== ENCOUNTER 2021-12-10 14:30 | Inpatient (IN) | payer OTHER, MEDICARE, SELFPAY ==
[2021-12-10] VITALS (12 sets, daily range): BP systolic 133–150; BP diastolic 83–97; PULSE 102–128; RESP 17–28; TEMP 36.4–36.5; O2SAT 92–114; BMI 19.3
--- NOTE | 2021-12-10 14:51 | ECG_ITS ---
[facility] Test Date: 2021-12-10 Pat Name: Koby Franz Department: Room: Gender: Male Applications Support Specialist: : [id number] Requested By: Eh Gates Order Number: [id number] Diego MD: Chadwick Saha M.D. Measurements Intervals [place] Rate: 115 P: 47 ND: 130 QRS: 18 QRSD: 87 T: 61 QT: 350 QTc: 485 Interpretive Statements SINUS TACHYCARDIA WITH OCCASIONAL SUPRAVENTRICULAR PREMATURE COMPLEXES POSSIBLE LEFT ATRIAL ENLARGEMENT [-0.1mV P-WAVE IN V1/V2] MINIMAL ST DEPRESSION [0.025+ mV ST DEPRESSION] Compared to ECG 09/13/2021 10:05:46 ST (T wave) deviation now present Sinus rhythm no longer present Electronically Signed On 12-11-2021 17:39:02 CDT by Chadwick Saha M.D. [id number]
--- NOTE | 2021-12-10 14:51 | XRR_ITS ---
PROCEDURE INFORMATION: Exam: XR Chest Exam date and time: 12/10/2021 2:56 PM Age: 86 years old Clinical indication: Cough and dyspnea; Additional info: Dyspnea/cough TECHNIQUE: Imaging protocol: Radiologic exam of the chest. Views: 1 view. COMPARISON: CR XR chest 1V portable [id number] 12/05/2021 3:37 PM FINDINGS: Lungs: The lung bases are suboptimally assessed due to technique however there are bilateral patchy peripheral lung opacities which interval worsening suggesting probable interval progression of multifocal pneumonia, including CV 19 pneumonia. Pleural spaces: Probable small left pleural effusion. No obvious pneumothorax. Persistent pleural thickening along the left mid/lower thorax is with slight interval worsening. Heart/Mediastinum: Cardiac silhouette appears somewhat magnified by technique but is probably normal in size. No obvious vascular congestion. Bones/joints: No acute osseous findings. Other findings: Single view was submitted. XR/XR chest 1V portable [id number] IMPRESSION: Interval worsening of bilateral patchy opacities and left-sided pleural thickening. See discussion above.
--- NOTE | 2021-12-10 14:57 | ED_ITS ---
HPI - COVID General: Chief Complaint: COVID symptoms Stated Complaint: RESP DISTRESS; AMS Time Seen by Provider: 12/10/21 14:41 Triage information: Has fever, cough or shortness of breath . No known COVID + exposure last 14 days History of Present Illness: 86-year-old male with a history of prostate cancer with metastasis to the bone who was seen last week by myself in the emergency room he was found to have COVID-19 you started on Paxil he did he COVID today is severe respiratory distress requiring 10 L by mask. When he was seen previously there was some abnormalities in the right upper lobe along with those were read as being chronic and stable. I talked to his family he seemed to initially be doing well with the Paxil but then yesterday said he was not feeling well and they were with him this morning and he was stating he is starting to get more short of breath then he rapidly deteriorated the day progressed to the point where they called EMS on arrival there he was satting evidently at 84% with nebulizer treatments he improved. Patient still does want to be a full code I talked to the family this son has medical power of employment attorney understand the severity of his presentation at this point but wishes to continue with his father desires until there is a significant worsening. Advised him at this point is he is in severe respiratory distress and not him COVID infection well at all. complaint: known COVID positive COVID 19 common symptoms: positive fever(s), chills, cough, non-productive cough, dyspnea, fatigue, body aches and headache(s); negative throat pain, nasal congestion, nausea, vomiting or diarrhea COVID 19 other sytmptoms: positive chest pressure, chest pain and requiring oxygen Onset (ago): day(s) (7-8) Pertinent comorbid conditions: cancer and immunocompromised state Treatment prior to arrival: other (paxlovid) COVID Results: SARS-CoV-2 Antigen (Rapid) Negative (Negative) 06/28/21 17:34 SARS-CoV-2 RNA (RT-PCR) Not detected (NOT DETECTED) 12/02/20 1 0:24 SARS-CoV-2 (PCR) Detected (NOT DETECT) A 12/05/21 15:40 Coronavirus Type 229E (PCR) Not detected (NOT DETECT) 12/05/21 15:40 Review of Systems Const: Reports: fever(s), chills, body aches and fatigue ENMT: Denies: throat pain, ear or mastoid pain, nasal discharge or nasal congestion Card: Reports: chest pain Resp: Reports: dyspnea and non-productive cough GI: Denies: abdominal pain, nausea, vomiting, hematemesis, coffee ground emesis, diarrhea, constipation, bloating, hematochezia or melena : Denies: flank pain, dysuria, urinary frequency or urinary urgency Skin/Breast: Denies: rash or pruritus Neuro: Reports: headache(s) PFSH ED PFSH: Medical History Anxiety and depression Degenerative arthritis Erectile dysfunction History of colon polyps HTN (hypertension) Hyperlipidemia Hypothyroidism Prostate cancer metastatic to bone Stroke right hemispheric stroke in August 2017 Thrombocytopenia Surgical History H/O hemorrhoidectomy History of carpal tunnel surgery bilateral History of melanoma excision (2010) History of prostate biopsy (06/14/21) S/P colonoscopy (2019) S/P repair of hydrocele S/P rotator cuff repair Status post left hip replacement (09/18/21) Removal failed hardware left hip, hemiarthroplasty left hip Status post open reduction and internal fixation (ORIF) of fracture (06/29/21) Pathological fracture left femoral neck Family History Father , at age 77 Myocardial infarct CAD (coronary artery disease) Mother , at age 79 Myocardial infarct Other Hypertension Suicide Denies family history of Diabetes Clotting disorder Dementia Hyperlipidemia Psychiatric illness Chronic kidney disease (CKD) Anesthesia complication Bleeding disorder Lung disease Cancer Stroke Social History Smoking and tobacco status: never smoked Alcohol intake: never Adopted: No Caregiver/support person: Yes Lives independently: Yes Marital status: / service: Yes Current occupational status: retired History of recent travel: No Physical Exam Const: COMMON NORMALS: no acute distress GENERAL APPEARANCE: cooperative and comfortable ORIENTATION/CONSCIOUSNESS: Yes awake, Yes oriented to person, Yes oriented to place and Yes oriented to time HENMT: COMMON NORMALS: normocephalic, atraumatic and hearing grossly normal bilaterally HEAD & SCALP: normocephalic and atraumatic Resp: EFFORT & INSPECTION: No able to speak in complete sentences, Yes abnormal respiratory pattern, Yes tachypneic, Yes labored and Yes Actively coughing AUSCULTATION: crackles Cardio: RATE: tachycardic GI: COMMON NORMALS: Soft to palpation and No hepatosplenomegaly present AUSCULTATION: Yes normoactive bowel sounds PALPATION: Yes Soft to palpation, No Tenderness to palpation present (GI), No Guarding due to palpation present (GI) and Yes No hepatosplenomegaly present Extremity: COMMON NORMALS: normal to inspection, capillary refill normal, no clubbing, cyanosis or edema, no calf tenderness and no pedal edema Neuro: SENSORIUM/ORIENTATION: Yes oriented to person, Yes oriented to place and Yes oriented to time Skin: COMMON NORMALS: no rashes or lesions noted GENERAL SKIN EXAM: no rashes or lesions noted Course Vital Signs: Vital signs: Vital Signs Pulse Rate 102 H 12/10/21 15:07 Respiratory Rate 24 H 12/10/21 15:07 Blood Pressure 147/89 12/10/21 14:44 Pulse Oximetry 92 12/10/21 15:07 Oxygen Delivery Me thod 12/10/21 14:44 Oxygen Flow Rate 40 12/10/21 15:07 Fraction of Inspir ed Oxygen 50 12/10/21 15:07 MDM - COVID Medical Decision Making Worsening COVID is a pack Slo-Bid. Will admit. Discussed with Dr. Wright procalcitonin negative chest x-ray looks similar to previous she is planning to get a CTA of the chest D-dimer is pending. Hospital orders are written Dr. Wright will follow admit to the ICU. Medical Records I reviewed the patient's medical records. Lab Data I reviewed the patient's lab results. : 12/10/21 14:40 12/10/21 14:40 Laboratory Results WBC 10.6 10^3/uL (4.0-10.0) H 12/10/21 14:40 RBC 3.46 10^6/uL (4.1-5.3) L 12/10/21 14:40 Hgb 10.4 g/dL (11.7-16.6) L 12/10/21 14:40 Hct 33.3 % (42.0-52.0) L 12/10/21 14:40 MCV 96.2 fl (80-94) H 12/10/21 14:40 MCH 30.1 pg (28.0-34.0) 12/10/21 14:40 MCHC 31.2 g/dL (30.0-36.0) 12/10/21 14:40 RDW 15.2 % (12.1-15.1) H 12/10/21 14:40 Plt Count 267 10^3/cmm (130-400) 12/10/21 14:40 MPV 11.0 fL (7.4-10.4) H 12/10/21 14:40 Neut % (Auto) 91.7 % 12/10/21 14:40 Lymph % (Auto) 2.9 % 12/10/21 14:40 [place] % (Auto) 4.6 % 12/10/21 14:40 Eos % (Auto) 0.1 % 12/10/21 14:40 Baso % (Auto) 0.7 % 12/10/21 14:40 Neut # (Auto) 9.63 10^3/uL (1.8-7.7) H 12/10/21 14:40 Lymph # (Auto) 0.3 10^3/uL (0.8-4.8) L 12/10/21 14:40 [place] # (Auto) 0.5 10^3/uL (0.2-0.9) 12/10/21 14:40 Eos # (Auto) 0.0 10^3/uL (0.0-0.8) 12/10/21 14:40 Baso # (Auto) 0.1 10^3/uL (0.0-0.1) 12/10/21 14:40 Nucleated RBC % (auto) 0 % 12/10/21 14:40 Nucleated RBCs # 0.0 /100WBC 12/10/21 14:40 D-Dimer 3.79 ug/mIFEU (0-0.59) H 12/10/21 14:40 Sodium 139 mmol/L (136-145) 12/10/21 14:40 Potassium 3.5 mmol/L (3.5-5.1) 12/10/21 14:40 Chloride 101 mmol/L (98-107) 12/10/21 14:40 Carbon Dioxide 25 mmol/L (22-29) 12/10/21 14:40 Anion Gap 16.5 (5-19) 12/10/21 14:40 BUN 14 mg/dL (8-23) 12/10/21 14:40 Creatinine 0.4 mg/dL (0.7-1.2) L 12/10/21 14:40 GFR Calculation Not Reportable 12/10/21 14:40 Glucose 124 mg/dL (65-115) H 12/10/21 14:40 Calculated Osmolality 290 mOsm/kg (285-295) 12/10/21 14:40 Lactic Acid 1.9 mmol/L (0.5-2.2) 12/10/21 14:40 Calcium 8.9 mg/dL (8.5-10.5) 12/10/21 14:40 Total Bilirubin 0.5 mg/dL (0.15-1.2) 12/10/21 14:40 AST 15 U/L (0-40) 12/10/21 14:40 ALT 11 U/L (0-41) 12/10/21 14:40 Alkaline Phosphatase 114 IU/L (40-130) 12/10/21 14:40 Total Protein 7.1 g/dL (6.6-8.7) 12/10/21 14:40 Albumin 2.5 g/dL (3.5-5.2) L 12/10/21 14:40 Globulin 4.6 g/dL (1.3-4.6) 12/10/21 14:40 Procalcitonin 0.20 ng/mL (0-0.5) 12/10/21 14:40 SARS-CoV-2 Antigen (Rapid) Negative (Negative) 06/28/21 17:34 SARS-CoV-2 RNA (RT-PCR) Not detected (NOT DETECTED) 12/02/20 1 0:24 SARS-CoV-2 (PCR) Detected (NOT DETECT) A 12/05/21 15:40 Coronavirus Type 229E (PCR) Not detected (NOT DETECT) 12/05/21 15:40 Discharge Plan Discharge Patient Disposition: Admitted As Inpatient Clinical Impression: COVID-19, Malignant neoplasm of prostate metastatic to bone Condition: Stable Prescriptions: No Action aspirin 325 mg tablet 325 mg PO DAILY multivitamin with iron [Daily Multiple Vitamins/Iron] Tablet 1 tab PO DAILY amlodipine 2.5 mg tablet 2.5 mg PO BEDTIME oxycodone 10 mg tablet 10 mg PO QID PRN (Reason: pain) 30 Days Qty: 120 0RF pantoprazole [Protonix] 40 mg tablet,delayed release (DR/EC) 40 mg PO BID Qty: 60 3RF levothyroxine 25 mcg capsule 25 mcg PO DAILY Qty: 90 0RF paroxetine HCl [Paxil] 10 mg tablet 10 mg PO DAILY Qty: 30 6RF megestrol 400 mg/10 mL (40 mg/mL) suspension 800 mg .ROUTE DAILY Qty: 480 8RF Rx Instructions: 800 mg daily; enzalutamide 80 mg tablet 80 mg PO BEDTIME Qty: 28 0RF Hold Instructions: Resume on 12/11/21. 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
[2021-12-10 15:00] LABS: Basophils # 0.1 10^3/uL (0.0-0.1); Basophils % 0.7 %; Eosinophils % 0.1 %; Hematocrit 33.3 % (42.0-52.0); Hemoglobin 10.4 g/dL (11.7-16.6); Lymphocytes # 0.3 10^3/uL (0.8-4.8); Lymphocytes % 2.9 %; Mean Corpuscular HGB Conc 31.2 g/dL (30.0-36.0); Mean Corpuscular Hemoglobin 30.1 pg (28.0-34.0); Mean Corpuscular Volume 96.2 fl (80-94); Monocytes # 0.5 10^3/uL (0.2-0.9); Monocytes % 4.6 %; Neutrophils # 9.63 10^3/uL (1.8-7.7); Nucleated Red Blood Cells % 0 %; Platelet Count 267 10^3/cmm (130-400); Red Blood Count 3.46 10^6/uL (4.1-5.3); Red Cell Distribution Width 15.2 % (12.1-15.1); White Blood Count 10.6 10^3/uL (4.0-10.0)
[2021-12-10 15:09] LABS: Neutrophils % 91.7 %
[2021-12-10 15:10] LABS: Lactic Sepsis W/Reflex 1.9 mmol/L (0.5-2.2)
[2021-12-10 15:12] LABS: Alanine Aminotransferase 11 U/L (0-41); Albumin Level 2.5 g/dL (3.5-5.2); Alkaline Phosphatase 114 IU/L (40-130); Anion Gap 16.5 (5-19); Aspartate Amino Transferase 15 U/L (0-40); Blood Urea Nitrogen 14 mg/dL (8-23); Calcium 8.9 mg/dL (8.5-10.5); Carbon Dioxide 25 mmol/L (22-29); Chloride 101 mmol/L (98-107); Globulin 4.6 g/dL (1.3-4.6); Glucose 124 mg/dL (65-115); Osmolality Calculated 290 mOsm/kg (285-295); Potassium 3.5 mmol/L (3.5-5.1); Sodium 139 mmol/L (136-145); Total Bilirubin 0.5 mg/dL (0.15-1.2); Total Protein 7.1 g/dL (6.6-8.7)
[2021-12-10 15:42] LABS: D Dimer 3.79 ug/mIFEU (0-0.59)
[2021-12-10] MEDS: dexamethasone 10 mg/mL INJ IM (15:55)
[2021-12-10] MEDS: remdesivir 200 MG in sodium chloride 0.9% (100 ml) 60 ML 100 MG IV (16:33)
--- NOTE | 2021-12-10 16:44 | CTR_ITS ---
PROCEDURE INFORMATION: Exam: CTA Chest With Contrast Exam date and time: 12/10/2021 5:32 PM Age: 86 years old Clinical indication: Shortness of breath; Additional info: Covid, hypoxia TECHNIQUE: Imaging protocol: Computed tomographic angiography of the chest with contrast. 3D rendering (Not supervised by radiologist): MIP and/or 3D reconstructed images were created by the technologist. Radiation optimization: All CT scans at this facility use at least one of these dose optimization techniques: automated exposure control; mA and/or kV adjustment per patient size (includes targeted exams where dose is matched to clinical indication); or iterative reconstruction. Contrast material: OMNI 350; Contrast volume: 77 ml; Contrast route: INTRAVENOUS (IV); COMPARISON: CT chest w con* [id number] 11/21/2021 10:51 AM RADIATION DOSE METRICS: Total DLP (mGy-cm): 309.84 FINDINGS: Pulmonary arteries: Normal. No pulmonary emboli. Aorta: Minimal ascending aortic prominence at 3.8 cm, unchanged. Lungs: Interval worsening and multiple new areas of airspace consolidations in both lungs, mostly in the mid and lower lung zones, suggest suspicious for multifocal pneumonia. Multiple pulmonary nodular densities are also noted bilaterally, the largest measuring 7 mm right lower lobe, series 6, image 26, new since prior exam and are suspicious for metastatic disease. Moderate pulmonary emphysema is again noted. Pleural spaces: New small left pleural effusion. Previously noted left pneumothorax has resolved. Heart: Normal heart size with coronary calcification. Lymph nodes: Unremarkable. No enlarged lymph nodes. Spleen: Calcified splenic granulomas. Bones/joints: Osteopenia. Advanced right shoulder joint degenerative disease. Multilevel vertebral disc degeneration and endplate osteophytes. Several patchy sclerotic lesions throughout multiple vertebral bodies suspicious for osteoblastic metastases. No large destructive lesions are identified. Osteoblastic lesions are are also seen in the sternum and multiple ribs, probably unchanged. Soft tissues: Unremarkable. CT/CT angio chest PE protcl [id number] IMPRESSION: 1. Comparison CT 11/21/2021. No acute PE. 2. Interval worsening of patchy consolidations and multiple new areas of airspace consolidations suspicious for multifocal pneumonia. 3. New multiple small pulmonary nodular densities up to 7 mm which may represent metastatic disease. Infectious/inflammatory disease less likely. 4. New small left pleural effusion. Interval resolution of left pneumothorax. 5. Coronary calcification and minimal ascending aortic prominence, stable. 6. Osseous osteoblastic metastases as described.
--- NOTE | 2021-12-10 16:45 | P.HP_ITS ---
Providers/Chief Complaint Primary Care Provider: Greg Mata MD Chief Complaint: RESP DISTRESS; AMS History of Present Illness Most of the history taken through chart review and talking to the family member/son Mr. Rosas/GIL. Koby Franz is a 86 year old male with past medical history of prostatic adenocarcinoma, COVID-19 infection November 2020, hypertension, hypothyroidism, hyperlipidemia, anxiety who was diagnosed of having COVID-19 last week and was started Paxlovid presented back to the ER today in severe respite distress requiring up to 10 L by oxygen mask. Patient started feeling worse again yesterday and continued to deteriorate during the day today morning when the EMS was called he was in low 80s which improved to 84% with nebulizer treatment. In the ER he was given 200 mg of remdesivir and 10 mg of dexamethasone. In the ER patient was also placed on heated high flow. On my examination in the ICU patient was on heated high flow, finding it hard to breathe, drowsy saturating more than 90% with heart rate running more than 100 with blood pressure 150/80 mmHg Review of Systems General: Reports: 10 or more systems reviewed and unremarkable except in HPI and below Const: Denies: fever(s), chills, body aches, change in appetite, change in weight, malaise, night sweats, diaphoresis, change in sleep pattern, daytime sleepiness or snoring Eyes: Denies: change in vision, blurry vision, photophobia, eye discomfort or eye discharge ENMT: Denies: throat pain, enlarged tonsils, hoarseness, mouth pain, oral sores, dry mouth, tinnitus, nasal congestion or post nasal drip Card: Denies: chest pain, palpitations, irregular heart rhythm, edema, swelling of feet/ankles, lightheadedness, syncope, pre-syncope, dyspnea on exertion, orthopnea, leg pain with exertion or acrocyanosis Resp: Denies: dyspnea, productive cough, non-productive cough, wheezing, stridor, pain on inspiration, change in phlegm color, hemoptysis or chest congestion GI: Denies: abdominal pain, nausea, vomiting, hematemesis, coffee ground emesis, dysphagia, heartburn, diarrhea, constipation, bloating, GI cramping, change in bowel habits, pain on defecation, hematochezia or melena : Denies: flank pain, difficulty urinating, dysuria, urinary frequency, urinary urgency, urinary hesitancy, urinary dribbling, difficulty starting urination, change in urine stream, nocturia or hematuria Musc: Denies: neck pain, back pain, extremity pain, joint pain, joint swelling, joint redness, joint stiffness or limited range of motion Neuro: Denies: headache(s), numbness in extremities, weakness in extremities, sensory changes, lack of coordination, difficulty walking, frequent falls, di zziness, vertigo, confusion, Slurred speech present, difficulty communicating thoughts or seizure-like activity Psych: Denies: anxiety, depression, mood swings, panic attacks, hopelessness or irritability Endo: Denies: polyuria, polydipsia, tired all the time, cold intolerance, excessive sweating, flushing or heat intolerance Ezra/Lymph: Denies: easy bruising or easy bleeding All/Imm: Denies: tongue swelling, facial swelling or acute wheezing Medications/Allergies Home Medications Medication Instructions Recorded Confirmed Last Taken Type amlodipine 2.5 mg tablet 2.5 mg PO BEDTIME 08/31/21 12/10/21 12/09/21 History multivitamin with iron (Daily 1 tab PO DAILY 09/28/21 12/10/21 12/10/21 History Multiple Vitamins/Iron) oxycodone 10 mg tablet 10 mg PO QID PRN pain 30 days #120 09/29/21 12/10/21 Unknown Rx tabs pantoprazole 40 mg tablet,delayed 40 mg PO BID #60 tabs 10/03/21 12/10/21 0 12/10/21 Rx release (Protonix) levothyroxine 25 mcg capsule 25 mcg PO DAILY #90 caps 10/12/21 12/10/21 12/10/21 Rx aspirin 325 mg tablet 325 mg PO DAILY 10/27/21 12/10/21 12/10/21 History megestrol 400 mg/10 mL (40 mg/mL) 800 mg (20 mL) .Route DAILY for 10/31/21 12/10/21 12/10/21 Rx oral suspension appetite #480 mL paroxetine HCl 10 mg tablet (Paxil) 10 mg PO DAILY #30 tabs 10/31/21 12/10/21 12/09/21 Rx enzalutamide 80 mg tablet 80 mg PO BEDTIME #28 tabs 11/29/21 12/10/21 12/09/21 Rx nirmatrelvir 300 mg (150 mg x See Rx Instructions PO .COMPLEX 12/05/21 12/10/21 12/10/21 Rx 2)-ritonavir 100 mg tablet (EUA) #30 tabs (Paxlovid 300 mg () fentanyl 25 mcg/hr transdermal 1 patch transdermal Q72H 30 days 12/06/21 12/10/21 12/10/21 Rx patch #10 ea albuterol sulfate 90 mcg/actuation 2 puff inhalation Q4H PRN 12/10/21 12/10/21 Unknown History aerosol inhaler Shortness Of Breath meloxicam 15 mg tablet 15 mg PO DAILY 12/10/21 12/10/21 12/10/21 History Allergies Allergy/AdvReac Type Severity Reaction Status Date / Time Influenza Virus Vaccines Allergy Unknown Verified 11/30/21 11:32 poison vivienne extract Allergy Unknown Verified 11/30/21 11:32 prednisone Allergy unknown Verified 11/30/21 11:32 PFSH Acute PFSH: Medical History Anxiety and depression Degenerative arthritis Erectile dysfunction History of colon polyps HTN (hypertension) Hyperlipidemia Hypothyroidism Prostate cancer metastatic to bone Stroke right hemispheric stroke in August 2017 Thrombocytopenia Surgical History H/O hemorrhoidectomy History of carpal tunnel surgery bilateral History of melanoma excision (2010) History of prostate biopsy (06/14/21) S/P colonoscopy (2019) S/P repair of hydrocele S/P rotator cuff repair Status post left hip replacement (09/18/21) Removal failed hardware left hip, hemiarthroplasty left hip Status post open reduction and internal fixation (ORIF) of fracture (06/29/21) Pathological fracture left femoral neck Family History Father , at age 77 Myocardial infarct CAD (coronary artery disease) Mother , at age 79 Myocardial infarct Other Hypertension Suicide Denies family history of Diabetes Clotting disorder Dementia Hyperlipidemia Psychiatric illness Chronic kidney disease (CKD) Anesthesia complication Bleeding disorder Lung disease Cancer Stroke Social History (Reviewed 12/10/21 @ 15:46 by ROLANDO Yanez Smoking and tobacco status: never smoked Alcohol intake: never Adopted: No Caregiver/support person: Yes Lives independently: Yes Marital status: / service: Yes Current occupational status: retired History of recent travel: No Vitals/I&O/Wt Last Vital Signs Pulse 102 H 12/10/21 15:07 Resp 24 H 12/10/21 15:07 BP 147/89 12/10/21 14:44 Pulse Ox 92 12/10/21 15:07 O2 Del Method 12/10/21 14:44 O2 Flow Rate 40 12/10/21 15:07 FiO2 50 12/10/21 15:07 Weight last 48 hrs Weight 57.606 kg Physical Exam Narrative: EXAM NARRATIVE: General: No acute distress, AO x3, on heated high flow HEENT: PERRLA, pupils bilaterally equal and reactive Chest:Bronchial breath sounds b/l ,decreased air entry, equal good air entry bilaterally, no more fine basal crackles CVS: S1-S2 regular, no murmurs, no tachycardia, no gallops, no rubs Abdomen: Soft, nontender, no organomegaly, bowel sounds present, morbidly obese Neuro: No focal deficits, no facial deformity, AO x3, power 5/5 in all limbs Data : 12/10/21 14:40 12/10/21 14:40 A&P Assessment and plan (1) Respiratory failure with hypoxia: Status: Acute (2) HTN (hypertension): Status: Acute (3) Hypothyroidism, unspecified: Status: Acute (4) Anxiety and depression: Status: Acute (5) Hypothyroidism: Status: Acute (6) Malignant neoplasm of prostate metastatic to bone: Status: Acute (7) COVID-19: Status: Acute (8) Goals of care, counseling/discussion: Status: Acute Plan Hypoxia secondary to COVID-19 pneumonia: Moderate disease Oxygen supplementation keeping saturation over 88%. Dexamethasone 6 mg daily. Remdesivir to finish a 5-day course. Vitamin C, zinc. DuoNeb every 6 hour, budesonide twice daily Pulmonary toilet with incentive spirometry flutter valve. We will monitor inflammatory markers including CRP, D-dimer every 48 hours. If getting elevated will dose Actemra. Patient was made aware of the same and he has given verbal consent. D-dimer elevated. Check CTA. For now we will start patient on full dose anticoagulation given high oxygen requirements. Will monitor for anemia or blood loss. Check sputum culture, procalcitonin, urine Legionella, bacterial antigen, blood culture. Low suspicion of bacterial infection for now. Given the critical nature of illness for now we will start on vancomycin and Zosyn. Given hypoxia will try to keep patient as negative as possible. Check echocardiogram. 80 mg IV Lasix stat. Strict input output charting, daily weights. Haque catheter. Continue other chronic medication including paroxetine, oxycodone 10 mg 4 times daily, levothyroxine, amlodipine. Analgesia: Tylenol as needed, morphine as needed Glycemic control: Not needed Nutrition: Full liquid CODE STATUS: DNR/DNI PUD prophylaxis: Protonix DVT prophylaxis: Full dose Lovenox will suffice for DVT prophylaxis Admit to ICU This documentation was created by [employer] affiliate manager software. Every effort was made to ensure accuracy of affiliate manager. Any obvious errors or omissions should be clarified with the author of the document. Goals of care discussion: Goals of care discussed in detail with patient's son Lucille Rosas and patient's [id number] Mr. Rosas's in person. As per them patient has a long medical list of problems and since his recent surgeries secondary to bony metastasis he has given up and does not want any aggressive measures. Mr. Rosas wants him to be DNR/DNI. They want to treat him medically for now but does not want to go very aggressive with his care and if he does not show any improvement within next 24 hours they want to consider comfort measures. They understand comfort measures would mean that he would eventually but they want to make sure he remains comfortable d uring that process. Attestations Medical Necessity Statement*: For more than 2 midnights for management of hypoxic respiratory failure secondary to COVID-19 pneumonia Critical Care Time: The high probability of a clinically significant, sudden or life threatening deterioration of the patient's [respiratory, goals of care discussion] system(s) required my full and direct attention, intervention and personal management. The critical care time is as shown. This time is in addition to time spent performing any reported procedures but includes the following: [x] Data and vital sign review and interpretation [x] Patient assessment, examination and intervention [x] Documentation [x] Medication orders and management Critical Care Time (min): 60 Coding Level of Care Code Acute Supervisor Particleboard for Chg Fwd Diagnoses Respiratory failure with hypoxia J96.91 HTN (hypertension) I10 Hypothyroidism, unspecified E03.9 Anxiety and depression F41.9; F32.A Hypothyroidism E03.9 Malignant neoplasm of prostate metastatic to bone C61; C79.51 COVID-19 U07.1 Goals of care, counseling/discussion Z71.89
[2021-12-10] MEDS: iohexol 350 mg/mL 100 mL Btl IV (17:38)
[2021-12-10 17:53] LABS: Iron 11 ug/dL (59-158); Percent Saturation 7.9 % (20-50); Total Iron Binding Capacity 138 mcg/dl; Unsaturated Iron Binding 127 ug/dL (112-347)
[2021-12-10 18:01] LABS: C Reactive Protein 298.2 mg/L (0.0-4.9); Creatine Phosphokinase 25 U/L (39-308); Lactate Dehydrogenase 183 U/L (135-225); NT Pro B Type Natriuretic Pept 3074 pg/mL (0-450); Thyroid Stimulating Hormone 2.42 uIU/mL (0.27-4.20)
[2021-12-10 18:09] LABS: ABG PCO2 38.4 mmHg (35-45); ABG PH Result 7.43 (7.35-7.45); Alveolar-Arterial Oxygen Gradi 27.7 mmHg (5-10); Arterial Blood Gas Hematocrit 30.7 % (42-52); Base Excess ABG 0.9 mmol/L (-2.0-2.0); Blood Gas Allen Test Pos; Blood Gas Operator Identificat CK; Blood Gas Sample Site Radial, right; Blood Gas Sample Type Arterial; Carboxyhemoglobin 1.1 %THgb (0.4-20.1); HCO3 ABG 25.2 mmol/L (22-26); HGB O2 Sat 96.2 % (95-100); Ionized Calcium Level - ABG 1.2 mmol/L (1.1-1.4); Methemoglobin 0.5 % (0.4-1.5); Oxygen Device HAG; Oxygen Saturation ABG 97.7; PO2 ABG 93.6 mmHg (80.0-100.0); Potassium Level - ABG 3.4 mmol/L (3.5-5.0)
--- NOTE | 2021-12-10 18:15 | PC.NURSE ---
recieved from er resperation agonal and laborded. on 1oo % o2 in use crackles thoughout noted up in bed doctor called and informed at this time talked with family orders noted ... unable to swallow pills at this time family in for visit
[2021-12-10] MEDS: dexamethasone 4 mg/mL INJ 6 MG IVP (18:22)
[2021-12-10] MEDS: FUROsemide 10 mg/mL SDV 10mL 80 MG IVP (18:22)
[2021-12-10] MEDS: enoxaparin 80 mg/0.8 mL Syringe 60 MG SUBCUT (18:59)
--- NOTE | 2021-12-10 19:12 | PC.PHAR ---
Pharmacokinetic dosing service Date: 12/10/21 Time: 1914 Objective: Patient: Koby Franz Floor: ICU-2 Age: 86 yo Serum creatinine: 0.4 mg/dL Height: 68.0 Inches Weight (kg): 57.606 Diagnosis: Relevant medical/social history: Cultures and sensitivities: Other labs: Assessment: IBW (kg): 68.40 Dosing wt(kg): 57.606 Estimated Creatinine clearance (ml/min): 110.0 CRCL method: Cockcroft and Gault using ibw(default). Drug selected: Vancomycin Loading dose (mg): 0 Vd (liters): 51.8 (factor used: 0.9 L/kg) Kojo (hr-1): 0.096 Half life (hrs): 7.22 Recommended dose: 1250 mg Interval: 12 hrs Infusion time (hrs): 1.5 Predicted peak (mcg/mL): 32.9 Predicted trough (mcg/mL): 12.01 Total body weight is being used for vancomycin dosing. Renal function is stable [ ] /unstable [ ] Recommendations: Give Vancomycin 1250 mg q 12 hrs with an expected Cpeak of 32.9 mcg/ml and an expected Ctrough of 12.01 mcg/ml Renal dosing of other antibiotics (review renal dosing of other medications and list guidelines here): Thank you for the consult, will continue to follow. Signature: Iveth Burrows [facility]
[2021-12-10 19:43] LABS: Lactic Sepsis W/Reflex 1.8 mmol/L (0.5-2.2)
[2021-12-10] MEDS: budesonide 0.5 mg/2 mL Neb INHALATION (20:12)
[2021-12-10] MEDS: ipratropium-albuterol 3 mL Neb INHALATION ×2 (20:12→23:20)
[2021-12-10] MEDS: vancomycin 1,250 MG/250 ML PIGGYBACK 250 MG IV (20:25)
[2021-12-10] MEDS: piperacillin-tazobactam 3.375 GM in sodium chloride 0.9% (plus) 50 ML IV (21:54)
[2021-12-10 23:08] LABS: Influenza A by IFA Negative (Negative); Influenza B by IFA Negative (Negative)
[2021-12-11] VITALS (229 sets, daily range): BP systolic 116–152; BP diastolic 71–100; PULSE 93–144; RESP 9–44; TEMP 36.4–36.8; O2SAT 78–97
[2021-12-11] MEDS: ipratropium-albuterol 3 mL Neb INHALATION ×6 (03:11→23:34)
[2021-12-11] MEDS: haloperidol inj 5 mg/mL INJ 1 mL 1 MG IVP (03:13)
[2021-12-11] MEDS: morphine 4 mg/mL SDV 1 mL 2 MG IVP (04:32)
[2021-12-11 04:39] LABS: Basophils % 0.1 %; Hematocrit 34.1 % (42.0-52.0); Hemoglobin 10.4 g/dL (11.7-16.6); Lymphocytes # 0.2 10^3/uL (0.8-4.8); Lymphocytes % 1.4 %; Mean Corpuscular HGB Conc 30.5 g/dL (30.0-36.0); Mean Corpuscular Hemoglobin 30.1 pg (28.0-34.0); Mean Corpuscular Volume 98.6 fl (80-94); Mean Platelet Volume 11.1 fL (7.4-10.4); Monocytes # 0.3 10^3/uL (0.2-0.9); Monocytes % 2.3 %; Neutrophils # 13.98 10^3/uL (1.8-7.7); Neutrophils % 94.8 %; Nucleated Red Blood Cells % 0 %; Platelet Count 275 10^3/cmm (130-400); Red Blood Count 3.46 10^6/uL (4.1-5.3); Red Cell Distribution Width 15.6 % (12.1-15.1); White Blood Count 14.7 10^3/uL (4.0-10.0)
[2021-12-11 05:00] LABS: Alanine Aminotransferase 10 U/L (0-41); Albumin Level 2.2 g/dL (3.5-5.2); Alkaline Phosphatase 119 IU/L (40-130); Anion Gap 22.1 (5-19); Aspartate Amino Transferase 14 U/L (0-40); Blood Urea Nitrogen 18 mg/dL (8-23); Calcium 8.7 mg/dL (8.5-10.5); Carbon Dioxide 22 mmol/L (22-29); Chloride 101 mmol/L (98-107); Chol HDL Ratio 2.12 mg/dL (1.0-5.00); Cholesterol 55 mg/dL (0-200); Globulin 5.4 g/dL (1.3-4.6); Glucose 181 mg/dL (65-115); HDL Cholesterol 26 mg/dL (60-100); LDL Cholesterol Calculated 23 mg/dL (50-129); Osmolality Calculated 300 mOsm/kg (285-295); Potassium 3.1 mmol/L (3.5-5.1); Sodium 142 mmol/L (136-145); Total Bilirubin 0.6 mg/dL (0.15-1.2); Total Protein 7.6 g/dL (6.6-8.7); Triglycerides 31 mg/dL (0-150); VLDL Cholestrol Calculation 6 mg/dL (0-30)
[2021-12-11] MEDS: piperacillin-tazobactam 3.375 GM in sodium chloride 0.9% (plus) 50 ML IV ×3 (05:20→23:27)
[2021-12-11 05:54] LABS: Slide Review Slide Review Perform
--- NOTE | 2021-12-11 07:05 | PC.NURSE ---
Bedside report completed with PIPE Flanagan. Michael Hu RN present for report. Pt incontinent of urine. Unable to place eng pm shift. Previous cath , on different admission, was inserted by Dr Martinez. He is a patient of Dr Martinez. Family wants pateint to be treated and are considering the possiblily/need for Hospice.
[2021-12-11] MEDS: budesonide 0.5 mg/2 mL Neb INHALATION ×2 (08:09→19:30)
--- NOTE | 2021-12-11 08:51 | PC.NURSE ---
Patient was reported to have previous bedsore from past week this am. Brief was changed and patient was noted to have sacral redness of approximately 4cm x 4cm. Maceration was noted with some tearing of the skin. Site was cleansed with new brief and optifoam bandage was applied. Pillow was placed to reposition client and bed adjusted to 24degrees.
[2021-12-11] MEDS: enoxaparin 80 mg/0.8 mL Syringe 60 MG SUBCUT ×2 (10:37→18:25)
[2021-12-11] MEDS: lanolin oint 7 gm 1 APPLIC TOPICAL (10:38)
[2021-12-11] MEDS: vancomycin 1,250 MG/250 ML PIGGYBACK 250 MG IV (10:38)
[2021-12-11] MEDS: morphine 10 mg/0.5 mL oral liq UD 5 MG PO ×3 (11:42→23:27)
--- NOTE | 2021-12-11 15:50 | PC.NURSE ---
Patient has rested comfortably with no reports of pain. Oral morphine has been prescribed to help with respiratory rate. Oral meds have not been admin today as patient is having difficulty swallowing. Family is waiting to see how the patient is responding to treatment before deciding whether or not to implement comfort measures. Patient remains on Heated High Flow saturation at 94% with RR of 20.
--- NOTE | 2021-12-11 17:23 | USCV_ITS ---
Koby Franz Age: 86 Gender: M : 1935 Exam Date: 12/11/2021 20:38 Ordering Phys: Favio Briones MD Technologist: ANA LAURA Exam Location: [facility] [place] Indication: COVID, hypoxia. prior echo 06/29/21 BP: 136 / 76 HR: 107 Rhythm: Sinus tachycardia Technical Quality: Adequate MEASUREMENTS (Male / Female) Normal Values 2D ECHO LV Diastolic Diameter PLAX 2.7 cm 4.2 - 5.9 / 3.9 - 5.3 cm LV Systolic Diameter PLAX 1.5 cm IVS Diastolic Thickness 1.8 cm 0.6 - 1.0 / 0.6 - 0.9 cm IVS Systolic Thickness 2.0 cm LVPW Diastolic Thickness 1.3 cm 0.6 - 1.0 / 0.6 - 0.9 cm LVPW Systolic Thickness 1.5 cm LVOT Diameter 1.9 cm LV Ejection Fraction 2D Teich 76.6 % LV Ejection Fraction MOD 2C 65.2 % LV Ejection Fraction 2C AL 66.4 % LA Diameter 3.7 cm LA Width 4.1 cm LA Height 5.3 cm RA Width 1.9 cm RA Height 4.6 cm Aorta at Sinotubular Diameter 2.7 cm IVC Diameter 1.0 cm M-MODE Aortic Annulus Diameter 3.1 cm LA Ao Ratio MM 1.3 MV E Point Septal Separation 0.4 cm DOPPLER AV Peak Velocity 191.0 cm/s LVOT Peak Velocity 112.0 cm/s AV Area Cont Eq vti 1.5 cm squared AV Area Cont Eq pk 1.7 cm squared MV Area PHT 2.2 cm squared Mitral E to A Ratio 0.6 MV E' Velocity 37.0 cm/s Mitral E to MV E' Ratio 10.8 Mitral E to LV E' Lateral Ratio 11.8 Mitral E to LV E' Septal Ratio 10.0 TR Peak Velocity 233.0 cm/s TR Peak Gradient 21.7 mmHg TV Peak E Velocity 49.0 cm/s Right Atrial Pressure 10.0 mmHg Pulmonary Artery Systolic Pressu 31.7 mmHg PV Peak Velocity 92.0 cm/s FINDINGS Left Ventricle Normal left ventricular size, systolic function and wall thickness, with no regional wall motion abnormalities. Left ventricular ejection fraction is estimated at 65 %. Sigmoid septum. Grade I diastolic dysfunction (abnormal relaxation filling pattern), normal to mildly elevated filling pressures. Abnormal septal motion. Right Ventricle Normal right ventricular size and systolic function. Right ventricular systolic pressure 24 mmHg. Right Atrium Normal right atrial size. Left Atrium Mildly increased left atrial size. Mitral Valve Mildly thickened mitral valve. No mitral valve stenosis. Trace to mild mitral valve regurgitation. Aortic Valve Mildly thickened and calcified trileaflet aortic valve. No aortic valve stenosis. No aortic valve regurgitation. Tricuspid Valve Structurally normal tricuspid valve. Pulmonic Valve Pulmonic valve not well visualized. No pulmonary valve regurgitation. Pericardium No pericardial effusion. Aorta Normal size aortic root and proximal ascending aorta. IVC Normal IVC dimension with >50% respiratory change of the inferior vena cava. CONCLUSIONS 1. Normal left ventricular size, systolic function and wall thickness, with no regional wall motion abnormalities. Left ventricular ejection fraction is estimated at 65 %. Sigmoid septum. Grade I diastolic dysfunction (abnormal relaxation filling pattern), normal to mildly elevated filling pressures. Abnormal septal motion. 2. Pulmonary artery pressure estimated at 24 mmHg. 3. When compared to previous study dated 06/29/2021, mitral valve regurgitation seems to have decreased. Sugey Montejo MD (Electronically Signed) Final Date: 12 December 2021 10:29 S
[2021-12-11 17:35] LABS: Procalcitonin 0.63 ng/mL (0-0.5)
--- NOTE | 2021-12-11 17:38 | P.PN_ITS ---
Subjective Subjective: Patient seen in ICU lying in bed both son and [id number]-[id number]-rlr present. Patient acting as if he wanted to get out of bed. He does tell me he wants to go home. He denies that he is in any pain. He admits to difficulty breathing. Son and [id number] give history that patient has been found not to be telling the truth. He will say that he cannot walk and then they find him up and about. He will say that he is taking his and inhalers but then tell the family that he is not. He has expressed repeatedly that he just wants to give up. Son and [id number]-xs-dpn understand this and plan to follow his wishes. Vitals/I&O/Wt Last Vital Signs Temp 97.6 F 12/11/21 03:22 Pulse 125 H 12/11/21 16:50 Resp 13 12/11/21 16:50 BP 148/89 12/11/21 16:50 Pulse Ox 92 12/11/21 16:50 O2 Del Method 12/11/21 15:20 O2 Flow Rate 35 12/11/21 15:32 FiO2 40 12/11/21 15:32 12/11/21 12/11/21 12/11/21 06:59 14:59 22:59 Intake Total 550 / 900 300.000 / 300.000 Balance 550 / 900 300.000 / 300.000 Weight last 48 hrs Weight 57.606 kg Weight 57.606 kg Physical Exam Narrative: Thin cachectic appearing white male with mild to moderate distress due to shortness of breath. Neurologic. Patient is alert and oriented no focal deficits. Heart tachycardic normal S1-S2 no obvious murmurs auscultated lungs: Diminished throughout bilateral bases no wheezes rales or rhonchi auscultated Abdomen: Soft nontender nondistended positive bowel sounds Extremities no edema thin no muscle mass. Data : 12/11/21 04:12 12/11/21 04:12 Micro: Microbiology 12/10/21 22:00 MRSA Culture - Final Nose 12/10/21 19:06 Blood Culture - Preliminary Blood SPECIMEN COLLECTED 12/10/21 19:05 Blood Culture - Preliminary Blood SPECIMEN COLLECTED A&P Assessment and plan (1) Respiratory failure with hypoxia: Respiratory failure with hypoxia's initially felt to be due to COVID-pneumonia. However CT of chest shows consolidation in the lower and mid bilateral lower lobes. Son states he had pneumonia a few weeks to a month ago. The CT of chest also shows new nodules concerning for metastatic disease? Status: Acute (2) HTN (hypertension): Low-dose Norvasc per home regimen Status: Acute (3) Hypothyroidism, unspecified: Low-dose replacement with levothyroxine 25 mcg. Status: Acute (4) Anxiety and depression: Patient on Paxil. This could possibly be increased or changed. Status: Acute (5) Malignant neoplasm of prostate metastatic to bone: Controlled with fentanyl patch and oxycodone 10 mg 4 times daily Status: Acute (6) COVID-19: Patient receiving remdesivir and Decadron. Status: Acute (7) Goals of care, counseling/discussion: We will continue daily assessments. Patient appears very uncomfortable and wanting to go home we will further discuss our options tomorrow. Status: Acute Plan Patient unable to swallow at this time. Will use IV and liquid meds is much as possible. I started Roxanol 5 mg p.o. 6 hours scheduled. We will add Ativan crushed tablet 0.5 mg 3 times daily. Analgesia: fentanyl patch roxanol Glycemic control: Not needed Nutrition: Full liquid if toleraqted CODE STATUS: DNR/DNI PUD prophylaxis: Protonix DVT prophylaxis: Full dose Lovenox will suffice for DVT prophylaxis This documentation was created by [employer] staff counsel software. Every effort was made to ensure accuracy of staff counsel. Any obvious errors or omissions should be clarified with the author of the document. Goals of care discussion performed by previous physician is maintained in this doucment: Goals of care discussed in detail with patient's son Mr. Rosas and patient's owvxqxzr-[id number] Mr. Rosas's in person. As per them patient has a long medical list of problems and since his recent surgeries secondary to bony metastasis he has given up and does not want any aggressive measures. Mr. Rosas wants him to be DNR/DNI. They want to treat him medically for now but does not want to go very aggressive with his care and if he does not show any improvement within a few day they want to consider comfort measures. They understand comfort measures would mean that he would eventually but they want to make sure he remains comfortable during that process. Attestations Medical Necessity Statement*: Patient with acute respiratory failure and unable to maintain saturations without heated high flow. This is best given in our ICU setting. Patient will be monitored closely and treated. 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
--- NOTE | 2021-12-11 17:54 | PC.NURSE ---
Covid Positive Patient remains dependent on HHF at 35L 40% with sp02 92-94%. Oral morphine is scheduled to help with Hyperventilation, patient has requested more. PO Ativan has been scheduled for anxiety W/ plans to crush and admin with fluid as patient is unable to swallow pills at this time but tolerates small amounts of liquids. Rhonchi heard in all lung sounds. Sacral area has redness with maceration, optifoam applied along with frequent turns and brief changes. New right forearm 20g IV started this afternoon. Prior AC line was found to be dislodged during care. Patient is Alert but not fully oriented to time or place. Family plans to assess situation tomorrow to decide on whether or not comfort measures should be put in place. Frequent safety and comfort rounds continue. Orders and/or nursing care completed as indicated. Patient monitored for response to intervention and treatment(s). Education provided includes Covid disease process, medication goals with morphine and support systems at Discharge . Patient and/or community health program representative acknowledged verbally their options but feels at this point it is best for the patient to remain in the ICU. Will continue to monitor.
[2021-12-11] MEDS: dexamethasone 4 mg/mL INJ 6 MG IVP (18:24)
[2021-12-11] MEDS: LORazepam 0.5 mg Tablet PO (18:24)
[2021-12-11] MEDS: ascorbic acid 500 mg Tablet PO (18:24)
[2021-12-11] MEDS: remdesivir 100 MG in sodium chloride 0.9% (100 ml) 80 ML IV (18:25)
--- NOTE | 2021-12-11 19:09 | PC.NURSE ---
Patient has small skin tear on upper right forearm from IV dislodgment. Site was cleansed and bandage applied.
--- NOTE | 2021-12-11 19:10 | PC.NURSE ---
Bedside report completed with PIPE Rodriguez and PIPE Giordano.
[2021-12-11] MEDS: vancomycin 1,250 MG/250 ML PIGGYBACK 200 MG IV (20:05)
[2021-12-11] MEDS: amlodipine 5 mg Tablet 2.5 MG PO (20:06)
[2021-12-11] MEDS: benzonatate 100 mg Capsule PO (20:07)
[2021-12-12] VITALS (90 sets, daily range): BP systolic 121–175; BP diastolic 70–103; PULSE 46–122; RESP 0–34; TEMP 36.5–36.8; O2SAT 58–97
[2021-12-12] MEDS: ipratropium-albuterol 3 mL Neb INHALATION ×4 (03:13→16:21)
[2021-12-12 04:09] LABS: Basophils # 0.1 10^3/uL (0.0-0.1); Basophils % 0.6 %; Hematocrit 33.2 % (42.0-52.0); Hemoglobin 10.2 g/dL (11.7-16.6); Lymphocytes # 0.2 10^3/uL (0.8-4.8); Lymphocytes % 0.9 %; Mean Corpuscular HGB Conc 30.7 g/dL (30.0-36.0); Mean Corpuscular Hemoglobin 29.7 pg (28.0-34.0); Mean Corpuscular Volume 96.5 fl (80-94); Mean Platelet Volume 10.9 fL (7.4-10.4); Monocytes # 0.3 10^3/uL (0.2-0.9); Monocytes % 1.4 %; Neutrophils # 21.43 10^3/uL (1.8-7.7); Nucleated Red Blood Cells % 0 %; Platelet Count 326 10^3/cmm (130-400); Red Blood Count 3.44 10^6/uL (4.1-5.3); Red Cell Distribution Width 15.7 % (12.1-15.1); White Blood Count 22.3 10^3/uL (4.0-10.0)
[2021-12-12 04:43] LABS: Magnesium 2.4 mg/dL (1.7-2.3); Phosphorus 5.1 mg/dL (2.5-4.5)
[2021-12-12] MEDS: levoFLOXacin 500 mg Tablet PO (05:18)
[2021-12-12 05:23] LABS: Slide Review Slide Review Perform
[2021-12-12] MEDS: piperacillin-tazobactam 3.375 GM in sodium chloride 0.9% (plus) 50 ML IV ×2 (05:33→13:20)
[2021-12-12] MEDS: morphine 10 mg/0.5 mL oral liq UD 5 MG PO (05:33)
[2021-12-12 07:31] LABS: Anion Gap 26.9 (5-19); Blood Urea Nitrogen 40 mg/dL (8-23); Calcium 7.5 mg/dL (8.5-10.5); Carbon Dioxide 20 mmol/L (22-29); Chloride 106 mmol/L (98-107); Glucose 158 mg/dL (65-115); Osmolality Calculated 323 mOsm/kg (285-295); Sodium 150 mmol/L (136-145)
[2021-12-12 07:32] LABS: Vancomycin Trough 19.6 ug/mL (10-15)
[2021-12-12 07:44] LABS: Potassium 2.9 mmol/L (3.5-5.1)
[2021-12-12] MEDS: levothyroxine 25 mcg Tablet PO (08:24)
[2021-12-12] MEDS: ascorbic acid 500 mg Tablet PO (08:25)
[2021-12-12] MEDS: LORazepam 0.5 mg Tablet PO ×2 (08:27→15:21)
[2021-12-12] MEDS: enoxaparin 80 mg/0.8 mL Syringe 60 MG SUBCUT (08:37)
[2021-12-12] MEDS: pantoprazole 40 mg SDV IVP (08:37)
[2021-12-12] MEDS: budesonide 0.5 mg/2 mL Neb INHALATION (08:45)
[2021-12-12] MEDS: lidocaine 1% 5 ML in potassium chloride premix 100 ML 25 ML IV ×2 (09:04→13:12)
--- NOTE | 2021-12-12 10:15 | PC.NURSE ---
Family met with HCP and Nurse this AM. They have decided that comfort measures will be best moving forward. Plan of care today is to allow family to speak with patient before transitioning to nasal cannula and possibly sending home with hospice care tomorrow. Increasing Roxanol to 10mg q6hr. Client has difficulty swallowing, Sp02 drops into low 80s when HHF is pulled off by client. Client's confusion is increasing from yesterday(asking for dishes from home kitchen).
[2021-12-12] MEDS: morphine 10 mg/0.5 mL oral liq UD PO ×3 (10:25→21:32)
--- NOTE | 2021-12-12 10:39 | PC.CHAP ---
Pastoral Care Encounter/Spiritual Assessment Type of Contact [] Declined route aide visit [] Patient/Family/Request visit [] Outpatient visit [] Follow-up visit [] Physician referral [] Code/Alert [x] Routine visit [] Staff referral [] Actively dying [] Patient sleeping [x] Family support [] [] Out of room [] Palliative care [] [] Receiving care in room [] Pre-surgical visit [] Trauma [] Long length of stay [x] ICU visit [] Other: Relational/Emotional Strength [] Patient feels connected with others/family/visitors/staff [] Distress [] Loneliness/isolation [] Abandonment Spirituality of Patient [] Person of Cierra [] Attends Zoroastrianism of their Cierra [x] Believes in Prayer [] Reads Bible or Lutheran materials [] There are Spiritual issues to be addressed Utility Accounts Director Interventions [x] Prayer [x] Active listening [x] Non-anxious presence [x] Spiritual/emotional support [] Crisis/trauma care [] Spiritual counseling [] Bereavement support [] Provided bereavement packet [] Provided Bible/devotional materials [] Provided toy/stuffed animal, coloring book to patient or family member [] Provided Communion [] Anointing/Jackson [] Salvation [x] Completed spiritual assessment [] Other: Impact on Illness or Injury [] Angry [] Fearful [] Anxious [] Often cries [] Exhaustion [] Unable to work [] Unable to attend taoism [] Unable to walk/stand [] Unable to read [] Unable to drive [] Unable to eat/drink [] Unable to sleep [] Unable to be with family [] Patient intubated [] Other: Summary prayed with PT for Gods will... spoke to hospice doctor... PT placed on comfort care.... family being notified Time spent with patient 15 min
[2021-12-12] MEDS: vancomycin 750 MG in sodium chloride 0.9% 250 ML 250 MG IV (13:20)
[2021-12-12] MEDS: dexamethasone 4 mg/mL INJ 6 MG IVP (16:32)
[2021-12-12] MEDS: fentaNYL 25 mcg Patch 1 PATCH TRANSDERMA (21:11)
--- NOTE | 2021-12-12 21:53 | PM.DCS ---
Discharge Providers Date of Admission: 12/10/21 17:22 Date of Discharge: 12/12/2021 Time of 2348 Attending Provider at Admission: Christine Wright MD Attending Provider at Discharge: Isiah De Jesus DO Primary Care Provider: Greg Mata MD Diagnoses at Discharge Discharge Diagnosis (1) Respiratory failure with hypoxia: Status: Acute (2) HTN (hypertension): Status: Acute (3) Hypothyroidism, unspecified: Status: Acute (4) Anxiety and depression: Status: Acute (5) Malignant neoplasm of prostate metastatic to bone: Status: Acute (6) COVID-19: Status: Acute (7) Goals of care, counseling/discussion: Status: Acute Reason for Visit Reason for Visit: RESP DISTRESS; AMS Hospital Course Hospital Course Patient was admitted to the ICU and placed on BiPAP. Patient was quite ill. Family understood patient's cancer prognosis. They wanted treatment but not too aggressive. They chose no resuscitation. During hospitalization no escalation of care was given. Unfortunately the patient did not progress and respond to antibiotics. She has not was made to Treatment of current illness and provide comfort measures. The patient comfortably late on the night of the at 2348. Physical Exam Narrative: Thin cachectic appearing white male with mild to moderate distress due to shortness of breath. He was pale turning ashen.. Neurologic. Patient is alert and oriented no focal deficits. Heart tachycardic normal S1-S2 no obvious murmurs auscultated lungs: Severely diminished throughout Abdomen: Soft nontender nondistended positive bowel sounds Extremities no edema thin no muscle mass. Discharge Data Studies Completed and Pending Completed Studies During Hospitalization Category Date Time Status CTA chest [CT angio chest PE protcl [id number]] Stat Cat Scan 12/10/21 16:44 Completed XR chest 1V portable [id number] Stat Exams 12/10/21 14:51 Completed CV. echo complete* [id number] Routine Ultrasound 12/11/21 17:23 Completed Radiology Impressions Chest X-Ray 12/10/21 14:51 IMPRESSION: Interval worsening of bilateral patchy opacities and left-sided pleural thickening. See discussion above. Chest CTA 12/10/21 16:44 IMPRESSION: 1. Comparison CT 11/21/2021. No acute PE. 2. Interval worsening of patchy consolidations and multiple new areas of airspace consolidations suspicious for multifocal pneumonia. 3. New multiple small pulmonary nodular densities up to 7 mm which may represent metastatic disease. Infectious/inflammatory disease less likely. 4. New small left pleural effusion. Interval resolution of left pneumothorax. 5. Coronary calcification and minimal ascending aortic prominence, stable. 6. Osseous osteoblastic metastases as described. Laboratory Results WBC 22.3 10^3/uL (4.0-10.0) H 12/12/21 03:58 RBC 3.44 10^6/uL (4.1-5.3) L 12/12/21 03:58 Hgb 10.2 g/dL (11.7-16.6) L 12/12/21 03:58 Hct 33.2 % (42.0-52.0) L 12/12/21 03:58 MCV 96.5 fl (80-94) H 12/12/21 03:58 MCH 29.7 pg (28.0-34.0) 12/12/21 03:58 MCHC 30.7 g/dL (30.0-36.0) 12/12/21 03:58 RDW 15.7 % (12.1-15.1) H 12/12/21 03:58 Plt Count 326 10^3/cmm (130-400) 12/12/21 03:58 MPV 10.9 fL (7.4-10.4) H 12/12/21 03:58 Neut % (Auto) 96.0 % 12/12/21 03:58 Lymph % (Auto) 0.9 % 12/12/21 03:58 [place] % (Auto) 1.4 % 12/12/21 03:58 Eos % (Auto) 0.0 % 12/12/21 03:58 Baso % (Auto) 0.6 % 12/12/21 03:58 Neut # (Auto) 21.43 10^3/uL (1.8-7.7) H 12/12/21 03:58 Lymph # (Auto) 0.2 10^3/uL (0.8-4.8) L 12/12/21 03:58 [place] # (Auto) 0.3 10^3/uL (0.2-0.9) 12/12/21 03:58 Eos # (Auto) 0.0 10^3/uL (0.0-0.8) 12/12/21 03:58 Baso # (Auto) 0.1 10^3/uL (0.0-0.1) 12/12/21 03:58 Nucleated RBC % (auto) 0 % 12/12/21 03:58 Nucleated RBCs # 0.0 /100WBC 12/12/21 03:58 D-Dimer 3.79 ug/mIFEU (0-0.59) H 12/10/21 14:40 Specimen Type Arterial 12/10/21 17:58 Sample Site Radial, right 12/10/21 17:58 ABG pH 7.43 (7.35-7.45) 12/10/21 17:58 ABG pCO2 38.4 mmHg (35-45) 12/10/21 17:58 ABG pO2 93.6 mmHg (80.0-100.0) 12/10/21 17:58 ABG HCO3 25.2 mmol/L (22-26) 12/10/21 17:58 ABG O2 Saturation 97.7 12/10/21 17:58 ABG Base Excess 0.9 mmol/L (-2.0-2.0) 12/10/21 17:58 Nahum Test Pos 12/10/21 17:58 A-a O2 Gradient 27.7 mmHg (5-10) H 12/10/21 17:58 Hematocrit 30.7 % (42-52) L 12/10/21 17:58 Hgb O2 Saturation 96.2 % (95-100) 12/10/21 17:58 Carboxyhemoglobin 1.1 %THgb (0.4-20.1) 12/10/21 17:58 Methemoglobin 0.5 % (0.4-1.5) 12/10/21 17:58 Total Hemoglobin 10.0 g/dL (14-18) L 12/10/21 17:58 Sodium 141.0 mmol/L (131-143) 12/10/21 17:58 Potassium 3.4 mmol/L (3.5-5.0) L 12/10/21 17:58 Glucose 127.0 mg/dL (70-115) H 12/10/21 17:58 Ionized Calcium 1.2 mmol/L (1.1-1.4) 12/10/21 17:58 O2 Delivery Device Hag 12/10/21 17:58 O2 Liters/Min 40.0 % 12/10/21 17:58 FiO2 50.0 % 12/10/21 17:58 Certified Endoscopy Technician ID Ck 12/10/21 17:58 Sodium 150 mmol/L (136-145) H 12/12/21 03:52 Potassium 2.9 mmol/L (3.5-5.1) L 12/12/21 03:52 Chloride 106 mmol/L (98-107) 12/12/21 03:52 Carbon Dioxide 20 mmol/L (22-29) L 12/12/21 03:52 Anion Gap 26.9 (5-19) H 12/12/21 03:52 BUN 40 mg/dL (8-23) H 12/12/21 03:52 Creatinine 0.8 mg/dL (0.7-1.2) 12/12/21 03:52 GFR Calculation Not Reportable 12/12/21 03:52 Glucose 158 mg/dL (65-115) H 12/12/21 03:52 Calculated Osmolality 323 mOsm/kg (285-295) H 12/12/21 03:52 Lactic Acid 1.8 mmol/L (0.5-2.2) 12/10/21 19:06 Calcium 7.5 mg/dL (8.5-10.5) L 12/12/21 03:52 Phosphorus 5.1 mg/dL (2.5-4.5) H 12/12/21 03:58 Magnesium 2.4 mg/dL (1.7-2.3) H 12/12/21 03:58 Iron 11 ug/dL (59-158) L 12/10/21 14:40 TIBC 138 mcg/dl 12/10/21 14:40 % Saturation 7.9 % (20-50) L 12/10/21 14:40 Unsat Iron Binding 127 ug/dL (112-347) 12/10/21 14:40 Total Bilirubin 0.6 mg/dL (0.15-1.2) 12/11/21 04:12 AST 14 U/L (0-40) 12/11/21 04:12 ALT 10 U/L (0-41) 12/11/21 04:12 Alkaline Phosphatase 119 IU/L (40-130) 12/11/21 04:12 Lactate Dehydrogenase 183 U/L (135-225) 12/10/21 14:40 Creatine Kinase 25 U/L (39-308) L 12/10/21 14:40 C-Reactive Protein 298.2 mg/L (0.0-4.9) H 12/10/21 14:40 NT-Pro-B Natriuret Pep 3074 pg/mL (0-450) H 12/10/21 14:40 Total Protein 7.6 g/dL (6.6-8.7) 12/11/21 04:12 Albumin 2.2 g/dL (3.5-5.2) L 12/11/21 04:12 Globulin 5.4 g/dL (1.3-4.6) H 12/11/21 04:12 Triglycerides 31 mg/dL (0-150) 12/11/21 04:12 Cholesterol 55 mg/dL (0-200) 12/11/21 04:12 LDL Cholesterol, Calc 23 mg/dL (50-129) L 12/11/21 04:12 Total VLDL Cholesterol 6 mg/dL (0-30) 12/11/21 04:12 HDL Cholesterol 26 mg/dL (60-100) L 12/11/21 04:12 Cholesterol/HDL Ratio 2.12 mg/dL (1.0-5.00) 12/11/21 04:12 Procalcitonin 0.63 ng/mL (0-0.5) H 12/11/21 16:28 TSH 2.42 uIU/mL (0.27-4.20) 12/10/21 14:40 Vancomycin Trough 19.6 ug/mL (10-15) H 12/12/21 06:56 Influenza Type A Ag Negative (Negative) 12/10/21 22:00 Influenza Type B Ag Negative (Negative) 12/10/21 22:00 Vitals Last Vital Signs Temp 97.7 F 12/12/21 09:00 Pulse 0 L 12/13/21 00:00 Resp 0 L 12/13/21 00:00 BP 141/81 12/13/21 00:00 Pulse Ox 58 L 12/12/21 23:30 O2 Del Method 12/12/21 16:00 O2 Flow Rate 4 12/12/21 20:00 FiO2 40 12/12/21 16:00 Discharge Plan Discharge Patient Disposition: Condition: Stable Discharge Attestations Time Spent in Discharge Care*: greater than 30 min Quality Metrics Clinical Quality Measures [ No reported AMI, CVA or VTE this stay] Coding Level of Care Code Acute Chg FW DC note Diagnoses Respiratory failure with hypoxia J96.91 HTN (hypertension) I10 Hypothyroidism, unspecified E03.9 Anxiety and depression F41.9; F32.A Malignant neoplasm of prostate metastatic to bone C61; C79.51 COVID-19 U07.1 Goals of care, counseling/discussion Z71.89
[2021-12-13] VITALS: BP 141/81; PULSE 0; RESP 0
--- NOTE | 2021-12-13 00:16 | PC.NURSE ---
Patient started desaturating and his HR dropped. Went into room found patient no longer breathing. Sinus bradycardia. Stood there and held his hand for a minute. Patient had no heart sounds. Called [facility] [phone]. Notified Ralph, son, that patient had . They said they would be up to view the body. Notified Dr. Portillo that patient has passed.
--- NOTE | 2021-12-13 01:10 | PC.NURSE ---
MTS, transit operations supervisor, and home notified of patient's .
--- NOTE | 2021-12-13 04:34 | PC.NURSE ---
Patient transferred to [facility] at 0200. All lines removed and post mortem care performed. Patients family stated that he did not wish to be embalmed.
--- NOTE | 2021-12-16 22:02 | PM.DCS ---
Discharge Providers Date of Admission: 12/10/21 17:22 Date of Discharge: December 16, 2021 Attending Provider at Admission: Christine Wright MD Attending Provider at Discharge: Isiah De Jesus DO Primary Care Provider: Greg Mata MD Diagnoses at Discharge Discharge Diagnosis (1) Respiratory failure with hypoxia: Status: Acute (2) HTN (hypertension): Status: Acute (3) Hypothyroidism, unspecified: Status: Acute (4) Anxiety and depression: Status: Acute (5) Malignant neoplasm of prostate metastatic to bone: Status: Acute (6) COVID-19: Status: Acute (7) Goals of care, counseling/discussion: Status: Acute Reason for Visit Reason for Visit: RESP DISTRESS; AMS Hospital Course Hospital Course Patient was admitted to the ICU and placed on BiPAP. Patient was quite ill. Family understood patient's cancer prognosis. They wanted treatment but not too aggressive. They chose no resuscitation. During hospitalization no escalation of care was given. Unfortunately the patient did not progress and respond to antibiotics. She has not was made to Treatment of current illness and provide comfort measures. The patient comfortably late on the night of the at 2348. Discharge Data Studies Completed and Pending Completed Studies During Hospitalization Category Date Time Status CTA chest [CT angio chest PE protcl [id number]] Stat Cat Scan 12/10/21 16:44 Completed XR chest 1V portable [id number] Stat Exams 12/10/21 14:51 Completed CV. echo complete* [id number] Routine Ultrasound 12/11/21 17:23 Completed Radiology Impressions Chest X-Ray 12/10/21 14:51 IMPRESSION: Interval worsening of bilateral patchy opacities and left-sided pleural thickening. See discussion above. Chest CTA 12/10/21 16:44 IMPRESSION: 1. Comparison CT 11/21/2021. No acute PE. 2. Interval worsening of patchy consolidations and multiple new areas of airspace consolidations suspicious for multifocal pneumonia. 3. New multiple small pulmonary nodular densities up to 7 mm which may represent metastatic disease. Infectious/inflammatory disease less likely. 4. New small left pleural effusion. Interval resolution of left pneumothorax. 5. Coronary calcification and minimal ascending aortic prominence, stable. 6. Osseous osteoblastic metastases as described. Laboratory Results WBC 22.3 10^3/uL (4.0-10.0) H 12/12/21 03:58 RBC 3.44 10^6/uL (4.1-5.3) L 12/12/21 03:58 Hgb 10.2 g/dL (11.7-16.6) L 12/12/21 03:58 Hct 33.2 % (42.0-52.0) L 12/12/21 03:58 MCV 96.5 fl (80-94) H 12/12/21 03:58 MCH 29.7 pg (28.0-34.0) 12/12/21 03:58 MCHC 30.7 g/dL (30.0-36.0) 12/12/21 03:58 RDW 15.7 % (12.1-15.1) H 12/12/21 03:58 Plt Count 326 10^3/cmm (130-400) 12/12/21 03:58 MPV 10.9 fL (7.4-10.4) H 12/12/21 03:58 Neut % (Auto) 96.0 % 12/12/21 03:58 Lymph % (Auto) 0.9 % 12/12/21 03:58 [place] % (Auto) 1.4 % 12/12/21 03:58 Eos % (Auto) 0.0 % 12/12/21 03:58 Baso % (Auto) 0.6 % 12/12/21 03:58 Neut # (Auto) 21.43 10^3/uL (1.8-7.7) H 12/12/21 03:58 Lymph # (Auto) 0.2 10^3/uL (0.8-4.8) L 12/12/21 03:58 [place] # (Auto) 0.3 10^3/uL (0.2-0.9) 12/12/21 03:58 Eos # (Auto) 0.0 10^3/uL (0.0-0.8) 12/12/21 03:58 Baso # (Auto) 0.1 10^3/uL (0.0-0.1) 12/12/21 03:58 Nucleated RBC % (auto) 0 % 12/12/21 03:58 Nucleated RBCs # 0.0 /100WBC 12/12/21 03:58 D-Dimer 3.79 ug/mIFEU (0-0.59) H 12/10/21 14:40 Specimen Type Arterial 12/10/21 17:58 Sample Site Radial, right 12/10/21 17:58 ABG pH 7.43 (7.35-7.45) 12/10/21 17:58 ABG pCO2 38.4 mmHg (35-45) 12/10/21 17:58 ABG pO2 93.6 mmHg (80.0-100.0) 12/10/21 17:58 ABG HCO3 25.2 mmol/L (22-26) 12/10/21 17:58 ABG O2 Saturation 97.7 12/10/21 17:58 ABG Base Excess 0.9 mmol/L (-2.0-2.0) 12/10/21 17:58 Nahum Test Pos 12/10/21 17:58 A-a O2 Gradient 27.7 mmHg (5-10) H 12/10/21 17:58 Hematocrit 30.7 % (42-52) L 12/10/21 17:58 Hgb O2 Saturation 96.2 % (95-100) 12/10/21 17:58 Carboxyhemoglobin 1.1 %THgb (0.4-20.1) 12/10/21 17:58 Methemoglobin 0.5 % (0.4-1.5) 12/10/21 17:58 Total Hemoglobin 10.0 g/dL (14-18) L 12/10/21 17:58 Sodium 141.0 mmol/L (131-143) 12/10/21 17:58 Potassium 3.4 mmol/L (3.5-5.0) L 12/10/21 17:58 Glucose 127.0 mg/dL (70-115) H 12/10/21 17:58 Ionized Calcium 1.2 mmol/L (1.1-1.4) 12/10/21 17:58 O2 Delivery Device Hag 12/10/21 17:58 O2 Liters/Min 40.0 % 12/10/21 17:58 FiO2 50.0 % 12/10/21 17:58 Fixed Assets Accountant ID Ck 12/10/21 17:58 Sodium 150 mmol/L (136-145) H 12/12/21 03:52 Potassium 2.9 mmol/L (3.5-5.1) L 12/12/21 03:52 Chloride 106 mmol/L (98-107) 12/12/21 03:52 Carbon Dioxide 20 mmol/L (22-29) L 12/12/21 03:52 Anion Gap 26.9 (5-19) H 12/12/21 03:52 BUN 40 mg/dL (8-23) H 12/12/21 03:52 Creatinine 0.8 mg/dL (0.7-1.2) 12/12/21 03:52 GFR Calculation Not Reportable 12/12/21 03:52 Glucose 158 mg/dL (65-115) H 12/12/21 03:52 Calculated Osmolality 323 mOsm/kg (285-295) H 12/12/21 03:52 Lactic Acid 1.8 mmol/L (0.5-2.2) 12/10/21 19:06 Calcium 7.5 mg/dL (8.5-10.5) L 12/12/21 03:52 Phosphorus 5.1 mg/dL (2.5-4.5) H 12/12/21 03:58 Magnesium 2.4 mg/dL (1.7-2.3) H 12/12/21 03:58 Iron 11 ug/dL (59-158) L 12/10/21 14:40 TIBC 138 mcg/dl 12/10/21 14:40 % Saturation 7.9 % (20-50) L 12/10/21 14:40 Unsat Iron Binding 127 ug/dL (112-347) 12/10/21 14:40 Total Bilirubin 0.6 mg/dL (0.15-1.2) 12/11/21 04:12 AST 14 U/L (0-40) 12/11/21 04:12 ALT 10 U/L (0-41) 12/11/21 04:12 Alkaline Phosphatase 119 IU/L (40-130) 12/11/21 04:12 Lactate Dehydrogenase 183 U/L (135-225) 12/10/21 14:40 Creatine Kinase 25 U/L (39-308) L 12/10/21 14:40 C-Reactive Protein 298.2 mg/L (0.0-4.9) H 12/10/21 14:40 NT-Pro-B Natriuret Pep 3074 pg/mL (0-450) H 12/10/21 14:40 Total Protein 7.6 g/dL (6.6-8.7) 12/11/21 04:12 Albumin 2.2 g/dL (3.5-5.2) L 12/11/21 04:12 Globulin 5.4 g/dL (1.3-4.6) H 12/11/21 04:12 Triglycerides 31 mg/dL (0-150) 12/11/21 04:12 Cholesterol 55 mg/dL (0-200) 12/11/21 04:12 LDL Cholesterol, Calc 23 mg/dL (50-129) L 12/11/21 04:12 Total VLDL Cholesterol 6 mg/dL (0-30) 12/11/21 04:12 HDL Cholesterol 26 mg/dL (60-100) L 12/11/21 04:12 Cholesterol/HDL Ratio 2.12 mg/dL (1.0-5.00) 12/11/21 04:12 Procalcitonin 0.63 ng/mL (0-0.5) H 12/11/21 16:28 TSH 2.42 uIU/mL (0.27-4.20) 12/10/21 14:40 Vancomycin Trough 19.6 ug/mL (10-15) H 12/12/21 06:56 Influenza Type A Ag Negative (Negative) 12/10/21 22:00 Influenza Type B Ag Negative (Negative) 12/10/21 22:00 Vitals Last Vital Signs Temp 97.7 F 12/12/21 09:00 Pulse 0 L 12/13/21 00:00 Resp 0 L 12/13/21 00:00 BP 141/81 12/13/21 00:00 Pulse Ox 58 L 12/12/21 23:30 O2 Del Method 12/12/21 16:00 O2 Flow Rate 4 12/12/21 20:00 FiO2 40 12/12/21 16:00 Discharge Plan Discharge Patient Disposition: Condition: Stable Discharge Attestations Time Spent in Discharge Care*: greater than 30 min Quality Metrics Clinical Quality Measures [ No reported AMI, CVA or VTE this stay] Coding Level of Care Code Acute Chg FW DC note Diagnoses Respiratory failure with hypoxia J96.91 HTN (hypertension) I10 Hypothyroidism, unspecified E03.9 Anxiety and depression F41.9; F32.A Malignant neoplasm of prostate metastatic to bone C61; C79.51 COVID-19 U07.1 Goals of care, counseling/discussion Z71.89
== END 2021-12-13 02:00 | disposition expired | DRG 177 ==
LOC: ER 16:57 → ICU 17:23
PROVIDERS: Student in an Organized Health Care Education/Training Program; Admitting Provider Student in an Organized Health Care Education/Training Program; Emergency Provider Family Medicine; PCP Internal Medicine Medical Oncology; Visit Provider Internal Medicine
DX: U07.1 COVID-19 (principal); J12.82 Pneumonia due to coronavirus disease 2019; J96.21 Acute and chronic respiratory failure with hypoxia; C79.51 Secondary malignant neoplasm of bone; R64 Cachexia; Z68.1 Body mass index [BMI] 19.9 or less, adult; C61 Malignant neoplasm of prostate; I10 Essential (primary) hypertension; E03.9 Hypothyroidism, unspecified; E78.5 Hyperlipidemia, unspecified; F41.9 Anxiety disorder, unspecified; R79.1 Abnormal coagulation profile; F32.A Depression, unspecified; Z87.891 Personal history of nicotine dependence; Z85.820 Personal history of malignant melanoma of skin; Z96.642 Presence of left artificial hip joint; Z79.891 Long term (current) use of opiate analgesic
CPT/HCPCS: 36415; 36600; 71045; 71275; 80048; 80051; 80053; 80061; 80202; 82330; 82550; 82805; 83540; 83550; 83605; 83615; 83735; 83880; 84100; 84145; 84443; 85025; 85378; 86140; 87040; 87641; 87804; 93005; 93306; 94640; 96365; 96372; 99285; C9113; J1100; J1630; J1650; J1940; J2270; J2543; J3370; J3480; J7050; J7626; Q9967